=== PATIENT | female | born 1960 | race Caucasian/White ===

== ENCOUNTER 2020-08-07 14:37 | Outpatient (CLI) | payer MEDICARE, SELFPAY ==
[2020-08-07] VITALS (7 sets, daily range): PULSE 78–114; O2SAT 86–94
--- NOTE | 2020-08-07 16:10 | HOMEO2EVAL ---
Home Oxygen Evaluation RC: Home Oxygen (O2) Evaluation Start: 08/07/20 16:04 Freq: ONCE Status: Active Protocol: RPE Activity Type Activity Date Activity User E-Sign Co-Sign Detail Recorded Client Recorded Date Recorded By Document 08/07/20 15:30 DEJA [email or web address] 08/07/20 16:10 DEJA Document 08/07/20 15:33 DEJA [email or web address] 08/07/20 16:10 DEJA Document 08/07/20 15:35 DEJA [email or web address] 08/07/20 16:10 DEJA Document 08/07/20 15:36 DEJA [email or web address] 08/07/20 16:10 DEJA Document 08/07/20 15:38 DEJA [email or web address] 08/07/20 16:10 DEJA Document 08/07/20 15:40 DEJA [email or web address] 08/07/20 16:10 DEJA Document 08/07/20 15:50 DEJA [email or web address] 08/07/20 16:10 DEJA 08/07/20 08/07/20 08/07/20 15:30 15:33 15:35 Home O2 Evaluation Test Phase Resting Resting Resting Oxygen Delivery Room Air Nasal Cannula Nasal Cannula Oxygen Flow Rate (L/min) 1 2 Pulse Oximetry (90-100 %) 87 L 87 L 93 Pulse Rate (60-100 beats/min) 86 Ambulation Distance (feet) Home Oxygen Evaluation Comments Treatment Charges O2 Evaluation 08/07/20 08/07/20 08/07/20 15:36 15:38 15:40 Home O2 Evaluation Test Phase Exercise Exercise Exercise Oxygen Delivery Nasal Cannula Nasal Cannula Nasal Cannula Oxygen Flow Rate (L/min) 2 3 4 Pulse Oximetry (90-100 %) 86 L 87 L 89 L Pulse Rate (60-100 beats/min) 110 H 114 H Ambulation Distance (feet) 600 Home Oxygen Evaluation Comments Treatment Charges 08/07/20 15:50 Home O2 Evaluation Test Phase Resting Oxygen Delivery Nasal Cannula Oxygen Flow Rate (L/min) 2 Pulse Oximetry (90-100 %) 94 Pulse Rate (60-100 beats/min) 78 Ambulation Distance (feet) Home Oxygen Evaluation Comments PT REQUIRES 2L AT REST AND 4L WITH ACTIVITY Treatment Charges
--- NOTE | 2020-08-16 14:55 | WPDPFTINT ---
PFT Interpretation PFT Interpretation: DOS: 08/07/2020 REQUESTING: Gayle Reyna NP REASON FOR TESTING: COPD PULMONARY FUNCTION TESTS Results are reproducible and reliable. Spirometry: FEV1 extremely decreased 43% predicted, 1.06 L. FVC is normal 82% predicted. Decreased FEV1% consistent with airflow obstruction. No change after bronchodilator administration Lung volumes: TLC 124%, mild hyperinflation. increased RV 193% consistent with severe air trapping. Increased airway resistance. Diffusion: DLCO 41% severely reduced. Flow volume loop: Scooping of the expiratory limb IMPRESSION: Extremely severe obstructive ventilatory impairment with mild hyperinflation, severe air trapping, increased airway resistance and severe decrease in diffusion. No change with bronchodilator. This pattern may be consistent with emphysema. Lack of response to bronchodilator should not preclude use if clinically indicated. Narcisa Davidson MD
== END 2020-08-07 14:38 | disposition home or self-care (01) ==
PROVIDERS: PCP Internal Medicine; Visit Provider Nurse Practitioner
DX: J44.9 Chronic obstructive pulmonary disease, unspecified (principal)
CPT/HCPCS: 94060; 94618; 94726; 94729

== ENCOUNTER 2021-01-22 17:57 | Inpatient (IN) | payer MEDICARE, SELFPAY ==
[2021-01-22] VITALS (12 sets, daily range): BP systolic 123–153; BP diastolic 60–92; PULSE 93–107; RESP 15–23; TEMP 36.3–36.6; O2SAT 84–100; BMI 33.7
--- NOTE | 2021-01-22 18:04 | ED.GENADULT ---
HPI - General Adult General Chief complaint: Recheck/Abnormal Lab/Rx <Kia Salazar PA-C - Last Filed: 01/22/21 19:56> Stated complaint: anemic <Kia Salazar PA-C - Last Filed: 01/22/21 19:56> Time Seen by Provider: 01/22/21 18:03 <Kia Salazar PA-C - Last Filed: 01/22/21 19:56> Source: patient and family <Kia Salazar PA-C - Last Filed: 01/22/21 19:56> Mode of arrival: ambulatory <Kia Salazar PA-C - Last Filed: 01/22/21 19:56> Limitations: no limitations <Kia Salazar PA-C - Last Filed: 01/22/21 19:56> History of Present Illness HPI narrative: Is a 60-year-old female who is told to come to emergency room by her renal doctor due to abnormal labs. She has significant anemia. Patient is on 4 L/min nasal cannula at baseline for chronic lung disease, she states that she has been more short of breath in the last week and unable to walk across the room. She was started on Xarelto 45 days ago for A. fib and told to stop that this morning. She has had some darker stools in the past but for the past several days they have been normal in color. <Kia Salazar PA-C - Last Filed: 01/22/21 19:56> Onset (ago): day(s) <Kia Salazar PA-C - Last Filed: 01/22/21 19:56> Severity: moderate <DELMA Reyes Last Filed: 01/22/21 19:56> Associated symptoms: denies other symptoms <Kia Salazar PA-C - Last Filed: 01/22/21 19:56> Treatments prior to arrival: none <DELMA Reyes Last Filed: 01/22/21 19:56> Related Data Allergies/adverse reactions: Allergies Allergy/AdvReac Type Severity Reaction Status Date / Time Penicillins Allergy Rash Verified 01/22/21 18:11 <Kia Salazar PA-C - Last Filed: 01/22/21 19:56> Review of Systems Review of Systems: All systems reviewed & are unremarkable except as noted in HPI and below <Kia Salazar PA-C - Last Filed: 01/22/21 19:56> [facility] Social History Social History: Social History (Updated 01/22/21 @ 19:50 by Kia Salazar PA-C) Smoking status: Former smoker Alcohol intake: never Substance use: never Living arrangements: with family <Kia Salazar PA-C - Last Filed: 01/22/21 19:56> Exam Const: General: no acute distress, alert and ill appearing (pale) chronically <Kia Salazar PA-C - Last Filed: 01/22/21 19:56> HENMT: Head: normal to inspection <Kia Salazar PA-C - Last Filed: 01/22/21 19:56> Eyes: Conjunctivae: conjunctivae normal <Kia Salazar PA-C - Last Filed: 01/22/21 19:56> Pupils: Equal, round and reactive pupils present <Kia Salazar PA-C - Last Filed: 01/22/21 19:56> Resp: Auscultation: clear to auscultation bilaterally <Kia Salazar PA-C - Last Filed: 01/22/21 19:56> Other: dyspnea <Kia Salazar PA-C - Last Filed: 01/22/21 19:56> Cardio: Rate: tachycardic (105) <Kia Salazar PA-C - Last Filed: 01/22/21 19:56> Rhythm: regular rhythm <Kia Salazar PA-C - Last Filed: 01/22/21 19:56> GI: GI Palp: Yes Soft to palpation <Kia Salazar PA-C - Last Filed: 01/22/21 19:56> Rectal Exam: visual inspection normal, normal sphincter tone and heme negative stool <Kia Salazar PA-C - Last Filed: 01/22/21 19:56> Skin: General skin exam: normal color <DELMA Reyes Last Filed: 01/22/21 19:56> Neuro: General: patient oriented x3 <DELMA Reyes Last Filed: 01/22/21 19:56> Extrem: General: normal to inspection <Kia Salazar PA-C - Last Filed: 01/22/21 19:56> Course Course Emergency Course: Spoke with Dr. Tilley, he will see pt in am for evaluation of possible GI bleed. There is no clear explanation for anemia. Pts renal labs are normal. Spoke with Dr. Esqueda will order 2 units of blood and admit to the medical floor. Plan discussed with patient. <DELMA Reyes Last Filed: 01/22/21 19:56> HISTORIOGRAPHER/PA Physician Supervision For this patient en
[2021-01-22 18:33] LABS: Basophils Percent Auto 0.3 % (0.2-1.2); Eosinophils Absolute Auto 0.1 K/mm3 (0-0.3); Eosinophils Percent Auto 1.1 % (0-4.4); Immature Granulocyte Absolute 0.03 K/mm3 (0.00-0.031); Immature Granulocyte Percent A 0.3 % (0-0.5); Lymphocytes Absolute Auto 1.34 K/mm3 (0.9-3.2); Lymphocytes Percent Auto 14.1 % (18.3-44.2); Mean Corpuscular HGB Conc 27.5 g/dl (32-36); Mean Corpuscular Hemoglobin 22.1 pg (26-34); Mean Corpuscular Volume 80.2 fl (80-100); Mean Platelet Volume 10.5 fl (7.4-10.4); Monocytes Absolute Auto 0.6 K/mm3 (0.1-0.6); Monocytes Percent Auto 6.6 % (2.6-8.5); Neutrophils Absolute Auto 7.4 K/mm3 (1.3-6.7); Neutrophils Percent Auto 77.6 % (45.5-73.1); Platelet Count Result 395 k/mm3 (150-375); Red Blood Count 2.58 M/mm3 (4.2-5.4); Red Cell Distribution Width 16.2 % (11.5-14.5); White Blood Count 9.5 K/mm3 (4.5-10.0)
[2021-01-22 18:39] LABS: INR 1.1; Prothrombin Time 15.2 Seconds (11.1-14.7)
[2021-01-22 18:42] LABS: Hematocrit 20.7 % (37.0-47.0); Hemoglobin 5.7 g/dL (12.0-15.0)
[2021-01-22 18:43] LABS: Hypochromasia 3+ (NORMAL); Platelet Estimate Adequate (Adequate)
[2021-01-22 18:44] LABS: Alanine Aminotransferase 9 U/L (4-35); Albumin Level 4.5 g/dL (3.5-5.1); Alkaline Phosphatase 84 U/L (38-126); Anion Gap 7 mmol/L (8-16); Aspartate Amino Transferase 24 U/L (14-36); Bilirubin,Total 0.1 mg/dL (0.2-1.3); Blood Urea Nitrogen 7 mg/dL (7-17); Calcium 9.1 mg/dL (8.4-10.2); Carbon Dioxide 33 mmol/L (22-30); Chloride 97 mmol/L (98-107); Estimated CRCL calculation 76 ml/min; Estimated Glomerular Filt Rate > 60; Glucose 98 mg/dL (65-105); Potassium 4.1 mmol/L (3.4-5.0); Sodium 137 mmol/L (137-145)
--- NOTE | 2021-01-22 18:49 | ECG_ITS ---
Measurements Intervals [place] Rate: 96 P: 76 AK: 171 QRS: 56 QRSD: 74 T: 50 QT: 302 QTc: 382 Interpretive Statements SINUS RHYTHM BASELINE ARTIFACT- I, III, AVL NORMAL ECG Electronically Signed On 01-22-2021 20:12:13 CDT by Vasquez Farley D.O.
--- NOTE | 2021-01-22 20:20 | PM.IMHP ---
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 The patient has been on Xarelto for approximately 1 month now and mentions that over the past week she has had worsening shortness of breath with minimal exertion as well as generalized weakness. She has also experience intermittent chest tightness but denies any overt chest pain. She denies any dizziness, diaphoresis, or passing out. The patient did notice some intermittent black stools a few weeks ago but has not noticed any since then. She denies any bright red rectal bleeding, nausea, vomiting, or him at to me C[facility]. Her last colonoscopy was in 2012 and she tells me she is due for another one. The patient has no previous history of GI bleeding and is not known to have diverticular disease. Tonight in the emergency room the patient was found to have hemoglobin hematocrit of 5.7 and 20.7. ER provider has ordered blood transfusion and has consulted gastroenterology who will evaluate the patient in the morning. The patient denies any other significant symptoms at this time. Review of Systems Review of Systems: All systems reviewed & are unremarkable except as noted in HPI and below PMFSH Past Medical History Medical History (Updated 01/22/21 @ 20:33 by Kale Esqueda MD) A-fib Chronic respiratory failure COPD (chronic obstructive pulmonary disease) Diabetes 1.5, managed as type 2 Hypothyroid Stage 3 chronic kidney disease Surgical History Surgical History (Updated 01/22/21 @ 20:26 by Kale Esqueda MD) History of appendectomy History of section, classical Social History Social History (Updated 01/22/21 @ 19:50 by Kia Salazar PA-C) Smoking status: Former smoker Alcohol intake: never Substance use: never Living arrangements: with family Comments Past family medical history is reviewed and is negative for any inflammatory bowel disease, diverticular disease or other GI related illnesses. Meds Home Medications and Allergies Home Medications Medication Instructions Recorded Confirmed Type albuterol mcg INHALATION 01/22/21 History amitriptyline 01/22/21 History atorvastatin 01/22/21 History bumetanide 01/22/21 History cholecalciferol (vitamin D3) 01/22/21 01/22/21 History digoxin 01/22/21 History diltiazem HCl PO 01/22/21 History fluticasone furoate-vilanterol INHALATION 01/22/21 History [Breo Ellipta] levothyroxine 01/22/21 History magnesium oxide mg 01/22/21 History metformin mg 01/22/21 History oxycodone-acetaminophen 01/22/21 History sertraline mg 01/22/21 History tiotropium bromide [Spiriva INHALATION 01/22/21 History Respimat] tizanidine mg 01/22/21 History Allergies Allergy/AdvReac Type Severity Reaction Status Date / Time Penicillins Allergy Rash Verified 01/22/21 18:11 Vital Signs Vital Signs - 24 hr 01/22/21 18:04 Temperature 36.6 C Pulse Rate 105 H Respiratory Rate 18 Blood Pressure 134/79 Pulse Oximetry 99 Exam Const: General: cooperative, alert, awake and other (Pale appearing) Nutritional Appearance: well nourished Orientation/consciousness: patient oriented x3 HENMT: Head: normal to inspection General nose exam: Normal external nose present Face and sinus: normal facial exam Mouth: Yes Normal oral and palatal mucosa present and Yes oropharynx normal Eyes: Pupils: Equal, round and reactive pupils present EOM: EOMs intact bilaterally Neck: Neck: supple and no JVD Thyroid: thyroid normal Lymphatic: lymphadenopathy not noted Resp: Ef
[2021-01-22] MEDS: SODIUM CHLORIDE 0.9% IV 250 ML 30 ML IV CONT (21:17)
[2021-01-22 21:30] LABS: Reticulocyte Hemoglobin Conten 17.7 pg (28.2-35.7); Reticulocyte Percent 3.96 % (0.7-4.3)
[2021-01-22 21:40] LABS: Bilirubin,Total 0.2 mg/dL (0.2-1.3); Lactate Dehydrogenase 310 U/L (313-618)
[2021-01-22 21:48] LABS: Transferrin 376 mg/dL (206-381)
[2021-01-22 21:59] LABS: Iron 23 ug/dL (37-170)
[2021-01-22 22:13] LABS: Percent Iron Saturation 5 % (20-50)
--- NOTE | 2021-01-22 22:36 | ADMGEN ---
This patient, Lulu Elam, was admitted to Medical Room 245-. Patient/family oriented to hospital policies and general routines including ID bracelet, bed and alarms, visiting hours, pain management, procedures, bathroom and other care routines, personal items, smoking policy, room service/diet, and visiting hours. Information on how to activate the Rapid Response Team has been discussed. Patient/Family are encouraged to report perceived risks to care and to ask questions if they do not understand what they are told or what they should do.
[2021-01-22 22:41] LABS: Ferritin 5.13 ng/mL (11.1-264)
[2021-01-22 23:08] LABS: Glucose Point of Care 185 (65-105)
[2021-01-23] VITALS (20 sets, daily range): BP systolic 131–163; BP diastolic 53–79; PULSE 81–97; RESP 16–20; TEMP 36–36.8; O2SAT 93–100
[2021-01-23] MEDS: ALBUTEROL SULFATE NEB 2.5 MG/0.5 ML INH 5 MG INHALATION ×4 (01:03→21:52)
[2021-01-23 06:34] LABS: Basophils Percent Auto 0.6 % (0.2-1.2); Eosinophils Absolute Auto 0.1 K/mm3 (0-0.3); Eosinophils Percent Auto 1.1 % (0-4.4); Hematocrit 27.1 % (37.0-47.0); Hemoglobin 8.2 g/dL (12.0-15.0); Immature Granulocyte Absolute 0.02 K/mm3 (0.00-0.031); Immature Granulocyte Percent A 0.3 % (0-0.5); Lymphocytes Absolute Auto 1.25 K/mm3 (0.9-3.2); Lymphocytes Percent Auto 17.2 % (18.3-44.2); Mean Corpuscular HGB Conc 30.3 g/dl (32-36); Mean Corpuscular Hemoglobin 24.7 pg (26-34); Mean Corpuscular Volume 81.6 fl (80-100); Mean Platelet Volume 10.1 fl (7.4-10.4); Monocytes Absolute Auto 0.5 K/mm3 (0.1-0.6); Monocytes Percent Auto 7.3 % (2.6-8.5); Neutrophils Absolute Auto 5.3 K/mm3 (1.3-6.7); Neutrophils Percent Auto 73.5 % (45.5-73.1); Platelet Count Result 354 k/mm3 (150-375); Red Blood Count 3.32 M/mm3 (4.2-5.4); Red Cell Distribution Width 15.3 % (11.5-14.5); White Blood Count 7.3 K/mm3 (4.5-10.0)
[2021-01-23 06:43] LABS: Anion Gap 5 mmol/L (8-16); Blood Urea Nitrogen 8 mg/dL (7-17); Calcium 8.9 mg/dL (8.4-10.2); Carbon Dioxide 31 mmol/L (22-30); Chloride 102 mmol/L (98-107); Estimated CRCL calculation 77 ml/min; Estimated Glomerular Filt Rate > 60; Glucose 110 mg/dL (65-105); Potassium 3.9 mmol/L (3.4-5.0); Sodium 138 mmol/L (137-145)
[2021-01-23] MEDS: CHOLECALCIFEROL 1,000 UNITS TABLET 5000 UNITS PO (07:41)
[2021-01-23] MEDS: LEVOTHYROXINE SODIUM 100 MCG TABLET PO (07:41)
[2021-01-23] MEDS: metFORMIN HCL 500 MG TABLET PO ×2 (07:41→16:54)
[2021-01-23 07:59] LABS: Glucose Point of Care 114 (65-105)
[2021-01-23] MEDS: PANTOPRAZOLE SODIUM IV 40 MG VIAL IV PUSH ×2 (10:50→20:31)
--- NOTE | 2021-01-23 12:01 | PM.IMPN ---
Progress Note: A&P Assessment and Plan (1) Symptomatic anemia: Code(s): D64.9 - Anemia, unspecified Status: Acute Assessment and Plan: -Hgb 5.7 on admission and now is 8.2 -status post 2 units of blood 01/22 and 01/23 -she was symptomatic on arrival but that has resolved -suspect due to GI bleed, plan for colonoscopy and EGD in the morning -start Protonix 40 mg b.i.d. -anemia labs favor iron deficiency anemia -will start iron after colonoscopy is completed. She received blood today and yesterday, no need for IV iron today. -pheripheral smear conssistent with iron deficiency. -Pt on Xarelto for stroke prevention for afib (2) Thrombocytosis: Code(s): D47.3 - Essential (hemorrhagic) thrombocythemia Status: Acute Assessment and Plan: Resolved (3) Diabetes 1.5, managed as type 2: Code(s): E13.9 - Other specified diabetes mellitus without complications Status: Chronic Assessment and Plan: Last glucose 114 -Continue metformin and SSI (4) Stage 3 chronic kidney disease: Qualifiers: Chronic kidney disease stage 3 subtype: unspecified whether 3a or 3b Qualified Code(s): N18.30 - Chronic kidney disease, stage 3 unspecified Code(s): N18.30 - Chronic kidney disease, stage 3 unspecified Status: Chronic Assessment and Plan: GFR >60 today -She follows with a kidney specalist (5) Hypothyroid: Qualifiers: Hypothyroidism type: unspecified Qualified Code(s): E03.9 - Hypothyroidism, unspecified Code(s): E03.9 - Hypothyroidism, unspecified Status: Chronic Assessment and Plan: TSH normal. Continue levothyroxine. (6) A-fib: Qualifiers: Atrial fibrillation type: unspecified chronic Qualified Code(s): I48.20 - Chronic atrial fibrillation, unspecified Code(s): I48.91 - Unspecified atrial fibrillation Status: Chronic Assessment and Plan: Currently in sinus rhythm. -We will hold Xarelto secondary to likely GI bleed. (7) COPD (chronic obstructive pulmonary disease): Qualifiers: COPD type: unspecified COPD Qualified Code(s): J44.9 - Chronic obstructive pulmonary disease, unspecified Code(s): J44.9 - Chronic obstructive pulmonary disease, unspecified Status: Chronic Assessment and Plan: Continue bronchodilators and home o2 (8) Chronic respiratory failure: Qualifiers: Respiratory failure complication: unspecified whether with hypoxia or hypercapnia Qualified Code(s): J96.10 - Chronic respiratory failure, unspecified whether with hypoxia or hypercapnia Code(s): J96.10 - Chronic respiratory failure, unspecified whether with hypoxia or hypercapnia Status: Chronic Assessment and Plan: The patient is currently on her home 4 L of oxygen. - Continue oxygen supplementation as needed. Time Spent With Patient Time with patient: 25 - 35 minutes Subjective Date/time seen: 01/23/21 12:01 Interval history: Pt is a 60-year-old female here for anemia. Patient seen today and is feeling much better compared to yesterday. She feels stronger and not as short of breath. She has some chronic shortness of breath but in the last week or so it has been getting a lot worse. Today it is better. She has not had any further dark stools since about a week ago in no abdominal pain, chest pain or dizziness. She had COVID-19 in October. No vaginal bleeding or other blood loss. She is tolerating the clear liquids at this time. She is on xarelto due to afib. Review of Systems Review of Systems: All systems reviewed & are unremarkable except as noted in HPI and below Exam Narrative: Exam Narrative: General: Well developed well nourished patient in NAD HEENT: normocephalic Neck: supple Neuro: Alert and oriented x4 CV:RRR Resp:Decreased breath sounds bilaterally, o2 applied. No conversational dys
[2021-01-23 12:35] LABS: Glucose Point of Care 108 (65-105)
[2021-01-23 13:19] LABS: Hematocrit 30.1 % (37.0-47.0); Hemoglobin 9.2 g/dL (12.0-15.0)
[2021-01-23] MEDS: BISACODYL 5 MG TABLET EC 20 MG PO (16:53)
[2021-01-23] MEDS: polyethylene glycoL 3350 238 GM BOTTLE PO (16:54)
--- NOTE | 2021-01-23 17:05 | WPDGICN ---
Assessment and Plan Assessment and plan (1) Symptomatic anemia: Code(s): D64.9 - Anemia, unspecified Status: Acute Assessment and Plan: got blood transfusion and supportive care we will proceed with egd and colonoscopy tomorrow to assess if gi blood loss in setting of xarelto. (2) Diabetes 1.5, managed as type 2: Code(s): E13.9 - Other specified diabetes mellitus without complications Status: Chronic Assessment and Plan: medical management (3) Stage 3 chronic kidney disease: Qualifiers: Chronic kidney disease stage 3 subtype: unspecified whether 3a or 3b Qualified Code(s): N18.30 - Chronic kidney disease, stage 3 unspecified Code(s): N18.30 - Chronic kidney disease, stage 3 unspecified Status: Chronic Assessment and Plan: at baseline, continue to monitor (4) A-fib: Qualifiers: Atrial fibrillation type: unspecified chronic Qualified Code(s): I48.20 - Chronic atrial fibrillation, unspecified Code(s): I48.91 - Unspecified atrial fibrillation Status: Chronic Assessment and Plan: Currently in sinus rhythm. We will hold Xarelto (5) COPD (chronic obstructive pulmonary disease): Qualifiers: COPD type: unspecified COPD Qualified Code(s): J44.9 - Chronic obstructive pulmonary disease, unspecified Code(s): J44.9 - Chronic obstructive pulmonary disease, unspecified Status: Chronic Assessment and Plan: Continue bronchodilators. (6) Chronic respiratory failure: Qualifiers: Respiratory failure complication: unspecified whether with hypoxia or hypercapnia Qualified Code(s): J96.10 - Chronic respiratory failure, unspecified whether with hypoxia or hypercapnia Code(s): J96.10 - Chronic respiratory failure, unspecified whether with hypoxia or hypercapnia Status: Chronic Assessment and Plan: The patient is currently on her home 4 L of oxygen. Additional Plan The patient will likely need at least 2 nights of inpatient medical therapy for her symptomatic anemia and comorbid conditions listed above. Date of service was January 22, 2021 at approximately 7:45 p.m.. GI Consult Note Consult date/time: 01/23/21 17:05 Reason for consult: symptomatic anemia HPI: Lulu Elam is a 60 year old female with history of diabetes, paroxysmal atrial fibrillation started on Xarelto about 1.5 month ago, also chronic respiratory failure on 4 L of oxygen at home, COPD, CKD stage III admitted after blood work revealed anemia and advised by her functional consultant to come to the hospital. She says that last 2 weeks with fatigue and more shortness of breath than usual with minimal exertion (she has been feeling tired since had COVID late last year). She denies any bright red rectal bleeding, nausea, vomiting. Her last colonoscopy was in 2012, denies previous history of GI bleeding. Labs in ER reviewed, hemoglobin 5.7, received blood transfusion. Denies overt gib, never had EGD and not using nsaid's. Review of Systems Constitutional: Constitutional: Reports fatigue Eyes: Eyes: Reports no additional eye complaints ENT: Reports system reviewed and no additional complaints, except as documented Cardiovascular: Cardiovascular: Denies chest pain Respiratory: Respiratory: Reports dyspnea on exertion Gastrointestinal: Gastrointestinal: Denies hematochezia, Denies nausea and Denies hematemesis Genitourinary: Genitourinary: Denies hematuria Musculoskeletal: Musculoskeletal: Reports no additional musculoskeletal complaints Neurologic: Reports system reviewed and no additional complaints, except as documented Psychiatric: Psychiatric: Reports no additional psychiatric complaints PMFSH Past Medical History Medical History (Updated 01/22/21 @ 20:33 by Kale Esqueda MD) A-fib Chronic respiratory failure COPD (chronic obstructive pulmonary disease) Diabetes 1.5, managed as type 2 Hypothyroid Stage 3 ch
[2021-01-23 17:51] LABS: Glucose Point of Care 144 (65-105)
[2021-01-23 18:09] LABS: IFOB Positive Control Positive; Immunochemical Fecal Occult Bl Negative (N)
[2021-01-23] MEDS: TIZANIDINE HCL 4 MG TABLET PO (20:30)
[2021-01-23] MEDS: SERTRALINE HCL 50 MG TABLET 100 MG PO (20:30)
[2021-01-23] MEDS: oxyCODONE/ACETAMINOPHEN (*CRX) 5-325 MG TABLET 1 TABLET PO (20:30)
[2021-01-23] MEDS: ATORVASTATIN 40 MG TABLET PO (20:30)
[2021-01-23] MEDS: SODIUM CHLORIDE NASAL GEL 14.1 GM 1 APPLIC NASAL (20:31)
[2021-01-23 21:39] LABS: Glucose Point of Care 120 (65-105)
[2021-01-23] MEDS: ONDANSETRON INJ 4 MG/2 ML VIAL IV PUSH (22:38)
[2021-01-24] VITALS (16 sets, daily range): BP systolic 113–147; BP diastolic 54–82; PULSE 79–98; RESP 14–20; TEMP 36–36.6; O2SAT 93–100
[2021-01-24] MEDS: ALBUTEROL SULFATE NEB 2.5 MG/0.5 ML INH 5 MG INHALATION ×2 (02:21→08:03)
[2021-01-24] MEDS: MAGNESIUM CITRATE 300 ML BTL PO (04:14)
[2021-01-24 05:35] LABS: Hematocrit 30.9 % (37.0-47.0); Hemoglobin 9.2 g/dL (12.0-15.0)
[2021-01-24] MEDS: LEVOTHYROXINE SODIUM 100 MCG TABLET PO (05:37)
[2021-01-24 05:47] LABS: Anion Gap 5 mmol/L (8-16); Blood Urea Nitrogen 8 mg/dL (7-17); Calcium 9.2 mg/dL (8.4-10.2); Carbon Dioxide 32 mmol/L (22-30); Chloride 101 mmol/L (98-107); Estimated CRCL calculation 77 ml/min; Estimated Glomerular Filt Rate > 60; Glucose 117 mg/dL (65-105); Potassium 3.8 mmol/L (3.4-5.0); Sodium 138 mmol/L (137-145)
[2021-01-24 08:32] LABS: Glucose Point of Care 114 (65-105)
--- NOTE | 2021-01-24 08:47 | WPDANESEPPF ---
Anes - Initial Pre Proc Eval Procedure: Operation Date: 01/24/21 14:15 Proposed Procedures p Esophagogastroduodenoscopy & Colonoscopy - Sheldon Tilley MD Date/Time: 01/24/21 08:47 Surgeon: Josefa Ibarra PA-C Pre Op Diagnosis: anemia, r/o GI bleed Patient Data Age: 60 Gender: F Height: 1.68 m Weight: 94.9 kg Last Vital Signs Temp 36.0 C L 01/24/21 05:57 Pulse 83 01/24/21 08:09 Resp 16 01/24/21 08:09 BP 140/82 01/24/21 05:57 Pulse Ox 93 01/24/21 08:10 Allergies Allergy/AdvReac Type Severity Reaction Status Date / Time Penicillins Allergy Rash Verified 01/22/21 18:11 Home Medications Medication Instructions Recorded Confirmed Type albuterol 90 mcg INHALATION QID PRN 01/22/21 01/22/21 History amitriptyline 50 mg PO HS 01/22/21 01/22/21 History atorvastatin 40 mg PO HS 01/22/21 01/22/21 History bumetanide 1 mg PO QMWF 01/22/21 01/22/21 History buspirone 5 mg PO TID 01/22/21 01/22/21 History cholecalciferol (vitamin D3) 5,000 unit PO DAILY 01/22/21 01/22/21 History digoxin 125 mcg PO DAILY 01/22/21 01/22/21 History diltiazem HCl 300 mg PO DAILY 01/22/21 01/22/21 History fluticasone furoate-vilanterol See Rx Instructions .ROUTE .COMPLEX 01/22/21 01/22/21 History [Breo Ellipta] levothyroxine 100 mcg PO DAILY 01/22/21 01/22/21 History magnesium oxide 400 mg PO BID 01/22/21 01/22/21 History metformin 500 mg PO BID 01/22/21 01/22/21 History oxycodone-acetaminophen 5 - 325 tablet PO Q8H PRN 01/22/21 01/22/21 History sertraline 100 mg PO HS 01/22/21 01/22/21 History tiotropium bromide [Spiriva 2.5 mcg INHALATION BID 01/22/21 01/22/21 History Respimat] tizanidine 4 mg PO BID PRN 01/22/21 01/22/21 History Laboratory Tests 01/23/21 01/23/21 01/23/21 12:29 12:40 16:59 Hgb 9.2 g/dL L g/dL (12.0-15.0) Hct 30.1 % L % (37.0-47.0) Sodium Potassium Chloride Carbon Dioxide Anion Gap BUN Creatinine Estim Creat Clear Calc Estimated GFR Glucose POC Capillary Glucose 108 mg/dl mg/dl 144 mg/dl H mg/dl (65-105) (65-105) Calcium Stl Occult Blood (IFOB) 01/23/21 01/23/21 01/24/21 17:34 20:37 05:14 Hgb 9.2 g/dL L g/dL (12.0-15.0) Hct 30.9 % L % (37.0-47.0) Sodium Potassium Chloride Carbon Dioxide Anion Gap BUN Creatinine Estim Creat Clear Calc Estimated GFR Glucose POC Capillary Glucose 120 mg/dl H mg/dl (65-105) Calcium Stl Occult Blood (IFOB) Negative (N) 01/24/21 01/24/21 05:14 08:29 Hgb Hct Sodium 138 mmol/L mmol/L (137-145) Potassium 3.8 mmol/L mmol/L (3.4-5.0) Chloride 101 mmol/L mmol/L (98-107) Carbon Dioxide 32 mmol/L H mmol/L (22-30) Anion Gap 5 mmol/L L mmol/L (8-16) BUN 8 mg/dL mg/dL (7-17) Creatinine 0.80 mg/dL mg/dL (0.7-1.0) Estim Creat Clear Calc 77 ml/min ml/min Estimated GFR > 60 (59 - ) Glucose 117 mg/dL H mg/dL (65-105) POC Capillary Glucose 114 mg/dl H mg/dl (65-105) Calcium 9.2 mg/dL mg/dL (8.4-10.2) Stl Occult Blood (IFOB) Patient hx anesthesia problems: none Family hx anesthesia problems: none [facility] Past Medical History Medical History (Updated 01/24/21 @ 08:49 by Chavez Moran MD) A-fib Anxiety Chronic narcotic use Chronic respiratory failure COPD (chronic obstructive pulmonary disease) COPD (chronic obstructive pulmonary disease) Depression Diabetes 1.5, managed as type 2 Hypothyroid Obesity Stage 3 chronic kidney disease Surgical History Surgical History (Updated 01/22/21 @ 20:26 by Kale Esqueda MD) History of appendectomy
[2021-01-24] MEDS: PANTOPRAZOLE SODIUM IV 40 MG VIAL IV PUSH (08:51)
[2021-01-24 11:36] LABS: Glucose Point of Care 110 (65-105)
--- NOTE | 2021-01-24 12:46 | PC.NURSE ---
Report called to [facility].
--- NOTE | 2021-01-24 13:05 | PC.NURSE ---
To GI Lab via stretcher. Voiding without difficulty.
[2021-01-24] MEDS: LACTATED RINGERS 1,000 ML 150 ML IV CONT (13:27)
[2021-01-24 13:30] LABS: Glucose Point of Care 114 (65-105)
[2021-01-24] MEDS: BENZOCAINE (*SP) 60 ML SPRAY CAN (HURRICAINE) 1 SPRAY MUCOUS MEM (14:23)
--- NOTE | 2021-01-24 15:14 | PM.DS ---
DS: Admitting Diagnosis Admitting Diagnosis Admitting Diagnosis: Anemia DS: Discharge Diagnosis Discharge Diagnosis (1) Symptomatic anemia: Code(s): D64.9 - Anemia, unspecified Status: Acute Assessment and Plan: Date of Admission 01/22/21 Date of Discharge/DOS 01/24/21 Ms. Elam is a pleasant 60yo F with diabetes, paroxysmal atrial fibrillation on long-term anticoagulation with Xarelto, hypothyroidism, chronic respiratory failure on 4 L of oxygen at all times at home, COPD, CKD who presented to the ED for evaluation at the recommendation of her jewelry sales representative due to low Hgb on outpatient labs. Patient described over the last 1 week she has developed worsening shortness breath with minimal exertion and generalized weakness. Hgb on arrival was 5.7 and she received 2 units packed RBC 01/22, 01/23. Hgb remains low but stable today at 9.2. She describes to me that she has been establishing care with Dr. De Souza for further evaluation and management of anemia. She denied any noticeable blood in stool. She was evaluated by GI, Dr. Murdock, and underwent EGD and colonoscopy 01/24/21 detailed below. One AVM in the small bowel may partially explain blood loss but it does also appear she may have a component of iron deficiency anemia. Her home Xarelto was held briefly while she was evaluated for any possible GI blood loss. Given her EGD and colonoscopy findings, okay to resume Xarelto today and continue to monitor for any bleeding. Her shortness of breath and weakness may have been related to profound anemia which is now improved. She is started on oral iron supplementation at discharge and encouraged to keep her follow-up appointment with Dr. De Souza. She is hemodynamically stable for discharge on 01/24/2021 with instructions to follow-up with PCP, repeat blood work Friday to monitor Hgb, and keep appointment with Dr. De Souza. Colonoscopy 01/24/21: Three polyps in ascending colon without bleeding were all completely excised; a few diverticula without diverticulitis or bleeding; small internal hemorrhoid in rectum without bleeding. EGD 01/24/21: One single AVM in small bowel was cauterized/ablated (probably can partially explain blood loss). Hiatal hernia in esophagus. Repeat colonoscopy in 5 years because of the polyps removed today. -Hgb 5.7 on admission and now is 9.2 -status post 2 units of blood 01/22 and 01/23 -she was symptomatic on arrival but that has resolved -anemia labs favor iron deficiency anemia. Start oral iron supplementation and follow up with Dr. De Souza. -Pt on Xarelto for stroke prevention for afib - okay to resume (2) Thrombocytosis: Code(s): D47.3 - Essential (hemorrhagic) thrombocythemia Status: Acute Assessment and Plan: Resolved (3) Diabetes 1.5, managed as type 2: Code(s): E13.9 - Other specified diabetes mellitus without complications Status: Chronic Assessment and Plan: Blood sugars appropriate, continue metformin. Follow-up with PCP. (4) Stage 3 chronic kidney disease: Qualifiers: Chronic kidney disease stage 3 subtype: unspecified whether 3a or 3b Qualified Code(s): N18.30 - Chronic kidney disease, stage 3 unspecified Code(s): N18.30 - Chronic kidney disease, stage 3 unspecified Status: Chronic Assessment and Plan: Stable. Follow-up with her established jewelry sales representative CAESAR. (5) Hypothyroid: Qualifiers: Hypothyroidism type: unspecified Qualified Code(s): E03.9 - Hypothyroidism, unspecified Code(s): E03.9 - Hypothyroidism, unspecified Status: Chronic Assessment and Plan: TSH normal. Continue levothyroxine. (6) A
[2021-01-24 15:42] LABS: Glucose Point of Care 95 (65-105)
--- NOTE | 2021-01-24 15:45 | PC.NURSE ---
Returned from GI LAB via stretcher.
[2021-01-24 16:57] LABS: Glucose Point of Care 99 (65-105)
[2021-01-24] MEDS: metFORMIN HCL 500 MG TABLET PO (17:52)
[2021-01-28 22:31] LABS: Haptoglobin 206 mg/dL (43-212)
== END 2021-01-24 18:30 | disposition home or self-care (01) | DRG 812 ==
LOC: ANHED 19:56 → ANH2MED 01-23 07:10
PROVIDERS: Emergency Medicine; Internal Medicine Gastroenterology; Physician Assistant; Admitting Provider Family Medicine; Emergency Provider Emergency Medicine; PCP Internal Medicine; Visit Provider Physician Assistant
PROC: 0DJ08ZZ Inspection of Upper Intestinal Tract, Via Natural or Artificial Opening Endoscopic (ICD-10-PCS; CPT 43235; principal; 2021-01-24 14:15)
DX: D50.9 Iron deficiency anemia, unspecified (principal); J96.10 Chronic respiratory failure, unspecified whether with hypoxia or hypercapnia; K31.819 Angiodysplasia of stomach and duodenum without bleeding; K44.9 Diaphragmatic hernia without obstruction or gangrene; K63.5 Polyp of colon; K57.30 Diverticulosis of large intestine without perforation or abscess without bleeding; K64.8 Other hemorrhoids; I48.0 Paroxysmal atrial fibrillation; D47.3 Essential (hemorrhagic) thrombocythemia; E13.22 Other specified diabetes mellitus with diabetic chronic kidney disease; N18.30 Chronic kidney disease, stage 3 unspecified; J44.9 Chronic obstructive pulmonary disease, unspecified; E03.9 Hypothyroidism, unspecified; Z99.81 Dependence on supplemental oxygen; Z79.01 Long term (current) use of anticoagulants; Z79.84 Long term (current) use of oral hypoglycemic drugs; Z86.16 Personal history of COVID-19
CPT/HCPCS: 36415; 36430; 80048; 80053; 82247; 82248; 82274; 82728; 82948; 83010; 83540; 83550; 83615; 84443; 84466; 85014; 85018; 85025; 85046; 85610; 85730; 86850; 86900; 86901; 86923; 88305; 93005; 94640; 96374; 99285; A9270; C9113; J0131; J2001; J2405; J2704; J7050; J7120; P9016

== ENCOUNTER 2021-02-08 06:02 | Outpatient (CLI) | payer MEDICARE, SELFPAY ==
--- NOTE | 2021-02-08 06:40 | SUR.OPER ---
Patient brought to GI Lab. Instructions for patient undergoing Capsule Endoscopy reviewed with patient. Consent form signed. Sensor array applied to patient's abdomen and connected to recorded. Patient swallowed capsule with 12 ozs of water infused with Simethicone. Patient instructed they may have clear liquids at 0830 this AM and eat or drink at 1030 this AM. Patient instructed to return to GI Lab at 1500 this afternoon for removal of recording device and to call [phone] or to return to the hospital if any nausea and vomiting or abdominal pain is experienced.
--- NOTE | 2021-02-08 15:39 | SUR.OPER ---
Patient returned to the GI Lab at 1500 for recorder box removal. Patient voiced no complaints. States they have understanding of instructions. Patient left ambulatory.
== END 2021-02-08 06:03 | disposition home or self-care (01) ==
LOC: ANHENDO 06:03
PROVIDERS: PCP Internal Medicine; Visit Provider Internal Medicine Gastroenterology
PROC: 0DJ07ZZ Inspection of Upper Intestinal Tract, Via Natural or Artificial Opening (ICD-10-PCS; CPT 91110; principal; 2021-02-08 07:00)
DX: D50.9 Iron deficiency anemia, unspecified (principal)
CPT/HCPCS: 91110

== ENCOUNTER 2023-02-20 11:13 | Inpatient (IN) | payer MEDICARE, SELFPAY ==
[2023-02-20] VITALS (31 sets, daily range): BP systolic 95–143; BP diastolic 55–82; PULSE 76–126; RESP 16–31; TEMP 36.1–36.8; O2SAT 91–98; BMI 25.6
--- NOTE | ~2023-02-20 | XR_ITS ---
EXAMINATION: XR chest 1V portable 02/20/2023 11:34 INDICATION: COPD. Shortness of breath. PROCEDURE: AP portable chest COMPARISON: No prior studies for comparison. FINDINGS: The lungs are clear. The cardiomediastinal silhouette is within normal limits. There are no pleural effusions. There is no pneumothorax suspected. IMPRESSION: 1: NO ACUTE CARDIOPULMONARY DISEASE. Reviewed, dictated and finalized at location L.
--- NOTE | ~2023-02-20 | XR_ITS ---
EXAMINATION: XR chest 1V portable DATE: 02/22/2023 12:47 INDICATION: New cough and increasing shortness of breath TECHNIQUE: frontal view of the chest was obtained. COMPARISON: Chest radiograph dated 02/20/2023 FINDINGS: The lungs remain clear with no focal airspace opacities, pulmonary edema, pleural effusion or pneumot horax. Heart size is normal. Calcified right hilar and mediastinal lymph nodes consistent with old gr anulomatous disease. IMPRESSION: 1. No acute cardiopulmonary disease. Reviewed, dictated and finalized at location A.
--- NOTE | 2023-02-20 11:18 | ECG_ITS ---
Measurements Intervals [place] Rate: 104 P: 83 [place]: 139 QRS: 76 QRSD: 78 T: 69 QT: 324 QTc: 428 Interpretive Statements SINUS TACHYCARDIA WITH OCCASIONAL VENTRICULAR PREMATURE COMPLEXES BASELINE ARTIFACT ABNORMAL ECG COMPARED TO ECG 01/22/2021 18:11:22 HEART RATE HAS INCREASED Electronically Signed On 02-21-2023 16:20:37 CDT by Rogerio Felix M.D.
[2023-02-20 11:28] LABS: Basophils Percent Auto 0.5 % (0.2-1.2); Eosinophils Absolute Auto 0.2 K/mm3 (0-0.3); Eosinophils Percent Auto 1.8 % (0-4.4); Hematocrit 48.3 % (37.0-47.0); Hemoglobin 16.2 g/dL (12.0-15.0); Immature Granulocyte Absolute 0.06 K/mm3 (0.00-0.031); Immature Granulocyte Percent A 0.7 % (0-0.5); Lymphocytes Absolute Auto 1.84 K/mm3 (0.9-3.2); Lymphocytes Percent Auto 22.1 % (18.3-44.2); Mean Corpuscular HGB Conc 33.5 g/dl (32-36); Mean Corpuscular Hemoglobin 30.4 pg (26-34); Mean Corpuscular Volume 90.6 fl (80-100); Mean Platelet Volume 9.3 fl (7.4-10.4); Monocytes Absolute Auto 0.5 K/mm3 (0.1-0.6); Neutrophils Absolute Auto 5.7 K/mm3 (1.3-6.7); Neutrophils Percent Auto 68.9 % (45.5-73.1); Platelet Count Result 313 k/mm3 (150-375); Red Blood Count 5.33 M/mm3 (4.2-5.4); Red Cell Distribution Width 12.2 % (11.5-14.5); White Blood Count 8.3 K/mm3 (4.5-10.0)
[2023-02-20 11:39] LABS: Alanine Aminotransferase 15 U/L (6-35); Albumin Level 4.9 g/dL (3.5-5.1); Alkaline Phosphatase 108 U/L (38-126); Anion Gap 9 mmol/L (8-16); Aspartate Amino Transferase 21 U/L (14-36); Bilirubin,Total 0.6 mg/dL (0.2-1.3); Blood Urea Nitrogen 12 mg/dL (7-17); Calcium 9.6 mg/dL (8.4-10.2); Carbon Dioxide 34 mmol/L (22-30); Chloride 95 mmol/L (98-107); Estimated Glomerular Filt Rate > 60; Glucose 95 mg/dL (65-110); Potassium 3.9 mmol/L (3.4-5.0); Sodium 138 mmol/L (137-145)
--- NOTE | 2023-02-20 12:08 | ED.SOB ---
HPI - SOB/Dyspnea General Chief Complaint: Shortness of Breath/Dyspnea Stated Complaint: sob, cough Time Seen by Provider: 02/20/23 12:05 Source: patient Mode of arrival: ambulatory Limitations: no limitations History of Present Illness HPI Narrative: Patient is a 62-year-old female with a history of COPD and chronic respiratory failure on 3 L oxygen via nasal cannula, atrial fibrillation on chronic anticoagulation, stage III chronic kidney disease, hypertension, hypothyroidism presenting to the emergency department for evaluation of cough and shortness of breath. Patient states that she began to feel unwell last week with cough, congestion, rhinorrhea. Patient denied fever. Patient was seen by cornice maker and prescribed Levaquin as well as course of oral prednisone which she finished in full on Friday. Patient states that she believed that she was feeling better and then awakened this morning with general malaise and generalized weakness as well as persistent cough. Patient denies any significant worsening shortness of breath. She reports continued mild wheezing. She has been using nebulizer therapies at home. Patient denies fever or chills. No nausea or vomiting. She reports mild chest pain with coughing, denies chest pain at rest. Denies frontal pain, lightheadedness, dizziness, jaw or neck pain. Patient denies pleuritic pain. Patient denies leg swelling or calf tenderness. Related Data Home Medications Medication Instructions Recorded Confirmed albuterol 90 mcg/actuation aerosol 90 mcg inhalation QID PRN 01/22/21 01/31/21 inhaler Shortness Of Breath amitriptyline 50 mg tablet 50 mg PO HS 01/22/21 01/31/21 atorvastatin 40 mg tablet 40 mg PO HS 01/22/21 01/31/21 bumetanide 1 mg tablet 1 mg PO QMWF 01/22/21 01/31/21 buspirone 5 mg tablet 5 mg PO TID 01/22/21 01/31/21 cholecalciferol (vitamin D3) 125 5,000 unit PO DAILY 01/22/21 01/31/21 mcg (5,000 unit) capsule digoxin 125 mcg (0.125 mg) tablet 125 mcg PO DAILY 01/22/21 01/31/21 diltiazem HCl 300 mg 300 mg PO DAILY 01/22/21 01/31/21 tablet,extended release 24 hr fluticasone furoate 200 See Rx Instructions .Route .COMPLEX 01/22/21 01/31/21 mcg-vilanterol 25 mcg/dose inhalation powder (Breo Ellipta) levothyroxine 100 mcg tablet 100 mcg PO DAILY 01/22/21 01/31/21 magnesium oxide 400 mg (241.3 mg 400 mg PO BID 01/22/21 01/31/21 magnesium) tablet metformin 500 mg tablet 500 mg PO BID 01/22/21 01/31/21 oxycodone-acetaminophen 5 mg-325 5 - 325 tablet PO Q8H PRN Pain 01/22/21 01/31/21 mg tablet sertraline 100 mg tablet 100 mg PO HS 01/22/21 01/31/21 tiotropium bromide 2.5 2.5 mcg inhalation BID 01/22/21 01/31/21 mcg/actuation mist for inhalation (Spiriva Respimat) tizanidine 4 mg tablet 4 mg PO BID PRN Spasms 01/22/21 01/31/21 Allergies Allergy/AdvReac Type Severity Reaction Status Date / Time Penicillins Allergy Rash Verified 02/20/23 11:28 Review of Systems Review of Systems: CONSTITUTIONAL: Denies fever CARDIOVASCULAR: Denies chest pain RESPIRATORY: Reports cough and shortness of breath GASTROINTESTINAL: Denies abdominal pain SKIN: Denies rash MUSCULOSKELETAL: Denies back pain NEUROLOGIC: Denies headache, reports generalized weakness PMFSH Past Medical History Medical History (Updated 02/20/23 @ 17:06 by Rhonda Pacheco PA-C) Anxiety Chronic anticoagulation Chronic narcotic use Chronic obstructive pulmonary disease Chronic respiratory failure with hypoxia, on home oxygen therapy Depression Hypothyroid Obesity Paroxysmal atrial fibrillation Stage 3 chronic kidney disease Type 2 diabetes mellitus Surgical History Surgical History (Updated 02/20/23 @ 17:06 by Rhonda Pacheco PA-C) History of appendectomy History of cardiac catheterization History of cardiac radiofrequency ablation History of section History of colonoscopy with polypectomy (01/2021) Social History Social History (Updated 02/20/23 @ 17:07 by Kim
[2023-02-20 12:50] LABS: Troponin I < 0.012 ng/mL (0.000-0.034)
[2023-02-20] MEDS: IPRATROPIUM BR 0.02% INH SOLN 0.5 MG/2.5 ML VIAL INHALATION ×2 (12:52→20:52)
[2023-02-20] MEDS: LEVALBUTEROL NEB 1.25 MG/3 ML INHALATION ×2 (12:52→16:33)
[2023-02-20 12:55] LABS: Alveolar/Arterial O2 Gradient 102.8 mmHg; Base Excess ABG 1.9 mEq/l (+/-2.0); Device NASAL CANNULA; Fractional Inspired Oxygen 32 %; HCO3 ABG 27.1 mEq/l (22.0-26.0); Methemoglobin ABG 0.2 %THb (0-1.5); Modified Allen's Test Pass; Oxygen Content ABG 20.1 %vol (16.0-22.0); Oxygen Saturation ABG 94.8 % (95.0-100.0); Oxyhemoglobin 93.2 % THb (90.0-100.0); PCO2 ABG 44.2 mmHg (35.0-45.0); PO2 ABG 73.6 mmHg (80.0-100.0); Reduced Hemoglobin 5.6 %THb (0-5.0); Site Drawn RIGHT RADIAL; Total Hemoglobin 15.3 g/dL (12.0-18.0); pH ABG 7.405 (7.350-7.450)
[2023-02-20] MEDS: SODIUM CHLORIDE 0.9% IV 500 ML 999 ML IV CONT (12:58)
[2023-02-20] MEDS: MAGNESIUM SULF 2 GM/WATER 50ML 2 GM/50 ML BAG IVPB (12:58)
[2023-02-20] MEDS: methylPREDNISolone SOD SUCC 125 MG VIAL IV PUSH (12:58)
[2023-02-20 13:05] LABS: Influenza A QL RT-PCR Negative (Negative); Influenza B QL RT-PCR Negative (Negative); RSV RNA, RT-PCR Negative (Negative); SARS-CoV-2 RNA PCR Negative
[2023-02-20 14:46] LABS: Lactic Acid Reflex 2.2 mmol/L (0.7-2.0)
[2023-02-20 14:55] LABS: Troponin I < 0.012 ng/mL (0.000-0.034)
--- NOTE | 2023-02-20 16:45 | PM.IMHP ---
H&P: HPI History of Present Illness Date/Time: 02/20/23 16:45 Chief Complaint: Shortness of breath. Narrative: This is a very pleasant 62-year-old female with COPD on chronic respiratory failure, paroxysmal atrial fibrillation status post cardiac ablation, diabetes, and hypothyroidism who presented to the emergency department via private vehicle from home with complaints of shortness of breath. Patient provides the following history. She is on 3 L nasal cannula at baseline and is limited in her activities of daily living due to baseline shortness of breath, for instance she does not do much cooking or cleaning at home and it sounds as though she uses the scooter when she goes to the store most of the time. She has been increasingly short of breath over the past 1 week with increasing dyspnea on lesser and lesser exertion, cough productive of white/yellow sputum, sinus drainage, decreased appetite, decreased taste, and low-grade temperature to 100.4? F. She saw her yarn packer in the office last week and was prescribed a course of prednisone and levofloxacin. Initially she felt better with the steroids but her symptoms have once again started to get worse. She has been using her rescue inhalers at home and occasionally her nebulizer with lesser and lesser benefit. She denies headache, sore throat, chest pain, pleuritic pain, nausea, vomiting, and diarrhea. She also denies orthopnea, paroxysmal nocturnal dyspnea, and lower extremity edema. She was afebrile on arrival to the emergency department. Blood pressures have been stable. He has been persistently tachycardic since receiving a nebulizer. Her labs were significant for white blood cell count of 8.3, hemoglobin 16.2, normal electrolytes, lactic acid 2.2, normal troponin. She tested negative for influenza, RSV, and COVID. Chest x-ray showed no acute cardiopulmonary disease. In the ED she was given a DuoNeb, 2 g of magnesium, 125 mg methylprednisolone, and a dose of azithromycin. She is being admitted in this setting for a COPD exacerbation. At the time my evaluation she reports feeling quite a bit better. Review of Systems Review of Systems: Twelve systems were reviewed and are negative except for as per HPI. [facility] Past Medical History Medical History (Updated 02/20/23 @ 22:59 by Rhonda Pacheco PA-C) Anxiety Chronic narcotic use Chronic obstructive pulmonary disease Chronic respiratory failure with hypoxia, on home oxygen therapy Depression Hypothyroid Obesity Paroxysmal atrial fibrillation Stage 3 chronic kidney disease Type 2 diabetes mellitus Surgical History Surgical History (Updated 02/20/23 @ 17:06 by Rhonda Pacheco PA-C) History of appendectomy History of cardiac catheterization History of cardiac radiofrequency ablation History of section History of colonoscopy with polypectomy (01/2021) Family History Family History (Updated 02/20/23 @ 18:01 by Geo Curry RN) Mother Brain tumor Social History Social History (Updated 02/20/23 @ 22:54 by Rhonda Pacheco PA-C) Social History: Surrogate medical decision maker: Eddie Elam, spouse. Code status: Full code. Smoking packs per day: 1.5 Smoking cigarettes per day: 30.0 Years smoked: 30 Smoking pack-years: 45.00 Smoking status: Former smoker Tobacco type: cigarettes Alcohol intake: current Drinks per week: 0 Substance use: current Substance use type: marijuana Lack of Transportation: No Lack of Food: Never True Current Housing: I Have Housing Concerned About Future Housing: No Difficulty Paying Gas/Electric Bills: No Difficulty Paying for Meds: No Currently Unemployed: No Education: Associate Degree Difficulty w/ Childcare or Family Care: No Additional living arrangements comments: Lives with in [place]. 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 Spiritual care concerns: No Meds Home Medications and Allerg
--- NOTE | 2023-02-20 17:29 | PC.NURSE ---
called dietary and ordered dinner tray for pt, requested to send to admit room
[2023-02-20 17:30] LABS: Reflex Lactic Acid Yes or No Add Lactic
--- NOTE | 2023-02-20 17:59 | ADMGEN ---
This patient, Lulu Elam, was admitted to Medical Room 252-01. Patient/family oriented to hospital policies and general routines including ID bracelet, bed and alarms, visiting hours, pain management, procedures, bathroom and other care routines, personal items, smoking policy, room service/diet, and visiting hours. Information on how to activate the Rapid Response Team has been discussed. Patient/Family are encouraged to report perceived risks to care and to ask questions if they do not understand what they are told or what they should do.
[2023-02-20 18:16] LABS: Lactic Acid 4.1 mmol/L (0.7-2.0)
[2023-02-20] MEDS: LEVALBUTEROL NEB 1.25 MG/3 ML 0.63 MG INHALATION (20:52)
[2023-02-21] VITALS (20 sets, daily range): BP systolic 99–134; BP diastolic 48–65; PULSE 72–118; RESP 18–86; TEMP 36–36.8; O2SAT 93–99
[2023-02-21] MEDS: methylPREDNISolone SOD SUCC 40 MG VIAL IV PUSH ×3 (00:32→12:47)
[2023-02-21] MEDS: PANTOPRAZOLE 40 MG TABLET PO ×2 (00:33→21:31)
[2023-02-21] MEDS: TIZANIDINE HCL 4 MG TABLET PO ×2 (00:45→21:32)
[2023-02-21] MEDS: IPRATROPIUM BR 0.02% INH SOLN 0.5 MG/2.5 ML VIAL INHALATION ×4 (03:12→20:28)
[2023-02-21] MEDS: LEVALBUTEROL NEB 1.25 MG/3 ML 0.63 MG INHALATION ×4 (03:12→20:28)
[2023-02-21 05:21] LABS: Hematocrit 39.6 % (37.0-47.0); Hemoglobin 12.9 g/dL (12.0-15.0); Mean Corpuscular HGB Conc 32.6 g/dl (32-36); Mean Corpuscular Hemoglobin 29.1 pg (26-34); Mean Corpuscular Volume 89.2 fl (80-100); Mean Platelet Volume 9.8 fl (7.4-10.4); Platelet Count Result 269 k/mm3 (150-375); Red Blood Count 4.44 M/mm3 (4.2-5.4); Red Cell Distribution Width 11.9 % (11.5-14.5); White Blood Count 8.2 K/mm3 (4.5-10.0)
[2023-02-21 05:25] LABS: Anion Gap 5 mmol/L (8-16); Blood Urea Nitrogen 14 mg/dL (7-17); Calcium 8.7 mg/dL (8.4-10.2); Carbon Dioxide 31 mmol/L (22-30); Chloride 97 mmol/L (98-107); Estimated CRCL calculation 68 ml/min; Estimated Glomerular Filt Rate > 60; Glucose 173 mg/dL (65-110); Magnesium 2.5 mg/dL (1.6-2.3); Sodium 133 mmol/L (137-145)
[2023-02-21] MEDS: LEVOTHYROXINE SODIUM 100 MCG TABLET PO (05:41)
[2023-02-21 06:12] LABS: Thyroid Stimulating Hormone Reflex 0.017 uIU/mL (0.465-4.68)
[2023-02-21 07:10] LABS: Free T4 Free Thyroxine Reflex 1.77 ng/dL (0.78-2.19)
[2023-02-21 07:42] LABS: Glucose Point of Care 137 mg/dl (65-105)
[2023-02-21] MEDS: FLUTICASONE/SALMETEROL 230-21 MCG INHALER 1 PUFF 2 PUFF INHALATION ×2 (07:55→20:28)
--- NOTE | 2023-02-21 08:15 | PM.IMPN ---
Progress Note: A&P Assessment and Plan (1) Acute exacerbation of chronic obstructive airways disease: Code(s): J44.1 - Chronic obstructive pulmonary disease with (acute) exacerbation Status: Acute Assessment and Plan: Chest xray showed no acute cardiopulmonary disease Likely precipitated by a viral URI increasingly productive cough Continue azithromycin Continue scheduled bronchodilators Solu-Medrol changed to PO prednisone sputum culture collected awaiting further resulting (2) Chronic respiratory failure with hypoxia, on home oxygen therapy: Code(s): J96.11 - Chronic respiratory failure with hypoxia; Z99.81 - Dependence on supplemental oxygen Status: Acute Assessment and Plan: Currently at her baseline oxygen requirement. Pulmonary embolism considered but seems less likely. No tachycardia, chest pain, or shortness of breath complaints at rest Trend respiratory status Titrate oxygen to maintain saturations >88-90% (3) Lactic acidosis: Code(s): E87.20 - Acidosis, unspecified Status: Acute Assessment and Plan: Sepsis seems unlikely. Lactic acidosis may be related to hypoxia Blood cultures grew gram positive cocci in clusters in the aerobic bottle most likely related to a contaminate resolved as last lactic 1.0 (4) Type 2 diabetes mellitus: Code(s): E11.9 - Type 2 diabetes mellitus without complications Status: Acute Assessment and Plan: Initiate sliding scale insulin Accu-Cheks AC/HS cancelled as patient does not want them hypoglycemic protocol hemoglobin A1c 5.8 Metformin currently on hold. Stop insulin as well since she does not want this as well (5) Chronic narcotic use: Code(s): F11.90 - Opioid use, unspecified, uncomplicated Status: Acute Assessment and Plan: Continue oxycodone as needed. (6) Hypothyroid: Qualifiers: Hypothyroidism type: unspecified Qualified Code(s): E03.9 - Hypothyroidism, unspecified Code(s): E03.9 - Hypothyroidism, unspecified Status: Chronic Assessment and Plan: Continue levothyroxine TSH 0.017, T4 1.77, T3 0.82 Stable at this time (7) Bacteremia: Code(s): R78.81 - Bacteremia Status: Acute Assessment and Plan: Gram positive cocci in clusters in aerobic bottle Seems to be most like a contaminate Hold off on adding any further antibiotics for now Await identification Treat as indicated Time Spent With Patient Time: 50 minutes Time with patient: Greater than 35 minutes Subjective Date/time seen: 02/21/23814 Interval history: 02/21/23814 Patient stated that she still having a lot of issues with shortness of breath with light activity including walking to the bathroom. She is also still coughing however nothing coming up. She does wear home O2 of 3 L. while talking to her patient was tripoding with Pursed lip breathing. She is also having some fevers sweats or chills. She denies any chest pain, nausea, vomiting, diarrhea constipation. She has also just really tired. She is more concerned that she is having Accu-Cheks and insulin his she does not take any of that at home. Vital signs appear to be stable today. White blood cell count is 8.2 today. Blood cultures did grow gram positive cocci in cluster in the aerobic bottle only. Spoke with LEBRON mitchell about possible bacteremia, however appears to be contaminate. Will wait for full identification before treating at this time, as she does not appear to have a blood infecton. 02/20/23? 16:45 This is a very pleasant 62-year-old female with COPD on chronic respiratory failure, paroxysmal atrial fibrillation status post cardiac ablation, diabetes, and hypothyroidism who presented to the emergency department via private vehicle from home with complaints of shortness o
--- NOTE | 2023-02-21 08:15 | P.PNIM_ITS ---
Progress Note: A&P Assessment and Plan (1) Acute exacerbation of chronic obstructive airways disease: Code(s): J44.1 - Chronic obstructive pulmonary disease with (acute) exacerbation Status: Acute Assessment and Plan: * Chest xray showed no acute cardiopulmonary disease * Likely precipitated by a viral URI * increasingly productive cough * Continue azithromycin * Continue scheduled bronchodilators * Solu-Medrol changed to PO prednisone * sputum culture collected awaiting further resulting (2) Chronic respiratory failure with hypoxia, on home oxygen therapy: Code(s): J96.11 - Chronic respiratory failure with hypoxia; Z99.81 - Dependence on supplemental oxygen Status: Acute Assessment and Plan: * Currently at her baseline oxygen requirement. * Pulmonary embolism considered but seems less likely. * No tachycardia, chest pain, or shortness of breath complaints at rest * Trend respiratory status * Titrate oxygen to maintain saturations >88-90% (3) Lactic acidosis: Code(s): E87.20 - Acidosis, unspecified Status: Acute Assessment and Plan: * Sepsis seems unlikely. * Lactic acidosis may be related to hypoxia * Blood cultures grew gram positive cocci in clusters in the aerobic bottle * most likely related to a contaminate * resolved as last lactic 1.0 (4) Type 2 diabetes mellitus: Code(s): E11.9 - Type 2 diabetes mellitus without complications Status: Acute Assessment and Plan: * Initiate sliding scale insulin * Accu-Cheks AC/HS cancelled as patient does not want them * hypoglycemic protocol * hemoglobin A1c 5.8 * Metformin currently on hold. * Stop insulin as well since she does not want this as well (5) Chronic narcotic use: Code(s): F11.90 - Opioid use, unspecified, uncomplicated Status: Acute Assessment and Plan: * Continue oxycodone as needed. (6) Hypothyroid: Qualifiers: Hypothyroidism type: unspecified Qualified Code(s): E03.9 - Hy pothyroidism, unspecified Code(s): E03.9 - Hypothyroidism, unspecified Status: Chronic Assessment and Plan: * Continue levothyroxine * TSH 0.017, T4 1.77, T3 0.82 * Stable at this time (7) Bacteremia: Code(s): R78.81 - Bacteremia Status: Acute Assessment and Plan: * Gram positive cocci in clusters in aerobic bottle * Seems to be most like a contaminate * Hold off on adding any further antibiotics for now * Await identification * Treat as indicated Time Spent With Patient Time: 50 minutes Time with patient: Greater than 35 minutes Subjective Date/time seen: 02/21/23814 Interval history: 02/21/23814 Patient stated that she still having a lot of issues with shortness of breath with light activity including walking to the bathroom. She is also still coughing however nothing coming up. She does wear home O2 of 3 L. while talking to her patient was tripoding with Pursed lip breathing. She is also having some fevers sweats or chills. She denies any chest pain, nausea, vomiting, diarrhea constipation. She has also just really tired. She is more concerned that she is having Accu-Cheks and insulin his she does not take any of that at home. Vital signs appear to be stable today. White blood cell count is 8.2 today. Blood cultur
[2023-02-21] MEDS: ASPIRIN 81 MG ENTERIC TABLET PO (08:30)
[2023-02-21] MEDS: CHOLECALCIFEROL 1,000 UNITS TABLET 5000 UNITS PO (08:30)
[2023-02-21] MEDS: MAGNESIUM OXIDE 400 MG TABLET PO ×2 (08:30→17:41)
[2023-02-21] MEDS: guaiFENesin 12 HR 600 MG TABCR PO ×2 (08:30→21:31)
[2023-02-21] MEDS: ROFLUMILAST 500 MCG TABLET PO (08:30)
[2023-02-21] MEDS: DOCUSATE SODIUM 100 MG CAPSULE PO ×2 (08:30→17:41)
[2023-02-21] MEDS: busPIRone HCL 5 MG TABLET PO ×2 (08:30→17:41)
[2023-02-21] MEDS: ENOXAPARIN 40 MG/0.4 ML SYRINGE SUB-Q (08:30)
[2023-02-21 10:07] LABS: Total Triiodothyronine (T3) 0.82 NG/ML (0.97-1.69)
[2023-02-21 10:54] LABS: Hemoglobin A1C 5.8 % (<5.7)
--- NOTE | 2023-02-21 10:58 | PC.NURSE ---
On 02/21/23, the student, [Davie Mendoza], provided care and completed [facility] documentation on this patient. I have reviewed the student's documentation and agree with the findings.
[2023-02-21] MEDS: SERTRALINE HCL 50 MG TABLET 100 MG PO (21:31)
[2023-02-21] MEDS: ATORVASTATIN 20 MG TABLET PO (21:31)
[2023-02-21] MEDS: AMITRIPTYLINE HCL 25 MG TABLET 50 MG PO (21:31)
[2023-02-22] VITALS (17 sets, daily range): BP systolic 98–121; BP diastolic 48–59; PULSE 75–124; RESP 18–24; TEMP 36.1–36.3; O2SAT 91–99
[2023-02-22] MEDS: IPRATROPIUM BR 0.02% INH SOLN 0.5 MG/2.5 ML VIAL INHALATION ×4 (02:16→20:20)
[2023-02-22] MEDS: LEVALBUTEROL NEB 1.25 MG/3 ML 0.63 MG INHALATION ×4 (02:16→20:20)
[2023-02-22] MEDS: LEVOTHYROXINE SODIUM 100 MCG TABLET PO (05:33)
[2023-02-22 07:00] LABS: Basophils Percent Auto 0.2 % (0.2-1.2); Eosinophils Percent Auto 0.2 % (0-4.4); Immature Granulocyte Absolute 0.11 K/mm3 (0.00-0.031); Immature Granulocyte Percent A 0.9 % (0-0.5); Lymphocytes Percent Auto 13.4 % (18.3-44.2); Mean Corpuscular HGB Conc 33.3 g/dl (32-36); Mean Corpuscular Volume 90.1 fl (80-100); Mean Platelet Volume 9.3 fl (7.4-10.4); Monocytes Absolute Auto 0.7 K/mm3 (0.1-0.6); Monocytes Percent Auto 5.4 % (2.6-8.5); Neutrophils Absolute Auto 10.2 K/mm3 (1.3-6.7); Neutrophils Percent Auto 79.9 % (45.5-73.1); Platelet Count Result 266 k/mm3 (150-375); Red Blood Count 4.66 M/mm3 (4.2-5.4); Red Cell Distribution Width 12.3 % (11.5-14.5); White Blood Count 12.7 K/mm3 (4.5-10.0)
[2023-02-22 07:29] LABS: Alanine Aminotransferase 13 U/L (6-35); Albumin Level 4.4 g/dL (3.5-5.1); Alkaline Phosphatase 74 U/L (38-126); Anion Gap 3 mmol/L (8-16); Aspartate Amino Transferase 21 U/L (14-36); Bilirubin,Total 0.5 mg/dL (0.2-1.3); Blood Urea Nitrogen 15 mg/dL (7-17); Calcium 9.1 mg/dL (8.4-10.2); Carbon Dioxide 37 mmol/L (22-30); Chloride 95 mmol/L (98-107); Estimated CRCL calculation 60 ml/min; Estimated Glomerular Filt Rate > 60; Glucose 104 mg/dL (65-110); Magnesium 2.2 mg/dL (1.6-2.3); Potassium 3.6 mmol/L (3.4-5.0); Sodium 135 mmol/L (137-145)
[2023-02-22] MEDS: FLUTICASONE/SALMETEROL 230-21 MCG INHALER 1 PUFF 2 PUFF INHALATION ×2 (08:29→20:20)
[2023-02-22] MEDS: predniSONE 20 MG TABLET 40 MG PO (08:59)
[2023-02-22] MEDS: CHOLECALCIFEROL 1,000 UNITS TABLET 5000 UNITS PO (08:59)
[2023-02-22] MEDS: busPIRone HCL 5 MG TABLET PO ×2 (08:59→16:19)
[2023-02-22] MEDS: MAGNESIUM OXIDE 400 MG TABLET PO ×2 (08:59→16:19)
[2023-02-22] MEDS: guaiFENesin 12 HR 600 MG TABCR PO ×2 (08:59→20:25)
[2023-02-22] MEDS: DOCUSATE SODIUM 100 MG CAPSULE PO (08:59)
[2023-02-22] MEDS: ASPIRIN 81 MG ENTERIC TABLET PO (08:59)
[2023-02-22] MEDS: ROFLUMILAST 500 MCG TABLET PO (09:00)
[2023-02-22] MEDS: ENOXAPARIN 40 MG/0.4 ML SYRINGE SUB-Q (09:00)
--- NOTE | 2023-02-22 11:08 | P.PNIM_ITS ---
Progress Note: A&P Assessment and Plan (1) Acute exacerbation of chronic obstructive airways disease: Code(s): J44.1 - Chronic obstructive pulmonary disease with (acute) exacerbation Status: Acute Assessment and Plan: * Chest xray showed no acute cardiopulmonary disease * repeat chest xray no acute cardiopulmonary disease * Likely precipitated by a viral URI * increasingly productive cough * Continue azithromycin, add ceftriaxone * Continue scheduled bronchodilators * Solu-Medrol changed to PO prednisone * sputum culture found gram positive cocci (2) Chronic respiratory failure with hypoxia, on home oxygen therapy: Code(s): J96.11 - Chronic respiratory failure with hypoxia; Z99.81 - Dependence on supplemental oxygen Status: Acute Assessment and Plan: * Currently at her baseline oxygen requirement. * Pulmonary embolism considered but seems less likely. * No tachycardia, chest pain, or shortness of breath complaints at rest * Trend respiratory status * Titrate oxygen to maintain saturations >88-90% (3) Lactic acidosis: Code(s): E87.20 - Acidosis, unspecified Status: Acute Assessment and Plan: * Sepsis seems unlikely. * Lactic acidosis may be related to hypoxia * Blood cultures grew gram positive cocci in clusters in the aerobic bottle, which appears to be a contaminate * most likely related to a contaminate * resolved as last lactic 1.0 (4) Type 2 diabetes mellitus: Code(s): E11.9 - Type 2 diabetes mellitus without complications Status: Acute Assessment and Plan: * Initiate sliding scale insulin * Accu-Cheks AC/HS cancelled as patient does not want them * hypoglycemic protocol * hemoglobin A1c 5.8 * Metformin currently on hold. * Stop insulin as well since she does not want this as well (5) Chronic narcotic use: Code(s): F11.90 - Opioid use, unspecified, uncomplicated Status: Acute Assessment and Plan: * Continue oxycodone as needed. (6) Hypothyroid: Qualifiers: Hypothyroidism type: unspecified Qualified Code(s): E03.9 - Hypothyroidism, unspecified Code(s): E03.9 - Hypothyroidism, unspecified Status: Chronic Assessment and Plan: * Continue levothyroxine * TSH 0.017, T4 1.77, T3 0.82 * Stable at this time (7) Bacteremia: Code(s): R78.81 - Bacteremia Status: Acute Assessment and Plan: * Gram positive cocci in clusters in aerobic bottle * Contaminate indicated as it grew staph hominis * Hold off on adding any further antibiotics for now * Await identification * Treat as indicated Time Spent With Patient Time: 48 minutes Time with patient: Greater than 35 minutes Subjective Date/time seen: 02/22/23 11:00 Interval history: 02/22/23 1100 Patient is not feeling any better today. Patient stated that she feels like she is going backwards. Her cough is worse and she is coughing up more sputum that she stated is thick and yellow. She also stated that she is still very short of breath and it seems that she is more short of breath today than she was yesterday as she is not able to complete sentences today she is still purse lipped breathing and tripoding. Will add ceftriaxone and get a chest x-ray to look for possibl
--- NOTE | 2023-02-22 11:08 | PM.IMPN ---
Progress Note: A&P Assessment and Plan (1) Acute exacerbation of chronic obstructive airways disease: Code(s): J44.1 - Chronic obstructive pulmonary disease with (acute) exacerbation Status: Acute Assessment and Plan: Chest xray showed no acute cardiopulmonary disease repeat chest xray no acute cardiopulmonary disease Likely precipitated by a viral URI increasingly productive cough Continue azithromycin, add ceftriaxone Continue scheduled bronchodilators Solu-Medrol changed to PO prednisone sputum culture found gram positive cocci (2) Chronic respiratory failure with hypoxia, on home oxygen therapy: Code(s): J96.11 - Chronic respiratory failure with hypoxia; Z99.81 - Dependence on supplemental oxygen Status: Acute Assessment and Plan: Currently at her baseline oxygen requirement. Pulmonary embolism considered but seems less likely. No tachycardia, chest pain, or shortness of breath complaints at rest Trend respiratory status Titrate oxygen to maintain saturations >88-90% (3) Lactic acidosis: Code(s): E87.20 - Acidosis, unspecified Status: Acute Assessment and Plan: Sepsis seems unlikely. Lactic acidosis may be related to hypoxia Blood cultures grew gram positive cocci in clusters in the aerobic bottle, which appears to be a contaminate most likely related to a contaminate resolved as last lactic 1.0 (4) Type 2 diabetes mellitus: Code(s): E11.9 - Type 2 diabetes mellitus without complications Status: Acute Assessment and Plan: Initiate sliding scale insulin Accu-Cheks AC/HS cancelled as patient does not want them hypoglycemic protocol hemoglobin A1c 5.8 Metformin currently on hold. Stop insulin as well since she does not want this as well (5) Chronic narcotic use: Code(s): F11.90 - Opioid use, unspecified, uncomplicated Status: Acute Assessment and Plan: Continue oxycodone as needed. (6) Hypothyroid: Qualifiers: Hypothyroidism type: unspecified Qualified Code(s): E03.9 - Hypothyroidism, unspecified Code(s): E03.9 - Hypothyroidism, unspecified Status: Chronic Assessment and Plan: Continue levothyroxine TSH 0.017, T4 1.77, T3 0.82 Stable at this time (7) Bacteremia: Code(s): R78.81 - Bacteremia Status: Acute Assessment and Plan: Gram positive cocci in clusters in aerobic bottle Contaminate indicated as it grew staph hominis Hold off on adding any further antibiotics for now Await identification Treat as indicated Time Spent With Patient Time: 48 minutes Time with patient: Greater than 35 minutes Subjective Date/time seen: 02/22/23 11:00 Interval history: 02/22/23 1100 Patient is not feeling any better today. Patient stated that she feels like she is going backwards. Her cough is worse and she is coughing up more sputum that she stated is thick and yellow. She also stated that she is still very short of breath and it seems that she is more short of breath today than she was yesterday as she is not able to complete sentences today she is still purse lipped breathing and tripoding. Will add ceftriaxone and get a chest x-ray to look for possible pneumonia. She denies any nausea, vomiting, diarrhea constipation. She does have a little bit of shortness of breath which is more than normal. She also stated that she is getting a little discouraged as she is used to getting better faster. IS and pep therapy have also been ordered. 02/21/23 0815 Patient stated that she still having a lot of issues with shortness of breath with light activity including walking to the bathroom. She is also still coughing however nothing coming up. She does wear home O2 of 3 L. while talking to her patient was tripoding with Pursed lip breathing
[2023-02-22] MEDS: BENZONATATE 100 MG CAPSULE 200 MG PO ×2 (11:52→16:19)
[2023-02-22] MEDS: UMECLIDINIUM BROMIDE 62.5 MCG ELLIPTA 1 PUFF INHALATION (13:49)
[2023-02-22] MEDS: guaiFENesin/DEXTROMETHORPHAN 10 ML UDC PO (19:34)
[2023-02-22] MEDS: SERTRALINE HCL 50 MG TABLET 100 MG PO (20:25)
[2023-02-22] MEDS: PANTOPRAZOLE 40 MG TABLET PO (20:25)
[2023-02-22] MEDS: ATORVASTATIN 20 MG TABLET PO (20:26)
[2023-02-22] MEDS: TIZANIDINE HCL 4 MG TABLET PO (20:26)
[2023-02-22] MEDS: AMITRIPTYLINE HCL 25 MG TABLET 50 MG PO (20:26)
[2023-02-23] VITALS (9 sets, daily range): BP systolic 98; BP diastolic 54; PULSE 73–114; RESP 19–20; TEMP 36.1; O2SAT 94–97
[2023-02-23] MEDS: LEVALBUTEROL NEB 1.25 MG/3 ML 0.63 MG INHALATION ×3 (02:30→13:20)
[2023-02-23] MEDS: IPRATROPIUM BR 0.02% INH SOLN 0.5 MG/2.5 ML VIAL INHALATION ×3 (02:31→13:21)
[2023-02-23] MEDS: LEVOTHYROXINE SODIUM 100 MCG TABLET PO (05:49)
[2023-02-23 06:20] LABS: Basophils Percent Auto 0.1 % (0.2-1.2); Eosinophils Percent Auto 0.2 % (0-4.4); Hemoglobin 13.1 g/dL (12.0-15.0); Immature Granulocyte Absolute 0.07 K/mm3 (0.00-0.031); Immature Granulocyte Percent A 0.6 % (0-0.5); Lymphocytes Absolute Auto 1.66 K/mm3 (0.9-3.2); Lymphocytes Percent Auto 15.4 % (18.3-44.2); Mean Corpuscular HGB Conc 32.8 g/dl (32-36); Mean Corpuscular Hemoglobin 29.3 pg (26-34); Mean Corpuscular Volume 89.5 fl (80-100); Mean Platelet Volume 9.1 fl (7.4-10.4); Monocytes Absolute Auto 0.7 K/mm3 (0.1-0.6); Monocytes Percent Auto 6.1 % (2.6-8.5); Neutrophils Absolute Auto 8.4 K/mm3 (1.3-6.7); Neutrophils Percent Auto 77.6 % (45.5-73.1); Platelet Count Result 238 k/mm3 (150-375); Red Blood Count 4.47 M/mm3 (4.2-5.4); Red Cell Distribution Width 12.4 % (11.5-14.5); White Blood Count 10.8 K/mm3 (4.5-10.0)
[2023-02-23 06:35] LABS: Alanine Aminotransferase 12 U/L (6-35); Albumin Level 3.9 g/dL (3.5-5.1); Alkaline Phosphatase 73 U/L (38-126); Anion Gap 2 mmol/L (8-16); Aspartate Amino Transferase 22 U/L (14-36); Bilirubin,Total 0.4 mg/dL (0.2-1.3); Blood Urea Nitrogen 13 mg/dL (7-17); Calcium 8.6 mg/dL (8.4-10.2); Carbon Dioxide 35 mmol/L (22-30); Chloride 98 mmol/L (98-107); Estimated CRCL calculation 68 ml/min; Estimated Glomerular Filt Rate > 60; Glucose 98 mg/dL (65-110); Magnesium 2.3 mg/dL (1.6-2.3); Potassium 3.5 mmol/L (3.4-5.0); Sodium 135 mmol/L (137-145)
[2023-02-23] MEDS: FLUTICASONE/SALMETEROL 230-21 MCG INHALER 1 PUFF 2 PUFF INHALATION (08:40)
[2023-02-23] MEDS: UMECLIDINIUM BROMIDE 62.5 MCG ELLIPTA 1 PUFF INHALATION (08:48)
--- NOTE | 2023-02-23 09:19 | P.DS_ITS ---
DS: Admitting Diagnosis Discharge Date 02/23/23 0845 Admitting Diagnosis COPD exacerbation, Pneumonia DS: Discharge Diagnosis Discharge Diagnosis (1) Acute exacerbation of chronic obstructive airways disease: Code(s): J44.1 - Chronic obstructive pulmonary disease with (acute) exacerbation Status: Acute Assessment and Plan: * Chest xray showed no acute cardiopulmonary disease * repeat chest xray no acute cardiopulmonary disease * Likely precipitated by a viral URI * increasingly productive cough * Continue azithromycin, add ceftriaxone * Continue scheduled bronchodilators * Solu-Medrol changed to PO prednisone * sputum culture grew Staph aureus and mold (2) Chronic respiratory failure with hypoxia, on home oxygen therapy: Code(s): J96.11 - Chronic respiratory failure with hypoxia; Z99.81 - Dependence on supplemental oxygen Status: Acute Assessment and Plan: * Currently at her baseline oxygen requirement. * Pulmonary embolism considered but seems less likely. * No tachycardia, chest pain, or shortness of breath complaints at rest * Trend respiratory status * Titrate oxygen to maintain saturations >88-90% (3) Lactic acidosis: Code(s): E87.20 - Acidosis, unspecified Status: Acute Assessment and Plan: * Sepsis seems unlikely. * Lactic acidosis may be related to hypoxia * Blood cultures grew gram positive cocci in clusters in the aerobic bottle, which appears to be a contaminate * most likely related to a contaminate * resolved as last lactic 1.0 (4) Type 2 diabetes mellitus: Code(s): E11.9 - Type 2 diabetes mellitus without complications Status: Acute Assessment and Plan: * Initiate sliding scale insulin * Accu-Cheks AC/HS cancelled as patient does not want them * hypoglycemic protocol * hemoglobin A1c 5.8 * Metformin currently on hold. * Stop insulin as well since she does not want this as well (5) Chronic narcotic use: Code(s): F11.90 - Opioid use, unspecified, uncomplicated Status: Acute Assessment and Plan: * Continue oxycodone as needed. (6) Hypothyroid: Qualifiers: Hypothyroidism type: unspecified Qualified Code(s): E03.9 - Hypothyroidism, unspecified Code(s): E03.9 - Hypothyroidism, unspecified Status: Chronic Assessment and Plan: * Continue levothyroxine * TSH 0.017, T4 1.77, T3 0.82 * Stable at this time (7) Bacteremia: Code(s): R78.81 - Bacteremia Status: Acute Assessment and Plan: * Gram positive cocci in clusters in aerobic bottle * Contaminate indicated as it grew staph hominis * Hold off on adding any further antibiotics for now * Await identification * Treat as indicated DS: Summary Hospital Course Hospital Course: Patient is a 62-year-old female with a past medical history of COPD, chronic respiratory failure, proximal AFib, diabetes, hypothyroidism who presented the ED with complaints of shortness of breath. Patient had recently being treated with Levaquin and steroids however has not had any relief and shortness of breath has continued to worsen. Patient has noted to have increased sputum that is thick and yellow in nature, increased shortness of breath, increased wheezes. Patient initially was started o
--- NOTE | 2023-02-23 09:19 | PM.DS ---
DS: Admitting Diagnosis Discharge Date 02/23/23 0845 Admitting Diagnosis COPD exacerbation, Pneumonia DS: Discharge Diagnosis Discharge Diagnosis (1) Acute exacerbation of chronic obstructive airways disease: Code(s): J44.1 - Chronic obstructive pulmonary disease with (acute) exacerbation Status: Acute Assessment and Plan: Chest xray showed no acute cardiopulmonary disease repeat chest xray no acute cardiopulmonary disease Likely precipitated by a viral URI increasingly productive cough Continue azithromycin, add ceftriaxone Continue scheduled bronchodilators Solu-Medrol changed to PO prednisone sputum culture grew Staph aureus and mold (2) Chronic respiratory failure with hypoxia, on home oxygen therapy: Code(s): J96.11 - Chronic respiratory failure with hypoxia; Z99.81 - Dependence on supplemental oxygen Status: Acute Assessment and Plan: Currently at her baseline oxygen requirement. Pulmonary embolism considered but seems less likely. No tachycardia, chest pain, or shortness of breath complaints at rest Trend respiratory status Titrate oxygen to maintain saturations >88-90% (3) Lactic acidosis: Code(s): E87.20 - Acidosis, unspecified Status: Acute Assessment and Plan: Sepsis seems unlikely. Lactic acidosis may be related to hypoxia Blood cultures grew gram positive cocci in clusters in the aerobic bottle, which appears to be a contaminate most likely related to a contaminate resolved as last lactic 1.0 (4) Type 2 diabetes mellitus: Code(s): E11.9 - Type 2 diabetes mellitus without complications Status: Acute Assessment and Plan: Initiate sliding scale insulin Accu-Cheks AC/HS cancelled as patient does not want them hypoglycemic protocol hemoglobin A1c 5.8 Metformin currently on hold. Stop insulin as well since she does not want this as well (5) Chronic narcotic use: Code(s): F11.90 - Opioid use, unspecified, uncomplicated Status: Acute Assessment and Plan: Continue oxycodone as needed. (6) Hypothyroid: Qualifiers: Hypothyroidism type: unspecified Qualified Code(s): E03.9 - Hypothyroidism, unspecified Code(s): E03.9 - Hypothyroidism, unspecified Status: Chronic Assessment and Plan: Continue levothyroxine TSH 0.017, T4 1.77, T3 0.82 Stable at this time (7) Bacteremia: Code(s): R78.81 - Bacteremia Status: Acute Assessment and Plan: Gram positive cocci in clusters in aerobic bottle Contaminate indicated as it grew staph hominis Hold off on adding any further antibiotics for now Await identification Treat as indicated DS: Summary Hospital Course Hospital Course: Patient is a 62-year-old female with a past medical history of COPD, chronic respiratory failure, proximal AFib, diabetes, hypothyroidism who presented the ED with complaints of shortness of breath. Patient had recently being treated with Levaquin and steroids however has not had any relief and shortness of breath has continued to worsen. Patient has noted to have increased sputum that is thick and yellow in nature, increased shortness of breath, increased wheezes. Patient initially was started on neb treatments and Solu-Medrol. Azithromycin was started however patient was not getting any better. A repeat chest x-ray was performed and did not show any acute cardiopulmonary abnormalities however ceftriaxone was added for further coverage. Solu-Medrol was changed to p.o. prednisone. Sputum culture did grow Gram-positive cocci which did come back as Staph aureus, along with mold. Since the addition of ceftriaxone the patient has felt a lot better. WBCs have been better and more stable. Patient is on her home setting of O2. Wheezes are better as well. Patient has been rece
[2023-02-23] MEDS: predniSONE 20 MG TABLET 40 MG PO (09:26)
[2023-02-23] MEDS: busPIRone HCL 5 MG TABLET PO (09:27)
[2023-02-23] MEDS: ASPIRIN 81 MG ENTERIC TABLET PO (09:27)
[2023-02-23] MEDS: ROFLUMILAST 500 MCG TABLET PO (09:27)
[2023-02-23] MEDS: CHOLECALCIFEROL 1,000 UNITS TABLET 5000 UNITS PO (09:27)
[2023-02-23] MEDS: BENZONATATE 100 MG CAPSULE 200 MG PO (09:27)
[2023-02-23] MEDS: MAGNESIUM OXIDE 400 MG TABLET PO (09:27)
[2023-02-23] MEDS: guaiFENesin 12 HR 600 MG TABCR PO (09:27)
--- NOTE | 2023-02-23 09:39 | P.PNIM_ITS ---
Progress Note: A&P Assessment and Plan (1) Acute exacerbation of chronic obstructive airways disease: Code(s): J44.1 - Chronic obstructive pulmonary disease with (acute) exacerbation Status: Acute Assessment and Plan: * Chest xray showed no acute cardiopulmonary disease * repeat chest xray no acute cardiopulmonary disease * Likely precipitated by a viral URI * increasingly productive cough * Continue azithromycin and ceftriaxone * Continue scheduled bronchodilators * Solu-Medrol changed to PO prednisone * sputum culture grew Staph aureus and mold (2) Chronic respiratory failure with hypoxia, on home oxygen therapy: Code(s): J96.11 - Chronic respiratory failure with hypoxia; Z99.81 - Dependence on supplemental oxygen Status: Acute Assessment and Plan: * Currently at her baseline oxygen requirement. * Pulmonary embolism considered but seems less likely. * No tachycardia, chest pain, or shortness of breath complaints at rest * Trend respiratory status * Titrate oxygen to maintain saturations >88-90% (3) Lactic acidosis: Code(s): E87.20 - Acidosis, unspecified Status: Acute Assessment and Plan: * Sepsis seems unlikely. * Lactic acidosis may be related to hypoxia * Blood cultures grew gram positive cocci in clusters in the aerobic bottle, which appears to be a contaminate * most likely related to a contaminate * resolved as last lactic 1.0 (4) Type 2 diabetes mellitus: Code(s): E11.9 - Type 2 diabetes mellitus without complications Status: Acute Assessment and Plan: * Current glucose 98 * Initiate sliding scale insulin * Accu-Cheks AC/HS cancelled as patient does not want them * hypoglycemic protocol * hemoglobin A1c 5.8 * Metformin currently on hold. * Stop insulin as well since she does not want this as well (5) Chronic narcotic use: Code(s): F11.90 - Opioid use, unspecified, uncomplicated Status: Acute Assessment and Plan: * Continue oxycodone as needed. (6) Hypothyroid: Qualifiers: Hypothyroidism type: unspecified Qualified Code(s): E03.9 - Hypothyroidism, unspecified Code(s): E03.9 - Hypothyroidism, unspecified Status: Chronic Assessment and Plan: * Continue levothyroxine * TSH 0.017, T4 1.77, T3 0.82 * Stable at this time (7) Bacteremia: Code(s): R78.81 - Bacteremia Status: Acute Assessment and Plan: * Gram positive cocci in clusters in aerobic bottle * Contaminate indicated as it grew staph hominis * Hold off on adding any further antibiotics for now * Await identification * Treat as indicated * Resolved Time Spent With Patient Time: [address] Hendrix about case and reviewed current findings Time with patient: Greater than 35 minutes Subjective Date/time seen: 02/23/23844 Interval history: 02/23/23844 Patient is feeling a whole lot better today. Patient stated that she is still short of breath however it is better than it has been over last few days. She also stated that her cough is better. She has a little bit of chest pain however does seem to be related to the cough as well. She denies any
--- NOTE | 2023-02-23 09:39 | PM.IMPN ---
Progress Note: A&P Assessment and Plan (1) Acute exacerbation of chronic obstructive airways disease: Code(s): J44.1 - Chronic obstructive pulmonary disease with (acute) exacerbation Status: Acute Assessment and Plan: Chest xray showed no acute cardiopulmonary disease repeat chest xray no acute cardiopulmonary disease Likely precipitated by a viral URI increasingly productive cough Continue azithromycin and ceftriaxone Continue scheduled bronchodilators Solu-Medrol changed to PO prednisone sputum culture grew Staph aureus and mold (2) Chronic respiratory failure with hypoxia, on home oxygen therapy: Code(s): J96.11 - Chronic respiratory failure with hypoxia; Z99.81 - Dependence on supplemental oxygen Status: Acute Assessment and Plan: Currently at her baseline oxygen requirement. Pulmonary embolism considered but seems less likely. No tachycardia, chest pain, or shortness of breath complaints at rest Trend respiratory status Titrate oxygen to maintain saturations >88-90% (3) Lactic acidosis: Code(s): E87.20 - Acidosis, unspecified Status: Acute Assessment and Plan: Sepsis seems unlikely. Lactic acidosis may be related to hypoxia Blood cultures grew gram positive cocci in clusters in the aerobic bottle, which appears to be a contaminate most likely related to a contaminate resolved as last lactic 1.0 (4) Type 2 diabetes mellitus: Code(s): E11.9 - Type 2 diabetes mellitus without complications Status: Acute Assessment and Plan: Current glucose 98 Initiate sliding scale insulin Accu-Cheks AC/HS cancelled as patient does not want them hypoglycemic protocol hemoglobin A1c 5.8 Metformin currently on hold. Stop insulin as well since she does not want this as well (5) Chronic narcotic use: Code(s): F11.90 - Opioid use, unspecified, uncomplicated Status: Acute Assessment and Plan: Continue oxycodone as needed. (6) Hypothyroid: Qualifiers: Hypothyroidism type: unspecified Qualified Code(s): E03.9 - Hypothyroidism, unspecified Code(s): E03.9 - Hypothyroidism, unspecified Status: Chronic Assessment and Plan: Continue levothyroxine TSH 0.017, T4 1.77, T3 0.82 Stable at this time (7) Bacteremia: Code(s): R78.81 - Bacteremia Status: Acute Assessment and Plan: Gram positive cocci in clusters in aerobic bottle Contaminate indicated as it grew staph hominis Hold off on adding any further antibiotics for now Await identification Treat as indicated Resolved Time Spent With Patient Time: [address] Hendrix about case and reviewed current findings Time with patient: Greater than 35 minutes Subjective Date/time seen: 02/23/23 0845 Interval history: 02/23/23 0845 Patient is feeling a whole lot better today. Patient stated that she is still short of breath however it is better than it has been over last few days. She also stated that her cough is better. She has a little bit of chest pain however does seem to be related to the cough as well. She denies any current chest pain, nausea, vomiting, diarrhea or constipation. She did state that she feels a whole lot better than she did. She is wanting to go home however culture from the sputum grew Staph aureus and mold. Awaiting ID pharmacist for further instructions at this time. 02/22/23 1100 Patient is not feeling any better today. Patient stated that she feels like she is going backwards. Her cough is worse and she is coughing up more sputum that she stated is thick and yellow. She also stated that she is still very short of breath and it seems that she is more short of breath today than she was yesterday as she is not able to complete sentences t
--- NOTE | 2023-02-23 11:02 | PC.NURSE ---
Removed IV due to redness/hardness/pain. Pt requesting no new IV be placed. Patient originally thought to be discharged today; Pablo Mcpherson aware and will find out if patient is still in need of IV antibiotics. Pt currently without IV access
== END 2023-02-23 13:30 | disposition home or self-care (01) | DRG 191 ==
LOC: ANHED 16:57 → ANH2MED 17:24
PROVIDERS: Emergency Medicine; Physician Assistant; Admitting Provider Family Medicine; Emergency Provider Emergency Medicine; PCP Internal Medicine; Referring Provider Nurse Practitioner; Visit Provider Nurse Practitioner
DX: J44.1 Chronic obstructive pulmonary disease with (acute) exacerbation (principal); E87.20 Acidosis, unspecified; J96.11 Chronic respiratory failure with hypoxia; R78.81 Bacteremia; F11.90 Opioid use, unspecified, uncomplicated; E03.9 Hypothyroidism, unspecified; N18.30 Chronic kidney disease, stage 3 unspecified; I48.0 Paroxysmal atrial fibrillation; E11.22 Type 2 diabetes mellitus with diabetic chronic kidney disease; Z99.81 Dependence on supplemental oxygen; Z20.822 Contact with and (suspected) exposure to COVID-19; Z88.0 Allergy status to penicillin
CPT/HCPCS: 36415; 36600; 71045; 80048; 80053; 82375; 82805; 82948; 83036; 83050; 83605; 83735; 84145; 84439; 84443; 84480; 84484; 85025; 85027; 87040; 87070; 87081; 87106; 87147; 87181; 87186; 87205; 87637; 93005; 94640; 94667; 96365; 96366; 96367; 96375; 96376; 99285; A9270; G0378; J0456; J0696; J1650; J2920; J2930; J3475; J7040; J7512

== ENCOUNTER 2023-05-22 11:29 | Outpatient (CLI) | payer MEDICARE, SELFPAY ==
[2023-05-22 11:43] LABS: Basophils Absolute Auto 0.1 K/mm3 (0.0-0.1); Basophils Percent Auto 0.7 % (0.2-1.2); Eosinophils Absolute Auto 0.4 K/mm3 (0-0.3); Hematocrit 45.6 % (37.0-47.0); Hemoglobin 15.2 g/dL (12.0-15.0); Immature Granulocyte Absolute 0.02 K/mm3 (0.00-0.031); Immature Granulocyte Percent A 0.3 % (0-0.5); Lymphocytes Absolute Auto 1.81 K/mm3 (0.9-3.2); Lymphocytes Percent Auto 26.4 % (18.3-44.2); Mean Corpuscular HGB Conc 33.3 g/dl (32-36); Mean Corpuscular Hemoglobin 30.1 pg (26-34); Mean Corpuscular Volume 90.3 fl (80-100); Mean Platelet Volume 10.1 fl (7.4-10.4); Monocytes Absolute Auto 0.4 K/mm3 (0.1-0.6); Neutrophils Absolute Auto 4.2 K/mm3 (1.3-6.7); Neutrophils Percent Auto 60.6 % (45.5-73.1); Platelet Count Result 276 k/mm3 (150-375); Red Blood Count 5.05 M/mm3 (4.2-5.4); Red Cell Distribution Width 12.1 % (11.5-14.5); White Blood Count 6.9 K/mm3 (4.5-10.0)
[2023-05-22 12:43] LABS: Iron 82 ug/dL (37-170)
[2023-05-22 12:45] LABS: Anion Gap 4 mmol/L (8-16); Blood Urea Nitrogen 9 mg/dL (7-17); Carbon Dioxide 36 mmol/L (22-30); Chloride 98 mmol/L (98-107); Estimated Glomerular Filt Rate > 60; Glucose 92 mg/dL (65-110); Potassium 4.1 mmol/L (3.4-5.0); Sodium 138 mmol/L (137-145)
[2023-05-22 13:00] LABS: Percent Iron Saturation 23 % (20-50)
== END 2023-05-22 11:30 | disposition home or self-care (01) ==
LOC: ANHLAB 11:31
PROVIDERS: PCP Internal Medicine; Visit Provider Internal Medicine Hematology & Oncology
DX: D50.0 Iron deficiency anemia secondary to blood loss (chronic) (principal)
CPT/HCPCS: 36415; 80048; 82728; 83540; 83550; 85025

== ENCOUNTER 2023-11-05 16:02 | Emergency (ER) | payer MEDICARE, SELFPAY ==
--- NOTE | ~2023-11-05 | XR_ITS ---
EXAMINATION: XR chest 1V portable Exam Date/Time: 11/05/2023 16:45 SURGICAL ONCOLOGIST HISTORY: dyspnea Comparison: 02/22/2023. RESULT: Lines, tubes, and devices: None. Lungs and pleura: Granulomatous calcifications, otherwise clear. Cardiomediastinal silhouette: Stable. Other: No acute osseous or upper abdominal finding. IMPRESSION: No acute cardiopulmonary process. Reviewed, dictated and finalized at location K. ICAL ONCOLOGIST
[2023-11-05 16:08] VITALS: PULSE 127; RESP 30; TEMP 36.8; O2SAT 96
--- NOTE | 2023-11-05 16:11 | ECG_ITS ---
Measurements Intervals [place] Rate: 123 P: 81 MO: 153 QRS: 80 QRSD: 77 T: 60 QT: 287 QTc: 411 Interpretive Statements SINUS TACHYCARDIA ABNORMAL RHYTHM ECG COMPARED TO ECG 02/20/2023 11:22:02 NO SIGNIFICANT CHANGES Electronically Signed On 11-05-2023 21:10:56 [employer]GER [employer] by Sebastien Shanks M.D.
[2023-11-05 16:16] VITALS: BP 122/81; PULSE 126; RESP 23; O2SAT 94; O2SAT 96
[2023-11-05 16:31] LABS: Basophils Percent Auto 0.6 % (0.2-1.2); Eosinophils Percent Auto 0.6 % (0-4.4); Hematocrit 43.8 % (37.0-47.0); Hemoglobin 14.3 g/dL (12.0-15.0); Immature Granulocyte Absolute 0.01 K/mm3 (0.00-0.031); Immature Granulocyte Percent A 0.2 % (0-0.5); Lymphocytes Absolute Auto 0.58 K/mm3 (0.9-3.2); Lymphocytes Percent Auto 10.8 % (18.3-44.2); Mean Corpuscular HGB Conc 32.6 g/dl (32-36); Mean Corpuscular Hemoglobin 29.4 pg (26-34); Mean Corpuscular Volume 90.1 fl (80-100); Mean Platelet Volume 10.2 fl (7.4-10.4); Monocytes Absolute Auto 0.5 K/mm3 (0.1-0.6); Monocytes Percent Auto 9.9 % (2.6-8.5); Neutrophils Absolute Auto 4.2 K/mm3 (1.3-6.7); Neutrophils Percent Auto 77.9 % (45.5-73.1); Platelet Count Result 209 k/mm3 (150-375); Red Blood Count 4.86 M/mm3 (4.2-5.4); Red Cell Distribution Width 12.1 % (11.5-14.5); White Blood Count 5.4 K/mm3 (4.5-10.0)
--- NOTE | 2023-11-05 16:33 | ED.SOB ---
HPI - SOB/Dyspnea General Chief Complaint: Shortness of Breath/Dyspnea Stated Complaint: sob Time Seen by Provider: 11/05/23 16:16 Source: patient Mode of arrival: ambulatory Limitations: no limitations History of Present Illness HPI Narrative: This is a 63 year old female that presents to the ER for shortness of breath and cough. Ongoing over the last 3 days. Reports history of COPD. She is chronically on 3L NC. Reports she was started on Levofloxacin yesterday by her PCP. Denies fever or lower extremity edema. Related Data Home Medications Medication Instructions Recorded Confirmed amitriptyline 50 mg tablet 50 mg PO HS 01/22/21 02/20/23 atorvastatin 40 mg tablet 20 mg PO HS 01/22/21 02/20/23 buspirone 5 mg tablet 5 mg PO BID 01/22/21 02/20/23 cholecalciferol (vitamin D3) 125 5,000 unit PO DAILY 01/22/21 02/20/23 mcg (5,000 unit) capsule diltiazem HCl 300 mg 300 mg PO QHS 01/22/21 02/20/23 tablet,extended release 24 hr fluticasone furoate 200 See Rx Instructions .Route .COMPLEX 01/22/21 02/20/23 mcg-vilanterol 25 mcg/dose inhalation powder (Breo Ellipta) levothyroxine 100 mcg tablet 100 mcg PO DAILY 01/22/21 02/20/23 magnesium oxide 400 mg (241.3 mg 400 mg PO BID 01/22/21 02/20/23 magnesium) tablet metformin 500 mg tablet 500 mg PO BID 01/22/21 02/20/23 oxycodone-acetaminophen 5 mg-325 5 - 325 tablet PO Q8H PRN Pain 01/22/21 02/20/23 mg tablet sertraline 100 mg tablet 100 mg PO HS 01/22/21 02/20/23 tiotropium bromide 2.5 2.5 mcg inhalation BID 01/22/21 02/20/23 mcg/actuation mist for inhalation (Spiriva Respimat) tizanidine 4 mg tablet 4 mg PO BID PRN Spasms 01/22/21 02/20/23 aspirin 81 mg tablet 81 mg PO DAILY 02/20/23 02/20/23 docusate sodium 100 mg capsule 100 mg PO BID 02/20/23 02/20/23 (Colace) omeprazole 10 mg capsule,delayed 15 mg PO QHS 02/20/23 02/20/23 release roflumilast 500 mcg tablet 500 mcg PO DAILY 02/20/23 02/20/23 Allergies Allergy/AdvReac Type Severity Reaction Status Date / Time Penicillins Allergy Rash Verified 02/20/23 11:28 Review of Systems Review of Systems: CONSTITUTIONAL: Denies fever ENT: Reports congestion CARDIOVASCULAR: Denies chest pain, or edema. RESPIRATORY: Reports cough and dyspnea. GASTROINTESTINAL: Reports nausea and vomiting. Denies abdominal pain GENITOURINARY: Denies dysuria All systems reviewed & are unremarkable except as noted in HPI and below PMFSH Past Medical History Medical History (Updated 11/05/23 @ 18:07 by Gayle Yusuf PA-C) Anxiety Chronic narcotic use Chronic obstructive pulmonary disease Chronic respiratory failure with hypoxia, on home oxygen therapy Depression Hypothyroid Obesity Paroxysmal atrial fibrillation Stage 3 chronic kidney disease Type 2 diabetes mellitus Surgical History Surgical History (Updated 02/20/23 @ 17:06 by Rhonda Pacheco PA-C) History of appendectomy History of cardiac catheterization History of cardiac radiofrequency ablation History of section History of colonoscopy with polypectomy (01/2021) Family History Family History (Updated 02/20/23 @ 18:01 by Geo Curry RN) Mother Brain tumor Social History Social History (Updated 02/20/23 @ 22:54 by Rhonda Pacheco PA-C) Social History: Surrogate medical decision maker: Eddie Elam, spouse. Code status: Full code. Smoking packs per day: 1.5 Smoking cigarettes per day: 30.0 Years smoked: 30 Smoking pack-years: 45.00 Smoking status: Former smoker Tobacco type: cigarettes Alcohol intake: current Drinks per week: 0 Substance use: current Substance use type: marijuana Lack of Transportation: No Lack of Food: Never True Current Housing: I Have Housing Concerned About Future Housing: No Difficulty Paying Gas/Electric Bills: No Difficulty Paying for Meds: No Currently Unemployed: No Education: Associate Degree Difficulty w/ Childcare or Family Care: No Additional dany
[2023-11-05 16:41] LABS: Alanine Aminotransferase 13 U/L (6-35); Albumin Level 4.7 g/dL (3.5-5.1); Alkaline Phosphatase 119 U/L (38-126); Anion Gap 11 mmol/L (8-16); Aspartate Amino Transferase 22 U/L (14-36); Bilirubin,Total 0.6 mg/dL (0.2-1.3); Blood Urea Nitrogen 7 mg/dL (7-17); Calcium 9.7 mg/dL (8.4-10.2); Carbon Dioxide 26 mmol/L (22-30); Chloride 98 mmol/L (98-107); Estimated CRCL calculation 59 ml/min; Estimated Glomerular Filt Rate > 60; Glucose 126 mg/dL (65-110); Potassium 4.2 mmol/L (3.4-5.0); Sodium 135 mmol/L (137-145)
[2023-11-05 16:46] VITALS: BP 134/94; PULSE 124; RESP 20; TEMP 36.5; O2SAT 92
[2023-11-05 17:01] VITALS: BP 132/80; PULSE 112; RESP 20; O2SAT 94
[2023-11-05] MEDS: methylPREDNISolone SOD SUCC 125 MG VIAL IV PUSH (17:04)
[2023-11-05] MEDS: IPRATROPIUM BR 0.02% INH SOLN 0.5 MG/2.5 ML VIAL INHALATION (17:04)
[2023-11-05] MEDS: LEVALBUTEROL NEB 1.25 MG/3 ML INHALATION (17:04)
[2023-11-05 17:07] LABS: Influenza A QL RT-PCR Negative (Negative); Influenza B QL RT-PCR Negative (Negative); RSV RNA, RT-PCR Negative (Negative); SARS-CoV-2 RNA PCR Negative (Negative)
[2023-11-05 17:13] LABS: Alveolar/Arterial O2 Gradient 111.7 mmHg; Base Excess ABG 3.8 mEq/l (+/-2.0); Carboxyhemoglobin 0.5 % THb (0-2.0); Device NASAL CANNULA; Fractional Inspired Oxygen 32 %; HCO3 ABG 27.4 mEq/l (22.0-26.0); Methemoglobin ABG 0.3 %THb (0-1.5); Modified Allen's Test Pass; Oxygen Content ABG 18.9 %vol (16.0-22.0); Oxygen Saturation ABG 95.4 % (95.0-100.0); Oxyhemoglobin 93.9 % THb (90.0-100.0); PCO2 ABG 38.1 mmHg (35.0-45.0); PO2 ABG 71.9 mmHg (80.0-100.0); PO2 FiO2 Ratio Arterial Blood 2.25 %; Reduced Hemoglobin 5.3 %THb (0-5.0); Site Drawn RIGHT RADIAL; Total Hemoglobin 14.3 g/dL (12.0-18.0); pH ABG 7.475 (7.350-7.450)
[2023-11-05 17:47] VITALS: BP 126/88; PULSE 122; RESP 20; TEMP 36.4; O2SAT 94
[2023-11-05 18:16] VITALS: BP 118/82; PULSE 125; RESP 20; O2SAT 95
== END 2023-11-05 18:23 | disposition home or self-care (01) ==
PROVIDERS: Emergency Medicine; Emergency Provider Physician Assistant; PCP Internal Medicine
DX: J44.1 Chronic obstructive pulmonary disease with (acute) exacerbation (principal); J96.11 Chronic respiratory failure with hypoxia; Z99.81 Dependence on supplemental oxygen; E03.9 Hypothyroidism, unspecified; I48.0 Paroxysmal atrial fibrillation; E11.22 Type 2 diabetes mellitus with diabetic chronic kidney disease; N18.30 Chronic kidney disease, stage 3 unspecified; F41.9 Anxiety disorder, unspecified; F32.A Depression, unspecified; Z87.891 Personal history of nicotine dependence; F12.90 Cannabis use, unspecified, uncomplicated; Z20.822 Contact with and (suspected) exposure to COVID-19; Z79.51 Long term (current) use of inhaled steroids; Z79.84 Long term (current) use of oral hypoglycemic drugs; Z79.891 Long term (current) use of opiate analgesic; Z79.82 Long term (current) use of aspirin
CPT/HCPCS: 36415; 36600; 71045; 80053; 82375; 82805; 83050; 85025; 87637; 93005; 94640; 96374; 99284; J2930

== ENCOUNTER 2025-01-25 15:55 | Outpatient (CLI) | payer MEDICARE, SELFPAY ==
--- NOTE | ~2025-01-25 | MM_ITS ---
EXAMINATION: MM screening jyoti BI w cindy HISTORY: Screening TECHNIQUE: Craniocaudal and mediolateral oblique 3-D tomosynthesis images were obtained and synthetic 2-D images were generated. CAD analysis was submitted and interpreted. COMPARISON: No prior mammogram is available for comparison at this institution. BREAST PARENCHYMAL COMPOSITION: Dense: The breasts are heterogeneously dense, which may obscure small masses FINDINGS: There is no evidence of suspicious mass, calcification, or architectural distortion to sugg est malignancy in either breast. There has been no suspicious interval change. IMPRESSION: 1. No mammographic evidence of malignancy. 2. Recommend routine screening mammography in one year. BI-RADS Category 1: Negative Reviewed, dictated and finalized at location B.
--- OUTSIDE RECORDS SUMMARY | 2025-01-25 17:47 | XMS_ITS | Clinical Summary ---
Author Organization [facility] Address [address] [place] [address] Care Team Providers Care Manufacturing Planner Name Role Phone Apollo Zurita MD Primary Care Provide r Allergies Active Allergy Reactions Criticality Noted Date Comments Penicillins Rash Medium 03/28/2017 Medications digoxin (LANOXIN) 125 mcg (0.125 mg) tablet Take 125 mcg by mouth daily Active levothyroxine (SYNTHROID) 100 mcg tablet Take 1 tablet (100 mcg total) by mouth mathematics education professor before breakfast Active losartan (COZAAR) 100 mg tablet Take 1 tablet (100 mg total) by mouth daily Active metFORMIN (GLUCOPHAGE) 500 mg tablet Take 1 tablet (500 mg total) by mouth 2 (two) times a day with meals Active busPIRone (BUSPAR) 5 mg tablet Take 1 tablet (5 mg total) by mouth 3 (three) times a day Active magnesium oxide (MAG-OX) 400 mg (241.3 mg elemental magnesium) tablet Take 1 tablet (400 mg total) by mouth daily Active cholecalcifero l (VITAMIN D-3) 5,000 unit capsule Take 5,000 Units by mouth daily Active ferrous sulfate ER 324 mg (65 mg iron) EC tablet Take 65 mg by mouth Active multivit with calcium,iron,m in (MULTIPLE VITAMIN, WOMENS ORAL) Take 1 tablet by mouth daily Active aspirin 81 mg enteric coated tablet Take 1 tablet (81 mg total) by mouth daily Active diltiazem (TIAZAC) 300 mg 24 hr capsule Take 1 capsule (300 mg total) by mouth daily Active sertraline (ZOLOFT) 100 mg tablet Take 1 tablet (100 mg total) by mouth daily Active omeprazole (PriLOSEC) 20 mg capsule Take 1 capsule (20 mg total) by mouth daily Active amitriptyline (ELAVIL) 50 mg tablet Take 1 tablet (50 mg total) by mouth nightly Active TiZANidine (ZANAFLEX) 4 mg capsule Take 2 capsules (8 mg total) by mouth nightly Active atorvastatin (LIPITOR) 40 mg tablet Take 1 tablet (40 mg total) by mouth daily Active oxyCODONE-acet aminophen (PERCOCET) 5-325 mg per tablet Take 1 tablet by mouth every 12 (twelve) hours as needed Active roflumilast (DALIRESP) 500 mcg tablet Take 1 tablet (500 mcg total) by mouth daily 90 tablet 3 01/29/20 24 Active fluticasone furoate-vilant Sudhir (Breo Ellipta) 200-25 mcg/dose diskus inhaler Inhale 1 puff daily 60 each 04/12/20 24 Active albuterol 2.5 mg /3 mL (0.083 %) nebulizer solution Take 3 mL (2.5 mg total) by nebulization every 4 (four) hours as needed for wheezing or shortness of breath Active arformoteroL (Brovana) 15 mcg/2 mL nebulizer solution Take 15 mL (112.5 mcg total) by nebulization 2 (two) times a day 05/25/20 21 Active budesonide-gly copyr-formoter ol (Breztri Aerosphere) 160-9-4.8 mcg/actuation inhaler Inhale 2 puffs 2 (two) times a day Rinse and spit after use - use with aerochamber 1 each 12/29/19 25 025 Active predniSONE (DELTASONE) 10 mg tablet Take 4 tablets (40 mg) by mouth daily for 3 days, THEN 3 tablets (30 mg) daily for 3 days, THEN 2 tablets (20 mg) daily for 3 days, THEN 1 tablet (10 mg) daily for 3 days. 30 tablet 01/20/20 25 025 Active tiotropium bromide (SPIRIVA RESPIMAT) 2.5 mcg/actuation inhaler Inhale 2 puffs daily 4 g 01/29/20 24 025 Discontinu ed(Other) levoFLOXacin (LEVAQUIN) 750 mg tablet Take 1 tablet (750 mg total) by mouth daily for 10 days 10 tablet 12/16/19 25 025 predniSONE (DELTASONE) 10 mg tablet Take 4 tablets (40 mg) by mouth daily for 3 days, THEN 3 tablets (30 mg) daily for 3 days, THEN 2 tablets (20 mg) daily for 3 days, THEN 1 tablet (10 mg) daily for 3 days. 30 tablet 12/16/19 25 025 Additional Information Patient not taking.Reported on 12/29/2024 benzonatate (TESSALON) 200 mg capsule Take 1 capsule (200 mg total) by mouth 3 (three) times a day as needed for cough for up to 10 days 30 capsule 12/16/19 025 doxycycline (VIBRAMYCIN) 100 mg capsule Take 1 tablet/capsule (100 mg total) by mouth 2 (two) times a day for 7 days 14 tablet/capsu le 12/22/19 025 Active Problems Problem Noted Date Diagnosed Date COPD exacerbation 12/29/2024 Assessment & Plan (12/29/2024 2:54 PM ROCK DUSTER): She has improved with doxycycline and prednisone. Likely due to viral exposure. Running out of her ICS/LABA for the last 5 days is certainly contributing to her persistent symptoms. I have given her a Breztri sample. Start NAC Rest, hydration, PRN albuterol We have discussed signs and symptoms that would require emergent evaluation She will call Friday if she has not improved Chronic respiratory failure with hypoxia, on home O2 therapy 05/18/2024 Assessment & Plan (12/29/2024 2:51 PM ROCK DUSTER): Continue supplemental oxygen for saturations greater than 90% She is aware of the risks of hypoxia Assessment & Plan (09/21/2024 1:55 PM ROCK DUSTER): Continue supplemental oxygen for saturations greater than 90% She is aware of the risks of hypoxia Assessment & Plan (05/18/2024 7:04 PM CDT): Continue supplemental oxygen for saturations greater than 90% She is aware of the risks of hypoxia Cigarette nicotine dependence in remission 05/18 Assessment & Plan (12/29/2024 2:52 PM ROCK DUSTER): She was due for annual LDCT screening in October 2024, I do not have these results She is unsure if she had this completed We will check records at [facility] Assessment & Plan (09/21/2024 1:55 PM ROCK DUSTER): She is due for annual LDCT screening in October 2024, I have placed the order today Assessment & Plan (05/18/2024 7:04 PM CDT): She is due for annual LDCT screening in October 2024 Chronic obstructive pulmonary disease 08/08/2021 Overview (08/08/2021): Added automatically from request for surgery [id number] Assessment & Plan (12/29/2024 2:51 PM ROCK DUSTER): I will switch her maintenance therapy to Breztri 2 puffs twice daily I have given her a 1 week sample and instructed her on use and technique. I have instructed her to obtain an AeroChamber to use with this and she is aware to rinse and spit after use. I have given her a free 30 day trial sample card She will continue albuterol as needed only She was intolerant to Trelegy Ellipta 200 once daily with nausea and dizziness. Continue roflumilast 500 mcg daily Last LFT WNL. She will have recent lab work from [facility] faxed to our office. Pulmonary rehab was previously unaffordable. We have discussed signs and symptoms that would require earlier evaluation or change to her plan of care Start NAC to assist with mucus clearance We have discussed the addition of biologics due to her frequent steroid requirements. She will bring her recent blood work to her next appointment. I have given her literature to review on Dupixent injections We have discussed signs and symptoms that would require earlier evaluation or change to her plan of care Assessment & Plan (09/21/2024 1:56 PM ROCK DUSTER): She will continue Breo Ellipta 200 one puff daily Continue Spiriva daily Unfortunately she is in the donut hole and her medications have become more expensive. She was intolerant to Trelegy Ellipta 200 once daily with nausea and dizziness. One week sample of Breztri was given to her today, I have instructed her on use and technique. Continue roflumilast 500 mcg daily Last LFT WNL. She will have recent lab work from [facility] faxed to our office. Pulmonary rehab was previously unaffordable. We have discussed signs and symptoms that would require earlier evaluation or change to her plan of care I have sent for steroids and antibiotics for her increased symptoms of cough, sputum production, dyspnea today Assessment & Plan (05/18/2024 6:52 PM CDT): She will continue Breo Ellipta 200 one puff daily Continue Spiriva daily Unfortunately she is in the donut hole and her medications have become more expensive. Will trial Trelegy Ellipta 200 once daily, 4 weeks of samples given today and instructed on use. If this provides similar clinical benefit I will attempt to switch her to this permanently. We have also discussed de-escalating to low dose inhaled steroid, however at this time she has only had one exacerbation in the last year in October 2023. Continue roflumilast 500 mcg daily Last LFT WNL. Pulmonary rehab was previously unaffordable. Pre-transplant evaluation for lung transplant Overview (08/08/2021): Added automatically from request for surgery [id number] Emphysema of lung 08/08/2021 Overview (08/08/2021): Added automatically from request for surgery [id number] Encounters Date Type Department Care Team Description 01/19/2025 Orders Only [facility] Pulmonary at [address] [place] [address] Gayle Reyna NP 01/17/2025 Telephone [facility] Pulmonary at [address] [place] [phone] Verónica Omalley LPN Shortness of Breath 12/31/2024 Telephone [facility] Pul[facility] at [address] [place] [phone] Josefina Flores MA 12/29/2024 1:30 PM ROCK DUSTER Office Visit [facility] Pulmonary at [address] [place] [phone] Gayle Reyna, SHANNAN COPD exacerbation (HCC) (Primary Dx); Chronic respiratory failure with hypoxia, on home O2 therapy (HCC); Centrilobular emphysema (HCC); Cigarette nicotine dependence in remission 12/22/2024 Orders Only [facility] Pulmonary at [address] [phone] Gayle Reyna NP 12/16/2024 Telephone [facility] Pulmonary at [address] [phone] Estephanie Soliman LPN Sick call 11/12/2024 Telephone [facility] Pulmonary at [address] [place] [phone] Verónica Omalley LPN from Last 3 Months Surgical History Surgery Date Site/Laterality Comments TONSILECTOMY, ADENOIDECTOMY, BILATERAL MYRINGOTOMY AND TUBES SECTION APPENDECTOMY TOTAL HIP ARTHROPLASTY Left ANKLE SURGERY Right ELBOW SURGERY Left Medical History Medical History Date Comments COPD (chronic obstructive pulmonary disease) (HC C) Diabetes mellitus (HCC) Thyroid disease A-fib (HCC) Depression Anxiety Cigarette nicotine dependence in remission 05/18 COPD exacerbation (HCC) 12/29/2024 Family History Medical History Relation Name Comments Diabetes Father Hypertension Mother Relation Name Status Comments Father Mother Social History Tobacco Use Types Packs/Day Years Used Date Smoking Tobacco: Former Cigarettes 1.5 36.2 1 976 - 01/18/2012 Passive Smoke Exposure: Past Smokeless Tobacco: Never Tobacco Cessation:Counseling Given: Not Answered AUDIT-C Answer Date Recorded Q1: How often do you have a drink containing alc ohol? Patient declined 12/29/2024 Average Number of Drinks Not on file 025 Frequency of Binge Drinking Not on file 12/11 Overall Financial Resource Strain (CARDIA) Answe r Date Recorded How hard is it for you to pa y for the very basics like food, housing, medical care, and heating? Somewhat hard 10/01/2021 PHQ-2 Answer Date Recorded PHQ-2 Total Score (If total score is 3 or more points, staff should administer the PHQ-9) 0 10/01/2021 Hunger Vital Sign Answer Date Recorded Within the past 12 months, y ou worried that your food would run out before you got the money to buy more. Never true 10/01/20 21 Within the past 12 months, t he food you bought just didn't last and you didn't have money to get more. Never true 10/01/2021 PRAPARE - Transportation Answer Date Re corded In the past 12 months, has l ack of transportation kept you from medical appointments or from getting medications? No 09/11 In the past 12 months, has l ack of transportation kept you from meetings, work, or from getting things needed for daily living? No 10/01/2021 Housing Stability Vital Sign Answer Jimmy e Recorded In the last 12 months, was t here a time when you were not able to pay the mortgage or rent on time? No 10/01/2021 In the last 12 months, how many places have you lived? 1 10/01/2021 In the last 12 months, was t here a time when you did not have a steady place to sleep or slept in a penitentiary (including now)? No 10/01/2021 Comments Unknown Sex and Gender Information Value Date Recorded Sex Assigned at Not on file Legal Sex Female 9:17 PM ROCK DUSTER Gender Identity Not on file Sexual Orientation Not on file Obstetrics History Last Filed Vital Signs Vital Sign Reading Time Taken Comments Blood Pressure 110/60 12/29/2024 1:35 PM ROCK DUSTER Pulse 107 12/29/2024 1:35 PM ROCK DUSTER Temperature 36.2 C (97.2 F) 12/29/2024 1:35 PM ROCK DUSTER Respiratory Rate 20 12/29/2024 1:35 PM ROCK DUSTER Oxygen Saturation 95% 12/29/2024 1:35 PM ROCK DUSTER on 3L of o2 Inhaled Oxygen Concentration - - Weight 67.4 kg (148 lb 8 oz) 12/29/2024 1:35 PM ROCK DUSTER Height 167.6 cm (5' 6 ) 12/29/2024 1:35 PM ROCK DUSTER Body Mass Index 23.97 12/29/2024 1:35 PM ROCK DUSTER Plan of Treatment Health Maintenance Due Date Last Done Comments Breast Cancer Screening-Mammogram 1961 Cervical Cancer Screening 1961 Colon Cancer Screening-Colonoscopy 1961 Hepatitis B Screening 1979 Regular Well Visit/Exam 18-64 1979 Lung Cancer Screening 2011 Zoster Vaccine (1 of 2) 2011 Pneumococcal vaccine <65 (3 of 3 - PCV20 or PCV21) 10/08/2021 10/08/2016, 09/10/2016, 01/08/2013 Depression Screening 10/01/2022 10/01/2021, 10/01/20 21 Covid-19 Vaccine (4 - 2023-2 5 season) 2024 08/22/2021, 02/13/2021, 01/22/2021 DTaP/Tdap/Td Vaccine (2 - Td or Tdap) 08/04/2034 08/04/2024 Hepatitis C Screening Completed 10/01/2021 Influenza Vaccine Completed 08/17/2024, , 08/09/2022, Additional history exists Procedures Procedure Name Priority Date/Time Associated Diagnosis Comments HEPATITIS PANEL, ACUTE Routine 10/01/2021 8:03 AM ROCK DUSTER Chronic obstructive pulmonary disease, unspecified COPD type (HCC) Pre-transplant evaluation for lung transplant Pulmonary emphysema, unspecified emphysema type (HCC) from Last 3 Months or Most Recently Relevant to Health Maintenance Results * Hepatitis panel, acute (10/01/2021 8:03 AM ROCK DUSTER) Hep A IgM Nonreactive Nonreactive [facility] Comment: Interpretive Data: If Hep A IgM Ab is reported as Equivocal, a new sample should be drawn in two weeks for testing. Current interpretive data was last revised on 20. Hep B core IgM Nonreactive Nonreactive [facility] Comment: Interpretive Data If HepB Core IgM Ab is reported as Equivocal, a new sample should be drawn in two weeks for testing. Current interpretive data was last revised on 20. Hep C Ab Nonreactive Nonreactive [facility] Comment:Antibodies to HCV no t detected. Does NOT exclude the possibility of recent exposure to HCV. HepBsAg Nonreactive Nonreactive [facility] Blood 10/01/2021 8:03 AM ROCK DUSTER 10/01/2021 8:53 AM ROCK DUSTER us Colton Brian MD LAB MICROBIOLOGY - GENE RAL ORDERABLES Edited Result - Final [facility] [place] [address] from Last 3 Months or Most Recently Relevant to Health Maintenance Insurance HMO REF Member Subscriber Plan / Payer (Ef fective 2021-Present) Name:Lulu Elam Relation to Subscriber:Self Name:Lulu Elam Payer ID:[id number] (NAIC) Type:[facility] MEDICARE Address: [place] [id number] HMO REF MEDICARE SOLUTIONS TRANSPLANT [employer] Care Teams Manufacturing Planner Relationship Specialty Start Date End Date Apollo Zurita, MD [address] [place] [address] PCP - General 09/28/21
--- OUTSIDE RECORDS SUMMARY | 2025-01-25 17:47 | XMS_ITS | Referral Summary ---
Author Organization [facility] Address [address] [place] [address] Care Team Providers Care Ingredient Handler Name Role Phone Apollo Zurita MD Primary Care Provide r Encounters Date Type Department Care Team Description 01/19/[address] [facility] Pulmonary at [address] [place] [phone] Gayle Reyna NP 01/17/[address] [facility] Pulmonary at [address] [phone] Verónica Omalley LPN Shortness of Breath 12/31/[address] [facility] Pulmonary at [address] [phone] Josefina Flores MA 12/29/2024 1:30 PM REHABILITATION SERVICES DIRECTOR Office Visit [facility] Pulmonary at [address] [phone] Gayle Reyna NP COPD exacerbation (HCC) (Primary Dx); Chronic respiratory failure with hypoxia, on home O2 therapy (HCC); Centrilobular emphysema (HCC); Cigarette nicotine dependence in remission 12/22/[address] [facility] Pulmonary at [address] [phone] Gayle Reyna NP 12/16/[address] [facility] Pulmonary at [address] [place] [phone] Estephanie Soliman LPN Sick call 11/12/[address] 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 Active losartan (COZAAR) 100 mg [...] mcg total) by mouth daily 90 tablet 01/29/20 24 Active fluticasone furoate-vilant Sudhir (Breo [...] Inhale 2 puffs daily 4 g 01/29/20 025 Discontinu ed(Other) levoFLOXacin (LEVAQUIN) 750 mg [...] up to 10 days 30 capsule 12/16/19 25 025 doxycycline (VIBRAMYCIN) 100 mg capsule Take 1 tablet/capsule (100 mg total) by mouth 2 (two) times a day for 7 days 14 tablet/capsu le 12/22/19 025 Active Problems Problem Noted Date Diagnosed Date COPD exacerbation 12/29/2024 Assessment & Plan (12/29/2024 2:54 PM REHABILITATION SERVICES DIRECTOR): She has improved with doxycycline and prednisone. [...] 05/18/2024 Assessment & Plan (12/29/2024 2:51 PM REHABILITATION SERVICES DIRECTOR): Continue supplemental oxygen for saturations greater than 90% She is aware of the risks of hypoxia Assessment & Plan (09/21/2024 1:55 PM REHABILITATION SERVICES DIRECTOR): Continue supplemental oxygen for saturations greater than 90% She is aware of the risks of hypoxia Assessment & Plan (05/18/2024 7:04 PM CDT): Continue supplemental oxygen for saturations greater than 90% She is aware of the risks of hypoxia Cigarette nicotine dependence in remission 05/18 Assessment & Plan (12/29/2024 2:52 PM REHABILITATION SERVICES DIRECTOR): She was due for annual LDCT screening in October 2024, I do not have these results She is unsure if she had this completed We will check records at [facility] Assessment & Plan (09/21/2024 1:55 PM REHABILITATION SERVICES DIRECTOR): She is due for annual LDCT screening in October 2024, I have placed the order today Assessment & Plan (05/18/2024 7:04 PM CDT): She is due for annual LDCT screening in October 2024 Chronic obstructive pulmonary disease 08/08/2021 Overview (08/08/2021): Added automatically from request for surgery [id number] Assessment & Plan (12/29/2024 2:51 PM REHABILITATION SERVICES DIRECTOR): I will switch her maintenance therapy to [...] She will have recent lab work from [facility] faxed to our office. Pulmonary rehab was [...] care Assessment & Plan (09/21/2024 1:56 PM REHABILITATION SERVICES DIRECTOR): She will continue Breo Ellipta 200 one [...] She will have recent lab work from [facility] faxed to our office. Pulmonary rehab was [...] (08/08/2021): Added automatically from request for surgery [id number] Emphysema of lung 08/08/2021 Overview (08/08/2021): Added automatically from request for surgery [id number] Social History Tobacco Use Types Packs/Day Years [...] place to sleep or slept in a skilled nursing (including now)? No 10/01/2021 Comments Unknown Sex and Gender Information Value Date Recorded Sex Assigned at Not on file Legal Sex Female 9:17 PM REHABILITATION SERVICES DIRECTOR Gender Identity Not on file Sexual Orientation Not on file Last Filed Vital Signs Vital Sign Reading Time Taken Comments Blood Pressure 110/60 12/29/2024 1:35 PM REHABILITATION SERVICES DIRECTOR Pulse 107 12/29/2024 1:35 PM REHABILITATION SERVICES DIRECTOR Temperature 36.2 C (97.2 F) 12/29/2024 1:35 PM REHABILITATION SERVICES DIRECTOR Respiratory Rate 20 12/29/2024 1:35 PM REHABILITATION SERVICES DIRECTOR Oxygen Saturation 95% 12/29/2024 1:35 PM REHABILITATION SERVICES DIRECTOR on 3L of o2 Inhaled Oxygen Concentration - - Weight 67.4 kg (148 lb 8 oz) 12/29/2024 1:35 PM REHABILITATION SERVICES DIRECTOR Height 167.6 cm (5' 6 ) 12/29/2024 1:35 PM REHABILITATION SERVICES DIRECTOR Body Mass Index 23.97 12/29/2024 1:35 PM REHABILITATION SERVICES DIRECTOR Plan of Treatment Not on file Procedures Procedure Name Priority Date/Time Associated Diagnosis Comments HEPATITIS PANEL, ACUTE Routine 10/01/2021 8:03 AM REHABILITATION SERVICES DIRECTOR Chronic obstructive pulmonary disease, unspecified COPD type (HCC) Pre-transplant evaluation for lung transplant Pulmonary emphysema, unspecified emphysema type (HCC) from Last 3 Months or Most Recently Relevant to Health Maintenance Results * Hepatitis panel, acute (10/01/2021 8:03 AM REHABILITATION SERVICES DIRECTOR) Hep A IgM Nonreactive Nonreactive [facility] Comment: Interpretive Data: If Hep A IgM Ab is reported as Equivocal, a new sample should be drawn in two weeks for testing. Current interpretive data was last revised on 20. Hep B core IgM Nonreactive Nonreactive [facility] Comment: Interpretive Data If HepB Core IgM Ab is reported as Equivocal, a new sample should be drawn in two weeks for testing. Current interpretive data was last revised on 20. Hep C Ab Nonreactive Nonreactive [facility] Comment:Antibodies to HCV no t detected. Does NOT exclude the possibility of recent exposure to HCV. HepBsAg Nonreactive Nonreactive [facility] Blood 10/01/2021 8:03 AM REHABILITATION SERVICES DIRECTOR 10/01/2021 8:53 AM REHABILITATION SERVICES DIRECTOR Colton Brian MD LAB MICROBIOLOGY - [facility] ORDERABLES Edited Result - Final [facility] Department [place] [address] from Last 3 Months or Most Recently Relevant to Health Maintenance Insurance [employer] HMO REF [facility] MEDIC[facility] Address: [facility] [address] [place] [address] [facility] Address: [address] [address] [place] [address] MEDICARE SOLUTIONS [facility] MEDICARE Address: [address] [address] [place] [address] [employer] Care Teams Ingredient Handler Relationship Specialty Start Date End Date Apollo Zurita MD [address] [facility] [address] [place] [address] PCP - General 09/28/21
--- OUTSIDE RECORDS SUMMARY | 2025-01-25 17:47 | XMS_ITS | Clinical Summary ---
Author Organization [facility] Facility Address [address] [place] [id number] Care Team Providers Care Teleradiologist Name Role Phone Azar Zurita MD Primary Care Provider [phone] Medications Empagliflozin 10 MG tablet Take 10 mg by mouth every morning 90 tablet 1 01/15/2022 Active Tiadylt ER 300 MG 24 hr capsule TAKE 1 CAPSULE(300 MG) BY MOUTH DAILY 90 capsule 1 05/20/2022 Active Cholecalciferol (Vitamin D3) 125 MCG (5000 UT) capsule Take 1 tablet by mouth 1 (one) time each day 90 capsule 1 05/24/2022 Active Social History Tobacco Use Types Packs/Day Years Used Date Smoking Tobacco: Former Alcohol Use Standard Drinks/Week Comments No 0 (1 standard drink = 0.6 oz pur e alcohol) Comments Unknown Sex and Gender Information Value Date Recorded Sex Assigned at Not on file Legal Sex Female 2:49 PM EDT Gender Identity Not on file Sexual Orientation Not on file Last Filed Vital Signs Vital Sign Reading Time Taken Comments Blood Pressure 118/70 07/23/2022 12:53 PM CDT Pulse 68 07/23/2022 12:53 PM CDT Temperature 36.3 C (97.4 F) 07/23/2022 12:53 PM CDT Respiratory Rate 18 07/23/2022 12:53 PM CDT Oxygen Saturation 99% 07/23/2022 12:53 PM CDT Inhaled Oxygen Concentration - - Weight 78.5 kg (173 lb) 07/23/2022 12:53 PM CDT Height 167.6 cm (5' 6 ) 07/23/2022 12:53 PM CDT Body Mass Index 27.92 07/23/2022 12:53 PM CDT Plan of Treatment Health Maintenance Due Date Last Done Comments Breast Cancer Screening 1961 Colorectal Cancer Screening: Annual FOBT 2010 Colorectal Cancer Screening: Colonoscopy 2010 Colorectal Cancer Screening: Sigmoidoscopy 2010 Pneumococcal Vaccine: Pediat rics (0 to 5 Years) and At-Risk Patients (6 to 64 Years) (3 of 3 - PCV) 10/08/2017 10/08/2016, 09/10/2016, 09/10/2016 Diabetes: Hemoglobin A1C 04/05/2021 Diabetes: Ophthalmology Exam 04/05/2021 Diabetes: Pedal Pulse Checked 04/05/2021 Diabetes: Sensory Foot Exam 04/05/2021 Diabetes: Visual Foot Exam 04/05/2021 Hepatitis B Vaccine (1 of 3 - Risk 3-dose series) 2021 Influenza Vaccine (#1) 2024 , 07/31/2020, 08/10/2019, Additional history exists Insurance [facility] MEDICARE Care Teams Teleradiologist Relationship Specialty Start Date End Date Azar Zurita MD [address] [facility], [address] [place] [address] PCP - General Internal Medicine 07/17/21
--- OUTSIDE RECORDS SUMMARY | 2025-01-25 17:48 | XMS_ITS | CONTINUITY OF CARE DOCUMENT ---
Author Name kia adam Address Unknown Organization [facility] Address [address] [place] [address] Phone [phone] Care Team Providers Care Student Admissions Clerk Name Role Phone Tj Kemp MD Unavailable BETTINA MENDEZ MD Unavailable BETTINA MENDEZ MD Unavailable [phone] PROBLEMS Condition Status Date Provider Notes HISTORY OF TOBACCO ABUSE active Tj willis MD ATRIAL FIB active ? Tj Kepm MD COPD active ? Tj Kemp MD ATRIAL FLUTTER PAROXYSMAL- EP STUDY active ? Tj Kemp MD LEG PAIN-03/21 DOP LOW EXT HE MATOMA ON RIGHT active ? Tj Kemp MD Family History of Hypertension: active ? Chad Kemp MD HTN Systolic active Tj Kemp MD PVD active Tj Kemp MD Chest pain, intermittent active Tj willis MD Carotid artery disease active Tj swan MD Prediabetes A1c 6.0 active Maurisio Wu 09/08 Anemia, iron deficiency active Holli mckeon [employer] ENCOUNTERS Date Type Provider Location Encounter Diag nosis - In-person encounter Office Visit Tj Kemp [facility] - [facility]-person encounter Office Visit Tj Kemp MD [facility] - In-person encounter Office Visit Tj Kemp MD [facility] Anemia, iron deficiency - In-person encounter Office Visit Tj Kemp MD [facility] Prediabetes A1c 6.0 - In-person encounter Office Visit Tj Kemp MD [facility] - In-person encounter Office Visit Tj Kemp MD [facility] - In-person encounter Office Visit Tj Kemp MD [facility] - In-person encounter Office Visit Tj Kemp MD [facility] - In-person encounter Office Visit Tj Kemp MD [facility] Carotid artery disease - In-person encounter Office Visit Tj Kemp MD [facility] Chest pain, intermittent - In-person encounter Office Visit Tj Kemp MD [facility] - In-person encounter Office Visit Tj Kemp MD [facility] Family History of Hypertension:HTN SystolicPVD - In-person encounter Office Visit Tj Kemp MD [facility] ATRIAL FLUTTER PAROXYSMAL-03/21 EP STUDYLEG PAIN-03/21 DOP LOW EXT HEMATOMA ON RIGHT - In-person encounter Office Visit Tj Kemp MD [facility] - In-person encounter Office Visit Tj Kemp MD [facility] HISTORY OF TOBACCO ABUSEATRIAL FIBCOPDATRIAL FLUTTER PAROXYSMAL-03/21 EP STUDY VITAL SIGNS Date Observation Value Provider Body Mass Index (Ratio) 24.12 kg/m2 Maikol as Vivek blood pressure, cuff size regular Ke rri Gruenenfelder blood pressure, diastolic 80 mm[Hg] Ke rri Gruenenfelder blood pressure, systolic 144 mm[Hg] Ker ri Gruenenfelder Inhaled O2 3 L/min Agatha Gruenenfe lder oxygen saturation, oximetry 93 % Agatha Gruenenfelder pulse rate 101 /min Agatha Gruenenfe lder weight E&M 154 [lb_av] Agatha Gruenenfe lder height E&M 67 [in_i] Agatha Gruenenfe lder Body Mass Index (Ratio) 24.90 kg/m2 Juice Edwin blood pressure, cuff size regular Ke rri Gruenenfelder blood pressure, diastolic 70 mm[Hg] Ke rri Gruenenfelder blood pressure, systolic 140 mm[Hg] Haresh ri Gruenenfelder Inhaled O2 3 L/min Agatha Gruenenfe lder oxygen saturation, oximetry 96 % Agatha Morenanenfelder respiratory rate E&M 12 /min Agatha G apoorvaenenfelder pulse rate 117 /min Agatha Grbalanenfe lder weight E&M 159 [lb_av] Agatha Gruenenfe lder height E&M 67 [in_i] Agatha Gruenenfe lder Body Mass Index (Ratio) 26.94 kg/m2 Chad Kemp MD blood pressure, diastolic 64 mm[Hg] Sonia Flores blood pressure, systolic 110 mm[Hg] Gurpreet rachelle Flores oxygen saturation, oximetry 93 % Slime Flores Inhaled O2 3 L/min Slime young pulse rate 86 /min Slime young weight E&M 172 [lb_av] Slime Jessica young respiratory rate E&M 16 /min Gavi sotomayor Mark blood pressure, cuff size large Sonia simons Mark height E&M 67 [in_i] Slime Jessica oyung Body Mass Index (Ratio) 30.85 kg/m2 Liliana Orosco blood pressure, cuff size large Ke rri Gruenenfeldhussain blood pressure, diastolic 80 mm[Hg] Ke rri Gruenenfelder blood pressure, systolic 150 mm[Hg] Haresh ri Morenanenfelder Inhaled O2 4 L/min Agatha Johnsonbalaannnfe lder oxygen saturation, oximetry 95 % Agatha Mamier respiratory rate E&M 18 /min Agatha marquez pulse rate 85 /min Agatha Morenaannnfe lder weight E&M 197 [lb_av] Agatha Gruenenfe lder height E&M 67 [in_i] Agatha Johnsonbalanenfe er Body Mass Index (Ratio) 34.45 kg/m2 Genaro Rivero blood pressure, diastolic 79 mm[Hg] Rayshawn Bowman blood pressure, systolic 167 mm[Hg] Brenda kylah Bowman pulse rate 127 /min Charisse Randallbel l oxygen saturation, oximetry 92 % Charisse Bowman respiratory rate E&M 16 /min Charisse Bowman weight E&M 220 [lb_av] Charisse Randallbel l blood pressure, cuff size regular Cy mahesh Bowman height E&M 67 [in_i] Charisse Campbel l temperature site temporal Marianela Tank sley temperature E&M 97.1 [degF] Marianela Tanks alexandra Body Mass Index (Ratio) 34.77 kg/m2 Chad Kemp MD blood pressure, diastolic 80 mm[Hg] [facility], systolic 122 mm[Hg] Jyoti kate Lovell Inhaled O2 3 L/min [facility] oxygen saturation, oximetry 96 % [facility] respiratory rate E&M 16 /min Rafael Lovell pulse rate 103 /min [facility] [lb_av] [facility] height E&M 67 [in_i] [facility] Body Mass Index (Ratio) 32.42 kg/m2 Avtar Waters blood pressure, diastolic 80 mm[Hg] Da jadon Shanice blood pressure, systolic 128 mm[Hg] Dac ia Shanice oxygen saturation, oximetry 91 % Terrie Shnaice respiratory rate E&M 20 /min Terrie V oss pulse rate 77 /min Terrie Shanice weight E&M 207 [lb_av] Terrie Shanice height E&M 67 [in_i] Terrie Shanice Body Mass Index (Ratio) 32.26 kg/m2 Chad Kemp MD blood pressure, cuff size regular Jayshree Camargo blood pressure, diastolic 70 mm[Hg] Jayshree Camargo blood pressure, systolic 110 mm[Hg] Nena Camargo blood pressure, resting No Modesta Camargo respiratory rate E&M 16 /min Annie Camargo oxygen saturation, oximetry 96 % Annie Camargo pulse rate 98 /min Annie Camargo weight E&M 206 [lb_av] Annie Camargo height E&M 67 [in_i] Annie Camargo Body Mass Index (Ratio) 32.42 kg/m2 Chad Kemp MD blood pressure, cuff size regular Ke rri Eversatishandreas blood pressure, diastolic 75 mm[Hg] Ke rri Rick blood pressure, systolic 136 mm[Hg] Haresh pete Eversatishandreas oxygen saturation, oximetry 95 % Agatha Eversatishandreas respiratory rate E&M 18 /min Agatha Estrella marquez pulse rate 90 /min Agatha Mitchell er weight E&M 207 [lb_av] Agatha Mitchell lder height E&M 67 [in_i] Agatha Mitchell er Body Mass Index (Ratio) 31.57 kg/m2 Trino sha Minor NP blood pressure, diastolic 78 mm[Hg] Tyrell Oden blood pressure, systolic 124 mm[Hg] Karen Oden oxygen saturation, oximetry 96 % Fatou Oden respiratory rate E&M 16 /min SinaiHelena Chenson pulse rate 87 /min Fatou De La Cruz briandesi weight E&M 201.6 [lb_av] Fatou mustafadesi height E&M 67 [in_i] Fatou De La Cruz briandesi Body Mass Index (Ratio) 29.60 kg/m2 Sheila ssa Torres blood pressure, diastolic 79 mm[Hg] Pa radha Torres blood pressure, systolic 140 mm[Hg] Sunitha marina Torres pulse rate 100 /min Nettie Torres oxygen saturation, oximetry 94 % Nettie Torres respiratory rate E&M 16 /min Nettie Torres weight E&M 189 [lb_av] Nettie Torres Body Mass Index (Ratio) 30.22 kg/m2 Anea robe Brown blood pressure, diastolic 76 mm[Hg] An eatris Anirudh blood pressure, systolic 131 mm[Hg] Bren Oleary pulse rate 104 /min Cait Oleary oxygen saturation, oximetry 94 % Cait Oleary respiratory rate E&M 20 /min Shawn Oleary weight E&M 193 [lb_av] Cait Oleary height E&M 67 [in_i] Cait Oleary blood pressure, diastolic, left arm 57 mm [Hg] Ganesh Carver RN blood pressure, systolic, left arm 103 mm [Hg] Ganesh Carver RN blood pressure, diastolic, right arm 72 m m[Hg] Ganesh Carver RN blood pressure, systolic, right arm 114 m m[Hg] Ganesh Carver RN blood pressure, diastolic 57 mm[Hg] Redd Carver RN blood pressure, systolic 103 mm[Hg] Ganesh Carver RN pulse rate 81 /min Ganesh Carver RN oxygen saturation, oximetry 94 % Ganesh Carver RN respiratory rate E&M 16 /min Ganesh reeves RN weight E&M 169.9 [lb_av] Ganesh Carver RN blood pressure, diastolic, left arm 70 mm [Hg] Brianne Adams blood pressure, systolic, left arm 128 mm [Hg] Brianne Adams blood pressure, diastolic, right arm 70 m m[Hg] Brianne Adams blood pressure, systolic, right arm 132 m m[Hg] Brianne Adams blood pressure, diastolic 70 mm[Hg] Trinh blood pressure, systolic 128 mm[Hg] Slim Adams pulse rate 90 /min Brianne Adams oxygen saturation, oximetry 97 % Brianne Adams respiratory rate E&M 16 /min Brianne Adams weight E&M 166 [lb_av] Denyean Adams ALLERGIES Allergy Name Onset Date Reaction Criticality Status PENICILLIN Low Criticality active RESULTS Date Observation Value Provider Reference Range Interpretation Location international normalized ratio (INR) 1.6 Kaykay Del Rosario platelet count 260 10*3/mm3 [facility] Miguel Ángel hematocrit, blood 36.9 % [facility] creatinine, serum 0.82 mg/dL [facility] Miguel Ángel potassium, serum 4.2 mmol/L [facility] Miguel Ángel sodium, serum 140 mmol/L [facility] Miguel Ángel coagulation managed by Ganesh Carver RN international normalized ratio (INR) 17.9 Jeana Chávez prothrombin time (patient) 1.8 s Jeana Chávez coagulation managed by Ganesh Carver RN international normalized ratio (INR) 1.8 Ganesh Carver RN prothrombin time (patient) 18.1 s Ganesh Carver RN coagulation managed by Ganesh Carver RN international normalized ratio (INR) 1.9 Brianne Adams prothrombin time (patient) 19.4 s Brianne Adams international normalized ratio (INR) 2.3 Jeana Cáhvez prothrombin time (patient) 22.6 s Jeana Chávez coagulation managed by Ganesh Carver RN international normalized ratio (INR) 1.9 Jeana Chávez prothrombin time (patient) 18.5 s Jeana Chávez platelet count 357 10*3/mm3 [facility] hematocrit, blood 38.6 % [facility] alanine aminotransferase (SGPT), serum 21 1/L [facility] Miguel [facility]ngel aspartate aminotransferase (SGOT), serum 13 1/L [facility] creatinine, serum 1.00 mg/dL [facility] Miguel [facility]ngel potassium, serum 4.3 mmol/L et[facility]onica Del Rosario sodium, serum 130 mmol/L [facility] platelet count 357 10*3/mm3 [facility] hematocrit, blood 38.6 % [facility] alanine aminotransferase (SGPT), serum 21 1/L [facility] Miguel Ángel aspartate aminotransferase (SGOT), serum 13 1/L [facility] creatinine, serum 1.00 mg/dL [facility] potassium, serum 4.3 mmol/L [facility] Miguel Ángel sodium, serum 130 mmol/L [facility] coagulation managed by Ganesh Carver RN international normalized ratio (INR) 1.5 Brianne Adams prothrombin time (patient) 15.2 s Brianne Adasm coagulation managed by Sinai Sofia RN international normalized ratio (INR) 1.9 Beau Manaida prothrombin time (patient) 18.5 s Beau Sampson coagulation managed by Ganesh Carver RN international normalized ratio (INR) 2.1 Ganesh Carver RN prothrombin time (patient) 20.5 s Ganesh Carver RN coagulation managed by Ganesh Carver RN international normalized ratio (INR) 1.5 Beau Manacohattie prothrombin time (patient) 14.6 s Beau Manacop coagulation managed by Ganesh Carver RN international normalized ratio (INR) 1.4 Beau Manacop prothrombin time (patient) 14.4 s Beau Manacop HISTORY OF MEDICATION USE Medication Status Instructions Dates Provider Indications Com ments losartan 100 mg tablet active Take 1 tablet by mouth once a day Agatha Cabrera magnesium oxide 400 mg (241.3 mg magnesium) tablet active TAKE 1 TABLET BY MOUTH TWICE DAILY Ricci ferrous sulfate 325 mg (65 mg iron) tablet completed 1 tab every other day - Willow Lawler NP Daliresp 500 mcg tablet active 1 tab daily Holli Schultz NP losartan 100 mg tablet completed TAKE 1 TABLET BY MOUTH EVERY DAY - Agatha Cabrera Cozaar 100 mg tablet completed Take 1 tablet by mouth once a day - Branden Woodson magnesium oxide 400 mg (241.3 mg magnesium) tablet completed Take 1 tablet by mouth twice a day - Laurasimin Mitchelllin Cozaar 100 mg tablet completed 1 tablet once a day - Agatha Cabrera DILTIAZEM HCL ER COATED BEADS 180 MG [id number] completed TAKE 1 CAPSULE BY MOUTH DAILY - Agatha Cabrera metformin 500 mg tablet active Take 1 tablet twice a day Charisse Bowman Colace 100 mg capsule completed Take 1 capsule once a day - Holli Schultz NP Breo Ellipta 200-25 mcg/dose blister with device active Inhale 1 puff by mouth once a day Agatha Cabrera #60, 30 days supply, Prescribed by HARVEY RICHARDSON, Filled 03/24/2019 tizanidine 4 mg tablet active Take 1 tablet by mouth every night Holli Schultz NP #60, 30 days supply, Prescribed by NICOLE GOMES, Filled 03/31/2019 VITAMIN D3 21887 UNIT ORAL CAPSULE completed take one weekly - Charisse Bowman Lipitor 40 mg tablet active 1 tablet once a day Agatha Cabrera buspirone 5 mg tablet active Take 1 tablet twice a day Holli Schultz NP Zoloft 100 mg tablet active Take 1 tablet once a day Terrie Shanice REQUIP TABLET completed take one pill at bedtime - Terrie Shanice CYCLOBENZAPRINE HCL 7.5 MG ORAL TABLET completed as needed - Charisse Bowman oxycodone 5 mg capsule active once a day nightly Holli Schultz NP ADVAIR DISKUS 100-50 MCG/DOSE INHALATION AEROSOL POWDER BREATH ACTIVATED completed 1 puff twice daily - Rafael Rivera with HandiHaler 18 mcg capsule, w/inhalation device active once a day Fatou Oden Ventolin HFA 90 mcg/actuation HFA aerosol inhaler active four times a day Fatou Oedn magnesium oxide 400 mg (241.3 mg magnesium) tablet completed 1 tablet twice a day - Holli Schultz NP ATRIAL FLUTTER PAROXYSMAL- EP STUDY DIAZEPAM 5 MG ORAL TABLET completed 1/2 pill twice every other day ending in 3 days - Charisse Bowman amitriptyline 50 mg tablet active 1 tablet once a day Fatou Oden TUDORZA PRESSAIR 400 MCG/ACT INHALATION AEROSOL POWDER BREATH ACTIVATED completed take as directed - Agatha Cabrera TRAMADOL HCL 50 MG ORAL TABLET completed 1 tab twice daily - Fatou Oden CARISOPRODOL 350 MG ORAL TABLET completed 1 tab 3x daily - Fatou Oden ALPRAZOLAM 0.25 MG ORAL TABLET completed 1 tab twice daily - Fatou Oden lansoprazole 30 mg capsule,delayed release(DR/EC) active once a day Fatou Oden MELATONIN 10 MG ORAL CAPSULE completed 1 tab at bedtime - Terrie Prasad Cardizem CD 180 mg capsule,extended release 24hr active 1 once a day Tj Kemp MD stopped diltiazem 30 mg Po tid ASPIRIN 81 MG ORAL TABLET active 1 tablet once a day Tj Kemp MD PRILOSEC 20 MG ORAL CAPSULE DELAYED RELEASE completed ONE TAB. DAILY - Cait Oleary COUMADIN 5 MG ORAL TABLET completed 2 tabs daily - Ganesh Carver RN COUMADIN 1 MG ORAL TABLET completed take 3 tabs every other day with 5mg = 8mg - Ganesh Carver RN ADVAIR DISKUS 250-50 MCG/DOSE INHALATION AEROSOL POWDER BREATH ACTIVATED completed 1 puff twice daily - Fatou Oden CELEXA 40 MG ORAL TABLET completed once daily - Terrie Shanice levothyroxine 100 mcg tablet active Take 1 tablet once a day Agatha Cabrera SPIRIVA HANDIHALER 18 MCG INHALATION CAPSULE completed 1 puff once a day - Cait Oleary ADVAIR HFA AEROSOL completed 2 puff twice daily - Doug Garcia COMBIVENT AEROSOL completed 2 puffs four times daily - Fatou Oden DILTIAZEM HCL 30 MG ORAL TABLET completed 1 tab four times daily - Tj Kemp MD digoxin 125 mcg (0.125 mg) tablet completed Take 1 tablet by mouth once a day - Willow Lawler NP COZAAR 50 MG ORAL TABLET completed one talbe daily - Ganesh Carver RN VITAMIN D (ERGOCALCIFEROL) 14202 UNIT ORAL CAPSULE completed 1 tab weekly - Cait Oleary FOLIC ACID 1 MG ORAL TABLET completed 1 tab daily - Fatou Oden COUMADIN 5 MG ORAL TABLET completed one tab on Fri and Sat - Ganesh Carver RN COUMADIN 5 MG ORAL TABLET completed one tab daily with 3mg = 8mg to alternate with 2 tabs = 10mg - Ganesh Carver RN SOCIAL HISTORY Date Observation Value Provider drug use none Holli pemberton NP passive cigarette sm arline exposure no Holli Schultz NP smoking, year quit 2011 Holli Schultz NP number of years as a smoker 35-40 Holli Schultz NP smoking history, tot al pack/day 1-2ppd Holli Schultz NP cigarette use yes Holli nixon NP smoking status Former smoker Holli mckeon NP Exercise counseling Yes Holli Schultz NP social history reviewed E&M revi ewed - no changes required Willow Santosyanci [employer] social history E&M Marital Statu s: L perla with family/friends Smoking History: Hattie sierra is a former smoker. Willow Santosyanci [employer] smoking status Former smoker Willow Santos yanci [employer] smoking, year quit 2011 Holli Muhammadmike [employer] number of years as a smoker 35-40 Holli Muhammadmike [employer] smoking history, tot al pack/day 1-2ppd Holli Muhammadmike [employer] cigarette use yes Holli Muhammadjonelle nixon [employer] caffeine use, averag e drinks per day yes Slime Flores passive cigarette sm arline exposure no Slime Flores smoking status Former smoker Slime Brooks waqas smoking status Former smoker Maurisio Wu caffeine use, averag e drinks per day yes Agatha Cabrera passive cigarette sm arline exposure no Agatha Cabrera social history reviewed E&M revi ewed - no changes required Chris Rivero caffeine use, averag e drinks per day yes Charisse Bowman passive cigarette sm arline exposure no Charisse Bowman smoking status Former smoker Charisse medellin social history reviewed E&M revi ewed - no changes required Chris Mat alcohol use, average drinks per day social Rafael Lovell caffeine use, averag e drinks per day yes Hull Lovell drug use none Hull Lovell passive cigarette sm arline exposure no Rafael Lovell smoking status Former smoker [facility] number of grandchildren Tj Waters social history E&M Marital Statu s: L perla with family/friends Smoking History: Hattie sierra is a former smoker. Torres Waters social history reviewed E&M revi ewed - no changes required Torres Waters alcohol use, average drinks per day social Terrie Prasad caffeine use, averag e drinks per day yes Terrie Shanice drug use none Terrie Shanice passive cigarette sm arline exposure no Terrie Shanice smoking status Former smoker Terrie Prasad social history E&M Marital Statu s: L perla with family/friends Smoking History: Hattie sierra is a former smoker. Tj Kemp MD social history reviewed E&M revi ewed - no changes required Tj Kemp MD alcohol use, average drinks per day social Annie Camargo caffeine use, averag e drinks per day yes Annie Camargo drug use none Annie Camargo passive cigarette sm arline exposure no Annie Camargo smoking status Former smoker Annie Camargo smoking status Former smoker Maricel Triplett social history E&M Marital Statu s: L perla with family/friends Smoking History: Hattie sierra is a former smoker. Maricel Triplett social history reviewed E&M revi ewed - no changes required Tj Kemp MD alcohol use, average drinks per day social Agatha Cabrera caffeine use, averag e drinks per day yes Agatha Cabrera drug use none Agatha nazario passive cigarette sm arline exposure no Agatha Cabrera social history E&M Marital Statu s: L perla with family/friends Smoking History: Hattie sierra is a former smoker. Tj Kemp MD social history reviewed E&M revi ewed - no changes required Tj Kemp MD alcohol use, average drinks per day social Fatou Oden caffeine use, averag e drinks per day yes Fatou Oden drug use none Fatou torreson passive cigarette sm arline exposure no Fatou Oden smoking status Former smoker Fatou Suárez social history reviewed E&M revi ewed - no changes required Tj Kemp MD alcohol use, average drinks per day social Nettie Brian caffeine use, averag e drinks per day yes Nettie Torres drug use none Nettie Youngann passive cigarette sm arline exposure no Nettie Youngann smoking/tobacco cess ation, patient education and counseling yes Nettie Torres smoking status Former smoker Nettie Schwartz nathalia smoking status Former smoker Brenying Liang wal[place] social history reviewed E&M reviewed Ganesh Carver RN social history reviewed E&M reviewed Ganesh Carver RN drug use none Tj bird MD passive cigarette sm arline exposure no Tj Kemp MD smoking/tobacco cess ation, patient education and counseling yes Tj Kemp MD social history E&M Marital Statu s: Dagoberto duncan with family/friends Tj Kemp MD caffeine use, averag e drinks per day yes Ganesh Carver RN alcohol use, average drinks per day social Ganesh Carver RN smoking status Quit Ganesh Carver RN social history reviewed E&M reviewed Ganesh Carver RN MENTAL STATUS Date Observation Value Provider assessment of judgme nt and insight E&M Alert and oriented to time, place and person. Mood and affect are normal. Ganesh Carver RN assessment of judgme nt and insight E&M Alert and oriented to time, place and person. Mood and affect are normal. Ganesh Carver RN assessment of judgme nt and insight E&M Alert and oriented to time, place and person. Mood and affect are normal. Ganesh Carver RN FAMILY HISTORY Family Member Condition Mother Family History of Hy pertension: INSURANCE PROVIDERS Payer name Policy type / Coverage type Deepthi red republican ID A[employer] MEDICARE ADVANTAGE HMO-POS HMO [id number] ADVANCE DIRECTIVES Name Date DISCUSSED - NO DECISION MADE TREATMENT PLAN Date Name Performer [id number],C, S T on EKG today rate 104 Willow Lawler NP [id number],C, O n O2 3L/NC. Follows with Pulmonology H er updated medication list for this problem includes: Daliresp 500 Mcg Tablet (Roflumilast) ..... 1 tab daily Spiriva With Handihaler 18 Mcg Capsule, W/inhalation Device (Tiotropium bromide) ..... Once a day Breo Ellipta 200-25 Mcg/dose Blister With Device (Fluticasone furoate-vilanterol) ..... Inhale 1 puff by mouth once a day Ventolin Hfa 90 Mcg/actuation Hfa Aerosol Inhaler (Albuterol sulfate) ..... Four times a day Willow Lawler SHANNAN [id number],C, C arotid duplex 07/2022 CONCLUSIONS: 1 . Mild plaque with less than 50% stenosis of the internal carotid arteries bilaterally. 2 . Vertebral flow is antegrade bilaterally. Will repeat in 1 year Willow Lawler SHANNAN [id number],C, B P today: 140/70 P rior BP: 110/64 (07/26/2022) Her updated medication list for this problem includes: Losartan 100 Mg Tablet (Losartan) ..... Take 1 tablet by mouth every day Cardizem Cd 180 Mg Capsule,extended Release 24hr (Diltiazem hcl) ..... 1 once a day Willow Santosyanci CAMPBELL [id number],CTj MD [id number],STj MD [id number],S,c hronic COPD, baseline SOB/[place]. on continuous o2 3L P FTs 07/2021. 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 Take 1 tablet by mouth every day Digoxin 125 Mcg (0.125 Mg) Tablet (Digoxin) ..... Take 1 tablet by mouth once a day Cardizem Cd 180 Mg Capsule,extended Release 24hr (Diltiazem hcl) ..... 1 once a day Tj Kemp MD [id number],C, TIBC 353, % sat 19, UIBC 286, iron 67, h&h 15/46, ferr 23. follows hematology on iron supplements QOD Tj Kemp MD [id number],S,c devorahtids 2019: . Mild plaque with less than 50% stenosis of the internal carotid arteries bilaterally. Vertebral flow is antegrade bilaterally. will check carotids Tj Kemp MD [id number],C,n o recurrence ECHO 07/2021 EF 55%, mild lVH, trace MR, trace TR will recheck echo next appointement in 1 yr Holli Schultz NP [id number],C,c devorahtidanurag 2019: . Mild plaque with less than 50% stenosis of the internal carotid arteries bilaterally. Vertebral flow is antegrade bilaterally. will check carotids Holli Schultz NP [id number],C,w ill check 1 week telesentry s/p EP study and ablation 2011 telesenty monitor: 05/2020: SR with rare SVT. average 83, max 109, min 68. SVT ectopics in form of isolated beats E KG today SR. H er updated medication list for this problem includes: Digoxin 125 Mcg Oral Tablet (Digoxin) ..... 1 tab daily Aspirin 81 Mg Oral Tablet (Aspirin) ..... One tab. daily Holli Schultz NP [id number],C,c hronic COPD, baseline SOB/[place]. on continuous o2 3L P FTs 07/2021. 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 Take 1 tablet by mouth every day Cardizem Cd 180 Mg Capsule,extended Release 24hr (Diltiazem hcl) ..... 1 once a day Holli Fenmike CAMPBELL [id number],C, TIBC 353, % sat 19, UIBC 286, iron 67, h&h 15/46, ferr 23. follows hematology on iron supplements QOD Hollitigist Schultz NP Electrophysiology: n o recent palpitaitons 15 day telesentry 11/2024 Holli Fenmike CAMPBELL Electrophysiology: S R on EKG today rate 90 Holli Schultz NP Electrophysiology: c hronic COPD, baseline SOB/[place]. on continuous o2 3L P FTs 07/2021. 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 ECHO: 07/2023 EF 55%, impaired LV relaxation, trace MR, trace TR will recheck ECHO in 1 year Holli Muhammadmike CAMPBELL Electrophysiology: B P today: 144/80 P rior BP: 140/70 (08/08/2023) Labs Reviewed: Laisha reat: 0.82 (04/03/2012) Her updated medication list for this problem includes: Losartan 100 Mg Tablet (Losartan) ..... Take 1 tablet by mouth once a day Cardizem Cd 180 Mg Capsule,extended Release 24hr (Diltiazem hcl) ..... 1 once a day Holli Antoine CAMPBELL Electrophysiology:ca rotids: 07/2022 mild plaque, <50% Holli Antoine CAMPBELL Electrophysiology: S T on EKG today rate 104 Willow Lawler NP Electrophysiology: O n O2 3L/NC. Follows with Pulmonology H er updated medication list for this problem includes: Daliresp 500 Mcg Tablet (Roflumilast) ..... 1 tab daily Spiriva With Handihaler 18 Mcg Capsule, W/inhalation Device (Tiotropium bromide) ..... Once a day Breo Ellipta 200-25 Mcg/dose Blister With Device (Fluticasone furoate-vilanterol) ..... Inhale 1 puff by mouth once a day Ventolin Hfa 90 Mcg/actuation Hfa Aerosol Inhaler (Albuterol sulfate) ..... Four times a day Willow Lawler NP Electrophysiology: C arotid duplex 07/2022 CONCLUSIONS: 1 . Mild plaque with less than 50% stenosis of the internal carotid arteries bilaterally. 2 . Vertebral flow is antegrade bilaterally. Will repeat in 1 year Willow Lawler NP Electrophysiology: B P today: 140/70 P rior BP: 110/64 (07/26/2022) Her updated medication list for this problem includes: Losartan 100 Mg Tablet (Losartan) ..... Take 1 tablet by mouth every day Cardizem Cd 180 Mg Capsule,extended Release 24hr (Diltiazem hcl) ..... 1 once a day Willow Lawler NP Electrophysiology Tj jackson MD Electrophysiology Tj jackson MD Electrophysiology:marcus el COPD, baseline SOB/[place]. on continuous o2 3L P FTs 07/2021. 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 Take 1 tablet by mouth every day Digoxin 125 Mcg (0.125 Mg) Tablet (Digoxin) ..... Take 1 tablet by mouth once a day Cardizem Cd 180 Mg Capsule,extended Release 24hr (Diltiazem hcl) ..... 1 once a day Tj Kemp MD Electrophysiology:2021 TIBC 353, % sat 19, UIBC 286, iron 67, h&h 15/46, ferr 23. follows hematology on iron supplements QOD Tj Kemp MD Electrophysiology:ca rotids 2020: . Mild plaque with less than 50% stenosis of the internal carotid arteries bilaterally. Vertebral flow is antegrade bilaterally. will check carotids Tj Kmep MD Electrophysiology:no recurrence ECHO 07/2021 EF 55%, mild lVH, trace MR, trace TR will recheck echo next appointement in 1 yr Holli Schultz NP Electrophysiology:ca rotids 2019: . Mild plaque with less than 50% stenosis of the internal carotid arteries bilaterally. Vertebral flow is antegrade bilaterally. will check carotids Holli Schultz NP Electrophysiology:wi ll check 1 week telesentry s/p EP study and ablation 2011 telesenty monitor: 05/2020: SR with rare SVT. average 83, max 109, min 68. SVT ectopics in form of isolated beats E KG today SR. H er updated medication list for this problem includes: Digoxin 125 Mcg Oral Tablet (Digoxin) ..... 1 tab daily Aspirin 81 Mg Oral Tablet (Aspirin) ..... One tab. daily Holli Schultz NP Electrophysiology:marcus el COPD, baseline SOB/[place]. on continuous o2 3L P FTs 07/2021. 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 Take 1 tablet by mouth every day Cardizem Cd 180 Mg Capsule,extended Release 24hr (Diltiazem hcl) ..... 1 once a day Holli Schultz NP Electrophysiology:2021 TIBC 353, % sat 19, UIBC 286, iron 67, h&h 15/46, ferr 23. follows hematology on iron supplements QOD Holli Schultz NP Electrophysiology Fo llow up 14: S TART Cozaar 100 Mg Oral Tablet (Losartan potassium) ..... One tab. daily F adele with Dr. Parminder Wu Electrophysiology Fo llow up 14:extensive discussion was done to not restart smoking Orders: John coppola cessation counseling, 3-10minutes (26155) Porshadesi Bryce Electrophysiology Fo llow up 14:.On continuous oxygen 3L all the time The following medications were removed from the medication list: Diltiazem Hcl Er Coated Beads 180 Mg [id number] (Diltiazem hcl coated beads) ..... Take 1 capsule by mouth daily Her updated medication list for this problem includes: Cozaar 100 Mg Oral Tablet (Losartan potassium) ..... One tab. daily Digoxin 0.125mg Tablets (yellow) (Digoxin) ..... Take 1 tablet by mouth daily Aspirin 81 Mg Oral Tablet (Aspirin) ..... One tab. daily Cardizem Cd 180 Mg Oral Capsule Extended Release 24 Hour (Diltiazem hcl coated beads) ..... One daily Orders: L IPID PANEL (7600) P ROBNP, N TERMINAL (42991) C OMPREHENSIVE METABOLIC PANEL, W/EGFR (38416) Maurisio Wu Electrophysiology Fo llow up 14: S TART Cozaar 100 Mg Oral Tablet (Losartan potassium) ..... One tab. daily BP today: 150/80 P rior BP: 167/79 (04/14/2020) Labs Reviewed: C reat: 0.82 (04/03/2012) The following medications were removed from the medication list: Diltiazem Hcl Er Coated Beads 180 Mg [id number] (Diltiazem hcl coated beads) ..... Take 1 capsule by mouth daily Her updated medication list for this problem includes: Cozaar 100 Mg Oral Tablet (Losartan potassium) ..... One tab. daily Aspirin 81 Mg Oral Tablet (Aspirin) ..... One tab. daily Cardizem Cd 180 Mg Oral Capsule Extended Release 24 Hour (Diltiazem hcl coated beads) ..... One daily Orders: L IPID PANEL (7600) P ROBNP, N TERMINAL (35868) C OMPREHENSIVE METABOLIC PANEL, W/EGFR (23798) Porshadesi Bryce Electrophysiology Fo llow up 14: n o recent chest pain R egadenoson Summary 1 . Regadenoson infusion per protocol 2 . No undue symptoms or arrhythmias [address] segment depression 4 . Stable hemodynamics 5 . Radiopharmaceutical injected at maximal coronary vasodilation . ..................................................... .............Isak Arellano MD October 01, 2016 10:35 AM Maurisio Wu Electrophysiology Fo llow up 14:CONCLUSIONS: 1 . Mild plaque with less than 50% stenosis of the internal carotid arteries bilaterally. 2 . Vertebral flow is antegrade bilaterally. Maurisio Wu Electrophysiology Fo llow up 14: n o recent palpitaitons H er updated medication list for this problem includes: Digoxin 0.125mg Tablets (yellow) (Digoxin) ..... Take 1 tablet by mouth daily Aspirin 81 Mg Oral Tablet (Aspirin) ..... One tab. daily Orders: M onitor - Telemetry (Mobile Cardiac) (CPT-75684) Maurisio Wu Cardiology: H er updated medication list for this problem includes: Digoxin 125 Mcg Oral Tablet (Digoxin) ..... 1 tab daily Aspirin 81 Mg Oral Tablet (Aspirin) ..... One tab. daily Cardizem Cd 180 Mg Oral Capsule Extended Release 24 Hour (Diltiazem hcl coated beads) ..... One daily Chris Rivero Cardiology: B P today: 167/79 P rior BP: 122/80 (04/16/2019) Labs Reviewed: C reat: 0.82 (04/03/2012) Her updated medication list for this problem includes: Aspirin 81 Mg Oral Tablet (Aspirin) ..... One tab. daily Cardizem Cd 180 Mg Oral Capsule Extended Release 24 Hour (Diltiazem hcl coated beads) ..... One daily Chris Rivero Cardiology:will shara duel [facility]aitons H er updated medication list for this problem includes: Digoxin 125 Mcg Oral Tablet (Digoxin) ..... 1 tab daily Aspirin 81 Mg Oral Tablet (Aspirin) ..... One tab. daily Chris Rivero EP annual f/u: B P today: 122/80 P rior BP: 128/80 (05/01/2018) Labs Reviewed: C reat: 0.82 (04/03/2012) Her updated medication list for this problem includes: Aspirin 81 Mg Oral Tablet (Aspirin) ..... One tab. daily Cardizem Cd 180 Mg Oral Capsule Extended Release 24 Hour (Diltiazem hcl coated beads) ..... One daily Tj Kemp MD EP annual f/u: O rders: 9 9214 MOD Complex (CPT-57449) Tj Kemp MD EP annual f/u: H er updated medication list for this problem includes: Digoxin 125 Mcg Oral Tablet (Digoxin) ..... 1 tab daily Aspirin 81 Mg Oral Tablet (Aspirin) ..... One tab. daily Chris Rivero EP annual f/u: H er updated medication list for this problem includes: Digoxin 125 Mcg Oral Tablet (Digoxin) ..... 1 tab daily Aspirin 81 Mg Oral Tablet (Aspirin) ..... One tab. daily Cardizem Cd 180 Mg Oral Capsule Extended Release 24 Hour (Diltiazem hcl coated beads) ..... One daily Chris Rivero EP annual f/u: B P today: 122/80 P rior BP: 128/80 (05/01/2018) Labs Reviewed: C reat: 0.82 (04/03/2012) Chris Rivero EP annual f/u Chris Rivero Cardiology follow up :Recent PFTa are relatively unchanged from previous, per patient. H er updated medication list for this problem includes: Advair Diskus 100-50 Mcg/dose Inhalation Aerosol Powder Breath Activated (Fluticasone-salmeterol) ..... 1 puff twice daily Spiriva Handihaler 18 Mcg Inhalation Capsule (Tiotropium bromide monohydrate) ..... Once daily Ventolin Hfa 108 (90 Base) Mcg/act Inhalation Aerosol Solution (Albuterol sulfate) ..... 4 times daily [facility] Cardiology follow up : H er updated medication list for this problem includes: Aspirin 81 Mg Oral Tablet (Aspirin) ..... One tab. daily Cardizem Cd 180 Mg Oral Capsule Extended Release 24 Hour (Diltiazem hcl coated beads) ..... One daily Orders: 9213 MOD Complex (CPT-24886) C omplete Echo (CPT-04334) C arotid Duplex Bilateral (CPT-19168) [facility] Cardiology follow up : H er updated medication list for this problem includes: Digoxin 125 Mcg Oral Tablet (Digoxin) ..... 1 tab daily Aspirin 81 Mg Oral Tablet (Aspirin) ..... One tab. daily Orders: 9213 MOD Complex (CPT-35279) C omplete Echo (CPT-37170) C arotid Duplex Bilateral (CPT-89185) [facility] Cardiology follow up : H er updated medication list for this problem includes: Digoxin 125 Mcg Oral Tablet (Digoxin) ..... 1 tab daily Aspirin 81 Mg Oral Tablet (Aspirin) ..... One tab. daily [facility] Cardiology: B P today: 110/70 P rior BP: 136/75 (03/28/2017) Labs Reviewed: C reat: 0.82 (04/03/2012) Tj Kemp MD Cardiology:Will have PFTs done. Her updated medication list for this problem includes: Advair Diskus 100-50 Mcg/dose Misc (Fluticasone-salmeterol) ..... 1 puff twice daily Spiriva Handihaler 18 Mcg Caps (Tiotropium bromide monohydrate) ..... Once daily Ventolin Hfa 108 (90 Base) Mcg/act Inh Aers (Albuterol sulfate) ..... 4 times daily Orders: 9213 MOD Complex (CPT-97034) F VC - 55046 (75178) F RC - 62381 (67756) D LCO - 64760 (34694) Tj Kemp MD Cardiology:EKG today shows sinus rhythm. H er updated medication list for this problem includes: Digoxin 0.125 Mg Tabs (Digoxin) ..... 1 tab daily Aspirin 81 Mg Tabs (Aspirin) ..... One tab. daily Tj Kemp MD Cardiology Follow up : O rders: S NOMED-CT: [id number] Current Medications Documented ([facility]-[id number]) E KG (CPT-13560) 9 9214 MOD Complex (CPT-86882) M obile Cardiac Tele (CPT-12006) Tj Kemp MD Cardiology Follow up : H er updated medication list for this problem includes: Digoxin 0.125 Mg Tabs (Digoxin) ..... 1 tab daily Aspirin 81 Mg Tabs (Aspirin) ..... One tab. daily Tj Kemp MD Cardiology Follow up Tj willis MD Cardiology Follow up : H er updated medication list for this problem includes: Digoxin 0.125 Mg Tabs (Digoxin) ..... 1 tab daily Aspirin 81 Mg Tabs (Aspirin) ..... One tab. daily Cardizem Cd 180 Mg Cp24 (Diltiazem hcl coated beads) ..... One daily Tj Kemp [facility] problem includes: Digoxin 0.125 Mg Tabs (Digoxin) ..... 1 tab daily Aspirin 81 Mg Tabs (Aspirin) ..... One tab. daily Cardizem Cd 180 Mg Cp24 (Diltiazem hcl coated beads) ..... One daily Orders: S TR - Adenosine (CPT-35071) Tj Kemp MD Cardiology:Orders: S TR - Adenosine (CPT-57279) Radiates to arm and right side of jaw. Tj Kemp MD Cardiology:No aflutt er on event monitor 2 years ago. on digoxin, cardizem, magoxide. remains off anticoagulation. Tj Kemp MD follow up:only mild pulmonary HTN was described. continue current treatment for now - no need for RHC at present. Tj Kemp MD follow up:in sinus r hythm now. H er updated medication list for this problem includes: Diazepam 5 Mg Tabs (Diazepam) ..... 1 tab twice daily Alprazolam 0.25 Mg Tabs (Alprazolam) ..... 1 tab twice daily Digoxin 0.125 Mg Tabs (Digoxin) ..... 1 tab daily Aspirin 81 Mg Tabs (Aspirin) ..... One tab. daily Cardizem Cd 180 Mg Cp24 (Diltiazem hcl coated beads) ..... One daily Tj Kemp MD follow up Tj osborn MD follow up: H er updated medication list for this problem includes: Aspirin 81 Mg Tabs (Aspirin) ..... One tab. daily Cardizem Cd 180 Mg Cp24 (Diltiazem hcl coated beads) ..... One daily B P today: 140/79 P rior BP: 131/76 (09/30/2014) Labs Reviewed: C reat: 0.82 (04/03/2012) Tj Kemp MD yearly follow up: O rders: C arotid Duplex Bilateral (CPT-71010) A ortic Abdominal Ultrasound (CPT-93038) A rterial Duplex Upper Extremity Bilateral (CPT-37512) Tj Kemp MD yearly follow up: H er updated medication list for this problem includes: Diazepam 5 Mg Tabs (Diazepam) ..... 1 tab twice daily Alprazolam 0.25 Mg Tabs (Alprazolam) ..... 1 tab twice daily Digoxin 0.125 Mg Tabs (Digoxin) ..... 1 tab daily Aspirin 81 Mg Tabs (Aspirin) ..... One tab. daily Cardizem Cd 180 Mg Cp24 (Diltiazem hcl coated beads) ..... One daily Orders: [place] Cardiac Tele (CPT-68967) C arotid Duplex Bilateral (CPT-76724) Tj Kemp MD yearly follow up: O rders: E KG (CPT-52190) [place] Cardiac Tele (CPT-17379) Her updated medication list for this problem includes: Digoxin 0.125 Mg Tabs (Digoxin) ..... 1 tab daily Aspirin 81 Mg Tabs (Aspirin) ..... One tab. daily Tj Kemp MD yearly follow up Tj bird MD yearly follow up: H er updated medication list for this problem includes: Aspirin 81 Mg Tabs (Aspirin) ..... One tab. daily Cardizem Cd 180 Mg Cp24 (Diltiazem hcl coated beads) ..... One daily BP today: 131/76 P rior BP: 103/57 (04/17/2012) Labs Reviewed: C reat: 0.82 (04/03/2012) Tj Kemp MD Date Name Carotid Duplex Bilat eral Complete Echo Monitor - Telemetry (Mobile Cardiac) Carotid Duplex Bilat eral Aorta Duplex Ultraso und Complete Echo Carotid Duplex Bilat eral Monitor - Telemetry (Mobile Cardiac) Complete Echo COMPREHENSIVE METABO LIC PANEL, W/EGFR PROBNP, N TERMINAL LIPID PANEL Monitor - Telemetry (Mobile Cardiac) Carotid Duplex Bilat eral Complete Echo THYROID PANEL COMPREHENSIVE METABO LIC PANEL, W/EGFR LIPID PANEL CBC (INCLUDES DIFF/P LT) Carotid Duplex Bilat eral Complete Echo Mobile Cardiac Tele Carotid Duplex Bilat eral Complete Echo DLCO - 20904 FRC - 88830 FVC - 39456 Mobile Cardiac Tele Carotid Duplex Bilat eral Complete Echo STR - Adenosine Arterial Duplex Uppe r Extremity Bilateral Aortic Abdominal Ult rasound Carotid Duplex Bilat eral Mobile Cardiac Tele Holter Monitor 24 Hr Mobile Cardiac Tele Spirometry Holter Monitor 24 Hr Prothrombin Time HISTORY OF PROCEDURES Procedure Date Procedure Name Provider Procedure Notes S isaius Schedule Followup Tj jackson MD [address] KEMP completed EKG Tj osborn MD completed Schedule Followup Tj jackson MD completed EKG Tj osborn MD completed Schedule Followup Tj jackson MD 1 year completed EKG Tj osborn MD completed EKG Tj osborn MD completed Mobile Cardiac Telem etry - Tech Branden Santa completed Mobile Cardiac Telem etry - Prof Branden Santa completed EKG Tj osborn MD completed Schedule Followup Tj jackson MD Please schedule a follow-up appointment with me in 1 year. completed EKG Tj osborn MD completed EKG Tj osborn MD completed EKG Tj osborn MD completed SNOMED-CT: [id number] Current Medications Documented ulius Justo RAZA completed Event Monitor Tj osborn MD completed EKG Tj osborn MD completed SNOMED-CT: [id number] Current Medications Documented ulius Justo RAZA completed Stress EKG Isak Arellano MD complete d Regadenoson, 4 units ulius Daniel willis MD completed Cardiolite, 2 units Saulius Danielv yonas RAZA completed SPECT Images Park Love MD complet ed EKG Tj osborn MD completed SNOMED-CT: [id number] Current Medications Documented Saulius Kalvaitis MD completed Schedule Followup Tj jackson MD was scheduled for fu 3 months from now - post shelia cuellar schedule a follow-up appointment with me in 6 months. completed EKG Tj osborn MD completed EKG Tj osborn MD completed ePrescribe - Check t his box if eRx is used Tj Kemp MD completed EKG Ganesh Carver RN completed Schedule Followup Tj jackson MD EP study with ablation of atrial arrhythmia/flutter at [place] completed EKG Tj osborn MD completed Schedule Followup Tj jackson MD in 2 months completed
--- OUTSIDE RECORDS SUMMARY | 2025-01-25 17:48 | XMS_ITS | Clinical Summary ---
Author Organization [facility] Tarah Santacruz Address [address] [place] [address] Care Team Providers Care Long Chain Quiller Tender Name Role Phone Azar Zurita MD Primary Care Provider Allergies Active Allergy Reactions Criticality Noted Date Comments Penicillins Rash Medium 09/23/2019 Medications bumetanide (BUMEX) 1 mg tablet Take 1 mg by mouth daily. Active metFORMIN (GLUCOPHAGE) 500 mg tablet Take 500 mg by mouth 2 times daily with meals. Active magnesium oxide (MAG-OX) 400 mg (241.3 mg magnesium) tablet Take 400 mg by mouth 2 times daily. Active levothyroxine 100 mcg tablet Take 100 mcg by mouth daily in the morning. Active digoxin (LANOXIN) 125 mcg (0.125 mg) tablet Take 125 mcg by mouth daily. Active diltiaZEM (CARDIZEM CD) 300 mg Controlled Delivery 24 hour capsule Take 300 mg by mouth daily. Active tiZANidine (ZANAFLEX) 4 mg Capsule Take 4 mg by mouth. Active atorvastatin (LIPITOR) 40 mg tablet Take 40 mg by mouth daily. Active sertraline (ZOLOFT) 100 mg tablet Take 100 mg by mouth daily. Active amitriptyline (ELAVIL) 50 mg tablet Take 50 mg by mouth daily at bedtime. Active omeprazole (PriLOSEC) 20 mg Capsule, Delayed Release(E.C.) Take 20 mg by mouth daily. Active rivaroxaban (Xarelto) 15 mg Tablet Take 15 mg by mouth. Active oxyCODONE-acetam inophen (PERCOCET) 5-325 mg tablet Take 1 Tablet by mouth every 4 hours as needed for Pain, Moderate. Active tiotropium (SPIRIVA) 18 mcg capsule Take 18 mcg by inhalation daily. Active mometasone (ASMANEX TWISTHALER) 220 mcg/ actuation (14) Aerosol Powdr Breath Activated Take 1 Puff by inhalation 2 times daily. Active albuterol sulfate 90 mcg/actuation metered powder inhaler Take by inhalation. Active busPIRone (BUSPAR) 15 mg Tablet buspirone 15 mg tablet TK 1/2 T PO BID FOR 1 WEEK THEN 1 T PO BID. Active cholecalciferol, Vitamin D3, 125 mcg (5,000 unit) Capsule cholecalciferol (vitamin D3) 125 mcg (5,000 unit) capsule TAKE 1 CAPSULE BY MOUTH EVERY DAY Active ergocalciferol (VITAMIN D2) 50,000 unit capsule ergocalciferol (vitamin D2) 1,250 mcg (50,000 unit) capsule TK 1 C PO Q WK Active ferrous sulfate 325 mg (65 mg iron) tablet FeroSul 325 mg (65 mg iron) tablet TAKE 1 TABLET BY MOUTH EVERY DAY Active fluticasone furoate-vilanter oL (BREO ELLIPTA) 200-25 mcg/dose Disk with Device Breo Ellipta 200 mcg-25 mcg/dose powder for inhalation INHALE 1 PUFF BY MOUTH EVERY DAY 11/13/19 19 Active ipratropium-albu teroL (DUONEB) 0.5 mg-3 mg(2.5 mg base)/3 mL Solution for Nebulization ipratropium 0.5 mg-albuterol 3 mg (2.5 mg base)/3 mL nebulization soln USE 1 VIAL PER NEBULIZER Q 6 H PRF SOB Active oxyCODONE (OxyCONTIN) 10 mg Controlled Release 12 hour crush resistant tablet OxyContin 10 mg tablet,crush resistant,extended release TK ONE T PO Q 12 H Active triamcinolone acetonide (KENALOG) 0.1 % Cream triamcinolone acetonide 0.1 % topical cream APPLY A THIN LAYER TO THE AFFECTED AREA(S) BY TOPICAL ROUTE 2 TIMES PER DAY Active losartan (COZAAR) 100 mg tablet Take 100 mg by mouth daily. Active Active Problems Problem Noted Date Diagnosed Date Iron deficiency anemia 01/25/2021 Chronic anemia 01/11/2021 Family History Relation Name Status Comments Father Alive Mother Alive Sister 1 Alive Sister 2 Alive Son 1 Alive Son 2 Social History Tobacco Use Types Packs/Day Years Used Date Smoking Tobacco: Former Comments:quit in 2012 Alcohol Use Standard Drinks/Week Comments Yes 0 (1 standard drink = 0.6 oz pur e alcohol) occasional Feeling Safe Answer Date Recorded Within the last year, have y ou been afraid of your partner or ex-partner? No 01/11/2021 Within the last year, have y ou been humiliated or emotionally abused in other ways by your partner or ex-partner? No Within the last year, have y ou been kicked, hit, slapped, or otherwise physically hurt by your partner or ex-partner? No 01/11/2021 Within the last year, have y ou been raped or forced to have any kind of sexual activity by your partner or ex-partner? No 01/11/2021 Social Connections Answer Date Recorded In a typical week, how many times do you talk on the phone with family, friends, or neighbors? More than three times a week 01/11/2021 How often do you get togethe r with friends or relatives? Three times a week 01/11/2021 How often do you attend chur or religion services? More than 4 times per year 01/11/2021 Do you belong to any clubs o r organizations such as jew groups, unions, fraternal or athletic groups, or school groups? Yes 01/11/2021 How often do you attend meet ings of the clubs or organizations you belong to? More than 4 times per year 01/11/2021 Are you , , di vorced, , never , or living with a partner? 01/11/2021 Food Insecurity Answer Date Recorded Within the past 12 months, y ou worried that your food would run out before you got the money to buy more. Never true 01/12/20 21 Within the past 12 months, t he food you bought just didn't last and you didn't have money to get more. Never true 01/11/2021 Transportation Needs Answer Date Record ed In the past 12 months, has l ack of transportation kept you from medical appointments or from getting medications? No 02/2021 In the past 12 months, has l ack of transportation kept you from meetings, work, or from getting things needed for daily living? No 01/11/2021 Comments No Sex and Gender Information Value Date Recorded Sex Assigned at Not on file Legal Sex Female 11:44 PM CDT Gender Identity Not on file Sexual Orientation Not on file Last Filed Vital Signs Vital Sign Reading Time Taken Comments Blood Pressure 125/76 05/22/2022 2:10 PM CDT Pulse 110 05/22/2022 2:10 PM CDT Temperature 36.4 C (97.6 F) 05/22/2022 2:10 PM CDT Respiratory Rate - - Oxygen Saturation 91% 05/22/2022 2:10 PM CDT Inhaled Oxygen Concentration - - Weight 80.8 kg (178 lb 1.6 oz) 05/22/2022 2:10 P M CDT Height 167.6 cm (5' 6 ) 05/22/2022 2:10 PM CDT Body Mass Index 28.75 05/22/2022 2:10 PM CDT Plan of Treatment Health Maintenance Due Date Last Done Comments DIABETES ANNUAL FOOT EXAM 1979 DIABETES ANNUAL RETINAL EXAM 1979 DIABETES MICROALBUMIN ANNUAL SCREEN 1979 DTAP/TDAP/TD VACCINES (1 - Tdap) 1980 CERVICAL CANCER SCREENING 1991 BREAST CANCER SCREENING 2001 FIT-DNA Q 3 years 2006 FIT/FOBT Q 1 year 2006 Flex Sig/CT Colonography Q 5 years 2006 ZOSTER VACCINE (1 of 2) 2011 RSV VACCINE (60+ or ) (1 - Risk 60-74 years 1-dose series) 2021 LDL CHOLESTEROL ANNUAL 05/22/2022 05/22/2021, 2020 DIABETES HBA1C Q 6 MONTHS 11/14/20222021, 12/10/2021, 05/22/2021, Additional history exists INFLUENZA VACCINE (#1) 2024 0, 07/16/2018, 09/26/2017, Additional history exists COLORECTAL SCREENING 01/24/2031 01/24/2021 Colorectal Cancer Screening 01/24/2031 Procedures Procedure Name Priority Date/Time Associated Diagnosis Comments HEMOGLOBIN A1C Routine 05/14/2022 LIPID PANEL Routine 05/22/2021 from Last 3 Months or Most Recently Relevant to Health Maintenance Results * HEMOGLOBIN A1C (05/14/2022) Blood us Abstract Provider CHEMISTRY ORDERABLES Final Res ult * LIPID PANEL (05/22/2021) Blood us Abstract Provider CHEMISTRY ORDERABLES Final Res ult from Last 3 Months or Most Recently Relevant to Health Maintenance Insurance Care Teams Long Chain Quiller Tender Relationship Specialty Start Date End Date Azar Zurita MD PCP - General Internal Medicine 01/11/21
--- OUTSIDE RECORDS SUMMARY | 2025-01-25 17:48 | XMS_ITS | Encounter Summary ---
Author Organization [facility] , [facility] Address [address] [place] [phone] Phone Care Team Providers Care Cash Controller Name Role Phone Azar Zurita MD Primary Care Provider [phone] Reason for Visit * Reason Comments Med Refill Encounter Details Date Type Department Care Team (Late st Contact Info) Description 07/03/2021 Refill [facility], [facility] [address] [place] [phone] [place] [address] [place] [phone] Social History Tobacco Use Types Packs/Day Years Used Date Smoking Tobacco: Former Alcohol Use Standard Drinks/Week Comments No 0 (1 standard drink = 0.6 oz pur e alcohol) Comments Unknown Sex and Gender Information Value Date Recorded Sex Assigned at Not on file Legal Sex Female 2:49 PM EDT Gender Identity Not on file Sexual Orientation Not on file documented as of this encounter Plan of Treatment Not on file documented as of this encounter Visit Diagnoses Not on filedocumented in this encounter Care Teams Cash Controller Relationship Specialty Start Date End Date Azar Zurita MD [address], [address] [place] [address] PCP - General Internal Medicine 07/17/21 documented as of this encounter
--- OUTSIDE RECORDS SUMMARY | 2025-01-25 17:48 | XMS_ITS ---
Author Organization [facility] Address [address] [facility] [address] [place] [address] Care Team Providers Care Collection Specialist Name Role Phone Parminder RAZA, Azar Primary Care Provider Un available Shea Sanchez Unavailable [phone] REASON FOR VISIT Pt called but did not leave a Voicemail for today Social History Sex Assigned At : Social History Observation Description Sex Assigned At Female Encounters Encounter Location Date Provider Diagnosis [facility] [employer] [place] [id number] [facility] [address] [place] [address] 12/24/2024 Shea Sanchez Plan Of Treatment Next Appt Details Provider Name:Shea betancourt, 05/27/2025 11:45:00 AM, [address], [facility] [address], [place], [address], Progress Notes * RAY CALDWELL ADOB: [birth year] (64 yo F)Acc No.[id number]:12/24/2024 Patient: RAY NIELSEN Fran Provider: Lori Sanchez :1960 A ge:64 Y S ex:Female Date:12/24/2024 Address:[address] [place] [address] [id number] Pcp:Azar Zurita MD Subjective: * Chief Complaints: * P t called but did not leave a Voicemail for today * Medical History: * Surgical History: * Hospitalization/Major Diagno stic Procedure: * Medications: Objective: * Vitals: Assessment: Plan: * Treatment: * Procedure Codes: * Billing Information: * Visit Code: * Procedure Codes: * MEDIC SUPERVISOR Sign off status: Completed true * Provider: Lori Sanchez Date: 0 12/24/2024 Generated for Jasmyn Fernandez/Tesfaye on: 0 01/25/2025 05:47 PM CDT
--- OUTSIDE RECORDS SUMMARY | 2025-01-25 17:48 | XMS_ITS ---
Author Organization [facility] Address [id number] [place] [address] [address] [place] [address] Care Team Providers Care Fashion Merchandiser Name Role Phone Mukesh RAZA, Kale Unavailable Unavailable Jesse NGUYỄN, Padmini Unavailable [phone] Allergies Allergen (clinical drug ingredient) Drug/Non Drug Allergy documented on EMR Reaction Allergy Type Onset Date Status Penicillin hives Drug Allergy Active Results Component Value Reference Range Notes HitchedPic Profil e Reviewed date:12/12/2024 12:39:17 PM Interpretation: Performing Lab:[facility] (CLIA#: [id number]), [address] [place] [address], Director - Whitney Manrique Notes/Report: Certifying Hyperbaric Welder Diver: Neil Wang (Remote [id number]) These tests were developed and their performance characteristics determined by [facility]. They have not been cleared or approved by the US Food and Drug Administration. Analyzed at [facility] (CLIA#: [id number]) - [address] [place] [address] - Patroller: Whitney Casas Buspirone Ur CMP 78 >=25 ng/mL COMPLIANT: Test result is consistent and expected with prescribed drug. Tizanidine Ur CMP <5 >=5 ng/mL NON-COMPLI ANT: Test result indicates patient may not be taking drug prescribed. Amitrip Ur CMP >1082 >=10 ng/mL COMPLIANT: Te st result is consistent and expected with prescribed drug. Oxycodone Ur CMP 552 >=100 ng/mL COMPLIANT: Test result is consistent and expected with prescribed drug. Delta-9 Carboxy-THC CMP 177 >=15 ng/mL PRES ENT: Test result may be due to ingestion or use of a product containing delta-9 THC, a psychoactive cannabinoid. Evaluate for medical use of dronabinol, an approved prescription medication. Additionally, delta-9 THC may be present in other cannabis-derived products or prescription medications (e.g., Epidiolex). BioDetect EXPECTED Test result is consistent with routinely analyzed human urine. 6MAM Ur Ql Cfm <10 >=10 ng/mL NONE DETECTED Amphetamines Ur Ql Cfm <100 >=100 ng/mL NONE DETECTED Benzodiaz Ur Ql Cfm <50 >=50 ng/mL NONE DET ECTED Buprenorphine Ur Ql Cfm <1 >=1 ng/mL NONE DETECTED BZE Ur Ql Cfm <50 >=50 ng/mL NONE DETECTED Fentanyl+Norfentanyl Ur Ql Cfm <5 >=5 ng/mL NONE DETECTED Gabapentin Ur Ql <5 >=5 mcg/mL NONE DETECT ED Carisoprodol+Meprob Ur Ql Scn <200 >=200 ng/mL NONE DETECTED Methadone Ur Ql Cfm <200 >=200 ng/mL NONE DET ECTED Meperidine Ur Ql Cfm <100 >=100 ng/mL NONE DE TECTED Opiates Ur Ql Cfm >=100 >=100 ng/mL POSITIVE Noroxycodone Ur Cfm-mCnc 552 >=100 ng/mL POS ITIVE Pregabalin(Lyrica) Ur Ql Cfm <5 >=5 mcg/mL NONE DETECTED Tramadol Ur Ql Cfm <100 >=100 ng/mL NONE DETE CTED Creat Ur-mCnc 62.1 20 - 370 mg/dL NORMAL Creatinine and pH are performed for specimen validity and not diagnostic purposes. pH Ur 7.55 4.5 - 9.0 NORMAL Creatinine and pH are performed for specimen validity and not diagnostic purposes. Alcohol Metabolites Ur Ql Cfm <200 >=200 ng/mL NONE DETECTED Ethyl sulfate Ur Cfm-mCnc <200 >=200 ng/mL NO NE DETECTED Busprione Ur Ql Cfm >=25 >=25 ng/mL POSITIVE 6-Hydroxybuspirone Ur Cfm-mCnc 78 >=25 ng/mL POSITIVE Tizanidine Ur Ql Cfm <25 >=25 ng/mL NONE DE TECTED Tricyclics Ur Ql Cfm >=10 >=10 ng/mL POSITIV E Nortrip Ur Cfm-mCnc 82 >=10 ng/mL POSITIVE Amitrip Ur Cfm-mCnc >1000 >=10 ng/mL POSITIVE Synthetic Stimulants Ur Ql Cfm <1 >=1 ng/mL NONE DETECTED GREY TENDER Not Otherwise Specified Ur Ql Cfm <1 >=1 ng/mL NONE DETECTED Synthetic Cannabinoids Ur Ql Cfm <1 >=1 ng/m L NONE DETECTED Hallucinogens/Dissociatives Ur Ql Cfm <1 >=1 ng/mL NONE DETECTED Search Specialist Benzodiazepines Ur Ql Cfm <1 >=1 ng/mL NONE DETECTED Search Specialist Opioids Ur Ql Cfm <1 >=1 ng/mL N ONE DETECTED THC Ur Ql Scn >=20 >=20 ng/mL POSITIVE CarboxyTHC Ur Cfm-mCnc 177 >=15 ng/mL POSIT WAYNE REASON FOR VISIT c/o low back and right knee pain. Medications Medication SIG (Take, Route, Frequency, Duration) Notes Start Date End Date Status Tiadylt ER 300 MG TAKE 1 CAPSULE BY [place] [facility] EVERY DAY Oral for 90 Days Active Roflumilast 500 MCG Oral for 90 Days Active Albuterol Sulfate HFA 108 (90 Base) MCG/ACT INHALE 2 PUFFS BY MOUTH EVERY 4 TO 6 HOURS NEEDED FOR SHORTNESS OF BREATH OR COUGH Inhalation for 16 Days Active Naloxone HCl 4 MG/0.1ML as directed Nasally once for 30 days 1 spray in nostril for opioid emergency. call 911. may repeat in other nostril if needed after 2-3 minutes 12/07/2024 Active metFORMIN HCl 500 MG TAKE 1 TABLET BY [facility] TWICE DAILY Oral for 90 Days Active Sertraline HCl 100 MG Oral for 90 Days Active Amitriptyline HCl 50 MG TAKE 1 TABLET BY MOUTH EVERY DAY Oral for 90 Days Active Ondansetron 4 MG Oral for 15 Days Active Losartan Potassium 100 MG Oral for 90 Days Active Omeprazole 20 MG TAKE 1 CAPSULE BY [place] [facility] EVERY DAY NEEDED Oral for 90 Days Active Spiriva Respimat 2.5 MCG/ACT Inhalation for 30 Days Active Breo Ellipta 200-25 MCG/ACT INHALE 1 PUF F BY MOUTH DAILY Inhalation for 30 Days Active busPIRone HCl 5 MG TAKE 1 TABLET BY JORDANA TWICE DAILY Oral for 90 Days Active Levothyroxine Sodium 100 MCG Oral for 100 Days Active Magnesium Oxide -Mg Supplement 400 (240 Mg) MG TAKE 1 TABLET BY MOUTH TWICE DAILY Oral for 90 Days Active oxyCODONE-Acetaminophen 5-325 MG 1 tablet as needed Oral twice per day for 30 days 10/06/2024 Active tiZANidine HCl 4 MG 1 tab twice a day fo r 30 days Active Roflumilast 500 MCG Oral for 5 Days Active Vital Signs Blood pressure systolic 100 mm Hg 12/07/19 25 Blood pressure diastolic 67 mm Hg 025 Heart Rate 91 /min 12/07/2024 Height 5ft 6in in 12/07/2024 Weight 154 lbs 12/07/2024 BMI 24.85 kg/m2 12/07/2024 Height-cm 167.64 cm 12/07/2024 Weight-kg 69.85 kg 12/07/2024 Encounters Encounter Location Date Provider Diagnosis [facility] [id number] [place] [address] [address] [place] [address] 12/07/2024 Padmini Molina Spondylosis of lumbar region without myelopathy or radiculopathy M47.816 ; Chronic obstructive pulmonary disease, unspecified J44.9 and Other 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 12/07/2024 Chronic obstructive pulmonary disease, unspecified (ICD-10 - J44.9) 12/07/2024 Other senior living (current) drug therapy (ICD-10 - Z79.899) 12/07/2024 Other Learning About How to Have a Healthy Back material was published Plan Of Treatment Medication Medication Name Sig Start Date Stop Date Notes Naloxone HCl 4 MG/0.1ML as directed Nasa lly once for 30 days 12/07/2024 Treatment Notes Assessment Notes Other Learning About How t o Have a Healthy Back material was published Pending Test Test Name Order Date EtS (Alcohol Metabolite) - Urine 025 QMP Plus D/L - Urine 12/07/2024 Synthetic Stimulants 12/07/2024 Search Specialist Benzodiazepines 12/07/2024 Synthetic Cannabinoids 12/07/2024 Search Specialist Opioids 12/07/2024 Hallucinogens/Dissociatives 12/07/2024 GREY TENDER Other 12/07/2024 Marijuana - Urine 12/07/2024 [facility]Comp Medication Compliance - Urine 0 12/07/2024 [facility] Required Information 12/07/2024 Next Appt Details Follow Up: 4 Weeks, Reason: Provider Name:Conchita Boonejos torres, 01/27/2025 10:30:00 AM, [id number] [place] [address], [address], [place], [address], Progress Notes * Lulu ELAM ADOB: (64 yo F)Acc No.[id number]:12/07/2024 Progress Notes Patient: Lulu NIELSEN Appointment Provider: REJI Chapin :1960 A ge:64 Y S ex:Female Supervising Provider:Tim Sterling MD Date:12/07/2024 Address:[address] [place], [place] [id number] Subjective: * Chief Complaints: * C /o low back and right knee pain. * HPI: * Established Patient: Established Patient Questionnaire: 1 . Are you currently taking a Blood Thinner Medication? N o 2 . Do you have an allergy to I.V. Contrast or Shellfish? Y es 3 . List any changes to medical history. (eg; Falls, Test, Scans, Blood Work, and Hospitalizations) N one 4 . Have you been exposed to anyone with COVID in the last 2 weeks? N o 5 . Have you been exposed to anyone with the FLU in the last 72 hours? N o 6 . What is your Pain Level today? (1-10, Scroll and select one) 4 7 . Where is your pain located? R ight Knee,Low Back 8 . After your last visit, what Percentage of improvement did you experience? 0 9 . Are you doing Physical Therapy, Chiropractic, or Massage Therapy? N o 1 0. Are you doing an at home Exercise Program? N o 1 2. What activities or positions decrease your Pain? (Scroll to select one or multiple) W alking,Standing 1 3. How would you describe your Pain? (Scroll to select one or multiple) S tabbing 1 4. Are you having difficulty sleeping? N o 1 5. When was the last time you had your blood drawn? (Please enter your best estimate) 11/2023 1 6. When was your last Mammogram? (Please put N/A if you are male, for Females please put the best Estimate or Never. ) 11/2023 1 7. When was your last Colonoscopy? (Please put the best Estimate or Never. ) 2 020 1 8. Do you need any refills on your medications today? Y es 2 0. Are you Diabetic? Y es W hich Type of Diabetes do you have? T ype 2 W hat was your last A1C? (Please enter the number WITHOUT the decimal point) 5 .9 2 1. Do you suffer from Constipation? N o * Pain Management:: Lulu Luevano has appointment today for medication renewal. She hasa history of chronic low back pain secondary to lumbar spondylosis, stenosis and facet arthropathy. She has history of left THR and right leg length discrepancy 15 mm short that is lifted to 8 mm in the right shoe. She has COPD and is on portable O2. She rates VAS 4/10. She states her pain is low back and right knee. She is trying to undergo right total knee replacement but will need cardiopulmonary clearance first. She has no falls or hospitalizations. She will schedule spine x-rays next visit. She will bring in blood work and bone density results. She will also schedule for her yearly MD visit. Naloxone prescription is sent today. UDS is due today. She was renewed on oxycodone 5/325 mg 1 tablet as needed twice a day and is on tizanidine 4 mg as needed. UDS and PDMP are monitored regularly. URINE DRUG SCREENING MEDICAL NECESSITY: The [place] Federation of State Medical Boards, APS, AAPM, and ASIPP all recommend routine UDTs for patients on chronic opioids. Chronic pain patients not receiving controlled substances can also benefit from random UDT since there are higher rates of drug misuse, abuse, and addiction in this population. Caring for and treating patients on controlled substances poses unique challenges for both physicians and their staff. These challenges are serious and include: patients providing false and misleading medical histories, not maintaining compliance with therapeutic drug regimens and using illicit drugs. Patients non-compliant behavior with prescribed medications, such as combining medications or using illicit drugs with legally prescribed ones, can result in harm to themselves and others. So the urine Drug screening can help improve patient safety as it relates to accurately establishing medication use, identifying dangerous drug to drug cross-reactions and avoiding false patient dismissals based on inconsistent immunoassay tests. -To monitor patient's compliance -To monitor patient's safety -To monitor patient's pain control -To monitor any side effects, cross-reactions Urine Drug Screen completed today for suspicion of illicit drug use and compliance monitoring measures. Discussed side effects of opioid and medication therapies. Discussed potential for addiction/tolerance/abuse/diversion. Discussed Opioid Agreement in detail and answered all questions. Discussed side effects of NSAIDs and other pain medication and muscle relaxants in detail. Discussed possibility of GI bleed, Gastric irritation or esophagitis from pain medications including NSAIDs. Also discussed possibility of cardiac side effects of NSAIDS as well. Patient verbalized understanding. The risks of narcotic therapy including potential addiction/abuse, sedation, risk for falls, and constipation were discussed. The theory behind hyperalgesia with chronic use was also discussed. Pt is advised that while on these medications he/she is not to drive, operate heavy machinery, climb ladders or heights, and they are to use them sparingly for relief of severe pain. The patient understands that if they misuse or do not follow our current plan of care, they may be terminated from my care and will be asked to find another physician. The patient expresses understanding of these issues and questions were answered. Greater than 50% of time spent with the patient today was significant for counseling and coordination of care required for this visit. * ROS: G eneral/Constitutional: Denies Change in appetite, Chills, Fatigue, Fever or Lightheadedness. ENT: Denies Tinnitus or Dysphagia. Ophthalmologic: Denies Blurred vision or change in vision. Neurological: denies gait abnormality, balance difficulty, dizziness, or loss of strength Psychological: denies depressed mood or change in mood Skin: denies skin rash . * Medical History: * Surgical History: R cataract surgery R ankle fracture repair appendectomy tonsillectomy Left arm fracture repair Cardioversion for AFib * Hospitalization/Major Diagno stic Procedure: n o hospitalizations since prior visit * Family History: F ather: alive 83 yrs, diagnosed with Type 2 diabetes mellitus without complication, unspecified whether senior living insulin use. M other: 81 yrs. * Social History: * Established Patient: Milan keller Ivan o you smoke? N ot Anymore W maris did you quit? 0 01/18/2012 * Medications: T akingoxyCODONE-Acetaminophen 5-325 MG Tablet 1 tablet as needed Oral twice per day tiZANidine HCl 4 MG Tablet 1 tab twice a day Roflumilast 500 MCG Tablet Oral Spiriva Respimat 2.5 MCG/ACT Aerosol Solution Inhalation Breo Ellipta 200-25 MCG/ACT Aerosol Powder Breath Activated INHALE 1 PUFF BY MOUTH DAILY Inhalation busPIRone HCl 5 MG Tablet TAKE 1 TABLET BY MOUTH TWICE DAILY Oral Levothyroxine Sodium 100 MCG Tablet Oral Magnesium Oxide -Mg Supplement 400 (240 Mg) MG Tablet TAKE 1 TABLET BY MOUTH TWICE DAILY Oral Omeprazole 20 MG Capsule Delayed Release TAKE 1 CAPSULE BY MOUTH EVERY DAY NEEDED Oral Losartan Potassium 100 MG Tablet Oral Sertraline HCl 100 MG Tablet Oral Amitriptyline HCl 50 MG Tablet TAKE 1 TABLET BY MOUTH EVERY DAY Oral Ondansetron 4 MG Tablet Disintegrating Oral metFORMIN HCl 500 MG Tablet TAKE 1 TABLET BY MOUTH TWICE DAILY Oral Tiadylt ER 300 MG Capsule Extended Release 24 Hour TAKE 1 CAPSULE BY MOUTH EVERY DAY Oral Roflumilast 500 MCG Tablet Oral Albuterol Sulfate HFA 108 (90 Base) MCG/ACT Aerosol Solution INHALE 2 PUFFS BY MOUTH EVERY 4 TO 6 HOURS NEEDED FOR SHORTNESS OF BREATH OR COUGH Inhalation Taking oxyCODONE- Acetaminophen 5-325 MG Tablet 1 tablet as needed Oral twice per day Taking tiZANidine HCl 4 MG Tablet 1 tab twice a day Taking Roflumilast 500 MCG Tablet Oral Taking Spiriva Respimat 2.5 MCG/ACT Aerosol Solution Inhalation Taking Breo Ellipta 200-25 MCG/ACT Aerosol Powder Breath Activated INHALE 1 PUFF BY MOUTH DAILY Inhalation Taking busPIRone HCl 5 MG Tablet TAKE 1 TABLET BY MOUTH TWICE DAILY Oral Taking Levothyroxine Sodium 100 MCG Tablet Oral Taking Magnesium Oxide -Mg Supplement 400 (240 Mg) MG Tablet TAKE 1 TABLET BY MOUTH TWICE DAILY Oral Taking Omeprazole 20 MG Capsule Delayed Release TAKE 1 CAPSULE BY MOUTH EVERY DAY NEEDED Oral Taking Losartan Potassium 100 MG Tablet Oral Taking Sertraline HCl 100 MG Tablet Oral Taking Amitriptyline HCl 50 MG Tablet TAKE 1 TABLET BY MOUTH EVERY DAY Oral Taking Ondansetron 4 MG Tablet Disintegrating Oral Taking metFORMIN HCl 500 MG Tablet TAKE 1 TABLET BY MOUTH TWICE DAILY Oral Taking Tiadylt ER 300 MG Capsule Extended Release 24 Hour TAKE 1 CAPSULE BY MOUTH EVERY DAY Oral Taking Roflumilast 500 MCG Tablet Oral Taking Albuterol Sulfate HFA 108 (90 Base) MCG/ACT Aerosol Solution INHALE 2 PUFFS BY MOUTH EVERY 4 TO 6 HOURS NEEDED FOR SHORTNESS OF BREATH OR COUGH Inhalation * Allergies: P enicillin: hivesno[Allergies Verified] Objective: * Vitals: H t: 5ft 6in, Wt:154lbs, BP:100/67mm Hg, Pain scale:41-10, HR:91/min, BMI:24.85Index, Ht-cm: 167.64 cm, Wt-k.85 kg, Body Surface Area: 1.8. * Physical Examination: P atient is A&OX3 in NAD, speech is appropriate. Gait is non-antalgic and unassisted. portable O2 per NC Lungs: respirations are non-labored. Musculoskeletal: . Patient transfers without difficulty. Assessment: * Assessment: 1. 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 2 . C hronic obstructive pulmonary disease, unspecified - J44.9 3 .?Other senior living (current) drug therapy - Z79.899 Plan: * Treatment: 2. O thers Notes: Learning About How to Have a Healthy Back material was published * Labs: * L ab: [facility] Healthcare Profile (Collection Date & Time - 12/07/2024 01:52 PM) Value Reference Range O xycodone Ur CMP 552 >=100 - ng/mL * B ioDetect EXPECTED - * 6 DEJA Ur Ql Cfm <10 >=10 - ng/mL * A lcohol Metabolites Ur Ql Cfm <200 >=200 - ng/ mL * E thyl sulfate Ur Cfm-mCnc <200 >=200 - ng/mL * A mphetamines Ur Ql Cfm <100 >=100 - ng/mL * B enzodiaz Ur Ql Cfm <50 >=50 - ng/mL * B uprenorphine Ur Ql Cfm <1 >=1 - ng/mL * B ZE Ur Ql Cfm <50 >=50 - ng/mL * F entanyl+Norfentanyl Ur Ql Cfm <5 >=5 - ng/m L * G abapentin Ur Ql <5 >=5 - mcg/mL * C arisoprodol+Meprob Ur Ql Scn <200 >=200 - ng/ mL * M ethadone Ur Ql Cfm <200 >=200 - ng/mL * M eperidine Ur Ql Cfm <100 >=100 - ng/mL * O piates Ur Ql Cfm >=100 >=100 - ng/mL * T ramadol Ur Ql Cfm <100 >=100 - ng/mL * C reat Ur-mCnc 62.1 20 - 370 - mg/dL * p H Ur 7.55 4.5 - 9.0 - * N PS Not Otherwise Specified <1 >=1 - ng/mL * P regabalin(Lyrica) Ur Ql Cfm <5 >=5 - mcg/mL * H allucinogens/Dissociatives Ur Ql Cfm <1 >=1 - ng/mL * D esigner Benzodiazepines Ur Ql Cfm <1 >=1 - ng/mL * D esigner Opioids Ur Ql Cfm <1 >=1 - ng/mL * T HC Ur Ql Scn >=20 >=20 - ng/mL * S ynthetic Stimulants Ur Ql Cfm <1 >=1 - ng/m L * S ynthetic Cannabinoids Ur Ql Cfm <1 >=1 - ng /mL * T izanidine Ur CMP <5 A >=5 - ng/mL * N oroxycodone Ur Cfm-mCnc 552 >=100 - ng/mL * T izanidine Ur Ql Cfm <25 >=25 - ng/mL * D elta-9 Carboxy-THC CMP 177 A >=15 - ng/mL * C arboxyTHC Ur Cfm-mCnc 177 >=15 - ng/mL * T ricyclics Ur Ql Cfm >=10 >=10 - ng/mL * N ortrip Ur Cfm-mCnc 82 >=10 - ng/mL * A mitrip Ur CMP >1082 >=10 - ng/mL * A mitrip Ur Cfm-mCnc >1000 >=10 - ng/mL * B uspirone Ur CMP 78 >=25 - ng/mL * B usprione Ur Ql Cfm >=25 >=25 - ng/mL * 6 -Hydroxybuspirone Ur Cfm-mCnc 78 >=25 - ng/ mL * [employer], support 11/12 01:50:09 : This order was created by the Interface. * Procedure Codes: * Follow Up: 4 Weeks * Billing Information: * Visit Code: 71760 Office Visit, Est Pt., Level 3. * Procedure Codes: Review Notes: Tim Sterling I 2024-12-14 12:52:10* CTOR HRIS Electronically co-signed by Tim Sterling MD on 12/14/2024 at 12:52 PM DIRECTOR HRIS Sign off status: Completed true * Appointment Provider: REJI Chapin Date: 0 12/07/2024 Generated for Printing/Faxing/eTransmitting on: 0 01/25/2025 05:48 PM CDT History and Physical Notes * HPI (History of Present Illness) Category Sub-Category Detail Notes Category Not es *Pain Management: Lulu Luevano has appointment today for medication renewal. She hasa history of chronic low back pain secondary to lumbar spondylosis, stenosis and facet arthropathy. She has history of left THR and right leg length discrepancy 15 mm short that is lifted to 8 mm in the right shoe. She has COPD and is on portable O2. She rates VAS 4/10. She states her pain is low back and right knee. She is trying to undergo right total knee replacement but will need cardiopulmonary clearance first. She has no falls or hospitalizations. She will schedule spine x-rays next visit. She will bring in blood work and bone density results. She will also schedule for her yearly MD visit. Naloxone prescription is sent today. UDS is due today. She was renewed on oxycodone 5/325 mg 1 tablet as needed twice a day and is on tizanidine 4 mg as needed. UDS and PDMP are monitored regularly. URINE DRUG SCREENING MEDICAL NECESSITY: The [place] Federation of State Medical Boards, APS, AAPM, and ASIPP all recommend routine UDTs for patients on chronic opioids. Chronic pain patients not receiving controlled substances can also benefit from random UDT since there are higher rates of drug misuse, abuse, and addiction in this population. Caring for and treating patients on controlled substances poses unique challenges for both physicians and their staff. These challenges are serious and include: patients providing false and misleading medical histories, not maintaining compliance with therapeutic drug regimens and using illicit drugs. Patients non-compliant behavior with prescribed medications, such as combining medications or using illicit drugs with legally prescribed ones, can result in harm to themselves and others. So the urine Drug screening can help improve patient safety as it relates to accurately establishing medication use, identifying dangerous drug to drug cross-reactions and avoiding false patient dismissals based on inconsistent immunoassay tests. -To monitor patient's compliance -To monitor patient's safety -To monitor patient's pain control -To monitor any side effects, cross-reactions Urine Drug Screen completed today for suspicion of illicit drug use and compliance monitoring measures. Discussed side effects of opioid and medication therapies. Discussed potential for addiction/tolerance/a buse/diversion. Discussed Opioid Agreement in detail and answered all questions. Discussed side effects of NSAIDs and other pain medication and muscle relaxants in detail. Discussed possibility of GI bleed, Gastric irritation or esophagitis from pain medications including NSAIDs. Also discussed possibility of cardiac side effects of NSAIDS as well. Patient verbalized understanding. The risks of narcotic therapy including potential addiction/abuse, sedation, risk for falls, and constipation were discussed. The theory behind hyperalgesia with chronic use was also discussed. Pt is advised that while on these medications he/she is not to drive, operate heavy machinery, climb ladders or heights, and they are to use them sparingly for relief of severe pain. The patient understands that if they misuse or do not follow our current plan of care, they may be terminated from my care and will be asked to find another physician. The patient expresses understanding of these issues and questions were answered. Greater than 50% of time spent with the patient today was significant for counseling and coordination of care required for this visit. *Established Patient Established Patient Questionnaire: 1. Are you currently taking a Blood Thinner Medication?: No 2. Do you have an allergy to I.V. Contra st or Shellfish?: Yes 3. List any changes to medic al history. (eg; Falls, Test, Scans, Blood Work, and Hospitalizations): None 4. Have you been exposed to anyone with COVID in the last 2 weeks?: No 5. Have you been exposed to anyone with the FLU in the last 72 hours?: No 6. What is your Pain Level today? (1-10, Scroll and select one): 4 7. Where is your pain located?: Right Kn ee,Low Back 8. After your last visit, wh at Percentage of improvement did you experience?: 0 9. Are you doing Physical Therapy, Chiro practic, or Massage Therapy?: No 10. Are you doing an at home Exercise Pr ogram?: No 12. What activities or posit ions decrease your Pain? (Scroll to select one or multiple): Walking,Standing 13. How would you describe y our Pain? (Scroll to select one or multiple): Stabbing 14. Are you having difficulty sleeping?: No 15. When was the last time y ou had your blood drawn? (Please enter your best estimate): 09/2024 16. When was your last Mammo gram? (Please put N/A if you are male, for Females please put the best Estimate or Never. ): 09/2024 17. When was your last Colon oscopy? (Please put the best Estimate or Never. ): 2019 18. Do you need any refills on your medi cations today?: Yes 20. Are you Diabetic?: Yes Which Type of Diabetes do you have?: Type 2 What was your last A1C? (Please enter the number WITHOUT the decimal point): 5.9 21. Do you suffer from Constipation?: No Physical Examination Category Sub-Category Detail Notes Section Note s Patient is A&OX3 in NAD, speech is appropriate. Gait is non-antalgic and unassisted. portable O2 per NC Lungs: respirations are non-labored. Musculoskeletal: . Patient transfers without difficulty.
--- OUTSIDE RECORDS SUMMARY | 2025-01-25 17:48 | XMS_ITS ---
Author Organization [facility] [employer] [facility] Address [address] [place] [address] Care Team Providers Care Loan Processor Name Role Phone Parminder RAZA, Azar Primary Care Provider Un available SergoShea babcock Unavailable [phone] ValeMarcy estrella Unavailable [phone] Allergies Allergen (clinical drug ingredient) Drug/Non Drug Allergy documented on EMR Reaction Allergy Type Onset Date Status Penicillin G Benzathine Unknown Drug Allergy 09/01/2023 Active REASON FOR VISIT follow up medication management, phq less than 5 Medications Medication SIG (Take, Route, Frequency, Duration) Notes Start Date End Date Status Roflumilast 500 MCG Oral for 90 Days Active tiZANidine HCl 4 MG TAKE 1 TABLET BY JORDANA TH TWICE DAILY NEEDED Oral for 30 Days Active Atorvastatin Calcium 40 MG TAKE 1 TABLET BY MOUTH EVERY DAY Oral for 90 Days Active Breo Ellipta 200-25 MCG/ACT Inhalation for 30 Days Active Omeprazole 20 MG Oral for 90 Days Active metFORMIN HCl 500 MG Oral for 90 Days Active Tiadylt ER 300 MG TAKE 1 CAPSULE BY MO [facility] EVERY DAY Oral for 90 Days Active Sertraline HCl 100 MG 1 tablet Oral Once a day for 90 days Active busPIRone HCl 5 MG 1 tablet Oral Twice a day for 90 days Active Albuterol Sulfate HFA 108 (90 Base) MCG/ACT INHALE 2 PUFFS BY MOUTH EVERY 4 TO 6 HOURS NEEDED FOR SHORTNESS OF BREATH OR COUGH Inhalation for 16 Days Active Losartan Potassium 100 MG TAKE 1 TABLET BY MOUTH EVERY DAY Oral for 90 Days Active oxyCODONE-Acetaminophen 5-325 MG Oral for 30 Days Active Amitriptyline HCl 50 MG TAKE 1 TABLET BY MOUTH EVERY DAY Oral for 90 Days Active Magnesium Oxide -Mg Supplement 400 (240 Mg) MG TAKE 1 TABLET BY MOUTH TWICE DAILY Oral for 90 Days Active Levothyroxine Sodium 100 MCG TAKE 1 TABL ET BY MOUTH EVERY MORNING ON AN EMPTY STOMACH Oral for 100 Days Active Spiriva Respimat 2.5 MCG/ACT INHALE 2 PU FFS BY MOUTH DAILY Inhalation for 30 Days Active Social History Tobacco Use: Social History Observation Description Date Details (start date - stop date) Former Smoker NA - NA Sex Assigned At : Social History Observation Description Sex Assigned At Female Tobacco Control (Standard) Question Answer Notes Tobacco use: Former smoker How long has it been since you last smoked? Grea ter than 10 years AUDIT-C (Standard) Question Answer Notes Did you have a drink contain ing alcohol in the past year? Yes Points 1 How often did you have six o r more drinks on one occasion in the past year? Never (0 point) How many drinks did you have on a typical day when you were drinking in the past year? 1 or 2 drinks (0 point) How often did you have a dri nk containing alcohol in the past year? Monthly or less (1 point) Section Notes: Social History Substance Use Do you or have you ever smoked tobacco?: Former smoker (Notes: quit in 2011) How many years have you smoked tobacco?: 30 How much tobacco do you smoke?: None When did you quit smoking?: 6-10 years since last cigarette Do you or have you ever used e-cigarettes or vape?: Never used electronic cigarettes Do you or have you ever used smokeless tobacco?: Never used smokeless tobacco What was the date of your most recent tobacco screening?: 09/02/24 Has tobacco cessation counseling been provided?: No What is your level of alcohol consumption?: Occasional Do you use any illicit or recreational drugs?: Yes Which illicit or recreational drugs have you used?: Marijuana Have you used IV drugs?: No What is your level of caffeine consumption?: Occasional Education and Occupation What is the highest grade or level of school you have completed or the highest degree you have received?: Some college, no degree Are you currently employed?: No Who is your employer?: disability Marriage and Sexuality What is your relationship status?: Are you sexually active?: No Do you use protection during sex?: No How many children do you have?: 2 (Notes: 1 living 1 ) Advance Directive Do you have an advance directive?: No Do you have a medical power of senior trial attorney?: No Gender Identity and LGBTQ Identity Sexual orientation: Straight or heterosexual Vital Signs Height 66.00 in 09/02/2024 Height-cm 167.64 cm 09/02/2024 Encounters Encounter Location Date Provider Diagnosis [facility] [address] [address] 09/02/2024 Marcy Finney Major depressive disorder, recurrent, mild F33.0 ; Obsessive-compulsive disorder, unspecified F42.9 ; Generalized anxiety disorder F41.1 ; Insomnia due to medical condition G47.01 and Chronic obstructive pulmonary disease, unspecified J44.9 Assessments Encounter Date Diagnosis (ICD Code) Assessment Notes Treatment Notes Treatment Clinical Notes Section Notes 09/02/2024 Major depressive disorder, recurrent, mild (ICD-10 - F33.0) cont sertraline 100mg daily sent two 90 day last visit of each stable, satisfied with current meds education on medication and treatment course f/u in 4 months, earlier if concerns -discussed transition to new provider as I am leaving the practice after this month notes: *cannabis *also on amitriptyline, long-term for headaches 09/02/2024 Obsessive-compul sive disorder, unspecified (ICD-10 - F42.9) SSRI, cont buspar 5mg BID 09/02/2024 Generalized anxiety disorder (ICD-10 - F41.1) meds as above 09/02/2024 Insomnia due to medical condition (ICD-10 - G47.01) practice good sleep hygiene 09/02/2024 Chronic obstructive pulmonary disease, unspecified (ICD-10 - J44.9) on oxygen via NC/portable device reports no change in status- not severe enough for transplant Plan Of Treatment Medication Medication Name Sig Start Date Stop Date Notes Sertraline HCl 100 MG 1 tablet Oral Once a day for 90 days busPIRone HCl 5 MG 1 tablet Oral Twice a day for 90 days Treatment Notes Assessment Notes Major depressive disorder, recurrent, mi ld cont sertraline 100mg daily sent two 90 day last visit of each Obsessive-compulsive disorder, unspecifi ed SSRI, cont buspar 5mg BID Generalized anxiety disorder meds as abo ve Insomnia due to medical condition practi ce good sleep hygiene Chronic obstructive pulmonar y disease, unspecified on oxygen via NC/portable device reports no change in status- not severe enough for transplant Next Appt Details Follow Up: 4 Months, Reason: Provider Name:Shea betancourt, 05/27/2025 11:45:00 AM, [address], [facility] [address], [place], [address], Progress Notes * RAY CALDWELL ADOB: (64 yo F)Acc No.[id number]:09/02/2024 Patient: RAY NIELSEN Provider: WILLIAM IRAHETA :1960 A ge:64 Y S ex:Female Date:09/02/2024 Address:[address] [place] [address] Pcp:Azar Zurita MD Subjective: * Chief Complaints: * 1 . Follow up medication management. 2. Phq less than 5. * HPI: D epression Screening: HARSH-7 (2018 Edition) F eeling nervous, anxious, or on edge?Not at all, N ot being able to stop or control worrying N ot at all, W orrying too much about different things N ot at all, T rouble relaxing N ot at all, B eing so restless that it is hard to sit still N ot at all, B ecoming easily annoyed or irritable N ot at all, F eeling afraid as if something awful might happen N ot at all, T otal HARSH-7 Score 0 , I nterpretation of Total ( 0 to 4) No Anxiety. [place]-Suicide Severity Rating Scale: Suicide Risk (CSRS-screener) i n the past one month Have you wished you were or wished you could go to sleep and not wake up? N o, i n the past one month Have you actually had any thoughts of killing yourself? N o. D epression screening: PHQ-9 L ittle interest or pleasure in doing things N ot at all, F eeling down, depressed, or hopeless N ot at all, T rouble falling or staying asleep, or sleeping too much N ot at all, F eeling tired or having little energy N ot at all, P oor appetite or overeating N ot at all, F eeling bad about yourself or that you are a failure, or have let yourself or your family down N ot at all, T rouble concentrating on things, such as reading the newspaper or watching television N ot at all, M oving or speaking so slowly that other people could have noticed; or the opposite, being so fidgety or restless that you have been moving around a lot more than usual N ot at all, T houghts that you would be better off or of hurting yourself in some way N ot at all, T otal Score 0 , I nterpretation M inimal Depression. I ntervention D epression Screening Findings N egative, F ollow-Up for Depression M enttn health care management, S uicide Risk Assessment Performed 1 , A dditional Evaluation for Depression P sychiatric interview and evaluation, N dell of the standardized tool used for adult depression screening:?Patient Health Questionnaire (PHQ-9). H istory of Presenting Problem: 64 y/o female, , here for follow up related to long-term depression, anxiety, OCD, and insomnia. no med change last visit, d enies side effects things have been good. Denies depression, SI. Anxiety has been ok. no panic attacks. denies OCD concerns. Sleep pretty good, last few days harder d/t back pain. Denies memory concerns. Denies falls. substance update: caffeine: couple cups coffee am, 1 soda tobacco: former, quit 2011 ETOH: once or twice a year cannabis: daily for pain other: denies medical: denies changes. COPD, has portable O2. * ROS: P sychiatric: Comments S ee HPI for details. * Medical History: P roblems: Chronic obstructive lung disease, Gastroesophageal reflux disease, Generalized anxiety disorder, Hypothyroidism, Insomnia disorder related to known organic factor, Obesity, Obsessive-compulsive disorder, Recurrent major depression in remission, Recurrent major depressive episodes, mild, ,. * Surgical History: A ppendectomy (57287) , Cardiac ablation using fluoroscopy guidance ([id number]) 01/18/2012. * Family History: F ather: Diabetes mellitus . U nspecified Relation: Hypothyroidism , Family history of sudden cardiac . M other: Atrial fibrillation . * Social History: T obacco Use: T obacco Control (Standard) T obacco use: F ormer smoker, H ow long has it been since you last smoked? G reater than 10 years. D rug/Alcohol: A VENKATA-C (Standard) D id you have a drink containing alcohol in the past year? Y es,?How often did you have six or more drinks on one occasion in the past year? N ever (0 point), H ow many drinks did you have on a typical day when you were drinking in the past year? 1 or 2 drinks (0 point), H ow often did you have a drink containing alcohol in the past year??Monthly or less (1 point), P oints 1 . M iscellaneous: A dvance Care Planning A re you your own decision-maker Y es, D o you have Power of [employer] for Health or Medical? N o. S ocial History Substance Use Do you or have you ever smoked tobacco?: Former smoker (Notes: quit in 2011) How many years have you smoked tobacco?: 30 How much tobacco do you smoke?: None When did you quit smoking?: 6-10 years since last cigarette Do you or have you ever used e-cigarettes or vape?: Never used electronic cigarettes Do you or have you ever used smokeless tobacco?: Never used smokeless tobacco What was the date of your most recent tobacco screening?: 09/02/24 Has tobacco cessation counseling been provided?: No What is your level of alcohol consumption?: Occasional Do you use any illicit or recreational drugs?: Yes Which illicit or recreational drugs have you used?: Marijuana Have you used IV drugs?: No What is your level of caffeine consumption?: Occasional Education and Occupation What is the highest grade or level of school you have completed or the highest degree you have received?: Some college, no degree Are you currently employed?: No Who is your employer?: disability Marriage and Sexuality What is your relationship status?: Are you sexually active?: No Do you use protection during sex?: No How many children do you have?: 2 (Notes: 1 living 1 ) Advance Directive Do you have an advance directive?: No Do you have a medical power of senior trial attorney?: No Gender Identity and LGBTQ Identity Sexual orientation: Straight or heterosexual. * Medications: T aking Roflumilast 500 MCG Tablet Oral , Taking Atorvastatin Calcium 40 MG Tablet TAKE 1 TABLET BY MOUTH EVERY DAY Oral , Taking tiZANidine HCl 4 MG Tablet TAKE 1 TABLET BY MOUTH TWICE DAILY NEEDED Oral , Taking Breo Ellipta 200-25 MCG/ACT Aerosol Powder Breath Activated Inhalation , Taking Omeprazole 20 MG Capsule Delayed Release Oral , Taking Spiriva Respimat 2.5 MCG/ACT Aerosol Solution INHALE 2 PUFFS BY MOUTH DAILY Inhalation , Taking oxyCODONE-Acetaminophen 5-325 MG Tablet Oral , Taking Losartan Potassium 100 MG Tablet TAKE 1 TABLET BY MOUTH EVERY DAY Oral , Taking Magnesium Oxide -Mg Supplement 400 (240 Mg) MG Tablet TAKE 1 TABLET BY MOUTH TWICE DAILY Oral , Taking Amitriptyline HCl 50 MG Tablet TAKE 1 TABLET BY MOUTH EVERY DAY Oral , Taking Levothyroxine Sodium 100 MCG Tablet TAKE 1 TABLET BY MOUTH EVERY MORNING ON AN EMPTY STOMACH Oral , Taking metFORMIN HCl 500 MG Tablet Oral , Taking Tiadylt ER 300 MG Capsule Extended Release 24 Hour TAKE 1 CAPSULE BY MOUTH EVERY DAY Oral , Taking Albuterol Sulfate HFA 108 (90 Base) MCG/ACT Aerosol Solution INHALE 2 PUFFS BY MOUTH EVERY 4 TO 6 HOURS NEEDED FOR SHORTNESS OF BREATH OR COUGH Inhalation , Taking Sertraline HCl 100 MG Tablet 1 tablet Oral Once a day , Taking busPIRone HCl 5 MG Tablet 1 tablet Oral Twice a day , Medication List reviewed and reconciled with the patient * Allergies: P enicillin G Benzathine: Allergy - Onset Date 09/01/2023. Objective: * Vitals: H t: 66.00 in, Ht-cm: 167.64 cm. * Examination: P sychiatry: Appearance: o n oxygen via NC/portable device. A ppearance: alert,well-groomed, clean, appears well rested. No acute physical distress. B ehavior: eye contact good,cooperative, pleasant. Affect / mood: a ppropriate, full range. Attention: n ormal in conversation. Attitude: c ooperative. Suicidal ideation: n one. Memory status: n o impairment noted. Degree of awareness of surroundings: w ithin normal limits.? Delusions: n o. Hallucinations: n o. Insight: g ood. Intellectual functioning: n o impairment noted. Judgement: g ood. Orientation: a wake, alert and oriented x 3. Perceptual disorders: n o perceptual disorder noted. Psychomotor activity: w ithin normal range. Speech / language: a ppropriate pitch/modulation, clear and coherent, normal rate, volume, and articulation (RVR), proper grammar used. Thought content: a ppropriate. Thought process: i ntact. Assessment: * Assessment: 1. M ajor depressive disorder, recurrent, mild - F33.0 (Primary) 2 . O bsessive-compulsive disorder, unspecified - F42.9 3 . G eneralized anxiety disorder - F41.1 4 . I nsomnia due to medical condition - G47.01 5 . C hronic obstructive pulmonary disease, unspecified - J44.9 Plan: * Treatment: 2. O bsessive-compulsive disorder, unspecified Refill busPIRone HCl Tablet, 5 MG, 1 tablet, Oral, Twice a day, 90 days, 180 Tablet, Refills 0.? Notes: SSRI, cont buspar 5mg BID 3. G eneralized anxiety disorder Notes: meds as above 4. I nsomnia due to medical condition Notes: practice good sleep hygiene 5. C hronic obstructive pulmonary disease, unspecified Notes: on oxygen via NC/portable device reports no change in status- not severe enough for transplant * Procedure Codes: 9 6127 BEHAV ASSMT W/SCORE & DOCD/STAND INSTRUMENT, G8510 NEG SCR D PT NOT ELIG F/U/PLN DOC, G9903 Pt scrn tbco id as non user * Follow Up: 4 Months * Billing Information: * Visit Code: 93283 OFFICE OUTPATIENT VISIT 25 MINUTES DETAILED HISTORY AND EXAM/MODERATE MEDICAL DECISION MAKING. * Procedure Codes: 71256 BEHAV ASSMT W/SCORE & DOCD/STAND INSTRUMENT. G8510 NEG SCR D PT NOT ELIG F/U/PLN DOC. G9903 Pt scrn tbco id as non user. * Sign off status: Completed true * Provider: WILLIAM IRAHETA Date: Generated for Jasmyn khan/Faxing/eTransmitting on: 0 01/25/2025 05:48 PM CDT History and Physical Notes * HPI (History of Present Illness) Category Sub-Category Detail Notes Category Not es Depression screening PHQ-9 Little inte rest or pleasure in doing things: Not at all Feeling down, depressed, or hopeless: No t at all Trouble falling or staying asleep, or sl eeping too much: Not at all Feeling tired or having little energy: N ot at all Poor appetite or overeating: Not at all Feeling bad about yourself o r that you are a failure, or have let yourself or your family down: Not at all Trouble concentrating on thi ngs, such as reading the newspaper or watching television: Not at all Moving or speaking so slowly that other people could have noticed; or the opposite, being so fidgety or restless that you have been moving around a lot more than usual: Not at all Thoughts that you would be b cristóbal off or of hurting yourself in some way: Not at all Total Score: 0 Interpretation: Minimal Depression Intervention Depression Screening Findings: N egative Follow-Up for Depression: Mental health care management Suicide Risk Assessment Performed: 09/02 Additional Evaluation for Depression: Ps ychiatric interview and evaluation Name of the standardized too l used for adult depression screening:: Patient Health Questionnaire (PHQ-9) Depression Screening HARSH-7 (2018 Edition) Feelin g nervous, anxious, or on edge: Not at all Not being able to stop or control worryi ng: Not at all Worrying too much about different things : Not at all Trouble relaxing: Not at all Being so restless that it is hard to sit still: Not at all Becoming easily annoyed or irritable: No t at all Feeling afraid as if something awful stephanie ht happen: Not at all Total HARSH-7 Score: 0 Interpretation of Total: (0 to 4) No Anx iety [place]-Suicide Severity Rating Scale Suicide Risk (CSRS-screener) in the past one month Have you wished you were or wished you could go to sleep and not wake up?: No in the past one month Have y ou actually had any thoughts of killing yourself?: No Examination Category Sub-Category Detail Notes Category Not es Psychiatry Appearance: on oxygen via NC/portable device. Appearance: alert, well-groomed, clean, appears well rested. No acute physical distress. Behavior: eye contact good, cooperative, pleasant Attitude: cooperative Psychomotor activity: within normal rang e Attention: normal in conversati on Degree of awareness of surroundings: wit hin normal limits Orientation: awake, alert and ankur ented x 3 Affect / mood: appropriate, full ra nge Speech / language: appropriate pitch/mo dulation, clear and coherent, normal rate, volume, and articulation (RVR), proper grammar used Insight: good Judgement: good Thought process: intact Thought content: appropriate Perceptual disorders: no perceptual diso rder noted Suicidal ideation: none Intellectual functioning: no impairment noted Memory status: no impairment noted Delusions: no Hallucinations: no
--- OUTSIDE RECORDS SUMMARY | 2025-01-25 17:48 | XMS_ITS | Encounter Summary ---
Author Organization [facility] , [facility] Address [address] [place] [address] Phone Care Team Providers Care Ore Trimmer Name Role Phone Azar Zurita MD Primary Care Provider [phone] Reason for Visit * Reason Comments Med Refill Encounter Details Date Type Department Care Team (Late st Contact Info) Description 12/28/2022 Refill [employer] [facility], [facility] [address] [place] [phone] [place] [address] [place] [phone] Social History Tobacco Use Types Packs/Day [...] on filedocumented in this encounter Care Teams Ore Trimmer Relationship Specialty Start Date End Date Azar Zurita MD [address], [address] [place] [address] PCP - General Internal Medicine 07/17/21 documented as of this encounter
--- OUTSIDE RECORDS SUMMARY | 2025-01-25 17:48 | XMS_ITS ---
Author Organization [facility] Address [address] [place] [address] [address] [place] [address] Care Team Providers Care Corporate Planner Name Role Phone Mukesh RAZA, Tim Thomas Unavailable [phone] Medications Medication SIG (Take, Route, Frequency, Duration) Notes Start Date End Date Status oxyCODONE-Acetaminophen 5-325 MG 1 tablet as needed Oral twice per day for 30 days 12/07/2024 Active Encounters Encounter Location Date Provider Diagnosis [facility] [address] [place] [address] [address] [place] [address] 12/07/2024 Tim Sterling Plan Of Treatment Medication Medication Name Sig Start Date Stop Date Notes oxyCODONE-Acetaminophen 5-32 5 MG 1 tablet as needed Oral twice per day for 30 days 12/07/2024 Next Appt Details Provider Name:Conchita torres, 01/27/2025 10:30:00 AM, [address] [place] [address], [address], [place], [address], Progress Notes * Lulu ELAM ADOB: (64 yo F)Acc No.[id number]:12/07/2024 Patient: Lulu NIELSEN :1960 A ge:64 Y S ex:Female Address:[address] [place] [address], [phone] * Refills Refill oxyCODONE-Acetaminophen Tablet, 5-325 MG, Oral, 60, 1 tablet as needed, twice per day, 30 days, Refills=0 * true * Date: Generated for Jasmyn khan/Michael/Tesfaye on: 0 01/25/2025 05:48 PM CDT
--- OUTSIDE RECORDS SUMMARY | 2025-01-25 17:48 | XMS_ITS | Encounter Summary ---
Author Organization [facility] , [facility] Address [address] [place] [phone] Phone Care Team Providers Care Second Operator Name Role Phone Azar Zurita MD Primary Care Provider [phone] Reason for Visit * Reason Comments Med Refill Encounter Details Date Type Department Care Team (Late st Contact Info) Description 04/26/2023 Refill [place] [facility], [facility] [address] [place] [phone] [place] [address] [place] [phone] Social History Tobacco Use Types Packs/Day [...] on filedocumented in this encounter Care Teams Second Operator Relationship Specialty Start Date End Date Azar Zurita MD [address], [address] [place] [address] PCP - General Internal Medicine 07/17/21 documented as of this encounter
--- OUTSIDE RECORDS SUMMARY | 2025-01-25 17:49 | XMS_ITS | Clinical Summary ---
Author Organization [facility] Address [address] [place] [address] Care Team Providers Care Reaming Machine Operator Name Role Phone Azar Zurita MD Primary Care Provider Tj Kemp MD Unavailable Gayle Reyna APRN-VERTICAL PUNCH OPERATOR Unavailable U Ever Morgan DO Unavailable [phone] Blas Mabry MD Unavailable [phone] Gopal Gentile DO Unavailable [phone] Josefa Sterling MD Unavailable [phone] Source Comments [facility],non-owned Affiliates and Associated Physician Practices is amultiple site organization consisting of ambulatory clinics and hospital sitesin [place], [place], [place] and [place]. This disclosure is being madepursuant to the Care Everywhere program and may not contain all information available regarding this patient. Last updated 18.[facility] Allergies Active Allergy Reactions Criticality Noted Date Comments Penicillins Rash Medium 09/23/2019 Medications * Be aware that medications may not be up to date on this document. Alwaysverify current medications with the patient. Medication Sig Dispensed Refills Start Date End Date Status aspirin (ASPIRIN) 81 MG tablet aspirin 81 mg daily Active albuterol HFA (PROVENTIL; VENTOLIN; PROAIR) 108 (90 Base) MCG/ACT inhaler Ventolin HFA 90 mcg/actuation aerosol inhaler INL 2 PUFFS PO Q 4 H PRF 30 DAYS Active amitriptyline (ELAVIL) 50 MG tablet amitriptyline 50 mg tablet TK 1 T PO QD 08/30/2019 Active busPIRone (BUSPAR) 5 MG tablet Take 5 mg by mouth 3 times daily 1 10/06/2019 Active digoxin (LANOXIN) 0.125 MG tablet 0.125 mg once daily Active dilTIAZem coated beads 24hr (CARDIZEM CD) 180 MG capsule TK 1 C PO D 11 09/17/2019 Active DOK 100 MG capsule TK ONE C PO BID PRF CONSTIPATION 0 09/15/2019 Active BREO ELLIPTA 200-25 MCG/INH inhaler INL 1 PUFF PO QD 6 08/23/[address]ne fluticasone propionate (FLONASE) 50 MCG/ACT nasal spray every 24 hours 01/07/2014 A ctive albuterol-ipratropi um (DUO-NEB) 0.5-2.5 (3) MG/3ML nebulizer solution ipratropium-albuterol 0.5 mg-3 mg(2.5 mg base)/3 mL nebulization soln USE 1 VIAL PER NEBULIZER Q 6 H PRF SOB Active levothyroxine (SYNTHROID) 100 MCG tablet levothyroxine 100 mcg tablet TAKE 1 TABLET BY MOUTH EVERY DAY Active MAGNESIUM-OXIDE 400 (241.3 Mg) MG tablet Take 400 mg by mouth 2 times daily 11 09/17/2019 Active metFORMIN (GLUCOPHAGE) 500 MG tablet 500 mg 2 times daily with morning and evening meal Active oxyCODONE-acetamino phen (PERCOCET) 5-325 MG tablet 1 tablet at bedtime 0 09/08/2019 Active sertraline (ZOLOFT) 100 MG tablet TK 1 T PO QD IN THE MORNING 1 09/02/2019 Active SPIRIVA RESPIMAT 2.5 MCG/ACT inhaler INHALE 2 PUFFS PO ONCE DAILY 6 09/29/2019 Active tiZANidine (ZANAFLEX) 4 MG tablet tizanidine 4 mg tablet TK 1 T PO BID Active triamcinolone acetonide (KENALOG) 0.1 % cream as needed Active atorvastatin (LIPITOR) 40 MG tablet Take 40 mg by mouth once daily 12/27/2020 Active pantoprazole EC (PROTONIX) 20 MG tablet Take 20 mg by mouth once daily Active roflumilast (DALIRESP) 500 MCG tablet once daily Active losartan (COZAAR) 100 MG tablet losartan 100 mg tablet 03/23/2021 Active Active Problems Problem Noted Date Diagnosed Date Iron deficiency anemia 01/25/2021 Nonalcoholic fatty liver disease 01/04/2020 Overview (03/15/2021): 03/13/21 Fibroscan CAP 289, LSM 6.2 kPa Subdural hematoma 12/02/2019 Depressive disorder 10/21/2019 Dyspnea 10/21/2019 Uterine prolapse 10/21/2019 Gastroesophageal reflux disease 10/21/2019 Headache 10/21/2019 Hyperglycemia 10/21/2019 Hypothyroidism 10/21/2019 Knee pain 10/21/2019 Low back pain 10/21/2019 Menopause present 10/21/2019 Mixed stress and urge urinary incontinence 10/21 Osteoarthritis of knee 10/21/2019 Pulmonary hypertension 10/21/2019 Closed displaced fracture of head of radius with routine healing 10/14/2019 Closed fracture of left olecranon process 2018 Chronic sinusitis 10/04/2019 Acute exacerbation of chronic obstructive airway s disease 07/16/2017 Severe chronic obstructive pulmonary disease 04/2017 Stenosis of carotid artery 03/28/2017 Migraine 03/13/2017 Restless legs 03/13/2017 Atrial fibrillation 12/09/2016 Hypoxia 12/09/2016 Essential (primary) hypertension 09/30/2014 Peripheral vascular disease 09/30/2014 History of tobacco abuse 02/07/2012 Resolved Problems Problem Noted Date Diagnosed Date Resolved Date Upper respiratory infection 04/25/2017 11/04/2019 Immunizations Name Administration Dates Next Due [employer] primary monoval ent 12+ yr 0.3mL Purple cap 02/13/2021,01/22/2021 INFLUENZA VACCINE 08/10/2019 Social History Tobacco Use Types Packs/Day Years Used Date Smoking Tobacco: Former Smokeless Tobacco: Former Tobacco Cessation:Counseling Given: No Alcohol Use Standard Drinks/Week Comments Not Currently 0 (1 standard drink = 0.6 oz pur e alcohol) Sex and Gender Information Value Date Recorded Sex Assigned at Not on file Gender Identity Not on file Sexual Orientation Not on file Last Filed Vital Signs Vital Sign Reading Time Taken Comments Blood Pressure 135/66 05/14/2022 1:03 PM CDT Pulse 80 05/14/2022 1:03 PM CDT Temperature 36.9 C (98.4 F) 05/14/2022 1:03 PM CDT Respiratory Rate 18 05/14/2022 1:03 PM CDT Oxygen Saturation 94% 05/14/2022 1:03 PM CDT Inhaled Oxygen Concentration - - Weight 82.6 kg (182 lb) 05/14/2022 1:03 PM CDT Height 167.6 cm (5' 6 ) 03/13/2021 2:51 PM CDT Body Mass Index 29.38 03/13/2021 2:51 PM CDT Plan of Treatment Health Maintenance Due Date Last Done Comments COLOGUARD (AGES 45-75) - COLON CA SCREENING 1961 COLON MONITORING 1961 COLONOSCOPY - COLON CA SCREENING 1961 CT COLONOGRAPHY - COLON CA SCREENING 1960 Colorectal Cancer Screening 1961 FIT - COLON CA SCREENING 1961 FLEX SIG - COLON CA SCREENING 1961 MAMMOGRAM 1961 PAP SMEAR 1961 HIV SCREENING 1976 DTAP/TDAP/TD VACCINES (1 - Tdap) 1980 PNEUMOCOCCAL VACCINE 50+ (1 of 2 - PCV) 1980 PNEUMOCOCCAL VACCINE (1 of 2 - PCV) 1980 ZOSTER VACCINE (1 of 2) 2011 Respiratory Syncytial Virus (RSV) Vaccine Pt: or over 60 yrs (1 - Risk 60-74 years 1-dose series) 2021 COVID-19 VACCINE ( - 2023- season) 2024 08/22/2021, 02/13/2021, 01/22/2021 INFLUENZA VACCINE (#1) 2024 , 07/31/2020, 08/10/2019, Additional history exists DEPRESSION SCREENING 11/10/2024 MEDICARE AWV CALENDAR YEAR 2024 HEPATITIS C SCREENING Completed 06/03/2020 HEPATITIS B VACCINE Aged Out No longe r eligible based on patient's age to complete this topic HIB VACCINE Aged Out No longer eligi ble based on patient's age to complete this topic HPV VACCINE Aged Out No longer eligi ble based on patient's age to complete this topic MENINGOCOCCAL (Group B) VACCINE SHARED DECISION-MAKING Aged Out No longer eligible based on patient's age to complete this topic MENINGOCOCCAL GROUPS A/C/Y/W VACCINE Aged Out No longer eligible based on patient's age to complete this topic Goals Goal Patient Goal Type Associated Problems Recent Progress Patient-Stated? Author Medication Management General On track( 1:13 PM CDT) Inez Tony, RN Note: Expected end date: ongoing Interventions: Take all medications as prescribed Let your doctor know right away about any changes in your medications Make sure to request a refill of your medication at least one week prior to your last dose Safety General On track( 1:13 PM CDT) Inez Tony, FACUNDO Note: Expected end date: ongoing Interventions: Your nurse will assess your risk for falls/injury each visit Use appropriate and safe transfer methods Make sure appropriate safety devices are available and within reach Be aware of medications that could predispose you to falling Wear non-skid/rubber sole footwear Wear glasses/hearing aid Keep personal items within easy reach Use some light at night in your room Keep walking paths clutter free and clear Procedures Procedure Name Priority Date/Time Associated Diagnosis Comments HEPATITIS C AB W/RFLX TO HCV RNA QN PCR 06/03/2020 10:45 AM CDT from Last 3 Months or Most Recently Relevant to Health Maintenance Results * HEPATITIS C AB W/RFLX TO HCV RNA QN PCR (06/03/2020 10:45 AM CDT) Hepatitis C Antibody NON-REACTI VE NON-REACT [facility] Signal to Cut-Off 0.03 <1.00 [facility] Comment: HCV antibody was non-reactive. There is no laboratory evidence of HCV infection. In most cases, no further action is required. However, if recent HCV exposure is suspected, a test for HCV RNA (test code 42909) is suggested. For additional information please refer to http://education.WearYouWant/faq/MVM08c3 (This link is being provided for informational/ educational purposes only.) Test Performed at: [facility] [address] [place] [address] SONY UGALDE DO,MPH 06/03/2020 10:4 5 AM CDT 06/03/2020 10:50 AM CDT Mat Suero MD LAB - CHEMISTRY TOMI YEPE[facility] Organization Address City/State/ZIP Co de Phone Number [employer] [address] [place] [address] from Last 3 Months or Most Recently Relevant to Health Maintenance Care Teams Reaming Machine Operator Relationship Specialty Start Date End Date Azar Zurita MD [address] [facility] [address] [place] [address] PCP - General 09/15/19 Tj Kemp MD [facility] [address] [address] Cardiovascular Disease 01/04/20 Gayle Reyna APRN-VERTICAL PUNCH OPERATOR Update Information Pulmonary Disease 01/04/20 Ever Hayward DO [address] [facility] [address] [place] [address] Nephrology 01/04/20 Blas Mabry MD [address] [place] [address] Psychiatry 01/04/20 Gopal Gentile DO [address] [place] [address] Orthopedic Surgery 01/04/20 [place] [address] [place] [address] Anesthesiology 01/04/20
--- OUTSIDE RECORDS SUMMARY | 2025-01-25 17:49 | XMS_ITS ---
Author Organization [facility] Address [address] [place] [address] [address] [place] [address] Care Team Providers Care Child Support Case Officer Name Role Phone Mukesh RAZA, Kale Unavailable Tim Lopez Unavailable [phone] Medications Medication SIG (Take, Route, Frequency, Duration) Notes Start Date End Date Status oxyCODONE-Acetaminophen 5-325 MG 1 tablet as needed Oral twice per day for 30 days 10/06/2024 Active tiZANidine HCl 4 MG 1 tab twice a day fo r 30 days Active Encounters Encounter Location Date Provider Diagnosis [facility] [address] [place] [address] [address] [place] [address] 10/06/2024 Tim Sterling Plan Of Treatment Medication Medication Name Sig Start Date Stop Date Notes oxyCODONE-Acetaminophen 5-32 5 MG 1 tablet as needed Oral twice per day for 30 days 10/06/2024 tiZANidine HCl 4 MG 1 tab twice a day fo r 30 days Next Appt Details Provider Name:Conchita torres, 01/27/2025 10:30:00 AM, [address] [place] [address], [address], [place], [address], Progress Notes * Lulu ELAM ADOB: (64 yo F)Acc No.[id number]:10/06/2024 Patient: John SOLER Lulu Fran :1960 A ge:64 Y S ex:Female Address:[address], [place], [address] * Refills Refill oxyCODONE-Acetaminophen Tablet, 5-325 MG, Oral, 60, 1 tablet as needed, twice per day, 30 days, Refills=0 Refill tiZANidine HCl Tablet, 4 MG, 60 Tablet, 1 tab, twice a day, 30 days, Refills=0 * true * Date: Generated for Jasmyn khan/Mihcael/Joeitting on: 0 01/25/2025 05:48 PM CDT
--- OUTSIDE RECORDS SUMMARY | 2025-01-25 17:49 | XMS_ITS ---
Author Organization [facility] [facility] Address [address] [place] [address] Care Team Providers Care It Associate Name Role Phone Parminder RAZA, Azar Primary Care Provider Un available Shea Sanchez Unavailable [phone] Allergies Allergen (clinical drug ingredient) Drug/Non Drug Allergy documented on EMR Reaction Allergy Type Onset Date Status Penicillin G Benzathine Unknown Drug Allergy 09/01/2023 Active REASON FOR VISIT follow-up Medications Medication SIG (Take, Route, Frequency, Duration) Notes Start Date End Date Status Omeprazole 20 MG Oral for 90 Days Active Losartan Potassium 100 MG TAKE 1 TABLET BY MOUTH EVERY DAY Oral for 90 Days Active oxyCODONE-Acetaminophen 5-325 MG Oral for 30 Days Active busPIRone HCl 5 MG 1 tablet Oral Twice a day for 90 days Active tiZANidine HCl 4 MG TAKE 1 TABLET BY JORDANA TH TWICE DAILY NEEDED Oral for 30 Days Active Breztri Aerosphere 160-9-4.8 MCG/ACT 2 puffs Inhalation Twice a day Active Atorvastatin Calcium 40 MG TAKE 1 TABLET BY MOUTH EVERY DAY Oral for 90 Days Active Roflumilast 500 MCG Oral for 90 Days Active Sertraline HCl 100 MG 1 tablet Oral Once a day for 90 days Active Albuterol Sulfate HFA 108 (90 Base) MCG/ACT INHALE 2 PUFFS BY MOUTH EVERY 4 TO 6 HOURS NEEDED FOR SHORTNESS OF BREATH OR COUGH Inhalation for 16 Days Active Tiadylt ER 300 MG TAKE 1 CAPSULE BY MO UTH EVERY DAY Oral for 90 Days Active metFORMIN HCl 500 MG Oral for 90 Days Active Levothyroxine Sodium 100 MCG TAKE 1 TABL ET BY MOUTH EVERY MORNING ON AN EMPTY STOMACH Oral for 100 Days Active Magnesium Oxide -Mg Supplement 400 (240 Mg) MG TAKE 1 TABLET BY MOUTH TWICE DAILY Oral for 90 Days Active Amitriptyline HCl 50 MG TAKE 1 TABLET BY MOUTH EVERY DAY Oral for 90 Days Active Social History Tobacco Use: Social History Observation Description Date Details (start date - stop date) Former Smoker NA - NA Sex Assigned At : Social History Observation Description Sex Assigned At Female Household Question Answer Notes Marital status: Tobacco Control (Standard) Question Answer Notes Tobacco [...] past year? Monthly or less (1 point) Vital Signs Blood pressure systolic 129 mm Hg 01/26/20 25 Blood pressure diastolic 66 mm Hg 025 Heart Rate 108 /min 01/25/2025 Height 66.00 in 01/25/2025 Weight 147 lbs 01/25/2025 BMI 23.72 kg/m2 01/25/2025 Height-cm 167.64 cm 01/25/2025 Weight-kg 66.68 kg 01/25/2025 Encounters Encounter Location Date Provider Diagnosis [facility] [address] [address] 01/25/2025 Shea Sanchez Generalized anxiety disorder F41.1 ; Obsessive-compulsive disorder, unspecified F42.9 ; Major depressive disorder, recurrent, mild F33.0 ; Insomnia due to medical condition G47.01 ; Chronic obstructive pulmonary disease, unspecified J44.9 ; Encounter for screening for cardiovascular disorders Z13.6 and Encounter for screening for depression Z13.31 Assessments Encounter Date Diagnosis (ICD Code) Assessment Notes Treatment Notes Treatment Clinical Notes Section Notes 01/25/2025 Generalized anxiety disorder (ICD-10 - F41.1) Cont buspirone 5 mg twice a day COPD exacerbations since October, requiring multiple courses of antibiotics and steroids. Exacerbations have impacted mobility and mood. Experiences irritability towards end of steroid courses. Anxiety generally manageable but recent episodes of perceived tachycardia. More difficult in past week, likely due to frustration with recent illness. Mood pretty good despite recent COPD exacerbations. Uses cannabis daily for pain management. Oxycodone prescribed but rarely taken. Long-term use of amitriptyline for migraine prevention with good effect. Satisfied with current medication regimen, Plan: - Continue sertraline 100 mg daily - Continue buspirone 5 mg twice daily Follow up in 4 months, sooner if concerns arise 01/25/2025 Obsessive-compulsi ve disorder, unspecified (ICD-10 - F42.9) Cont medication regimen as discussed COPD exacerbations since October, requiring multiple courses of antibiotics and steroids. Exacerbations have impacted mobility and mood. Experiences irritability towards end of steroid courses. Anxiety generally manageable but recent episodes of perceived tachycardia. More difficult in past week, likely due to frustration with recent illness. Mood pretty good despite recent COPD exacerbations. Uses cannabis daily for pain management. Oxycodone prescribed but rarely taken. Long-term use of amitriptyline for migraine prevention with good effect. Satisfied with current medication regimen, Plan: - Continue sertraline 100 mg daily - Continue buspirone 5 mg twice daily Follow up in 4 months, sooner if concerns arise 01/25/2025 Major depressive disorder, recurrent, mild (ICD-10 - F33.0) cont sertraline 100mg daily COPD exacerbations since October, requiring multiple courses of antibiotics and steroids. Exacerbations have impacted mobility and mood. Experiences irritability towards end of steroid courses. Anxiety generally manageable but recent episodes of perceived tachycardia. More difficult in past week, likely due to frustration with recent illness. Mood pretty good despite recent COPD exacerbations. Uses cannabis daily for pain management. Oxycodone prescribed but rarely taken. Long-term use of amitriptyline for migraine prevention with good effect. Satisfied with current medication regimen, Plan: - Continue sertraline 100 mg daily - Continue buspirone 5 mg twice daily Follow up in 4 months, sooner if concerns arise 01/25/2025 Insomnia due to medical condition (ICD-10 - G47.01) practice good sleep hygiene COPD exacerbations since October, requiring multiple courses of antibiotics and steroids. Exacerbations have impacted mobility and mood. Experiences irritability towards end of steroid courses. Anxiety generally manageable but recent episodes of perceived tachycardia. More difficult in past week, likely due to frustration with recent illness. Mood pretty good despite recent COPD exacerbations. Uses cannabis daily for pain management. Oxycodone prescribed but rarely taken. Long-term use of amitriptyline for migraine prevention with good effect. Satisfied with current medication regimen, Plan: - Continue sertraline 100 mg daily - Continue buspirone 5 mg twice daily Follow up in 4 months, sooner if concerns arise 01/25/2025 Chronic obstructive pulmonary disease, unspecified (ICD-10 - J44.9) on oxygen via NC/portable device; 3 L reports no change in status- not severe enough for transplant COPD exacerbations since October, requiring multiple courses of antibiotics and steroids. Exacerbations have impacted mobility and mood. Experiences irritability towards end of steroid courses. Anxiety generally manageable but recent episodes of perceived tachycardia. More difficult in past week, likely due to frustration with recent illness. Mood pretty good despite recent COPD exacerbations. Uses cannabis daily for pain management. Oxycodone prescribed but rarely taken. Long-term use of amitriptyline for migraine prevention with good effect. Satisfied with current medication regimen, Plan: - Continue sertraline 100 mg daily - Continue buspirone 5 mg twice daily Follow up in 4 months, sooner if concerns arise 01/25/2025 Encounter for screening for cardiovascular disorders (ICD-10 - Z13.6) COPD exacerbations since October, requiring multiple courses of antibiotics and steroids. Exacerbations have impacted mobility and mood. Experiences irritability towards end of steroid courses. Anxiety generally manageable but recent episodes of perceived tachycardia. More difficult in past week, likely due to frustration with recent illness. Mood pretty good despite recent COPD exacerbations. Uses cannabis daily for pain management. Oxycodone prescribed but rarely taken. Long-term use of amitriptyline for migraine prevention with good effect. Satisfied with current medication regimen, Plan: - Continue sertraline 100 mg daily - Continue buspirone 5 mg twice daily Follow up in 4 months, sooner if concerns arise 01/25/2025 Encounter for screening for depression (ICD-10 - Z13.31) COPD exacerbations since October, requiring multiple courses of antibiotics and steroids. Exacerbations have impacted mobility and mood. Experiences irritability towards end of steroid courses. Anxiety generally manageable but recent episodes of perceived tachycardia. More difficult in past week, likely due to frustration with recent illness. Mood pretty good despite recent COPD exacerbations. Uses cannabis daily for pain management. Oxycodone prescribed but rarely taken. Long-term use of amitriptyline for migraine prevention with good effect. Satisfied with current medication regimen, Plan: - Continue sertraline 100 mg daily - Continue buspirone 5 mg twice daily Follow up in 4 months, sooner if concerns arise Plan Of Treatment Medication Medication Name Sig Start Date Stop Date Notes busPIRone HCl 5 MG 1 tablet Oral Twice a day for 90 days Sertraline HCl 100 MG 1 tablet Oral Once a day for 90 days Treatment Notes Assessment Notes Generalized anxiety disorder Cont buspir one 5 mg twice a day Obsessive-compulsive disorder, unspecifi ed Cont medication regimen as discussed Major depressive disorder, recurrent, mi ld cont sertraline 100mg daily Insomnia due to medical condition practi ce good sleep hygiene Chronic obstructive pulmonar y disease, unspecified on oxygen via NC/portable device; 3 L reports no change in status- not severe enough for transplant Next Appt Details Follow Up: 4 Months, Reason: Provider Name:Shea betancourt, 05/27/2025 11:45:00 AM, [address] [facility] [address], [address], Progress Notes * CALDWELLELIDA CHAPAA ADOB: 1 (64 yo F)Acc No.[id number]:01/25/2025 Patient: RAY NIELSEN Provider: Lori Sanchez :1960 A ge:64 Y S ex:Female Date:01/25/2025 Address:[address] [place] [address] Pcp:Azar Zurita MD Subjective: * Chief Complaints: * F ollow-up * HPI: D epression screening: PHQ-9 L ittle interest or pleasure in doing things?Not at all F eeling down, depressed, or hopeless N ot at all T rouble falling or staying asleep, or sleeping too much S everal days F eeling tired or having little energy S everal days P oor appetite or overeating N ot at all F eeling bad about yourself or that you are a failure, or have let yourself or your family down N ot at all T rouble concentrating on things, such as reading the newspaper or watching television N ot at all M oving or speaking so slowly that other people could have noticed; or the opposite, being so fidgety or restless that you have been moving around a lot more than usual N ot at all T houghts that you would be better off or of hurting yourself in some way N ot at all T otal Score 2 I nterpretation M inimal Depression Intervention D epression Screening Findings N egative S uicide Risk Assessment Performed _ H istory of Presenting Problem: 64 y/o female, , here for follow up related to long-term depression, anxiety, OCD, and insomnia. New to me, last visit in August with another provider in August. Currently on sertraline 100 mg daily, buspirone 5 twice a day. Also o n amitriptyline long-term for headaches. Reports struggling since October with COPD exacerbations, significantly impacting mood and mobility. 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 Feeling down due to reduced ability to get around. Had a couple of anxiety episodes in past few weeks, checking heart rate with stethoscope due to perceived racing heartbeat, but found it normal. Describes anxiety as manageable overall, has learned to let go of many previous worries. Reports high doses of steroids for COPD exacerbations, which has atteributed to her anxiety levels and also led to experiencing irritabilty, increased appetite, and sleep disturbance. Reports experiencing these sympotms everytime she has to take steroids. Denies any concerns with memory, denies recent falls. Feels overall her current medication regimen is effective and she managed her depression, OCD, and anxiety well. substance update: 1-2 cups coffee in AM, former smoker (quit 2011), ETOH rarely, cannabis daily for pain, o ther drug use: denies ongoing notes: COPD, has portable O2 3 L This note is transcribed using speech recognition software. It is a reflection of a visit with the patient. It might have some inaccuracy, including medication names and transcribing errors, though efforts have been made to correct them. D epression Screening: HARSH-7 (2018 Edition) F eeling nervous, anxious, or on edge M ore than half the days N ot being able to stop or control worrying?Not at all W orrying too much about different things N ot at all T rouble relaxing S everal B eing so restless that it is hard to sit still S ever B ecoming easily annoyed or irritable M ore than half the days F eeling afraid as if something awful might happen N ot at all T otal HARSH-7 Score 6 I f you checked any problems, how difficult have they made it for you to do your work, take care of things at home, or get along with other people? S omewhat difficult I nterpretation of Total ( 5 to 9) Mild [place]-Suicide Severity Rating Scale: Suicide Risk (CSRS-screener) i n the past one month Have you wished you were or wished you could go to sleep and not wake up? N o i n the past one month Have you actually had any thoughts of killing yourself? N o H ave you ever done anything, started to do anything, or prepared to do anything to end your life? N o * ROS: G eneral / Constitutional: Patient denies f atigue, sleep disturbance, change in appetite. C ardiovascular: Patient denies p alpitations. G astrointestinal: Patient denies n ausea, vomiting, change in bowel habits.? N eurologic: Patient denies c onfusion, tic, tremor. P sychiatric: Patient denies a uditory / visual hallucinations, delusions, suicidal thoughts, cesilia, psychosis. C michaelments S ee HPI for details. P erformance Met: N ormal blood pressure reading documented, follow-up not required ( G8783). * Medical History: * Surgical History: A ppendectomy (36486) Cardiac ablation using fluoroscopy guidance ([id number]) 01/18/2012 * Hospitalization/Major Diagno stic Procedure: * Family History: F ather: Diabetes mellitus . U nspecified Relation: Hypothyroidism , Family history of sudden cardiac . M other: Atrial fibrillation . * Social History: T obacco Use: T obacco Control (Standard) T obacco use: F ormer smoker H ow long has it been since you last smoked??Greater than 10 years D rug/Alcohol: D o you smoke marijuana?: Yes, Daily, medically. Do you drink alcohol?: Rarely, 1-2 x a year. AUDIT-C (Standard) D id you have a drink containing alcohol in the past year? Y es H ow often did you have six or more drinks on one occasion in the past year? N ever (0 point) H ow many drinks did you have on a typical day when you were drinking in the past year? 1 or 2 drinks (0 point) H ow often did you have a drink containing alcohol in the past year? M onthly or less (1 point) P oints 1 H ousehold: H ousehold M arital status: m arried M iscellaneous: O ccupation: on disability. Advance Care Planning A re you your own decision-maker Y es D o you have Power of Hot Kettle Tender for Health or Medical? N o * Medications: T akingBreztri Aerosphere 160-9-4.8 MCG/ACT Aerosol 2 puffs Inhalation Twice a day Sertraline HCl 100 MG Tablet 1 tablet Oral Once a day busPIRone HCl 5 MG Tablet 1 tablet Oral Twice a day Roflumilast 500 MCG Tablet Oral Atorvastatin Calcium 40 MG Tablet TAKE 1 TABLET BY MOUTH EVERY DAY Oral tiZANidine HCl 4 MG Tablet TAKE 1 TABLET BY MOUTH TWICE DAILY NEEDED Oral Omeprazole 20 MG Capsule Delayed Release Oral oxyCODONE-Acetaminophen 5-325 MG Tablet Oral Losartan Potassium 100 MG Tablet TAKE 1 TABLET BY MOUTH EVERY DAY Oral Magnesium Oxide -Mg Supplement 400 (240 Mg) MG Tablet TAKE 1 TABLET BY MOUTH TWICE DAILY Oral Amitriptyline HCl 50 MG Tablet TAKE 1 TABLET BY MOUTH EVERY DAY Oral Levothyroxine Sodium 100 MCG Tablet TAKE 1 TABLET BY MOUTH EVERY MORNING ON AN EMPTY STOMACH Oral metFORMIN HCl 500 MG Tablet Oral Tiadylt ER 300 MG Capsule Extended Release 24 Hour TAKE 1 CAPSULE BY MOUTH EVERY DAY Oral Albuterol Sulfate HFA 108 (90 Base) MCG/ACT Aerosol Solution INHALE 2 PUFFS BY MOUTH EVERY 4 TO 6 HOURS NEEDED FOR SHORTNESS OF BREATH OR COUGH Inhalation Taking Breztri Aerosphere 160-9-4.8 MCG/ACT Aerosol 2 puffs Inhalation Twice a day Taking Sertraline HCl 100 MG Tablet 1 tablet Oral Once a day Taking busPIRone HCl 5 MG Tablet 1 tablet Oral Twice a day Taking Roflumilast 500 MCG Tablet Oral Taking Atorvastatin Calcium 40 MG Tablet TAKE 1 TABLET BY MOUTH EVERY DAY Oral Taking tiZANidine HCl 4 MG Tablet TAKE 1 TABLET BY MOUTH TWICE DAILY NEEDED Oral Taking Omeprazole 20 MG Capsule Delayed Release Oral Taking oxyCODONE-Acetaminophen 5- 325 MG Tablet Oral Taking Losartan Potassium 100 MG Tablet TAKE 1 TABLET BY MOUTH EVERY DAY Oral Taking Magnesium Oxide -Mg Supplement 400 (240 Mg) MG Tablet TAKE 1 TABLET BY MOUTH TWICE DAILY Oral Taking Amitriptyline HCl 50 MG Tablet TAKE 1 TABLET BY MOUTH EVERY DAY Oral Taking Levothyroxine Sodium 100 MCG Tablet TAKE 1 TABLET BY MOUTH EVERY MORNING ON AN EMPTY STOMACH Oral Taking metFORMIN HCl 500 MG Tablet Oral Taking Tiadylt ER 300 MG Capsule Extended Release 24 Hour TAKE 1 CAPSULE BY MOUTH EVERY DAY Oral Taking Albuterol Sulfate HFA 108 (90 Base) MCG/ACT Aerosol Solution INHALE 2 PUFFS BY MOUTH EVERY 4 TO 6 HOURS NEEDED FOR SHORTNESS OF BREATH OR COUGH Inhalation DiscontinuedBreo Ellipta 200-25 MCG/ACT Aerosol Powder Breath Activated Inhalation Spiriva Respimat 2.5 MCG/ACT Aerosol Solution INHALE 2 PUFFS BY MOUTH DAILY Inhalation Medication List reviewed and reconciled with the patientDiscontinued Breo Ellipta 200-25 MCG/ACT Aerosol Powder Breath Activated Inhalation Discontinued Spiriva Respimat 2.5 MCG/ACT Aerosol Solution INHALE 2 PUFFS BY MOUTH DAILY Inhalation Medication List reviewed and reconciled with the patient * Allergies: P enicillin G Benzathine: Allergy - Onset Date 09/01/2023no[Allergies Verified] Objective: * Vitals: B P:129/66mm Hg, HR:108/min, Wt:147lbs, Wt-k.68 kg, Ht: 66.00 in, Ht-cm: 167.64 cm, BMI:23.72Index, Body Surface Area: 1.76. * Examination: P sychiatry: Appearance: w ell-groomed, portable oxygen. Abnormal body movements: n one. Affect / mood: a ppropriate. Attention: g ood. Attitude: c ooperative. Homicidal ideation: n one. Suicidal ideation: n one. Degree of awareness of surroundings: w ithin normal limits.? Delusions: n o. Hallucinations: n o. Insight: g ood. Judgement: g ood. Orientation: a wake, alert and oriented x 3. Perceptual disorders: n o perceptual disorder noted. Psychomotor activity: w ithin normal range. Speech / language: n ormal rate, volume, and articulation (RVR), clear and coherent, appropriate pitch/modulation. Thought content: a ppropriate. Thought process: i ntact. Assessment: * Assessment: 1. M raf depressive disorder, recurrent, mild - F33.0 (Primary) 2 . G eneralized anxiety disorder - F41.1 3 . O bsessive-compulsive disorder, unspecified - F42.9 4 . I nsomnia due to medical condition - G47.01 5 . C hronic obstructive pulmonary disease, unspecified - J44.9 6 . E ncounter for screening for cardiovascular disorders - Z13.6 7 . E ncounter for screening for depression - Z13.31 COPD exacerbations since Oct, requiring multiple courses of antibiotics and steroids. Exacerbations have impacted mobility and mood. Experiences irritability towards end of steroid courses. Anxiety generally manageable but recent episodes of perceived tachycardia. More difficult in past week, likely due to frustration with recent illness. Mood pretty good despite recent COPD exacerbations. Uses cannabis daily for pain management. Oxycodone prescribed but rarely taken. Long-term use of amitriptyline for migraine prevention with good effect. Satisfied with current medication regimen, Plan: - Continue sertraline 100 mg daily - Continue buspirone 5 mg twice daily F ollow up in 4 months, sooner if concerns arise Plan: * Treatment: 2. G eneralized anxiety disorder Notes: Cont buspirone 5 mg twice a day 3. O bsessive-compulsive disorder, unspecified Refill busPIRone HCl Tablet, 5 MG, 1 tablet, Oral, Twice a day, 90 days, 180 Tablet, Refills 1.? Notes: Cont medication regimen as discussed 4. I nsomnia due to medical condition Notes: practice good sleep hygiene 5. C hronic obstructive pulmonary disease, unspecified Notes: on oxygen via NC/portable device; 3 L reports no change in status- not severe enough for transplant * Procedure Codes: G 8783 NORMAL BP READING DOC F/U NOT [id number] BEHAV ASSMT W/SCORE & DOCD/STAND [id number] VISIT COMPLEXITY INHERENT TO ONGOING CARE RELATED TO A PATIENT'S SINGLE, SERIOUS CONDITION OR A COMPLEX [id number] MOST RECENT SYSTOLIC BP < 140MM [id number] MOST RECENT DIASTOLIC BP < 90MM HG * Preventive Medicine: Counseling: P atient Education: General Education A ssessment and plan reviewed with patient.Educated on diagnoses and recommended treatment options.Educated on risks/benefits of medications, including reason for medications and potential side effects.Alternatives and expected course without treatment reviewed.Education given regarding compliance with medication and expectations regarding adherence to or inconsistent usage of medication.Educated that it can take weeks to see full therapeutic benefits of psychotropic medications and encouraged to trust the process.Educated on good sleep hygiene and importance of adequate sleep on both mental and overall health and well-being.Patient asked appropriate questions, verbalized understanding, and agreed to the recommended treatment and to continue to be followed.Encouraged to reach out if problems, questions, or concerns arise.Educated on suicide hotlines, resources, and safety should suicidal thoughts occur. * Follow Up: 4 Months * Billing Information: * Visit Code: 61267 OFFICE OUTPATIENT VISIT 25 MINUTES DETAILED HISTORY AND EXAM/MODERATE MEDICAL DECISION MAKING. * Procedure Codes: G8783 NORMAL BP READING DOC F/U NOT RQR. 32218 BEHAV ASSMT W/SCORE & DOCD/STAND INSTRUMENT. G2211 VISIT COMPLEXITY INHERENT TO ONGOING CARE RELATED TO A PATIENT'S SINGLE, SERIOUS CONDITION OR A COMPLEX CONDITION. G8752 MOST RECENT SYSTOLIC BP < 140MM HG. G8754 MOST RECENT DIASTOLIC BP < 90MM HG. * Sign off status: Completed true * Provider: Lori Sanchez Date: 01/25/2025 Generated for Jasmyn khan/Michael/Tesfaye on: 01/25/2025 05:48 PM CDT History and Physical Notes * HPI (History of Present Illness) Category Sub-Category Detail Notes Category Not es Depression screening PHQ-9 Little inte rest or pleasure in doing things: Not at all Feeling down, depressed, or hopeless: No t at all Trouble falling or staying asleep, or sl eeping too much: Several days Feeling tired or having little energy: S everal days Poor appetite or overeating: Not at all [...] some way: Not at all Total Score: 2 Interpretation: Minimal Depression Intervention Depression Screening Findings: N egative Suicide Risk Assessment Performed: ____ Depression Screening HARSH-7 (2018 Edition) Feelin g nervous, anxious, or on edge: More than half the days Not being able to stop or control worryi ng: Not at all Worrying too much about different things : Not at all Trouble relaxing: Several days Being so restless that it is hard to sit still: Several days Becoming easily annoyed or irritable: Mo re than half the days Feeling afraid as if something awful stephanie ht happen: Not at all Total HARSH-7 Score: 6 If you checked any problems, how difficult have they made it for you to do your work, take care of things at home, or get along with other people?: Somewhat difficult Interpretation of Total: (5 to 9) Mild [place]-Suicide Severity Rating Scale Suicide Risk (CSRS-screener) in the past one month Have you wished you were or wished you could go to sleep and not wake up?: No in the past one month Have y ou actually had any thoughts of killing yourself?: No Have you ever done anything, started to do anything, or prepared to do anything to end your life?: No Examination Category Sub-Category Detail Notes Category Not es Psychiatry Appearance: well-groomed, portable oxyge n Attitude: cooperative Psychomotor activity: within normal rang e Abnormal body movements: none Attention: good Degree of awareness of surroundings: wit hin normal limits Orientation: awake, alert and ankur ented x 3 Affect / mood: appropriate Speech / language: normal rate, volume, and articulation (RVR), clear and coherent, appropriate pitch/modulation Insight: good Judgement: good Thought process: intact Thought content: appropriate Perceptual disorders: no perceptual diso rder noted Suicidal ideation: none Homicidal ideation: none Delusions: no Hallucinations: no
--- OUTSIDE RECORDS SUMMARY | 2025-01-25 17:49 | XMS_ITS | Patient Health Record ---
Author Organization [facility] Address [address] [place] [address] Care Team Providers Care Wet Room Supervisor Name Role Phone Kale Mayorga MD Unavailable Unavailable Chidi Lobo Unavailable [phone] Padmini Molina PA-C Unavailable [phone] Conchita Fry Unavailable [phone] Tim Sterling Unavailable [phone] Allergies Allergen (clinical drug ingredient) Drug/Non Drug Allergy documented on EMR Reaction Allergy Type Onset Date Status Penicillin hives Drug Allergy Active Results Component Value Reference Range Notes [employer] [facility] Profil e Reviewed date:12/12/2024 12:39:17 PM Interpretation: Performing Lab:[facility] (CLIA#: [id number]), [address] [place] [address], Director - Whitney Manrique Notes/Report: Analyzed at [facility] (CLIA#: [id number]) - [address] [place] [address] - Credentialing Manager: Whitney Casas These tests were developed and their performance characteristics determined by [facility]. They have not been cleared or approved by the [place] Food and Drug Administration. Certifying Lumber Straightened: Neil Wang (Remote [id number]) Buspirone Ur CMP 78 >=25 ng/mL COMPLIANT: [...] Ql Cfm <1 >=1 ng/mL NONE DETECTED CASTING TESTER Not Otherwise Specified Ur Ql Cfm <1 >=1 ng/mL NONE DETECTED Synthetic Cannabinoids Ur Ql Cfm <1 >=1 ng/m L NONE DETECTED Hallucinogens/Dissociatives Ur Ql Cfm <1 >=1 ng/mL NONE DETECTED [employer] Benzodiazepines Ur Ql Cfm <1 >=1 ng/mL NONE DETECTED [employer] Opioids Ur Ql Cfm <1 >=1 ng/mL N ONE DETECTED THC Ur Ql Scn >=20 >=20 ng/mL POSITIVE CarboxyTHC Ur Cfm-mCnc 177 >=15 ng/mL POSIT WAYNE Reason For Referral No Information Medications Medication SIG (Take, Route, Frequency, Duration) Notes Start Date End Date Status Spiriva Respimat 2.5 MCG/ACT Inhalation for 30 Days Active Tiadylt ER 300 MG TAKE 1 CAPSULE BY [place] [facility] EVERY DAY Oral for 90 Days Active Breo Ellipta 200-25 MCG/ACT INHALE 1 PUF F BY MOUTH DAILY Inhalation for 30 Days Active Roflumilast 500 MCG Oral for 90 Days Active oxyCODONE-Acetaminophen 5-325 MG 1 tablet as needed Oral twice per day for 30 days 12/07/2024 Active busPIRone HCl 5 MG TAKE 1 TABLET BY JORDANA TWICE DAILY Oral for 90 Days Active Albuterol Sulfate [...] if needed after 2-3 minutes 12/07/2024 Active Levothyroxine Sodium 100 MCG Oral for 100 Days Active Sertraline HCl 100 MG Oral for 90 Days Active Amitriptyline HCl 50 MG TAKE 1 TABLET BY MOUTH EVERY DAY Oral for 90 Days Active Ondansetron 4 MG Oral for 15 Days Active Roflumilast 500 MCG Oral for 5 Days Active metFORMIN HCl 500 MG TAKE 1 TABLET BY [place] [facility] TWICE DAILY Oral for 90 Days Active tiZANidine HCl 4 MG TAKE 1 TABLET BY JORDANA TWICE DAILY for 30 Active Magnesium Oxide -Mg Supplement 400 (240 Mg) MG TAKE 1 TABLET BY MOUTH TWICE DAILY Oral for 90 Days Active Omeprazole 20 MG TAKE 1 CAPSULE BY [place] [facility] EVERY DAY NEEDED Oral for 90 Days Active Losartan Potassium 100 MG Oral for 90 Days Active Problems Problem Type SNOMED Code ICD Code Onset Dates Problem Status W/U Status Risk Notes Problem Chronic obstructive pulmonary disease (64264040) Chronic obstructive pulmonary disease, unspecified (J44.9) Active confirmed Problem Lumbosacral spondylosis without myelopathy (62818957) Spondylosis of lumbar region without myelopathy or radiculopathy (M47.816) Active confirmed Vital Signs Heart Rate 91 /min 12/07/2024 Height-cm 167.64 cm 12/07/2024 Blood pressure diastolic 67 mm Hg 12/07/2024 Weight-kg 69.85 kg 12/07/2024 Height 5ft 6in in 12/07/2024 Blood pressure systolic 100 mm Hg 12/07/2024 Weight 154 lbs 12/07/2024 BMI 24.85 kg/m2 12/07/2024 Encounters Encounter Location Date Provider Diagnosis [facility] [address] [place] [address] 02/04/2024 Chidi Lobo [facility] [address] [place] [address] [address] [place] [address] 03/31/2024 Conchita Fry [facility] [address] [place] [address] [address] [place] [address] 06/02/2024 Conchita Fry [facility] [address] [place] [address] [address] [place] [address] 08/04/2024 Conchita Fry Low back pain M54.50 ; Right knee pain M25.561 ; Spondylosis of lumbar region without myelopathy or radiculopathy M47.816 ; Chronic obstructive pulmonary disease, unspecified J44.9 and terminal manager use of drug Z79.899 Telehealth [facility] [address] [place] [address] [address] [place] [address] 10/04/2024 Conchita Fry Low back pain M54.50 ; Right knee pain M25.561 ; Chronic obstructive pulmonary disease, unspecified J44.9 and retirement use of drug Z79.899 [facility] [address] [place] [address] [address] [place] [address] 12/07/2024 Padmini Molina Spondylosis of lumbar region without myelopathy or radiculopathy M47.816 ; Chronic obstructive pulmonary disease, unspecified J44.9 and Other longwall foreman (current) drug therapy Z79.899 [facility] [address] [place] [address] [address] [place] [address] 08/04/2024 Chidi Lobo [facility] [address] [place] [address] [address] [place] [address] 10/06/2024 Tim Sterling [facility] [address] [place] [address] [address] [place] [address] 12/07/2024 Tim Sterling Assessments Encounter Date Diagnosis (ICD Code) Assessment Notes Treatment Notes Treatment Clinical Notes Section Notes 08/04/2024 Right knee pain (ICD-10 - M25.561) 08/04/2024 Low back pain (ICD-10 - M54.50) Refill for controlled substance sent to supervising physician to be filled Continue home stretching and at home exercise program as tolerated Follow-up in one month for med check, sooner if needed 10/04/2024 Right knee pain (ICD-10 - M25.561) 10/04/2024 Low back pain (ICD-10 - M54.50) Refill for controlled substance sent to supervising physician to be filled Continue home stretching and at home exercise program as tolerated Follow-up in one month for med check, sooner if needed 12/07/2024 Spondylosis of lumbar region without myelopathy or radiculopathy (ICD-10 - M47.816) Prescription for controlled substance sent to supervising physician for renewal schedule spine xrays next visit needs yearly MD visit. 12/07/2024 Chronic obstructive pulmonary disease, unspecified (ICD-10 - J44.9) 08/04/2024 Spondylosis of lumbar region without myelopathy or radiculopathy (ICD-10 - M47.816) 10/04/2024 Chronic obstructive pulmonary disease, unspecified (ICD-10 - J44.9) 10/04/2024 retirement use of drug (ICD-10 - Z79.899) 12/07/2024 Other group home (current) drug therapy (ICD-10 - Z79.899) 08/04/2024 Chronic obstructive pulmonary disease, unspecified (ICD-10 - J44.9) 08/04/2024 retirement use of drug (ICD-10 - Z79.899) 08/04/2024 Other Learning About How to Have a Healthy Back material was published 12/07/2024 Other Learning About How to Have a Healthy Back material was published Plan Of Treatment Pending Test Test Name Order Date EtS (Alcohol Metabolite) - Urine 025 QMP Plus D/L - Urine 12/07/2024 Synthetic Stimulants 12/07/2024 [employer] Gunfire [employer]ter Benzodiazepines 12/07/2024 Synthetic Cannabinoids 12/07/2024 [employer] Gunfire [employer] Opioids 12/07/2024 Hallucinogens/Dissociatives 12/07/2024 CASTING TESTER Other 12/07/2024 Marijuana - Urine 12/07/2024 PainComp Medication Compliance - Urine 0 12/07/2024 [employer] Required Information 12/07/2024 Next Appt Details Provider Name:Conchita Boonejos torres, 01/27/2025 10:30:00 AM, [address] [place] [address], [address], [address], Insurance Providers Payer Name Payer Address Payer Phone Subscriber Number Group Number Insured Name Patient Relationship to Insured Coverage Start Date Coverage End Date [facility] [address] [address] [place] [address] [id number] Lulu Elam Self - patient is the insured 9 Medical (General) History Medical History History ICD Code COPD type 2 diabetes hyperlipidemia Hypothyroidism A fib Surgical History Surgery Date(Month/Year) R cataract surgery R ankle fracture repair appendectomy tonsillectomy Left arm fracture repair Cardioversion for AFib Hospitalization History Reason Date(Month/Year) no hospitalizations since prior visit
== END 2025-01-25 15:56 | disposition home or self-care (01) ==
LOC: ANHIMG 15:56
PROVIDERS: PCP Internal Medicine; Visit Provider Internal Medicine
DX: Z12.31 Encounter for screening mammogram for malignant neoplasm of breast (principal)
CPT/HCPCS: 77063; 77067

== ENCOUNTER 2025-02-28 15:08 | Outpatient (CLI) | payer MEDICARE, SELFPAY ==
--- NOTE | ~2025-02-28 | CT_ITS ---
CT Scan of the Chest without Contrast: Clinical Indication: Lung cancer screening, nicotine dependence Technique: Contiguous sections were acquired throughout the chest without intravenous contrast. Dose reduction technique was used on this scan by utilizing automated exposure control and iterative recon struction technique. The dose-length product (DLP) was 95.01 mGy-cm. Findings: There is no evidence of any significant mediastinal, hilar or axillary lymphadenopathy. The mediastin al soft tissues appear normal. There is no evidence of pleural or pericardial effusion. There is evidence of emphysema with biapical scarring. Calcified right upper lobe granuloma noted. 7 mm groundglass nodule present in the right middle lobe (axial image 59). There is an additional 5 mm right middle lobe nodule (axial image 80). Images through the upper abdomen reveal no abnormalities. Impression: Lung RADS 2: Benign appearance. 12 month follow-up screening CT advised. Reviewed, dictated and finalized at [facility]. Impression: Lung RADS 2: Benign appearance. 12 month follow-up screening CT advised.
--- OUTSIDE RECORDS SUMMARY | 2025-02-28 17:08 | XMS_ITS | Patient Health Record ---
Author Organization [facility] [employer] Address [address] [place] [address] Care Team Providers Care Api Architect Name Role Phone Letty Posada PhD Primary Care Provider Unavail able Shea Sanchez Unavailable [phone] Marcy Finney Unavailable [phone] Migration, Provider Unavailable Unavailable Allergies Allergen (clinical drug ingredient) Drug/Non Drug Allergy documented on EMR Reaction Allergy Type Onset Date Status Penicillin G Benzathine Unknown Drug Allergy 09/01/2023 Active Reason For Referral No Information Medications Medication SIG (Take, Route, Frequency, Duration) Notes Start Date End Date Status Atorvastatin Calcium 40 MG TAKE 1 TABLET BY MOUTH EVERY DAY Oral for 90 Days Active Roflumilast 500 MCG Oral for 90 Days Active metFORMIN HCl 500 MG Oral for 90 Days Active Levothyroxine Sodium 100 MCG TAKE 1 TABL ET BY MOUTH EVERY MORNING ON AN EMPTY STOMACH Oral for 100 Days Active Amitriptyline HCl 50 MG TAKE 1 TABLET BY MOUTH EVERY DAY Oral for 90 Days Active busPIRone HCl 5 MG 1 tablet Oral Twice a day for 90 days Active Omeprazole 20 MG Oral for 90 Days Active Sertraline HCl 100 MG 1 tablet Oral Once a day for 90 days Active tiZANidine HCl 4 MG TAKE 1 TABLET BY TWICE DAILY NEEDED Oral for 30 Days Active Albuterol Sulfate HFA 108 (90 Base) MCG/ACT INHALE 2 PUFFS BY MOUTH EVERY 4 TO 6 HOURS NEEDED FOR SHORTNESS OF BREATH OR COUGH Inhalation for 16 Days Active Tiadylt ER 300 MG TAKE 1 CAPSULE BY MO [place] EVERY DAY Oral for 90 Days Active Breztri Aerosphere 160-9-4.8 MCG/ACT 2 puffs Inhalation Twice a day Active Magnesium Oxide -Mg Supplement 400 (240 Mg) MG TAKE 1 TABLET BY MOUTH TWICE DAILY Oral for 90 Days Active Losartan Potassium 100 MG TAKE 1 TABLET BY MOUTH EVERY DAY Oral for 90 Days Active oxyCODONE-Acetaminophen 5-325 MG Oral for 30 Days Active Immunizations Vaccine Route Administration Date Status Comme nts Influenza virus vaccine, quadrivalent (IIV4), split virus, 0.25 mL dosage Unknown 09/10/2016 Administered Influenza virus vaccine, quadrivalent (IIV4), split virus, 0.25 mL dosage Unknown 08/06/2019 Administered Influenza virus vaccine, quadrivalent (IIV4), split virus, 0.25 mL dosage Unknown 08/10/2019 Administered Influenza, high dose seasonal Unknown 09/22/2013 Admini stered Influenza, injectable, MDCK, preservative free Unknown 01/08/2013 Administered Influenza, seasonal, injecta ble, preservative free, 3 yrs and above Unknown 09/20/2013 Administered Influenza, seasonal, injecta ble, preservative free, 3 yrs and above Unknown 10/25/2014 Administered Influenza, unspecified formulation Unknown 09/24/2017 A dministered Novel [id number], preservative free Unknown 08/24/2015 Administered Novel [id number], preservative free Unknown 07/15/2018 Administered Pfizer Biontech Covid-19 Vac cine 2nd dose Unknown 01/22/2021 Administered Pfizer Biontech Covid-19 Vac cine 2nd dose Unknown 02/13/2021 Administered Pfizer Biontech Covid-19 Vac cine 2nd dose Unknown 08/22/2021 Administered Pfizer Biontech Covid-19 Vac cine 2nd dose Unknown 08/12/2022 Administered Pneumococcal conjugate PCV 13 Unknown 01/08/2013 Admini stered Pneumococcal conjugate PCV 13 Unknown 09/10/2016 Admini stered Social History Tobacco Use: Social History Observation [...] date of your most recent tobacco screening?: 12/26/2022 Has tobacco cessation counseling been provided?: No [...] have?: 2 (Notes: 1 living 1 ) Home and Environment Do you have any siblings?: 0 Are there any guns present in your home?: Yes Diet and Exercise What type of diet are you following?: Regular Lifestyle Do you feel stressed (tense, restless, nervous, or anxious, or unable to sleep at night)?: To some extent Advance Directive Do you have an advance directive?: No Do you have a medical power of postal worker?: No Other Education: 12 (Notes: 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[employer]) Gender Identity and LGBTQ Identity Sexual orientation: Straight or heterosexual Social History Substance Use Do you or [...] Do you have a medical power of postal worker?: No Gender Identity and LGBTQ Identity Sexual orientation: Straight or heterosexual Problems Problem Type SNOMED Code ICD Code Onset Dates Problem Status W/U Status Risk Notes Problem Mild recurrent major depression (33732746) Major depressive disorder, recurrent, mild (F33.0) 4 Active confirmed Problem Generalized anxiety disorder (91271236) Generalized anxiety disorder (F41.1) 4 Active confirmed Problem Insomnia (119993366) Insomnia due to medical condition (G47.01) 9 Active confirmed Problem Chronic obstructive pulmonary disease (83717742) Chronic obstructive pulmonary disease, unspecified (J44.9) 4 Active confirmed Problem Obsessive-compul sive disorder (259267995) Obsessive-compu lsive disorder, unspecified (F42.9) 4 Active confirmed Vital Signs Heart Rate 108 /min 01/25/2025 Height-cm 167.64 cm 01/25/2025 Blood pressure diastolic 66 mm Hg 01/25/2025 Weight-kg 66.68 kg 01/25/2025 Height 66.00 in 01/25/2025 Blood pressure systolic 129 mm Hg 01/25/2025 Weight 147 lbs 01/25/2025 BMI 23.72 kg/m2 01/25/2025 Encounters Encounter Location Date Provider Diagnosis [address] [address] 05/03/2024 Marcysmiley Finney Major depressive disorder, recurrent, mild F33.0 ; Obsessive-compulsive disorder, unspecified F42.9 ; Generalized anxiety disorder F41.1 ; Insomnia due to medical condition G47.01 and Chronic obstructive pulmonary disease, unspecified J44.[address] [address] 09/02/2024 Marcy Reg Major depressive disorder, recurrent, mild F33.0 ; Obsessive-compulsive disorder, unspecified F42.9 ; Generalized anxiety disorder F41.1 ; Insomnia due to medical condition G47.01 and Chronic obstructive pulmonary disease, unspecified J44.[address] [address] 12/24/2024 Shea Sanchez [address] [address] 01/25/2025 Shea Sanchez Generalized anxiety disorder F41.1 ; Obsessive-compulsive disorder, unspecified F42.9 ; Major depressive disorder, recurrent, mild F33.0 ; Insomnia due to medical condition G47.01 ; Chronic obstructive pulmonary disease, unspecified J44.9 ; Encounter for screening for cardiovascular disorders Z13.6 and Encounter for screening for depression Z13.[address] [address] 03/27/2024 Provider Migration [address] [address] 03/28/2024 Provider Migration Assessments Encounter Date Diagnosis (ICD Code) Assessment Notes Treatment Notes Treatment Clinical Notes Section Notes 05/03/2024 Major depressive disorder, recurrent, mild (ICD-10 - F33.0) cont sertraline 100mg daily stable, satisfied with current meds education on medication and treatment course f/u in 4 months, earlier if concerns notes: *cannabis *also on amitriptyline , long-term for headaches 05/03/2024 Obsessive-compuls aman disorder, unspecified (ICD-10 - F42.9) SSRI, cont buspar 5mg BID 09/02/2024 Major depressive disorder, recurrent, mild (ICD-10 - F33.0) cont sertraline 100mg daily sent two 90 day last visit of each stable, satisfied with current meds education on medication and treatment course f/u in 4 months, earlier if concerns -discussed transition to new provider as I am leaving the practice after this month notes: *cannabis *also on amitriptyline , long-term for headaches 01/25/2025 Generalized anxiety disorder (ICD-10 - F41.1) [...] in 4 months, sooner if concerns arise 09/02/2024 Obsessive-compuls aman disorder, unspecified (ICD-10 - F42.9) SSRI, cont buspar 5mg BID 01/25/2025 Obsessive-compuls aman disorder, unspecified (ICD-10 - F42.9) Cont medication [...] in 4 months, sooner if concerns arise 05/03/2024 Generalized anxiety disorder (ICD-10 - F41.1) meds as above 05/03/2024 Insomnia due to medical condition (ICD-10 - G47.01) practice good sleep hygiene 09/02/2024 Generalized anxiety disorder (ICD-10 - F41.1) meds as above 01/25/2025 Major depressive disorder, recurrent, mild (ICD-10 [...] in 4 months, sooner if concerns arise 09/02/2024 Insomnia due to medical condition (ICD-10 - G47.01) practice good sleep hygiene 05/03/2024 Chronic obstructive pulmonary disease, unspecified (ICD-10 - J44.9) on oxygen via NC/portable device reports no change in status- not severe enough for transplant 09/02/2024 Chronic obstructive pulmonary disease, unspecified (ICD-10 - J44.9) on oxygen via NC/portable device reports no change in status- not severe enough for transplant 01/25/2025 Encounter for screening for cardiovascular disorders [...] in 4 months, sooner if concerns arise 05/03/2024 Other Plan Of Treatment Next Appt Details Provider Name:Shea jimenez, 05/27/2025 11:45:00 AM, [address], [facility] [address], [place], [address], Insurance Providers Payer Name Payer Address Payer Phone Subscriber Number Group Number Insured Name Patient Relationship to Insured Coverage Start Date Coverage End Date [employer] Medicare Replacement/ Advantage - Hmo [address] [address] [place] [address] [id number] RAY CALDWELL Self - patient is the insured Medical (General) History Medical History History ICD Code Problems: Chronic obstructive lung disea se Gastroesophageal reflux disease Hypothyroidism Insomnia disorder related to known organ ic factor Obesity Obsessive-compulsive disorder Major Depressive Disorder Surgical History Surgery Date(Month/Year) Appendectomy (34996) Cardiac ablation using fluoroscopy jigna nair ([id number]) 01/18/2012
--- OUTSIDE RECORDS SUMMARY | 2025-02-28 17:08 | XMS_ITS | Clinical Summary ---
Author Organization [facility] Address [address] [place] [address] Care Team Providers Care Jewel Cupping Machine Operator Name Role Phone Azar Zurita MD Primary Care Provider [phone] Medications Empagliflozin 10 MG tablet Take 10 [...] Colorectal Cancer Screening: Sigmoidoscopy 2010 Pneumococcal Vaccine: 50+ Ye ars (3 of 3 - PCV) 10/08/2017 10/08/2016, 09/10/2016, 09/10/2016 Diabetes: Hemoglobin A1C 04/05/2021 Diabetes: Ophthalmology Exam 04/05/2021 Diabetes: Pedal Pulse Checked 04/05/2021 Diabetes: Sensory Foot Exam 04/05/2021 Diabetes: Visual Foot Exam 04/05/2021 Hepatitis B Vaccine (1 of 3 - Risk 3-dose series) 2021 Influenza Vaccine (Season Ended) 2025 08/13/2021, 07/31/2020, 08/10/2019, Additional history exists Pneumococcal Vaccine: Peds ( 0 to 5 Years) and At-Risk Patients (6 to 49 Years) Discontinued 10/08/2016, 09/10/2016, 09/10/2016 Insurance [facility] Medicare Care Teams Jewel Cupping Machine Operator Relationship Specialty Start Date End Date Azar Zurita MD [address] [facility], [address] [place] [address] PCP - General Internal Medicine 07/17/21
--- OUTSIDE RECORDS SUMMARY | 2025-02-28 17:08 | XMS_ITS | Referral Summary ---
Author Organization [facility] Address [address] [place] [address] Care Team Providers Care Legal Secretary Receptionist Name Role Phone Apollo Zurita MD Primary Care Provide r Encounters Date Type Department Care Team Description 02/22/2025 1:30 PM CDT Office Visit [facility] Pulmonary at [address] [place] [phone] Gayle Reyna NP Centrilobular emphysema (HCC) (Primary Dx); Chronic respiratory failure with hypoxia, on home O2 therapy (HCC); Dyspnea on minimal exertion; Cigarette nicotine dependence in remission 02/04/2025 Telephone [facility] Pulmonary at [address] [place] [phone] Estephanie Soliman LPN Update on Condition 01/19/2025 Orders Only [facility] Pulmonary at [address] [place] [phone] Gayle Reyna NP 01/17/2025 Telephone [facility] Pulmonary at [address] [place] [phone] Verónica Omalley LPN Shortness of Breath 12/31/2024 Telephone [facility] Pulmonary at [address] [place] [phone] Josefina Flores MA 12/29/2024 1:30 PM LIQUID FLOOR AND WALL APPLIER Office Visit [facility] Pulmonary at [address] [place] [phone] Gayle Reyna NP COPD exacerbation (HCC) (Primary Dx); Chronic respiratory failure with hypoxia, on home O2 therapy (HCC); Centrilobular emphysema (HCC); Cigarette nicotine dependence in remission 12/22/2024 Orders Only [facility] Pulmonary at [address] [place] [phone] Gayle Reyna NP 12/16/2024 Telephone [facility] Pulmonary at [address] [place] [phone] Estephanie Soliman LPN Sick call from Last 3 Months Allergies Active Allergy Reactions Criticality Noted Date Comments Penicillins Rash Medium 03/28/2017 Medications levothyroxine (SYNTHROID) 100 mcg tablet Take 1 tablet (100 mcg total) by mouth assembly adjuster before breakfast Active losartan (COZAAR) 100 mg [...] (400 mg total) by mouth daily Active cholecalcifer ol (VITAMIN D-3) 5,000 unit capsule Take 5,000 Units by mouth daily Active aspirin 81 mg [...] (40 mg total) by mouth daily Active oxyCODONE-david taminophen (PERCOCET) 5-325 mg per tablet Take 1 tablet by mouth every 12 (twelve) hours as needed Active albuterol 2.5 mg /3 mL (0.083 %) nebulizer solution Take 3 mL (2.5 mg total) by nebulization every 4 (four) hours as needed for wheezing or shortness of breath Active arformoteroL (Brovana) 15 mcg/2 mL nebulizer solution Take 15 mL (112.5 mcg total) by nebulization 2 (two) times a day 05/25/20 21 Active budesonide-gl ycopyr-formot reymundo (Breztri Aerosphere) 160-9-4.8 mcg/actuation inhaler Inhale 2 puffs 2 (two) times a day Rinse and spit after use - use with aerochamber 1 each 12/29/19 25 Active roflumilast (DALIRESP) 500 mcg tablet TAKE 1 TABLET(500 MCG) BY MOUTH DAILY 90 tablet 3 02/03/20 25 Active digoxin (LANOXIN) 125 mcg (0.125 mg) tablet Take 125 mcg by mouth daily 025 Discontinued(T herapy completed) ferrous sulfate ER 324 mg (65 mg iron) EC tablet Take 65 mg by mouth 025 Discontinued(T herapy completed) multivit with calcium,iron, min (MULTIPLE VITAMIN, WOMENS ORAL) Take 1 tablet by mouth daily 025 Discontinued(T herapy completed) roflumilast (DALIRESP) 500 mcg tablet Take 1 tablet (500 mcg total) by mouth daily 90 tablet 3 01/29/20 24 025 Discontinued fluticasone furoate-vilan teroL (Breo Ellipta) 200-25 mcg/dose diskus inhaler Inhale 1 puff daily 60 each 04/12/20 24 025 Discontinued(T herapy completed) predniSONE (DELTASONE) 10 mg tablet Take 4 tablets (40 mg) by mouth daily for 3 days, THEN 3 tablets (30 mg) daily for 3 days, THEN 2 tablets (20 mg) daily for 3 days, THEN 1 tablet (10 mg) daily for 3 days. 30 tablet 01/20/20 25 025 Active Problems Problem Noted Date Diagnosed Date Dyspnea on minimal exertion 02/22/2025 Assessment & Plan (02/22/2025 3:31 PM CDT): This is a significant change in the last 4 months This is likely due to recurrent exacerbation however I will check a BNP today COPD exacerbation 12/29/2024 Assessment & Plan (12/29/2024 2:54 PM LIQUID FLOOR AND WALL APPLIER): She has improved with doxycycline and prednisone. [...] home O2 therapy 05/18/2024 Assessment & Plan (02/22/2025 3:29 PM CDT): Continue supplemental oxygen for saturations greater than 90% She is aware of the risks of hypoxia We have discussed the impact of hypoxia on healing I would consider repeating a 6 minute walk test in the future to determine her appropriate flow rates and avoid hypercapnia Assessment & Plan (12/29/2024 2:51 PM LIQUID FLOOR AND WALL APPLIER): Continue supplemental oxygen for saturations greater than 90% She is aware of the risks of hypoxia Assessment & Plan (09/21/2024 1:55 PM LIQUID FLOOR AND WALL APPLIER): Continue supplemental oxygen for saturations greater than 90% She is aware of the risks of hypoxia Assessment & Plan (05/18/2024 7:04 PM CDT): Continue supplemental oxygen for saturations greater than 90% She is aware of the risks of hypoxia Cigarette nicotine dependence in remission 05/18 Assessment & Plan (02/22/2025 3:30 PM CDT): She is scheduled for a CT of her chest on Friday at [facility] She qualifies for annual lung cancer screening as well. If this is unremarkable we will resume a yearly screening Assessment & Plan (12/29/2024 2:52 PM LIQUID FLOOR AND WALL APPLIER): She was due for annual LDCT screening in October 2024, I do not have these results She is unsure if she had this completed We will check records at [facility] Assessment & Plan (09/21/2024 1:55 PM LIQUID FLOOR AND WALL APPLIER): She is due for annual LDCT screening in October 2024, I have placed the order today Assessment & Plan (05/18/2024 7:04 PM CDT): She is due for annual LDCT screening in October 2024 Pre-transplant evaluation for lung transplant Overview (08/08/2021): Added automatically from request for surgery [id number] Centrilobular emphysema 08/08/2021 Overview (08/08/2021): Added automatically from request for surgery [id number] Assessment & Plan (02/22/2025 3:28 PM CDT): Continue Breztri twice daily with AeroChamber Albuterol nebulizer or MDI every 4 hours as needed only, she is aware of indications for use Continue Daliresp 500 mcg daily I do not have a recent eosinophil count but she has been almost steroid dependent for the previous 3 months, I would have a low threshold to initiate Dupixent if her eosinophil count were to come back elevated , her count was 310 in February of 2024 I am certain she had an alpha-1 at her last office however I do not see those results, consider a buccal swab at her next office visit. She is aware of signs and symptoms that would require earlier evaluation or change to her plan of care Resolved Problems Problem Noted Date Diagnosed Date Resolved Date Chronic obstructive pulmonary disease 08/08/2021 02/22/2025 Overview (08/08/2021): Added automatically from request for surgery [id number] Assessment & Plan (12/29/2024 2:51 PM LIQUID FLOOR AND WALL APPLIER): I will switch her maintenance therapy to [...] She will have recent lab work from [facility] faxed to our office. Pulmonary rehab was [...] care Assessment & Plan (09/21/2024 1:56 PM LIQUID FLOOR AND WALL APPLIER): She will continue Breo Ellipta 200 one [...] She will have recent lab work from [facility] faxed to our office. Pulmonary rehab was [...] LFT WNL. Pulmonary rehab was previously unaffordable. Social History Tobacco Use Types Packs/Day Years [...] place to sleep or slept in a mcc (including now)? No 10/01/2021 Comments Unknown Sex and Gender Information Value Date Recorded Sex Assigned at Not on file Legal Sex Female 9:17 PM LIQUID FLOOR AND WALL APPLIER Gender Identity Not on file Sexual Orientation Not on file Last Filed Vital Signs Vital Sign Reading Time Taken Comments Blood Pressure 110/54 02/22/2025 1:32 PM CDT Pulse 113 02/22/2025 1:32 PM CDT Temperature 36.8 C (98.2 F) 02/22/2025 1:32 PM CDT Respiratory Rate 20 12/29/2024 1:35 PM LIQUID FLOOR AND WALL APPLIER Oxygen Saturation 93% 02/22/2025 1:3 2 PM CDT 3 liters of oxygen Inhaled Oxygen Concentration - - Weight 64.8 kg (142 lb 12.8 oz) 02/22/2025 1:32 PM CDT Height 167.6 cm (5' 6 ) 02/22/2025 1:32 PM CDT Body Mass Index 23.05 02/22/2025 1:32 PM CDT Plan of Treatment Not on file Procedures Procedure Name Priority Date/Time Associated Diagnosis Comments HEPATITIS PANEL, ACUTE Routine 10/01/2021 8:03 AM LIQUID FLOOR AND WALL APPLIER Chronic obstructive pulmonary disease, unspecified COPD type (HCC) Pre-transplant evaluation for lung transplant Pulmonary emphysema, unspecified emphysema type (HCC) from Last 3 Months or Most Recently Relevant to Health Maintenance Results * Hepatitis panel, acute (10/01/2021 8:03 AM LIQUID FLOOR AND WALL APPLIER) Hep A IgM Nonreactive Nonreactive [facility] Comment: Interpretive Data: If Hep A IgM Ab is reported as Equivocal, a new sample should be drawn in two weeks for testing. Current interpretive data was last revised on 20. Hep B core IgM Nonreactive Nonreactive [facility] Comment: Interpretive Data If HepB Core IgM Ab is reported as Equivocal, a new sample should be drawn in two weeks for testing. Current interpretive data was last revised on 20. Hep C Ab Nonreactive Nonreactive [facility] Comment:Antibodies to HCV no t detected. Does NOT exclude the possibility of recent exposure to HCV. HepBsAg Nonreactive Nonreactive [facility] Blood 10/01/2021 8:03 AM LIQUID FLOOR AND WALL APPLIER 10/01/2021 8:53 AM LIQUID FLOOR AND WALL APPLIER us Colton Brian MD LAB MICROBIOLOGY - GENE RAL ORDERABLES Edited Result - Final [facility] Department [place] [address] from Last 3 Months or Most Recently Relevant to Health Maintenance Insurance HMO REF HMO REF [place] [id number] UHC MEDICARE ADVANTAGE TRANSPLANT [employer] Care Teams Legal Secretary Receptionist Relationship Specialty Start Date End Date Apollo Zurita MD [address] [place] [address] PCP - General 09/28/21
--- OUTSIDE RECORDS SUMMARY | 2025-02-28 17:08 | XMS_ITS | Clinical Summary ---
Author Organization [facility] Address [address] [place] [address] Care Team Providers Care Activities Leader Name Role Phone Apollo Zurita MD Primary Care Provide r Allergies Active Allergy Reactions Criticality Noted Date Comments Penicillins Rash Medium 03/28/2017 Medications levothyroxine (SYNTHROID) 100 mcg tablet Take 1 tablet (100 mcg total) by mouth pan operator before breakfast Active losartan (COZAAR) 100 mg [...] 12/29/2024 Assessment & Plan (12/29/2024 2:54 PM SOAP INSPECTOR): She has improved with doxycycline and prednisone. [...] hypercapnia Assessment & Plan (12/29/2024 2:51 PM SOAP INSPECTOR): Continue supplemental oxygen for saturations greater than 90% She is aware of the risks of hypoxia Assessment & Plan (09/21/2024 1:55 PM SOAP INSPECTOR): Continue supplemental oxygen for saturations greater than [...] CT of her chest on Friday at [facility] She qualifies for annual lung cancer screening as well. If this is unremarkable we will resume a yearly screening Assessment & Plan (12/29/2024 2:52 PM SOAP INSPECTOR): She was due for annual LDCT screening in October 2024, I do not have these results She is unsure if she had this completed We will check records at [facility] Assessment & Plan (09/21/2024 1:55 PM SOAP INSPECTOR): She is due for annual LDCT screening in October 2024, I have placed the order today Assessment & Plan (05/18/2024 7:04 PM CDT): She is due for annual LDCT screening in October 2024 Pre-transplant evaluation for lung transplant Overview (08/08/2021): Added automatically from request for surgery [id number] Centrilobular emphysema 08/08/2021 Overview (08/08/2021): Added automatically from request for surgery [id number] Assessment & Plan (02/22/2025 3:28 PM CDT): [...] (08/08/2021): Added automatically from request for surgery [id number] Assessment & Plan (12/29/2024 2:51 PM SOAP INSPECTOR): I will switch her maintenance therapy to [...] She will have recent lab work from [facility] faxed to our office. Pulmonary rehab [...] care Assessment & Plan (09/21/2024 1:56 PM SOAP INSPECTOR): She will continue Breo Ellipta 200 one [...] She will have recent lab work from [facility] faxed to our office. Pulmonary rehab [...] LFT WNL. Pulmonary rehab was previously unaffordable. Encounters Date Type Department Care Team Description 02/22/2025 1:30 PM CDT Office Visit [facility] Pulmonary at [address] [phone] Gayle Reyna NP Centrilobular emphysema (HCC) (Primary Dx); Chronic respiratory failure with hypoxia, on home O2 therapy (HCC); Dyspnea on minimal exertion; Cigarette nicotine dependence in remission 02/04/2025 Telephone [facility] Pulmonary at [address] [phone] Estephanie Soliman LPN Update on Condition 01/19/2025 Orders Only [facility] Pulmonary at [address] [phone] Gayle Reyna NP 01/17/2025 Telephone [facility] Pulmonary at [address] [phone] Verónica Omalley LPN Shortness of Breath 12/31/2024 Telephone [facility] Pulmonary at [address] [phone] Josefina Flores MA 12/29/2024 1:30 PM SOAP INSPECTOR Office Visit [facility] Pulmonary at [address] [phone] Gayle Reyna NP COPD exacerbation (HCC) (Primary Dx); Chronic respiratory failure with hypoxia, on home O2 therapy (HCC); Centrilobular emphysema (HCC); Cigarette nicotine dependence in remission 12/22/2024 Orders Only [facility] Pulmonary at [address] [phone] Gayle Reyna NP 12/16/2024 Telephone [facility] Pulmonary at [address] [place] [phone] Estephanie Soliman LPN Sick call from Last 3 Months Surgical History Surgery [...] place to sleep or slept in a assisted (including now)? No 10/01/2021 Comments Unknown Sex and Gender Information Value Date Recorded Sex Assigned at Not on file Legal Sex Female 9:17 PM SOAP INSPECTOR Gender Identity Not on file Sexual Orientation Not on file Obstetrics History Last Filed Vital Signs Vital Sign Reading Time Taken Comments Blood Pressure 110/54 02/22/2025 1:32 PM CDT Pulse 113 02/22/2025 1:32 PM CDT Temperature 36.8 C (98.2 F) 02/22/2025 1:32 PM CDT Respiratory Rate 20 12/29/2024 1:35 PM SOAP INSPECTOR Oxygen Saturation 93% 02/22/2025 1:3 2 PM CDT 3 liters of oxygen Inhaled Oxygen Concentration - - Weight 64.8 kg (142 lb 12.8 oz) 02/22/2025 1:32 PM CDT Height 167.6 cm (5' 6 ) 02/22/2025 1:32 PM CDT Body Mass Index 23.05 02/22/2025 1:32 PM CDT Plan of Treatment Health Maintenance [...] HEPATITIS PANEL, ACUTE Routine 10/01/2021 8:03 AM SOAP INSPECTOR Chronic obstructive pulmonary disease, unspecified COPD type (HCC) Pre-transplant evaluation for lung transplant Pulmonary emphysema, unspecified emphysema type (HCC) from Last 3 Months or Most Recently Relevant to Health Maintenance Results * Hepatitis panel, acute (10/01/2021 8:03 AM SOAP INSPECTOR) Hep A IgM Nonreactive Nonreactive [facility] Comment: Interpretive Data: If Hep A IgM Ab is reported as Equivocal, a new sample should be drawn in two weeks for testing. Current interpretive data was last revised on 20. Hep B core IgM Nonreactive Nonreactive [facility] Comment: Interpretive Data If HepB Core IgM Ab is reported as Equivocal, a new sample should be drawn in two weeks for testing. Current interpretive data was last revised on 20. Hep C Ab Nonreactive Nonreactive [facility] Comment:Antibodies to HCV no t detected. Does NOT exclude the possibility of recent exposure to HCV. HepBsAg Nonreactive Nonreactive [facility] Blood 10/01/2021 8:03 AM SOAP INSPECTOR 10/01/2021 8:53 AM SOAP INSPECTOR us Colton Brian MD LAB MICROBIOLOGY - GENE RAL ORDERABLES Edited Result - Final [facility] Department [place] [address] from Last 3 Months or Most Recently Relevant to Health Maintenance Insurance R HMO REF [facility] MEDICARE Address: [place] [address] HMO REF [facility] MEDICARE Address: [place] [address] MEDICARE ADVANTAGE [facility] MEDICARE Address: [place] [id number] TRANSPLANT [employer] Care Teams Activities Leader Relationship Specialty Start Date End Date Apollo Zurita MD [address] [place] [address] PCP - General 09/28/21
--- OUTSIDE RECORDS SUMMARY | 2025-02-28 17:09 | XMS_ITS | Clinical Summary ---
Author Organization [facility] Address [address] [place] [address] Care Team Providers Care Facility Engineer Name Role Phone Azar Zurita MD Primary [...] How often do you attend chur or pentecostal services? More than 4 times per year 01/11/2021 Do you belong to any clubs o r organizations such as hoahaoism groups, unions, fraternal or athletic groups, or [...] 1979 DTAP/TDAP/TD VACCINES (1 - Tdap) 1980 HPV/Cotest (21-29) 1982 CERVICAL CANCER SCREENING 1991 HPV/Cotest (30-65) 1991 PAP SMEAR 1991 BREAST CANCER SCREENING 2001 FIT-DNA Q 3 years 2006 FIT/FOBT Q 1 year 2006 Flex Sig/CT Colonography Q 5 years 2006 ZOSTER VACCINE (1 of 2) 2011 RSV VACCINE (60+ or ) (1 - Risk 60-74 years 1-dose series) 2021 LDL CHOLESTEROL ANNUAL 05/22/2022 05/22/2021, 2020 DIABETES HBA1C Q 6 MONTHS 11/14/20222021, 12/10/2021, 05/22/2021, Additional history exists INFLUENZA VACCINE (#1) 2024 , 07/16/2018, 09/26/2017, Additional history exists COLORECTAL SCREENING [...] Relevant to Health Maintenance Insurance Care Teams Facility Engineer Relationship Specialty Start Date End Date Azar Zurita MD PCP - General Internal Medicine 01/11/21
--- OUTSIDE RECORDS SUMMARY | 2025-02-28 17:09 | XMS_ITS | Patient Health Record ---
Author Organization [facility] Address [address] [place] [address] Care Team Providers Care Business Systems Advisor Name Role Phone Kale Mayorga MD Unavailable Unavailable Josefa Sterling Unavailable [phone] Chidi Lobo Unavailable [phone] Padmini Molina PA-C Unavailable [phone] Conchita Fry Unavailable [phone] Tim Sterling Unavailable [phone] Allergies Allergen (clinical drug ingredient) Drug/Non Drug Allergy documented on EMR Reaction Allergy Type Onset Date Status Penicillin hives Drug Allergy Active Results Component Value Reference Range Notes pinion-pins Profil e Reviewed date:12/12/2024 12:39:17 PM Interpretation: Performing Lab:[facility] (CLIA#: [id number]), [address] [place] [address], Director - Whitney Manrique Notes/Report: Analyzed at [facility] (CLIA#: [id number]) - [address] [place] [address] - Component Design Engineer: Wihtney Casas These tests were developed and their performance characteristics determined by [facility]. They have not been cleared or approved by the US Food and Drug Administration. Certifying Ict Development Manager: Neil Wang (Remote [id number]) Buspirone Ur CMP 78 >=25 ng/mL COMPLIANT: [...] Ql Cfm <1 >=1 ng/mL NONE DETECTED DOCTOR OF CHIROPRACTIC Not Otherwise Specified Ur Ql Cfm <1 >=1 ng/mL NONE DETECTED Synthetic Cannabinoids Ur Ql Cfm <1 >=1 ng/m L NONE DETECTED Hallucinogens/Dissociatives Ur Ql Cfm <1 >=1 ng/mL NONE DETECTED Hand Model Benzodiazepines Ur Ql Cfm <1 >=1 ng/mL NONE DETECTED Hand Model Opioids Ur Ql Cfm <1 >=1 ng/mL N ONE DETECTED THC Ur Ql Scn >=20 >=20 ng/mL POSITIVE CarboxyTHC Ur Cfm-mCnc 177 >=15 ng/mL POSIT WAYNE Reason For Referral No Information Medications Medication SIG (Take, Route, Frequency, Duration) Notes Start Date End Date Status Roflumilast 500 MCG Oral for 90 Days Active tiZANidine HCl 4 MG TAKE 1 TABLET BY MOUTH TWICE DAILY for 30 Active Levothyroxine Sodium 100 MCG Oral for 100 Days Active busPIRone HCl 5 MG TAKE 1 TABLET BY MOUTH TWICE DAILY Oral for 90 Days Active Albuterol Sulfate HFA 108 (90 Base) MCG/ACT INHALE 2 PUFFS BY MOUTH EVERY 4 TO 6 HOURS NEEDED FOR SHORTNESS OF BREATH OR COUGH Inhalation for 16 Days Active Breo Ellipta 200-25 MCG/ACT INHALE 1 PUFF BY MOUTH DAILY Inhalation for 30 Days Active oxyCODONE-Acetaminophen 5-325 MG 1 tablet as needed Oral twice per day for 30 days Please fill today 01/27/25 01/27/2025 Active Ondansetron 4 MG Oral for 15 Days Active Amitriptyline HCl 50 MG TAKE 1 TABLET BY MOUTH EVERY DAY Oral for 90 Days Active Spiriva Respimat 2.5 MCG/ACT Inhalation for 30 Days Active Tiadylt ER 300 MG TAKE 1 CAPSULE BY MOUTH EVERY DAY Oral for 90 Days Active Roflumilast 500 MCG Oral for 5 Days Active metFORMIN HCl 500 MG TAKE 1 TABLET BY MOUTH TWICE DAILY Oral for 90 Days Active Omeprazole 20 MG TAKE 1 CAPSULE BY MOUTH EVERY DAY NEEDED Oral for 90 Days Active Magnesium Oxide -Mg Supplement 400 (240 Mg) MG TAKE 1 TABLET BY MOUTH TWICE DAILY Oral for 90 Days Active Naloxone HCl 4 MG/0.1ML as directed Nasally once for 30 days 1 spray in nostril for opioid emergency. call 911. may repeat in other nostril if needed after 2-3 minutes 12/07/2024 Active Sertraline HCl 100 MG Oral for 90 Days Active Losartan Potassium 100 MG Oral for 90 Days Active Problems Problem Type SNOMED Code ICD Code Onset Dates Problem Status W/U Status Risk Notes Problem Chronic obstructive pulmonary disease (56961180) Chronic obstructive pulmonary disease, unspecified (J44.9) Active confirmed Problem Lumbosacral spondylosis without myelopathy (56324732) Spondylosis of lumbar region without myelopathy or radiculopathy (M47.816) Active confirmed Vital Signs Heart Rate 88 /min 01/27/2025 Height-cm 167.64 cm 01/27/2025 Blood pressure diastolic 69 mm Hg 01/27/2025 Weight-kg 69.85 kg 01/27/2025 Height 5ft 6in in 01/27/2025 Blood pressure systolic 111 mm Hg 01/27/2025 Weight 154 lbs 01/27/2025 BMI 24.85 kg/m2 01/27/2025 Encounters Encounter Location Date Provider Diagnosis [facility] [address] [place] [address] [address] [place] [address] 03/31/2024 Conchita Fry [facility] [address] [place] [address] [address] [place] [address] 06/02/2024 Conchita Fry [facility] [address] [place] [address] [address] [place] [address] 01/27/2025 Conchita Fry 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 M47.816 and Chronic obstructive pulmonary disease, unspecified J44.9 [facility] [address] [place] [address] [address] [place] [address] 08/04/2024 Conchita Fry Low back pain M54.50 ; Right knee pain M25.561 ; Spondylosis of lumbar region without myelopathy or radiculopathy M47.816 ; Chronic obstructive pulmonary disease, unspecified J44.9 and rodent exterminator use of drug Z79.899 Telehealth [facility] [address] [place] [address] [address] [place] [address] 10/04/2024 Conchita Fry Low back pain M54.50 ; Right knee pain M25.561 ; Chronic obstructive pulmonary disease, unspecified J44.9 and prison use of drug Z79.899 [facility] [address] [place] [address] [address] [place] [address] 12/07/2024 Padmini Molina Spondylosis of lumbar region without myelopathy or radiculopathy M47.816 ; Chronic obstructive pulmonary disease, unspecified J44.9 and Other [facility] (current) drug therapy Z79.899 [facility] [address] [place] [address] [address] [place] [address] 08/04/2024 Chidi Lobo [facility] [address] [place] [address] [address] [place] [address] 10/06/2024 Tim Sterling [facility] [address] [place] [address] [address] [place] [address] 12/07/2024 Tim Sterling [facility] [address] [place] [address] [address] [place] [address] 01/27/2025 Josefa Sterling Assessments Encounter Date Diagnosis (ICD Code) [...] xrays next visit needs yearly MD visit. 01/27/2025 Spondylosis of lumbar region without myelopathy or radiculopathy (ICD-10 - M47.816) 01/27/2025 Chronic obstructive pulmonary disease, unspecified (ICD-10 - J44.9) 12/07/2024 Chronic obstructive pulmonary disease, unspecified (ICD-10 - J44.9) 08/04/2024 Spondylosis of lumbar region without myelopathy or radiculopathy (ICD-10 - M47.816) 10/04/2024 Chronic obstructive pulmonary disease, unspecified (ICD-10 - J44.9) 10/04/2024 rodent exterminator use of drug (ICD-10 - Z79.899) 12/07/2024 Other long term care social worker (current) drug therapy (ICD-10 - Z79.899) 08/04/2024 Chronic obstructive pulmonary disease, unspecified (ICD-10 - J44.9) 08/04/2024 rodent exterminator use of drug (ICD-10 - Z79.899) 01/27/2025 Other Learning About How to Have a Healthy Back material was published 08/04/2024 Other Learning About How to Have a Healthy Back material was published 12/07/2024 Other Learning About How to Have a Healthy Back material was published Plan Of Treatment Pending Test Test Name Order Date EtS (Alcohol Metabolite) - Urine 025 QMP Plus D/L - Urine 12/07/2024 Synthetic Stimulants 12/07/2024 Hand Model Benzodiazepines 12/07/2024 Synthetic Cannabinoids 12/07/2024 Hand Model Opioids 12/07/2024 Hallucinogens/Dissociatives 12/07/2024 DOCTOR OF CHIROPRACTIC Other 12/07/2024 Marijuana - Urine 12/07/2024 PainComp Medication Compliance - Urine 0 12/07/2024 [facility] Required Information 12/07/2024 Insurance Providers Payer Name Payer Address Payer Phone Subscriber Number Group Number Insured Name Patient Relationship to Insured Coverage Start Date Coverage End Date [facility] [address] [address] [place], [place] [id number] [phone] [id number] Lulu Elam Self - patient is the insured 9 Medical (General) History Medical History History ICD Code COPD type 2 diabetes hyperlipidemia Hypothyroidism A fib Surgical History Surgery Date(Month/Year) R cataract surgery R ankle fracture repair appendectomy tonsillectomy Left arm fracture repair Cardioversion for AFib Hospitalization History Reason Date(Month/Year) no hospitalizations since prior visit
--- OUTSIDE RECORDS SUMMARY | 2025-02-28 17:09 | XMS_ITS | Encounter Summary ---
Author Organization [facility] , [facility] Address [address] [place] [phone] Phone Care Team Providers Care C 13 Catapult Operator Name Role Phone Azar Zurita MD Primary Care Provider [phone] Reason for Visit * Reason Comments Med Refill Encounter Details Date Type Department Care Team (Late st Contact Info) Description 12/28/2022 Refill [facility], [facility] [address] [place] [phone] [place] [address] [place] [phone] Social History Tobacco Use Types Packs/Day [...] on filedocumented in this encounter Care Teams C 13 Catapult Operator Relationship Specialty Start Date End Date Azar Zurita MD [address], [address] [place] [address] PCP - General Internal Medicine 07/17/21 documented as of this encounter
--- OUTSIDE RECORDS SUMMARY | 2025-02-28 17:09 | XMS_ITS ---
Author Organization [facility] Address [address] [place] [address] [address] [place] [address] Care Team Providers Care Starting Gate Driver Name Role Phone Mukesh RAZA, Kale Unavailable Unavailable Conchita Fry Unavailable [phone] Allergies Allergen (clinical drug ingredient) Drug/Non Drug Allergy documented on EMR Reaction Allergy Type Onset Date Status Penicillin hives Drug Allergy Active REASON FOR VISIT 424 meds Medications Medication SIG (Take, Route, Frequency, Duration) Notes Start Date End Date Status Ondansetron 4 MG Oral for 15 Days Active Amitriptyline HCl 50 MG TAKE 1 TABLET BY MOUTH EVERY DAY Oral for 90 Days Active metFORMIN HCl 500 MG TAKE 1 TABLET BY [place] [facility] TWICE DAILY Oral for 90 Days Active Sertraline HCl 100 MG Oral for 90 Days Active Losartan Potassium 100 MG Oral for 90 Days Active Levothyroxine Sodium 100 MCG Oral for 100 Days Active busPIRone HCl 5 MG TAKE 1 TABLET BY JORDANA TWICE DAILY Oral for 90 Days Active Breo Ellipta 200-25 MCG/ACT INHALE 1 PUF F BY MOUTH DAILY Inhalation for 30 Days Active Omeprazole 20 MG TAKE 1 CAPSULE BY [place] [facility] EVERY DAY NEEDED Oral for 90 Days Active Magnesium Oxide -Mg Supplement 400 (240 Mg) MG TAKE 1 TABLET BY MOUTH TWICE DAILY Oral for 90 Days Active oxyCODONE-Acetaminophen 5-325 MG 1 tablet as needed Oral twice per day for 30 days 12/07/2024 Active Spiriva Respimat 2.5 MCG/ACT Inhalation for 30 Days Active Roflumilast 500 MCG Oral for 5 Days Active tiZANidine HCl 4 MG TAKE 1 TABLET BY JORDANA TWICE DAILY for 30 Active Naloxone HCl 4 MG/0.1ML as directed Nasally once for 30 days 1 spray in nostril for opioid emergency. call 911. may repeat in other nostril if needed after 2-3 minutes 12/07/2024 Active Roflumilast 500 MCG Oral for 90 Days Active Albuterol Sulfate HFA 108 (90 Base) MCG/ACT INHALE 2 PUFFS BY MOUTH EVERY 4 TO 6 HOURS NEEDED FOR SHORTNESS OF BREATH OR COUGH Inhalation for 16 Days Active Tiadylt ER 300 MG TAKE 1 CAPSULE BY [facility] EVERY DAY Oral for 90 Days Active Vital Signs Blood pressure systolic 111 mm Hg 01/28/20 25 Blood pressure diastolic 69 mm Hg 025 Heart Rate 88 /min 01/27/2025 Height 5ft 6in in 01/27/2025 Weight 154 lbs 01/27/2025 BMI 24.85 kg/m2 01/27/2025 Height-cm 167.64 cm 01/27/2025 Weight-kg 69.85 kg 01/27/2025 Encounters Encounter Location Date Provider Diagnosis [facility] [address] [place] [address] [address] [place] [address] 01/27/2025 Conchita Fry 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 M47.816 and Chronic obstructive pulmonary disease, unspecified J44.9 Assessments Encounter Date Diagnosis (ICD Code) Assessment Notes Treatment Notes Treatment Clinical Notes Section Notes 01/27/2025 Spondylosis of lumbar region without myelopathy or radiculopathy (ICD-10 - M47.816) 01/27/2025 Chronic obstructive pulmonary disease, unspecified (ICD-10 - J44.9) 01/27/2025 Other Learning About How to Have a Healthy Back material was published Plan Of Treatment Treatment Notes Assessment Notes Other Learning About How t o Have a Healthy Back material was published Progress Notes * Lulu ELAM ADOB: (64 yo F)Acc No.[id number]:01/27/2025 Progress Notes Patient: Lulu NIELSEN Appointment Provider: Milan Fry NP :1960 A ge:64 Y S ex:Female Supervising Provider:Josefa Sterling MD Date:01/27/2025 [facility] Subjective: * Chief Complaints: * 1 . 424 meds. * HPI: * Established Patient: Established Patient Questionnaire: 1 . Are you currently taking a Blood Thinner Medication? N o 2 . Do you have an allergy to I.V. Contrast or Shellfish? Y es 3 . List any changes to medical history. (eg; Falls, Test, Scans, Blood Work, and Hospitalizations) B lood Work 4 . Have you been exposed to anyone with COVID in the last 2 weeks? N o 5 . Have you been exposed to anyone with the FLU in the last 72 hours? N o 6 . What is your Pain Level today? (1-10, Scroll and select one) 4 7 . Where is your pain located? L ow Back,Right Knee 8 . After your last visit, what Percentage of improvement did you experience? 0 9 . Are you doing Physical Therapy, Chiropractic, or Massage Therapy? N o 1 0. Are you doing an at home Exercise Program? N o 1 1. What activities or positions increase your Pain? (Scroll to select one or multiple) S tanding,Walking,Chores 1 2. What activities or positions decrease your Pain? (Scroll to select one or multiple) S itting 1 3. How would you describe your Pain? (Scroll to select one or multiple) A jaspal,Throbbing 1 4. Are you having difficulty sleeping? N o 1 5. When was the last time you had your blood drawn? (Please enter your best estimate) T artie 1 6. When was your last Mammogram? (Please put N/A if you are male, for Females please put the best Estimate or Never. ) M arch 2024 1 7. When was your last Colonoscopy? (Please put the best Estimate or Never. ) 2 019 1 8. Do you need any refills on your medications today? Y es 1 9. Please list ALL changes to Medications or Allergies? N one 2 0. Are you Diabetic? Y es W hich Type of Diabetes do you have? T ype 2 W hat was your last A1C? (Please enter the number WITHOUT the decimal point) 5 7 2 1. Do you suffer from Constipation? N o * ROS: G eneral/Constitutional: Denies Change in appetite, Chills, Fatigue, Fever or Lightheadedness. ENT: Denies Tinnitus or Dysphagia. Ophthalmologic: Denies Blurred vision or change in vision. Neurological: denies gait abnormality, balance difficulty, dizziness, or loss of strength Psychological: denies depressed mood or change in mood Skin: denies skin rash . * Medical History: C OPD, Type 2 diabetes, Hyperlipidemia, Hypothyroidism, A fib. * Surgical History: R cataract surgery , R ankle fracture repair , appendectomy , tonsillectomy , Left arm fracture repair , Cardioversion for AFib . * Hospitalization/Major Diagno stic Procedure: n o hospitalizations since prior visit . * Family History: F ather: alive 83 yrs, diagnosed with Type 2 diabetes mellitus without complication, unspecified whether nursing home insulin use. M other: 81 yrs. * Social History: * Established Patient: S moking D o you smoke? N ot Anymore W hen did you quit? 0 01/18/2012 Form Scores C ESD-R PMQ-R GPCOG Date 0 01/27/2025 C ESD-R Score 2 C ESD-R Risk L ow Risk (0 - 16) P MQ-R Score 1 1 P MQ-R Risk L ow Risk (0 - 34) G PCOG Score 9 G PCOG Risk N o Risk (9) C ESD-R PMQ-R GPCOG Testing Interval L ow Risk (every 6 months) C ESD-R PMQ-R GPCOG Next Test Due 0 07/30/2025 S OAPP Date 0 01/27/2025 S OAPP-R Score 1 S OAPP-R Risk L ow Risk (0 -9) S OAPP-R Testing Interval L ow Risk (every 6 months) C OMM Date 0 01/27/2025 C OMM Score 0 C OMM Risk N egative (< 9) * Medications: T aking Roflumilast 500 MCG Tablet Oral , Taking Spiriva Respimat 2.5 MCG/ACT Aerosol Solution Inhalation , Taking Breo Ellipta 200-25 MCG/ACT Aerosol Powder Breath Activated INHALE 1 PUFF BY MOUTH DAILY Inhalation , Taking busPIRone HCl 5 MG Tablet TAKE 1 TABLET BY MOUTH TWICE DAILY Oral , Taking Levothyroxine Sodium 100 MCG Tablet Oral , Taking Magnesium Oxide -Mg Supplement 400 (240 Mg) MG Tablet TAKE 1 TABLET BY MOUTH TWICE DAILY Oral , Taking Omeprazole 20 MG Capsule Delayed Release TAKE 1 CAPSULE BY MOUTH EVERY DAY NEEDED Oral , Taking Losartan Potassium 100 MG Tablet Oral , Taking Sertraline HCl 100 MG Tablet Oral , Taking Amitriptyline HCl 50 MG Tablet TAKE 1 TABLET BY MOUTH EVERY DAY Oral , Taking Ondansetron 4 MG Tablet Disintegrating Oral , Taking metFORMIN HCl 500 MG Tablet TAKE 1 TABLET BY MOUTH TWICE DAILY Oral , Taking Tiadylt ER 300 MG Capsule Extended Release 24 Hour TAKE 1 CAPSULE BY MOUTH EVERY DAY Oral , Taking Roflumilast 500 MCG Tablet Oral , Taking Albuterol Sulfate HFA 108 (90 Base) MCG/ACT Aerosol Solution INHALE 2 PUFFS BY MOUTH EVERY 4 TO 6 HOURS NEEDED FOR SHORTNESS OF BREATH OR COUGH Inhalation , Taking oxyCODONE-Acetaminophen 5-325 MG Tablet 1 tablet as needed Oral twice per day , Taking Naloxone HCl 4 MG/0.1ML Liquid as directed Nasally once 1 spray in nostril for opioid emergency. call 911. may repeat in other nostril if needed after 2-3 minutes, Taking tiZANidine HCl 4 MG Tablet TAKE 1 TABLET BY MOUTH TWICE DAILY , Medication List reviewed and reconciled with the patient * Allergies: P enicillin: hives. Objective: * Vitals: H t: 5ft 6in, Wt:154lbs, BP:111/69mm Hg, Pain scale:41-10, HR:88/min, BMI:24.85Index, Ht-cm: 167.64 cm, Wt-k.85 kg, Body Surface Area: 1.8. Assessment: * Assessment: 1. 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 2 . C hronic obstructive pulmonary disease, unspecified - J44.9 Plan: * Treatment: * Billing Information: * Visit Code: * Procedure Codes: * Electronic signature of Jennifer Sterling MD on 02/28/2025 at 05:08 PM CDT Sign off status: Pending * Appointment Provider: Milan Fry NP Date: 0 01/27/2025 Generated for Printing/Faxing/eTransmitting on: 0 02/28/2025 05:08 PM CDT History and Physical Notes * HPI (History of Present Illness) Category Sub-Category Detail Notes Category Not es *Established Patient Established Patient Questionnaire: 1. Are you currently taking a Blood Thinner Medication?: No 2. Do you have an allergy to I.V. Contra st or Shellfish?: Yes 3. List any changes to medic al history. (eg; Falls, Test, Scans, Blood Work, and Hospitalizations): Blood Work 4. Have you been exposed to anyone with COVID in the last 2 weeks?: No 5. Have you been exposed to anyone with the FLU in the last 72 hours?: No 6. What is your Pain Level today? (1-10, Scroll and select one): 4 7. Where is your pain located?: Low Back ,Right Knee 8. After your last visit, wh at Percentage of improvement did you experience?: 0 9. Are you doing Physical Therapy, Chiro practic, or Massage Therapy?: No 10. Are you doing an at home Exercise Pr ogram?: No 11. What activities or posit ions increase your Pain? (Scroll to select one or multiple): Standing,Walking,Chores 12. What activities or posit ions decrease your Pain? (Scroll to select one or multiple): Sitting 13. How would you describe y our Pain? (Scroll to select one or multiple): Aching,Throbbing 14. Are you having difficulty sleeping?: No 15. When was the last time y ou had your blood drawn? (Please enter your best estimate): Today 16. When was your last Mammo gram? (Please put N/A if you are male, for Females please put the best Estimate or Never. ): January 2025 17. When was your last Colon oscopy? (Please put the best Estimate or Never. ): 2018 18. Do you need any refills on your medi cations today?: Yes 19. Please list ALL changes to Medicatio ns or Allergies?: None 20. Are you Diabetic?: Yes Which Type of Diabetes do you have?: Type 2 What was your last A1C? (Please enter the number WITHOUT the decimal point): 57 21. Do you suffer from Constipation?: No
--- OUTSIDE RECORDS SUMMARY | 2025-02-28 17:09 | XMS_ITS ---
Author Organization [facility] Address [address] [place] [phone] Care Team Providers Care Public Relations Intern Name Role Phone Mukesh RAZA, Kale Unavailable Josefa Lopez Unavailable [phone] Medications Medication SIG (Take, Route, Frequency, Duration) Notes Start Date End Date Status oxyCODONE-Acetaminoph en 5-325 MG 1 tablet as needed Oral twice per day for 30 days Please fill today 01/27/25 01/27/2025 Active Encounters Encounter Location Date Provider Diagnosis [facility] [address] [place] [phone] 01/27/2025 Josefa Sterling Plan Of Treatment Medication Medication Name Sig Start Date Stop Date Notes oxyCODONE-Acetaminophen 5-325 MG 1 tablet as needed Oral twice per day for 30 days 01/27/2025 Please fill today 01/27/25 Progress Notes * Lulu ELAM ADOB: (64 yo F)Acc No.[id number]:01/27/2025 Patient: Cinda NIELSENnazario Peters :1960 A ge:64 Y S ex:Female Address:[address] [place] [address], [address] * Refills Refill oxyCODONE-Acetaminophen Tablet, 5-325 MG, Oral, 60, 1 tablet as needed, twice per day, 30 days, Refills=0 * true * Date: Generated for Jasmyn khan/Michael/Tesfaye on: 0 02/28/2025 05:09 PM CDT
--- OUTSIDE RECORDS SUMMARY | 2025-02-28 17:09 | XMS_ITS | Encounter Summary ---
Author Organization [facility] , [facility] Address [address] [place] [phone] Phone Care Team Providers Care Gas Booster Engineer Name Role Phone Azar Zurita MD Primary Care Provider [phone] Reason for Visit * Reason Comments Med Refill Encounter Details Date Type Department Care Team (Late st Contact Info) Description 07/03/2021 Refill [facility], [facility] [address] [place] [phone] [place] [address] [place] [phone] Social History Tobacco Use Types Packs/Day [...] on filedocumented in this encounter Care Teams Gas Booster Engineer Relationship Specialty Start Date End Date Azar Zurita MD [address] [place] [address] PCP - General Internal Medicine 07/17/21 documented as of this encounter
--- OUTSIDE RECORDS SUMMARY | 2025-02-28 17:09 | XMS_ITS | Clinical Summary ---
Author Organization [facility] Address [address] [place] [address] Care Team Providers Care Engineering Psychologist Name Role Phone Azar Zurita MD Primary Care Provider Tj Kemp MD Unavailable Gayle Reyna APRN-ASSISTANT TENNIS PROFESSIONAL Unavailable U Ever Morgan DO Unavailable [phone] Blas Mabry MD Unavailable [phone] Gopal Gentile DO Unavailable [phone] Josefa Sterling MD Unavailable [phone] Source Comments [facility],non-owned Affiliates and Associated Physician Practices is amultiple site organization consisting of ambulatory clinics and hospital sitesin [place], [place], [place] and [place]. This disclosure is being madepursuant to the Care Everywhere program and may not contain all information available regarding this patient. Last updated 18.[facility] Allergies Active Allergy Reactions Criticality Noted Date Comments Penicillins Rash Medium 09/23/2019 Medications * Be aware that medications may not be up to date on this document. Alwaysverify current medications with the patient. aspirin (ASPIRIN) 81 MG tablet aspirin 81 mg daily Active albuterol HFA (PROVENTIL; VENTOLIN; PROAIR) 108 (90 Base) MCG/ACT inhaler Ventolin HFA 90 mcg/actuation aerosol inhaler INL 2 PUFFS PO Q 4 H PRF 30 DAYS Active amitriptyline (ELAVIL) 50 MG tablet amitriptyline 50 mg tablet TK 1 T PO QD 9 Active busPIRone (BUSPAR) 5 MG tablet Take 5 mg by mouth 3 times daily 1 9 Active digoxin (LANOXIN) 0.125 MG tablet 0.125 mg once daily Active dilTIAZem coated beads 24hr (CARDIZEM CD) 180 MG capsule TK 1 C PO D 11 9 Active DOK 100 MG capsule TK ONE C PO BID PRF CONSTIPATION 0 9 Active BREO ELLIPTA 200-25 MCG/INH inhaler INL 1 PUFF PO QD 6 9 Active fluticasone propionate (FLONASE) 50 MCG/ACT nasal spray every 24 hours 4 Active albuterol-ipra tropium (DUO-NEB) 0.5-2.5 (3) MG/3ML nebulizer solution ipratropium-albut reymundo 0.5 mg-3 mg(2.5 mg base)/3 mL nebulization soln USE 1 VIAL PER NEBULIZER Q 6 H PRF SOB Active levothyroxine (SYNTHROID) 100 MCG tablet levothyroxine 100 mcg tablet TAKE 1 TABLET BY MOUTH EVERY DAY Active MAGNESIUM-OXID E 400 (241.3 Mg) MG tablet Take 400 mg by mouth 2 times daily 11 9 Active metFORMIN (GLUCOPHAGE) 500 MG tablet 500 mg 2 times daily with morning and evening meal Active oxyCODONE-acet aminophen (PERCOCET) 5-325 MG tablet 1 tablet at bedtime 0 9 Active sertraline (ZOLOFT) 100 MG tablet TK 1 T PO QD IN THE MORNING 1 9 Active SPIRIVA RESPIMAT 2.5 MCG/ACT inhaler INHALE 2 PUFFS PO ONCE DAILY 6 9 Active tiZANidine (ZANAFLEX) 4 MG tablet tizanidine 4 mg tablet TK 1 T PO BID Active triamcinolone acetonide (KENALOG) 0.1 % cream as needed Active atorvastatin (LIPITOR) 40 MG tablet Take 40 mg by mouth once daily 1 Active pantoprazole EC (PROTONIX) 20 MG tablet Take 20 mg by mouth once daily Active roflumilast (DALIRESP) 500 MCG tablet once daily Active losartan (COZAAR) 100 MG tablet losartan 100 mg tablet 1 Active Active Problems Problem Noted Date Diagnosed [...] Date Upper respiratory infection 04/25/2017 11/04/2019 Immunizations Immunization Administration Dates Next Due Covid [employer] primary monoval ent 12+ yr 0.3mL Purple cap 02/13/2021,01/22/2021 INFLUENZA VACCINE 08/10/2019 Social History Tobacco Use Types Packs/Day Years Used Date Smoking Tobacco: Former Smokeless Tobacco: Former Tobacco Cessation:Counseling Given: No Alcohol Use Standard Drinks/Week Comments Not Currently 0 (1 standard drink = 0.6 oz pur e alcohol) Comments No Sex and Gender Information Value Date Recorded Sex Assigned at Not on file Legal Sex Female 11:29 AM CDT Gender Identity Not on file Sexual [...] 50+ (1 of 2 - PCV) 1980 ZOSTER VACCINE (1 of 2) 2011 Respiratory Syncytial Virus (RSV) Vaccine Pt: or over 60 yrs (1 - Risk 60-74 years 1-dose series) 2021 COVID-19 VACCINE ( season) 2024 08/22/2021, 02/13/2021, 01/22/2021 DEPRESSION SCREENING 11/10/2024 MEDICARE AWV CALENDAR YEAR 2024 INFLUENZA VACCINE (Season Ended) 2025 08/13/2021, 07/31/2020, 08/10/2019, Additional history exists HEPATITIS C SCREENING Completed 06/03/2020 HEPATITIS B [...] Management General On track( 1:13 PM CDT) No Inez Madden, RN Note: Expected end date: ongoing Interventions: [...] a test for HCV RNA (test code 89606) is suggested. For additional information please refer to http://education.Edictive/faq/BIP00e2 (This link is being provided for informational/ educational purposes only.) Test Performed at: [facility] [address] [address] SONY UGALDE DO,MPH 06/03/2020 10:4 5 AM CDT 06/03/2020 10:50 AM CDT Mat Suero MD LAB - CHEMISTRY ORDERABLES Fin al Result [facility] [address] [place] [address] from Last 3 Months or Most Recently Relevant to Health Maintenance Insurance [facility] MANAGED MEDICARE ADV Care Teams Engineering Psychologist Relationship Specialty Start Date End Date Azar Zurita MD [address] [facility] [address] [place] [address] PCP - General 09/15/19 Tj Kemp MD [address] [facility] [address] [place] [address] Cardiovascular Disease 01/04/20 Gayle Reyna, JOSE D-ASSISTANT TENNIS PROFESSIONAL Update Information Pulmonary Disease 01/04/20 Ever Hayward DO [address] [facility] [address] [place] [address] Nephrology 01/04/20 Blas Mabry MD [address] Cindy Lara [address] [place] [phone] Psychiatry 01/04/20 Gopal Gentile DO [address] Cindy Lara [address] [place] [phone] Orthopedic Surgery 01/04/20 [place] [address] [place] [address] Anesthesiology 01/04/20
--- OUTSIDE RECORDS SUMMARY | 2025-02-28 17:09 | XMS_ITS | Encounter Summary ---
Author Organization [facility] [employer] [facility] Address [address] [place] [phone] Phone Care Team Providers Care Entry Level Manager Name Role Phone Azar Zurita MD Primary Care Provider [phone] Reason for Visit * Reason Comments Med Refill Encounter Details Date Type Department Care Team (Late st Contact Info) Description 04/26/2023 Refill [facility] [place], [facility] [address] [place] [phone] [place] [address] [place] [phone] Social History Tobacco Use Types Packs/Day [...] on filedocumented in this encounter Care Teams Entry Level Manager Relationship Specialty Start Date End Date Azar Zurita MD [address] [place] [address] PCP - General Internal Medicine 07/17/21 documented as of this encounter
--- OUTSIDE RECORDS SUMMARY | 2025-02-28 17:09 | XMS_ITS ---
Author Organization [facility] Address [address] [place] [phone] Care Team Providers Care Jet Piercer Operator Name Role Phone Mukesh RAZA, Kale Unavailable Tim Lopez Unavailable [phone] Medications Medication SIG (Take, Route, Frequency, Duration) Notes Start Date End Date Status oxyCODONE-Acetaminophen 5-325 MG 1 tablet as needed Oral twice per day for 30 days 12/07/2024 Active Encounters Encounter Location Date Provider Diagnosis [facility] [address] [place] [phone] 12/07/2024 Tim Sterling Plan Of Treatment Medication Medication Name Sig Start Date Stop Date Notes oxyCODONE-Acetaminophen 5-32 5 MG 1 tablet as needed Oral twice per day for 30 days 12/07/2024 Progress Notes * Lulu ELAM ADOB: (64 yo F)Acc No.[id number]:12/07/2024 Patient: Lulu NIELSEN :1960 A ge:64 Y S ex:Female Address:[address] [place] [address], [phone] * Refills Refill oxyCODONE-Acetaminophen Tablet, 5-325 MG, Oral, 60, 1 tablet as needed, twice per day, 30 days, Refills=0 * true * Date: Generated for Printi ng/Faxing/eTransmitting on: 0 02/28/2025 05:08 PM CDT
--- OUTSIDE RECORDS SUMMARY | 2025-02-28 17:09 | XMS_ITS | CONTINUITY OF CARE DOCUMENT ---
Author Name kia adam Address Unknown Organization [facility] Address [address] [facility] [address] [place] [address] Phone [phone] Care Team Providers Care Iron Launder Operator Name Role Phone Tj Kemp MD Unavailable BETTINA MENDEZ MD Unavailable BETTINA MENDEZ MD Unavailable [phone] PROBLEMS Condition Status Date Provider Notes HISTORY OF TOBACCO ABUSE active Tj willis MD ATRIAL FIB active ? Tj Kemp MD COPD active ? Tj Kemp MD [...] 09/08 Anemia, iron deficiency active Holli mckeon NETWORK ADMIN ENCOUNTERS Date Type Provider Location Encounter Diag nosis - In-person encounter Office Visit Tj Kemp MD [facility] - In-person encounter Office Visit Tj Kemp MD [facility] - In-person encounter Office Visit Tj Kemp MD [facility] Anemia, iron deficiency - In-person encounter Office Visit Tj Kemp MD [facility] Prediabetes A1c 6.0 - In-person encounter Office Visit Tj Kemp MD [facility] - In-person encounter Office Visit Tj Kemp MD [facility] - In-person encounter Office Visit Tj Kemp MD [facility] - In-person encounter Office Visit Tj Kemp MD [facility] - In-person encounter Office Visit Tj Kemp MD [facility] Carotid artery disease - In-person encounter Office Visit Tj Kemp MD [facility] Chest pain, intermittent - In-person encounter Office Visit Tj Kemp MD [facility] - In-person encounter Office Visit Tj Kemp MD [facility] Family History of Hypertension:HTN SystolicPVD - In-person encounter Office Visit Tj Kemp MD [facility] ATRIAL FLUTTER PAROXYSMAL-03/21 EP STUDYLEG PAIN-03/21 DOP LOW EXT HEMATOMA ON RIGHT - In-person encounter Office Visit Tj Kemp MD [facility] - In-person encounter Office Visit Tj Kemp MD [facility] HISTORY OF TOBACCO ABUSEATRIAL FIBCOPDATRIAL FLUTTER [...] Agatha Morenanenfelder respiratory rate E&M 12 /min Gaatha G apoorvaenenfelder pulse rate 117 /min Agatha [...] Mark height E&M 67 [in_i] Slime Jessica young Body Mass Index (Ratio) 30.85 kg/m2 Liliana [...] kylah Bowman pulse rate 127 /min Charisse aRndallbel l oxygen saturation, oximetry 92 % Charisse [...] MD blood pressure, diastolic 80 mm[Hg] [facility] pressure, systolic 122 mm[Hg] Jyoti kate Lovell Inhaled O2 3 L/min [facility] oxygen saturation, oximetry 96 % [facility] respiratory rate E&M 16 /min Rafael Lovell pulse rate 103 /min [facility] weight E&M 222 [lb_av] [facility] height E&M 67 [in_i] [facility] Body Mass Index (Ratio) 32.42 kg/m2 Avtar Waters blood pressure, diastolic 80 mm[Hg] Da jadon Shanice blood pressure, systolic 128 mm[Hg] Dac ia Shanice oxygen saturation, oximetry 91 % Terrie Shanice respiratory rate E&M 20 /min Terrie V [...] ssa Torres blood pressure, diastolic 79 mm[Hg] Ri radha Torres blood pressure, systolic 140 mm[Hg] [...] etrist Miguel Ángel hematocrit, blood 36.9 % [facility] creatinine, serum 0.82 mg/dL [facility] Miguel Ángel potassium, serum 4.2 mmol/L [facility] Miguel Ángel sodium, serum 140 mmol/L [facility] Miguel Ángel coagulation managed by Ganesh [...] Brianne Adams international normalized ratio (INR) 2.3 Jeaan Chávez prothrombin time (patient) 22.6 s Jeana Chávez coagulation managed by Ganesh Carver RN international normalized ratio (INR) 1.9 Jeana Chávez prothrombin time (patient) 18.5 s eJana Chávez platelet count 357 10*3/mm3 [facility] hematocrit, blood 38.6 % [facility] alanine aminotransferase (SGPT), serum 21 1/L [facility] Miguel [facility]ngel aspartate aminotransferase (SGOT), serum 13 1/L [facility] creatinine, serum 1.00 mg/dL [facility] Miguel Ángel potassium, serum 4.3 mmol/L etrmonica Del Rosario sodium, serum 130 mmol/L [facility] platelet count 357 10*3/mm3 [facility] Dle Rosario hematocrit, blood 38.6 % [facility] alanine aminotransferase (SGPT), serum 21 1/L [facility] Miguel Ángel aspartate aminotransferase (SGOT), serum 13 1/L [facility] creatinine, serum 1.00 mg/dL [facility] potassium, serum 4.3 mmol/L [facility] Miguel Ángel sodium, serum 130 mmol/L [facility] coagulation managed by Ganesh Carver RN international normalized ratio (INR) 1.5 Brianne Adams prothrombin time (patient) 15.2 s Brianne Adams coagulation managed by Sinai Sofia RN international [...] DILTIAZEM HCL ER COATED BEADS 180 MG [id number] completed TAKE 1 CAPSULE BY MOUTH DAILY [...] by NICOLE GOMES, Filled 03/31/2019 VITAMIN D3 19808 UNIT ORAL CAPSULE completed take one weekly [...] inhaler active four times a day Fatou Oden magnesium oxide 400 mg (241.3 mg magnesium) [...] - Ganesh Carver RN VITAMIN D (ERGOCALCIFEROL) 76213 UNIT ORAL CAPSULE completed 1 tab weekly [...] ewed - no changes required Willow Santosyanci NETWORK ADMIN social history E&M Marital Statu s: L perla with family/friends Smoking History: Hattie sierra is a former smoker. Willow Santosyanci NETWORK ADMIN smoking status Former smoker Willow Santos yanci NETWORK ADMIN smoking, year quit 2011 Holli Muhammadmike NETWORK ADMIN number of years as a smoker 35-40 Holli Muhammadmike NETWORK ADMIN smoking history, tot al pack/day 1-2ppd Holli Muhammadmike NETWORK ADMIN cigarette use yes Holli Muhammadjonelle nixon NETWORK ADMIN caffeine use, averag e drinks per day [...] use, averag e drinks per day yes Vineland Lovell drug use none Vineland Lovell passive cigarette sm arline exposure no Rafael Lovell smoking status Former smoker Vineland Ingr am number of grandchildren Tj Waters [...] E&M revi ewed - no changes required jT Kemp MD alcohol use, average drinks per day social Fatou Oden caffeine use, averag e drinks per day yes Fatou Oden drug use none Fatou torreson passive cigarette sm arline exposure no Fatou Oden smoking status Former smoker Fatou Suárez social history reviewed E&M revi ewed - no changes required Tj Kemp MD alcohol use, average drinks per day social Nettie Brina caffeine use, averag e drinks per day [...] alcohol use, average drinks per day social aGnesh Carver RN smoking status Quit Ganesh Carver [...] Policy type / Coverage type Deepthi red democrat ID AARP MEDICARE ADVANTAGE HMO-POS HMO [id number] ADVANCE DIRECTIVES Name Date DISCUSSED - NO DECISION MADE TREATMENT PLAN Date Name Performer [id number],C, S T on EKG today rate 104 Willow Lawler NP [id number],C, O n O2 3L/NC. Follows with Pulmonology [...] Four times a day Willow Lawler SHANNAN [id number],C, C arotid duplex 07/2022 CONCLUSIONS: 1 . Mild plaque with less than 50% stenosis of the internal carotid arteries bilaterally. 2 . Vertebral flow is antegrade bilaterally. Will repeat in 1 year Willow Lawler SHANNAN [id number],C, B P today: 140/70 P rior BP: 110/64 (07/26/2022) Her updated medication list for this problem includes: Losartan 100 Mg Tablet (Losartan) ..... Take 1 tablet by mouth every day Cardizem Cd 180 Mg Capsule,extended Release 24hr (Diltiazem hcl) ..... 1 once a day Willow Santosyanci CAMPBELL [id number],CTj MD [id number],STj MD [id number],S,c hronic COPD, baseline SOB/[place]. on continuous o2 3L P FTs 07/2021. follows drop wirer H er updated medication list for this problem includes: Losartan 100 Mg Tablet (Losartan) ..... Take 1 tablet by mouth every day Digoxin 125 Mcg (0.125 Mg) Tablet (Digoxin) ..... Take 1 tablet by mouth once a day Cardizem Cd 180 Mg Capsule,extended Release 24hr (Diltiazem hcl) ..... 1 once a day Tj Kemp MD [id number],C, TIBC 353, % sat 19, UIBC 286, iron 67, h&h 15/46, ferr 23. follows hematology on iron supplements QOD Tj Kemp MD [id number],S,c devorahtids 2019: . Mild plaque with less than 50% stenosis of the internal carotid arteries bilaterally. Vertebral flow is antegrade bilaterally. will check carotids Tj Kemp MD [id number],C,n o recurrence ECHO 07/2021 EF 55%, mild lVH, trace MR, trace TR will recheck echo next appointement in 1 yr Holli Schultz NP [id number],C,c devorahtidanurag 2019: . Mild plaque with less than 50% stenosis of the internal carotid arteries bilaterally. Vertebral flow is antegrade bilaterally. will check carotids Holli Schultz NP [id number],C,w ill check 1 week telesentry s/p EP [...] ..... One tab. daily Holli Schultz NP [id number],C,c hronic COPD, baseline SOB/[place]. on continuous o2 3L P FTs 07/2021. follows drop wirer Holli Schultz NP [id number],C, B P today: 110/64 P rior BP: 150/80 (03/23/2021) Labs Reviewed: C reat: 0.82 (04/03/2012) Her updated medication list for this problem includes: Losartan 100 Mg Tablet (Losartan) ..... Take 1 tablet by mouth every day Cardizem Cd 180 Mg Capsule,extended Release 24hr (Diltiazem hcl) ..... 1 once a day Holli Fenmike CAMPBELL [id number],C, TIBC 353, % sat 19, UIBC 286, iron 67, h&h 15/46, ferr 23. follows hematology on iron supplements QOD Hollitigist Schultz NP Electrophysiology: n o recent palpitaitons 15 day telesentry 11/2024 Holli Fenmike CAMPBELL Electrophysiology: S R on EKG today rate 90 Holli Schultz NP Electrophysiology: c hronic COPD, baseline SOB/[place]. on continuous o2 3L P FTs 07/2021. follows drop wirer recent URI treated with 2 rounds of [...] jackson MD Electrophysiology Tj jackson MD Electrophysiology:marcus le COPD, baseline SOB/[place]. on continuous o2 3L P FTs 07/2021. follows drop wirer H er updated medication list for this [...] bilaterally. will check carotids Tj Kemp MD Electrophysiology:no recurrence ECHO 07/2021 EF 55%, [...] continuous o2 3L P FTs 07/2021. follows drop wirer Holli Schultz NP Electrophysiology: B P today: [...] smoking Orders: John coppola cessation counseling, 3-10minutes (03327) Porshadesi Bryce Electrophysiology Fo llow up 14:.On continuous oxygen 3L all the time The following medications were removed from the medication list: Diltiazem Hcl Er Coated Beads 180 Mg [id number] (Diltiazem hcl coated beads) ..... Take 1 [...] IPID PANEL (7600) P ROBNP, N TERMINAL (77370) C OMPREHENSIVE METABOLIC PANEL, W/EGFR (45082) Maurisio Wu Electrophysiology Fo llow up 14: S TART Cozaar 100 Mg Oral Tablet (Losartan potassium) ..... One tab. daily BP today: 150/80 P rior BP: 167/79 (04/14/2020) Labs Reviewed: C reat: 0.82 (04/03/2012) The following medications were removed from the medication list: Diltiazem Hcl Er Coated Beads 180 Mg [id number] (Diltiazem hcl coated beads) ..... Take 1 [...] IPID PANEL (7600) P ROBNP, N TERMINAL (20150) C OMPREHENSIVE METABOLIC PANEL, W/EGFR (16085) Porshadesi Bryce Electrophysiology Fo llow up 14: [...] Orders: M onitor - Telemetry (Mobile Cardiac) (CPT-85079) Maurisio Wu Cardiology: H er updated medication [...] Chris Rivero Cardiology:will shara duel repeat [facility]no recent palpitaitons H er updated medication [...] f/u: O rders: 9 9214 MOD Complex (CPT-14492) Tj Kemp MD EP annual f/u: H [...] ..... One daily Orders: 9213 MOD Complex (CPT-45300) C omplete Echo (CPT-41874) C arotid Duplex Bilateral (CPT-62047) Torres [facility] Cardiology follow up : H er updated medication list for this problem includes: Digoxin 125 Mcg Oral Tablet (Digoxin) ..... 1 tab daily Aspirin 81 Mg Oral Tablet (Aspirin) ..... One tab. daily Orders: 9213 MOD Complex (CPT-98155) C omplete Echo (CPT-40402) C arotid Duplex Bilateral (CPT-01191) Torres [employer] Cardiology follow up : H [...] 4 times daily Orders: 9213 MOD Complex (CPT-83913) F VC - 96021 (45005) F RC - 65410 (49653) D LCO - 09468 (99007) Tj Kemp MD Cardiology:EKG today shows sinus rhythm. H er updated medication list for this problem includes: Digoxin 0.125 Mg Tabs (Digoxin) ..... 1 tab daily Aspirin 81 Mg Tabs (Aspirin) ..... One tab. daily Tj Kemp MD Cardiology Follow up : O rders: S NOMED-CT: [id number] Current Medications Documented ([facility]-[id number]) E KG (CPT-58269) 9 9214 MOD Complex (CPT-35808) M obile Cardiac Tele (CPT-30715) Tj Kemp MD Cardiology Follow up : [...] daily Tj Kemp MD Cardiology:[facility] list for this problem includes: Digoxin 0.125 Mg Tabs (Digoxin) ..... 1 tab daily Aspirin 81 Mg Tabs (Aspirin) ..... One tab. daily Cardizem Cd 180 Mg Cp24 (Diltiazem hcl coated beads) ..... One daily Orders: S TR - Adenosine (CPT-60826) Tj Kemp MD Cardiology:Orders: S TR - Adenosine (CPT-43076) Radiates to arm and right side of [...] up: O rders: C arotid Duplex Bilateral (CPT-73115) A ortic Abdominal Ultrasound (CPT-54277) A rterial Duplex Upper Extremity Bilateral (CPT-48823) Tj Kemp MD yearly follow up: H [...] daily Orders: [place] Cardiac Tele (CPT-26564) C arotid Duplex Bilateral (CPT-55734) Tj Kemp MD yearly follow up: O rders: E KG (CPT-45461) [place] Cardiac Tele (CPT-06181) Her updated medication list for this problem [...] Duplex Bilat eral Complete Echo DLCO - 48702 FRC - 21311 FVC - 42386 Mobile Cardiac Tele Carotid Duplex Bilat eral [...] completed EKG Tj osborn MD completed SNOMED-CT: [id number] Current Medications Documented ulius Justo RAZA completed Event Monitor Tj osborn MD completed EKG Tj osborn MD completed SNOMED-CT: [id number] Current Medications Documented ulius Justo RAZA completed Stress EKG Isak Arellano MD complete d Regadenoson, 4 units ulius Daniel willis MD completed Cardiolite, 2 units Saulius Danielv yonas RAZA completed SPECT Images Park Love MD complet ed EKG Tj osborn MD completed SNOMED-CT: [id number] Current Medications Documented Saulius Kalvaitis MD completed [...] study with ablation of atrial arrhythmia/[place] completed EKG Tj osborn MD completed Schedule Followup Tj jackson MD in 2 months completed
== END 2025-02-28 15:09 | disposition home or self-care (01) ==
PROVIDERS: PCP Internal Medicine; Visit Provider Nurse Practitioner
DX: F17.211 Nicotine dependence, cigarettes, in remission (principal)
CPT/HCPCS: 71271

== ENCOUNTER 2025-08-31 12:56 | Outpatient (CLI) | payer MEDICARE, SELFPAY ==
--- NOTE | ~2025-08-31 | DEXA_ITS ---
Bone Density Report Name: RAY CALDWELL Age: 65 Sex: Female Ethnicity: White Date of : 1960 Indication: osteopenia; height loss; asthma or emphysema; Referring Provider: Parminder, Azar Study: Bone densitometry was performed. Exam Date: August 31, 2025 Accession number: [id number] Bone Density: Region BMD T-score Z-score Classification AP Spine(L3, L4) 0.950 -1.4 0.4 Osteopenia Femoral Neck (Right) 0.670 -1.6 -0.2 Osteopenia Total Hip (Right) 0.730 -1.7 -0.6 Osteopenia World Health Organization criteria for BMD impression classify patients as: Normal (T-score at or above -1.0), Osteopenia (T-score between -1.0 and -2.5), or Osteoporosis (T-score at or below -2.5). 10-year Fracture Risk(1): Major Osteoporotic Fracture 8.6% Hip Fracture 1.0% Reported Risk Factors: [place] (), Neck BMD=0.670, BMI=22.7 (1) FRAX(R) Version 3.08. Fracture probability calculated for an untreated patient. Fracture probability may be lower if the patient has received treatment. Previous Exams: -- Region Exam Age BMD T-score BMD Change BMD Change Date g/cm2 vs Baseline vs Previous -- AP Spine (L3-L4) 08/31/2025 65 0.950 -1.4 1.3% 1.3% 08/31/2025 65 0.938 -1.5 -- *Denotes significance at 95% confidence level, LSC for AP Spine = 0.022 g/cm2 Clinical Information Provided by Patient: Has used the following medications: Vitamin D Has the following medical conditions: Asthma or Emphysema Patient maximum height was 67 Menopause Age: 44 No regular weight bearing exercise Does not regularly consume dairy products Drinks caffeinated beverages Onset of menses at age 14 Number of children 2 Impression: The patient has low bone mass, based on the Right Total Hip T-score. The patient has an estimated ten-year risk of hip fracture of 1% and an estimated ten-year risk of major fracture of 8.6%, based on the WHO FRAX algorithm. No significant bone loss was observed. Discussion: BONE DENSITY IS LOW AT ONE OR MORE SKELETAL SITES. This patient's lowest T-score is low at one or more skeletal sites. It meets the World Health Organization's (WHO) criteria for ?low bone mass? (T-score between -1.0 and -2.5). The patient's 10-year risk of fracture as calculated by FRAX is less than the threshold where pharmacological therapy is recommended by the National Osteoporosis Foundation (NOF). However, all treatment decisions require clinical judgment and consideration of individual patient factors, including patient preferences, comorbidities, previous drug use, risk factors not captured in the FRAX model (e.g., frailty, falls, vitamin D deficiency, increased bone turnover, interval significant decline in bone density) and possible under or overestimation of fracture risk by FRAX. The patient should follow a healthful lifestyle (good nutrition with adequate calcium and vitamin D, and appropriate weight-bearing exercise). Follow-Up: Consider repeating this study in 2 to 3 years to reassess this patient's status, or sooner if there is some new clinical indication. Reported by: CULLEN on 08/31/2025 1:23:00 PM. Reviewed, dictated and finalized at location A.
== END 2025-08-31 12:57 | disposition home or self-care (01) ==
PROVIDERS: PCP Internal Medicine; Visit Provider Internal Medicine
DX: Z78.0 Asymptomatic menopausal state (principal); M85.88 Other specified disorders of bone density and structure, other site; M85.851 Other specified disorders of bone density and structure, right thigh
CPT/HCPCS: 77080

== ENCOUNTER 2025-10-29 20:10 | Emergency (ER) | payer MEDICARE, SELFPAY ==
--- OUTSIDE RECORDS SUMMARY | 2025-10-24 06:45 | XMS_ITS ---
Author Organization [facility] Address [address] [place] [address] [address] [place] [address] Care Team Providers Care Health Worker Name Role Phone Mukesh- Kale MORRISON MD- DO NOT SEND Unavaila ble Unavailable Tim Sterling Unavailable [phone] Allergies Allergen (clinical drug ingredient) Drug/Non Drug Allergy documented on EMR Reaction Allergy Type Onset Date Status Penicillin hives Drug Allergy Active REASON FOR VISIT 1 month Medications Medication SIG (Take, Route, Frequency, Duration) Notes Start Date End Date Status Amitriptyline HCl 50 MG TAKE 1 TABLET BY MOUTH EVERY DAY Oral; Duration: 90 Days Active Sertraline HCl 100 MG Oral; Duration: 90 Days Active Tiadylt ER 300 MG TAKE 1 CAPSULE BY MOUTH EVERY DAY Oral; Duration: 90 Days Active metFORMIN HCl 500 MG TAKE 1 TABLET BY MOUTH TWICE DAILY Oral; Duration: 90 Days Active Ondansetron 4 MG Oral; Duration: 15 Days Active Magnesium Oxide -Mg Supplement 400 (240 Mg) MG TAKE 1 TABLET BY MOUTH TWICE DAILY Oral; Duration: 90 Days Active Levothyroxine Sodium 100 MCG Oral; Duration: 100 Days Active busPIRone HCl 5 MG TAKE 1 TABLET BY MOUTH TWICE DAILY Oral; Duration: 90 Days Active Losartan Potassium 100 MG Oral; Duration: 90 Days Active Omeprazole 20 MG TAKE 1 CAPSULE BY MOUTH EVERY DAY NEEDED Oral; Duration: 90 Days Active Naloxone HCl 4 MG/0.1ML as directed Nasally once; Duration: 30 days 1 spray in nostril for opioid emergency. call 911. may repeat in other nostril if needed after 2-3 minutes 12/07/2024 Active Breztri Aerosphere 160-9-4.8 MCG/ACT Inhalation; Duration: 30 Days Active tiZANidine HCl 4 MG TAKE 1 TABLET BY MOUTH TWICE DAILY; Duration: 30 Active oxyCODONE-Acetaminophen 5-325 MG 1 tablet Oral twice per day; Duration: 30 days As needed Please fill today 09/12/25 09/12/2025 Active Roflumilast 500 MCG Oral; Duration: 5 Days Active Albuterol Sulfate HFA 108 (90 Base) MCG/ACT INHALE 2 PUFFS BY MOUTH EVERY 4 TO 6 HOURS NEEDED FOR SHORTNESS OF BREATH OR COUGH Inhalation; Duration: 16 Days Active Roflumilast 500 MCG Oral; Duration: 90 Days Active Vital Signs Blood pressure systolic 124 mm Hg 10/24/20 Blood pressure diastolic 67 mm Hg 025 Heart Rate 118 /min 10/24/2025 Respiratory Rate 16 /min 10/24/2025 Height 5ft6in in 10/24/2025 Weight 154 lbs 10/24/2025 BMI 24.85 kg/m2 10/24/2025 Height-cm 167.64 cm 10/24/2025 Weight-kg 69.85 kg 10/24/2025 Encounters Encounter Location Date Provider Diagnosis [facility] [address] [place] [id number] 10/24/2025 Tim Sterling 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 M47.816 ; Chronic obstructive pulmonary disease, unspecified J44.9 ; Diabetes E11.9 ; Low back pain M54.50 ; Right knee pain M25.561 ; Cervical spine pain M54.2 ; Cervical radiculopathy M54.12 ; Cervical stenosis of spinal canal M48.02 and Neck pain M54.2 Assessments Encounter Date Diagnosis (ICD Code) Assessment Notes Treatment Notes Treatment Clinical Notes Section Notes 10/24/2025 Spondylosis of lumbar region without myelopathy or radiculopathy (ICD-10 - M47.816) 10/24/2025 Chronic obstructive pulmonary disease, unspecified (ICD-10 - J44.9) 10/24/2025 Diabetes (ICD-10 - E11.9) Learning About Type 2 Diabetes material was published 10/24/2025 Low back pain (ICD-10 - M54.50) Learning About Low Back Pain material was published 10/24/2025 Right knee pain (ICD-10 - M25.561) 10/24/2025 Cervical spine pain (ICD-10 - M54.2) Neck Pain: Care Instructions material was published 10/24/2025 Cervical radiculopathy (ICD-10 - M54.12) 10/24/2025 Cervical stenosis of spinal canal (ICD-10 - M48.02) 10/24/2025 Neck pain (ICD-10 - M54.2) Plan Of Treatment Treatment Notes Assessment Notes Diabetes Learning About Type 2 Diabetes material was published Low back pain Learning About Low B ack Pain material was published Cervical spine pain Neck Pain: Care Inst ructions material was published Progress Notes * Lulu ELAM ADOB: [birth year] (65 yo F)Acc No.[id number]:10/24/2025 Progress Notes Patient: Lulu NIELSEN Provider: Juliocesar Sterling MD :1960 A ge:65 Y S ex:Female Date:10/24/2025 Address:[address] [place], [place] [id number] Subjective: * Chief Complaints: * 1 . 1 month. * HPI: * Established Patient: Established Patient Questionnaire: 1 . Are you currently taking a Blood Thinner Medication? N o 2 . Do you have an allergy to I.V. Contrast or Shellfish? Y es 3 . List any changes to medical history. (eg; Falls, Test, Scans, Blood Work, and Hospitalizations) T est 6 . What is your Pain Level today? (1-10, Scroll and select one) 4 7 . Where is your pain located? N jinny,Low Back,Right Knee 8 . After your last visit, what Percentage of improvement did you experience? 0 9 . Are you doing Physical Therapy, Chiropractic, or Massage Therapy? N o 1 0. Are you doing an at home Exercise Program? N o 1 1. What activities or positions increase your Pain? (Scroll to select one or multiple) S tanding,Walking 1 2. What activities or positions decrease your Pain? (Scroll to select one or multiple) S itting 1 3. How would you describe your Pain? (Scroll to select one or multiple) A jaspal,Throbbing 1 4. Are you having difficulty sleeping? N o 1 5. When was the last time you had your blood drawn? (Please enter your best estimate) 1 month ago 1 6. When was your last Mammogram? (Please put N/A if you are male, for Females please put the best Estimate or Never.) 2 025 1 7. When was your last Colonoscopy? (Please put the best Estimate or Never.) 2 021 1 8. Do you need any refills on your medications today? Y es 1 9. Any changes to your medications or allergies since your last visit? N o 2 0. Are you Diabetic? Y es W hich Type of Diabetes do you have? T ype 2 W hat was your last A1C? (Please enter the number WITHOUT the decimal point) 5 7 2 1. Do you suffer from Constipation? N o * ROS: G eneral/Constitutional: Denies Change appetite. Denies Chills. Denies Fatigue. Denies Fever. Denies Lightheadedness. ENT: Denies Tinnitus. Denies Dysphagia. Ophthalmologic: Denies Blurred vision. * Medical History: C OPD, Type 2 diabetes, Hyperlipidemia, Hypothyroidism, A fib. * Social History: * Established Patient: S moking D o you smoke? N ot Anymore W hen did you quit? 0 01/18/2012 Form Scores C ESD-R PMQ-R GPCOG Date 0 07/25/2025 C ESD-R Score 1 0 C ESD-R Risk L ow Risk (0 - 16) P MQ-R Score 1 1 P MQ-R Risk L ow Risk (0 - 34) G PCOG Score 9 G PCOG Risk N o Risk (9) C ESD-R PMQ-R GPCOG Testing Interval L ow Risk (every 6 months) C ESD-R PMQ-R GPCOG Next Test Due 0 01/22/2026 S OAPP Date 0 01/27/2025 S OAPP-R Score 1 S OAPP-R Risk L ow Risk (0 -9) S OAPP-R Testing Interval L ow Risk (every 6 months) C OMM Date 0 01/27/2025 C OMM Score 0 C OMM Risk N egative (< 9) * CESD-R: C ESD-R 1 . My appetite was poor. 2 - 3 to 4 days 2 . I could not shake off the blues. 2 - 3 to 4 days 3 . I had trouble keeping my mind on what I was doing. 0 - Not at all or less than one day. 4 . I felt depressed. 1 - 1 to 2 days 5 . My sleep was restless. 1 - 1 to 2 days 6 . I felt sad. 1 - 1 to 2 days 7 . I could not get going. 1 - 1 to 2 days 8 . Nothing made me happy. 0 - Not at all or less than one day. 9 . I felt like a bad person. 0 - Not at all or less than one day. 1 0. I lost interest in my usual activities.?0- Not at all or less than one day. 1 1. I slept much more than usual. 0 - Not at all or less than one day. 1 2. I felt like I was moving too slowly. 1 - 1 to 2 days 1 3. I felt fidgety. 0 - Not at all or less than one day. 1 4. I wished I were . 0 - Not at all or less than one day. 1 5. I wanted to hurt myself. 0 - Not at all or less than one day. 1 6. I was tired all the time. 1 - 1 to 2 days 1 7. I did not like myself. 0 - Not at all or less than one day. 1 8. I lost a lot of weight without trying to.?0- Not at all or less than one day. 1 9. I had a lot of trouble getting to sleep.?0- Not at all or less than one day. 2 0. I could not focus on the important things. 0 - Not at all or less than one day. * GPCOG: G PCOG 1 . I am going to give you a name and address. After I have said it, I want you to repeat it. Remember this name and address because I am going to ask you to tell it to me again in a few minutes: Doug Oleary, [address] [place] [address]. Max 4 attempts R ead to the patient. 2 . What is the date? (exact only) Laisha de la cruzect 3 . Choose which image indicates the hours of a clock (correct spacing required) C orrect 4 . Which clock shows 10 minutes past eleven o'clock? C orrect 5 . Can you tell me something that happened in the news recently? (Recently = in the last week. If a general answer is given, eg war, lot of rain, ask for details. Only specific answer scores). C orrect 6 . What was the name and address I asked you to remember? First Name = Doug C orrect 6 . What was the name and address I asked you to remember? Last Name = Anirudh C orrect 6 . What was the name and address I asked you to remember? Street Number = [address] C orrect 6 . What was the name and address I asked you to remember? Street Name = [facility] C orrect 6 . What was the name and address I asked you to remember? City = [place] C orrect T otal Score (out of 9) 9 * PMQ-R: P MQ-R 1 . I believe that I am receiving enough medication to relieve my pain. 4 - Always 2 . My doctor spends enough time talking to me about my pain medication during appointments. 4 - Always 3 . I would feel better with a higher dosage of my pain medication. 0 - Never 4 . In the past, I have had some difficulty getting the medication I need from my doctor(s). 0 - Never 5 . I wouldn't mind quitting my current pain medication and trying a new one, if my doctor recommends it. 0 - Never 6 . I have clear preferences about the type of pain medication I need. 1 - Occasionally 7 . Family members seem to think that I may be too dependent on my pain medication. 0 - Never 8 . It is important to me to try ways of managing my pain in addition to the medication (ex: relaxation, physical therapy, TENS unit, etc.) 0 - Never 9 . At times, I take my pain medication when I feel anxious and sad, or when I need help sleeping. 0 - Never 1 0. At times, I drink alcohol to help control my pain. 0 - Never 1 1. My pain medication makes it hard for me to think clearly sometimes. 0 - Never 1 2. I find it necessary to go to the emergency room to get treatment for my pain. 0 - Never 1 3. My pain medication makes me nauseated and constipated sometimes. 1 - Occasionally 1 4. At times, I need to borrow pain medication from friends or family to get relief. 0 - Never 1 5. I get pain medication from more than one doctor in order to have enough medication for my pain. 0 - Never 1 6. At times, I think I may be too dependent on my pain medication. 0 - Never 1 7. To help me out, family members have obtained pain medication for me from their own doctors. 0 - Never 1 8. At times, I need to take pain medication more often than it is prescribed in order to relieve my pain. 0 - Never 1 9. I save my unused pain medication I have in case I need it later. 0 - Never 2 0. I find it helpful to call my doctor or clinic to talk about how my pain medication is working. 0 - Never 2 1. At times, I run out of pain medication early and have to call my doctor for refills. 0 - Never 2 2. I find it useful to take medications (such as sedatives) to help my pain medication work better. 0 - Never 2 3. How many painful conditions (injured body parts or illnesses) do you have? 4 painful conditions 2 4. How many times in the past year have you asked your doctor to increase your prescribed dosage of pain medication in order to get relief? 0 - Never 2 5. How many times in the past year have you run out of pain medication early and had to request an early refill? 0 - Never 2 6. How many times in the past year have you accidently misplaced your prescription for pain medication and had to ask for another? 0 - Never W e have evaluated the patient using PMQ-R, CESD-R and GPCOG assessments. Based on data collected from the PMQ-R, we are evaluating the risk for abuse, misuse and diversion. Furthermore, we are screening the patient for depression using the CESD-R assessment. Lastly, we are utilizing GPCOG to ensure that the current treatment plan is not impairing cognition. Per assessments today the patient has low risk for depression, low risk for opioid misuse, abuse, and no cognitive impairment. * Medications: T aking Roflumilast 500 MCG Tablet Oral , Taking busPIRone HCl 5 MG Tablet [...] OF BREATH OR COUGH Inhalation , Taking Naloxone HCl 4 MG/0.1ML Liquid as directed Nasally once 1 spray in nostril for opioid emergency. call 911. may repeat in other nostril if needed after 2-3 minutes, Taking Breztri Aerosphere 160-9-4.8 MCG/ACT Aerosol Inhalation , Taking oxyCODONE-Acetaminophen 5-325 MG Tablet 1 tablet Oral twice per day As needed, Notes to Pharmacist: Please fill today 09/12/25, Taking tiZANidine HCl 4 MG Tablet TAKE 1 TABLET BY MOUTH TWICE DAILY , Medication List reviewed and reconciled with the patient * Allergies: P enicillin: hives. Objective: * Vitals: H t: 5ft6in, Wt:154lbs, BP:124/67mm Hg, Pain scale:41-10, HR:118/min, RR:16/min, BMI:24.85Index, Ht-cm: 167.64 cm, Wt-k.85 kg, Body Surface Area: 1.8. Assessment: * Assessment: 1. 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 2 . C hronic obstructive pulmonary disease, unspecified - J44.9 3 .?Diabetes - E11.9 4 . L ow back pain - M54.50 5 . R ight knee pain - M25.561 6 . C ervical spine pain - M54.2 7 . C ervical radiculopathy - M54.12 8 . C ervical stenosis of spinal canal - M48.02? 9. N jinny pain - M54.2 Plan: * Treatment: 2. L ow back pain Notes: Learning About Low Back Pain material was published 3. C ervical spine pain Notes: Neck Pain: Care Instructions material was published * Billing Information: * Visit Code: * Procedure Codes: * Electronic signature of Ynes Sterling MD on 10/29/2025 at 08:12 PM BOTTLED BEVERAGE INSPECTOR Sign off status: Pending * Provider: Juliocesar Sterling MD Date: 12/25/2024 Generated for Jasmyn khan/Michael/Lainesmazael on: 12/30/2024 08:12 PM BOTTLED BEVERAGE INSPECTOR History and Physical Notes * HPI (History of Present Illness) Category Sub-Category Detail Notes Category Not es *Established Patient Established Patient Questionnaire: 1. Are you currently taking a Blood Thinner Medication?: No 2. Do you have an allergy to I.V. Contra st or Shellfish?: Yes 3. List any changes to medic al history. (eg; Falls, Test, Scans, Blood Work, and Hospitalizations): Test 6. What is your Pain Level today? (1-10, Scroll and select one): 4 7. Where is your pain located?: Neck,Low Back,Right Knee 8. After your last visit, wh at Percentage of improvement did you experience?: 0 9. Are you doing Physical Therapy, Chiro practic, or Massage Therapy?: No 10. Are you doing an at home Exercise Pr ogram?: No 11. What activities or posit ions increase your Pain? (Scroll to select one or multiple): Standing,Walking 12. What activities or posit ions decrease your Pain? (Scroll to select one or multiple): Sitting 13. How would you describe y our Pain? (Scroll to select one or multiple): Aching,Throbbing 14. Are you having difficulty sleeping?: No 15. When was the last time y ou had your blood drawn? (Please enter your best estimate): 1 month ago 16. When was your last Mammo gram? (Please put N/A if you are male, for Females please put the best Estimate or Never.): 2024 17. When was your last Colon oscopy? (Please put the best Estimate or Never.): 2020 18. Do you need any refills on your medi cations today?: Yes 19. Any changes to your medi cations or allergies since your last visit?: No 20. Are you Diabetic?: Yes Which Type of Diabetes do you have?: Type 2 What was your last A1C? (Please enter the number WITHOUT the decimal point): 57 21. Do you suffer from Constipation?: No
[2025-10-29 20:13] VITALS: BP 127/84; PULSE 115; RESP 20; TEMP 36.6; O2SAT 96
--- OUTSIDE RECORDS SUMMARY | 2025-10-29 20:13 | XMS_ITS | Clinical Summary ---
Author Organization [facility] Address [address] [facility] [place] [address] Care Team Providers Care Butter Maker Name Role Phone Azar Zurita MD Primary Care Provider Tj Kemp MD Unavailable Gayle Reyna APRN-AVIATION ELECTRONIC WARFARE OPERATOR Unavailable U Ever Morgan DO Unavailable [phone] Blas Mabry MD Unavailable [phone] Gopal Gentile DO Unavailable [phone] Josefa Sterling MD Unavailable [phone] Source Comments [facility],non-owned Affiliates and Associated Physician Practices is amultiple site organization consisting of ambulatory clinics and hospital sitesin [place], [place], [place] and [place]. This disclosure is being madepursuant to the Care Everywhere program and may not contain all information available regarding this patient. Last updated 18.[facility] Allergies Active Allergy Reactions Criticality Noted Date [...] Immunizations Immunization Administration Dates Next Due Covid ContestMachine primary monoval ent 12+ yr 0.3mL Purple [...] 1:03 PM CDT Height 167.6 cm (5' 6) 03/13/2021 2:51 PM CDT Body Mass Index [...] - COLON CA SCREENING 1960 MAMMOGRAM 1960 HIV SCREENING 1976 DTAP/TDAP/TD VACCINES (1 - Tdap) 1980 PNEUMOCOCCAL VACCINE 50+ (1 of 2 - PCV) 1980 PAP SMEAR 1982 Respiratory Syncytial Virus (RSV) Vaccine Pt: or over 60 yrs (1 - Risk 50-74 years 1-dose series) 2011 ZOSTER VACCINE (1 of 2) 2011 DEPRESSION SCREENING 11/10/2024 MEDICARE AWV CALENDAR YEAR 2024 COVID-19 VACCINE ( season) 2025 08/22/2021, 02/13/2021, 01/22/2021 INFLUENZA VACCINE (#1) 2025 , 07/31/2020, 08/10/2019, Additional history exists HEPATITIS C [...] General On track( 1:13 PM CDT) Inez Tony RN Note: Expected end date: ongoing Interventions: Your [...] a test for HCV RNA (test code 56091) is suggested. For additional information please refer to http://education.blogfoster/faq/EXF37x1 (This link is being provided for informational/ educational purposes only.) Test Performed at: [facility] [id number] [id number] SONY UGALDE DO,MPH 06/03/2020 10:4 5 AM CDT 06/03/2020 10:50 AM CDT Mat Suero MD LAB - CHEMISTRY ORDERABLES Fin al Result [address] [id number] [place] [address] from Last 3 Months or Most Recently Relevant to Health Maintenance Insurance [facility] MANAGED MEDICARE ADV Care Teams Butter Maker Relationship Specialty Start Date End Date Azar Zurita MD [address] [facility] [address] [place] [address] PCP - General 09/15/19 Tj Kemp MD [address] [facility] [address] [place] [address] Cardiovascular Disease 01/04/20 Gayle Reyna, OUTSIDE PLANT FIELD ENGINEER-AVIATION ELECTRONIC WARFARE OPERATOR Update Information Pulmonary Disease 01/04/20 Ever Hayward DO [address] [facility] [address] [place] [address] Nephrology 01/04/20 Blas Mabry MD [address] [place] [address] Psychiatry 01/04/20 Gopal Gentile DO [address] Lara [address] [place] [address] Orthopedic Surgery 01/04/20 [place] [id number] [place] [address] Anesthesiology 01/04/20
--- OUTSIDE RECORDS SUMMARY | 2025-10-29 20:13 | XMS_ITS | Clinical Summary ---
Author Organization [facility] Address [address] [place] [address] Care Team Providers Care Flight Engineer Inspector Name Role Phone Azar Zurita MD Primary Care Provider [phone] Medications Empagliflozin 10 MG tablet Take 10 [...] 12:53 PM CDT Height 167.6 cm (5' 6) 07/23/2022 12:53 PM CDT Body Mass Index 27.92 07/23/2022 12:53 PM CDT Plan of Treatment Health Maintenance Due Date Last Done Comments Breast Cancer Screening 1960 Colorectal Cancer Screening: Annual FOBT 2010 Colorectal Cancer Screening: Colonoscopy 2010 Colorectal Cancer Screening: Sigmoidoscopy 2010 Pneumococcal Vaccine: 50+ Years (3 of 3 - PCV) 10/08/2017 10/08/2016, 09/10/2016, 09/10/2016 Diabetes: Hemoglobin A1C 04/05/2021 Diabetes: Ophthalmology Exam 04/05/2021 Diabetes: Pedal Pulse Checked 04/05/2021 Diabetes: Sensory Foot Exam 04/05/2021 Diabetes: Visual Foot Exam 04/05/2021 Influenza Vaccine (#1) 2025 , 07/31/2020, 08/10/2019, Additional history exists Pneumococcal Vaccine: Peds (0 to 5 Years) and At-Risk Patients (6 to 49 Years) Discontinued 10/08/2016, 09/10/2016, 09/10/2016 Hepatitis B Vaccine Aged Out No longe r eligible based on patient's age to complete this topic Insurance [facility] Medicare Care Teams Flight Engineer Inspector Relationship Specialty Start Date End Date Azar Zurita MD [address] [facility], [address] [place] [address] PCP - General Internal Medicine 07/17/21
--- OUTSIDE RECORDS SUMMARY | 2025-10-29 20:13 | XMS_ITS | Clinical Summary ---
Author Organization [facility] Tarah Santacruz Address [address] [place] [address] Care Team Providers Care Environmental Health Technologist Name Role Phone Azar Zurita MD Primary [...] Used Date Smoking Tobacco: Former Comments:quit in 2011 Alcohol Use Standard Drinks/Week Comments Yes 0 [...] 01/11/2021 How often do you attend chur ch or mandaeism services? More than 4 times per year 01/11/2021 Do you belong to any clubs o r organizations such as sikhism groups, unions, fraternal or athletic groups, or [...] P M CDT Height 167.6 cm (5' 6) 05/22/2022 2:10 PM CDT Body Mass Index [...] Flex Sig/CT Colonography Q 5 years 2006 RSV VACCINE (60+ or ) (1 - Risk 50-74 years 1-dose series) 2011 ZOSTER VACCINE (1 of 2) 2011 LDL CHOLESTEROL ANNUAL 05/22/2022 05/22/2021, 2020 DIABETES HBA1C Q 6 MONTHS 11/14/20222021, 12/10/2021, 05/22/2021, Additional history exists INFLUENZA VACCINE (#1) 2025 , 07/16/2018, 09/26/2017, Additional history exists COLORECTAL [...] Relevant to Health Maintenance Insurance Care Teams Environmental Health Technologist Relationship Specialty Start Date End Date Azar Zurita MD PCP - General Internal Medicine 01/11/21
--- OUTSIDE RECORDS SUMMARY | 2025-10-29 20:13 | XMS_ITS | Encounter Summary ---
Author Organization [facility] , [facility] Address [address] [place] [phone] Phone Care Team Providers Care Circuit Court Magistrate Name Role Phone Azar Zurita MD Primary Care Provider [phone] Reason for Visit * Reason Comments Med Refill Encounter Details Date Type Department Care Team (Late st Contact Info) Description 07/03/2021 Refill [facility] [employer] [facility], [facility] [address] [place] [phone] [place] [address] [place] [phone] Social History Tobacco Use Types Packs/Day [...] on filedocumented in this encounter Care Teams Circuit [address] Magistrate Relationship Specialty Start Date End Date Azar Zurita MD [address], [address] [place] [address] PCP - General Internal Medicine 07/17/21 documented as of this encounter
--- OUTSIDE RECORDS SUMMARY | 2025-10-29 20:13 | XMS_ITS | Patient Health Record ---
Author Organization [facility] Address [address] [place] [address] Care Team Providers Care Buildings And Grounds Supervisor Name Role Phone Mukesh- Kale MORRISON MD- DO NOT SEND Unavaila ble Unavailable Josefa Sterling Unavailable [phone] Padmini Molina PA-C Unavailable Conchita Fry Unavailable [phone] Tim Sterling Unavailable [phone] Allergies Allergen (clinical drug ingredient) Drug/Non Drug Allergy documented on EMR Reaction Allergy Type Onset Date Status Penicillin hives Drug Allergy Active Results Component Value Reference Range Notes sourceasy Profil e Reviewed date:06/11/2025 05:47:44 AM Interpretation: Performing Lab:[facility] (CLIA#: [id number]), [address] [place] [address], Director - Whitney Manrique Notes/Report: Analyzed at [facility] (CLIA#: [id number]) - [address] [place] [address] - Railcar Foreman: Whitney Casas These tests were developed and their performance characteristics determined by [facility]. They have not been cleared or approved by the [place] Food and Drug Administration. Certifying Employment Program Representative: Ravinder Neff (Remote [id number]) Amitrip Ur CMP >1095 >=10 ng/mL COMPLIANT: Te st result is consistent and expected with prescribed drug. Buspirone Ur CMP 645 >=25 ng/mL COMPLIANT: Test result is consistent and expected with prescribed drug. Oxycodone Ur CMP 735 >=100 ng/mL COMPLIANT: Test result is consistent and expected with prescribed drug. Sertraline Ur CMP 1497 >=50 ng/mL COMPLIANT: Test result is consistent and expected with prescribed drug. Tizanidine Ur CMP <5 >=5 ng/mL PRN - NOT PRESENT: Test result is consistent and expected with prescribed drug. Delta-9 Carboxy-THC CMP 210 >=15 ng/mL PRES ENT: Test result may [...] ng/mL NONE DETECTED Benzodiaz Ur Ql Cfm <25 >=25 ng/mL NONE DET ECTED Buprenorphine Ur Ql [...] Ur Ql Cfm >=100 >=100 ng/mL POSITIVE Oxymorphone Ur Cfm-mCnc 154 >=100 ng/mL POSI TIVE Noroxycodone Ur Cfm-mCnc 581 >=100 ng/mL POS ITIVE Pregabalin(Lyrica) Ur Ql Cfm <5 >=5 mcg/mL NONE DETECTED Tramadol Ur Ql Cfm <100 >=100 ng/mL NONE DETE CTED Creat Ur-mCnc 65.1 20 - 370 mg/dL NORMAL Creatinine and pH are performed for specimen validity and not diagnostic purposes. pH Ur 7.72 4.5 - 9.0 NORMAL Creatinine and pH are performed for specimen validity and not diagnostic purposes. Alcohol Metabolites Ur Ql Cfm <200 >=200 ng/mL NONE DETECTED Ethyl sulfate Ur Cfm-mCnc <200 >=200 ng/mL NO NE DETECTED Busprione Ur Ql Cfm >=25 >=25 ng/mL POSITIVE Buspirone Ur Cfm-mCnc 85 >=25 ng/mL POSITI VE 6-Hydroxybuspirone Ur Cfm-mCnc 560 >=25 ng/mL POSITIVE Tizanidine Ur Ql Cfm <25 >=25 ng/mL NONE DE TECTED Tricyclics Ur Ql Cfm >=10 >=10 ng/mL POSITIV E Nortrip Ur Cfm-mCnc 95 >=10 ng/mL POSITIVE Amitrip Ur Cfm-mCnc >1000 >=10 ng/mL POSITIVE SSRI Profile Ur Ql Cfm >=50 >=50 ng/mL POSIT WAYNE Sertraline Ur-mCnc 777 >=50 ng/mL POSITIVE Norsertraline Ur-mCnc 720 >=50 ng/mL POSITI VE Synthetic Stimulants Ur Ql Cfm <1 >=1 ng/mL NONE DETECTED BINGO CLERK Not Otherwise Specified Ur Ql Cfm <1 >=1 ng/mL NONE DETECTED Synthetic Cannabinoids Ur Ql Cfm <1 >=1 ng/m L NONE DETECTED Hallucinogens/Dissociatives Ur Ql Cfm <1 >=1 ng/mL NONE DETECTED Heddle Machine Operator Benzodiazepines Ur Ql Cfm <1 >=1 ng/mL NONE DETECTED Heddle Machine Operator Opioids Ur Ql Cfm <1 >=1 ng/mL N ONE DETECTED THC Ur Ql Scn >=20 >=20 ng/mL POSITIVE CarboxyTHC Ur Cfm-mCnc 210 >=15 ng/mL POSIT WAYNE [employer] [facility] Profil e Reviewed date:12/12/2024 12:39:17 PM Interpretation: Performing Lab:[facility] (CLIA#: [id number]), [address] [place] [address], Director - Whitney Manrique Notes/Report: Certifying Employment Program Representative: Neil Wang (Remote [id number]) These tests were developed and their performance characteristics determined by [facility]. They have not been cleared or approved by the US Food and Drug Administration. Analyzed at [facility] (CLIA#: [id number]) - [address] [place] [address] - Railcar Foreman: Whitney Casas Buspirone Ur CMP 78 >=25 [...] Ql Cfm <1 >=1 ng/mL NONE DETECTED BINGO CLERK Not Otherwise Specified Ur Ql Cfm <1 >=1 ng/mL NONE DETECTED Synthetic Cannabinoids Ur Ql Cfm <1 >=1 ng/m L NONE DETECTED Hallucinogens/Dissociatives Ur Ql Cfm <1 >=1 ng/mL NONE DETECTED Heddle Machine Operator Benzodiazepines Ur Ql Cfm <1 >=1 ng/mL NONE DETECTED Heddle Machine Operator Opioids Ur Ql Cfm <1 >=1 ng/mL N ONE DETECTED THC Ur Ql Scn >=20 >=20 ng/mL POSITIVE CarboxyTHC Ur Cfm-mCnc 177 >=15 ng/mL POSIT WAYNE MR CERVICAL WO W/FLXandEXT ( Not yet reviewed by provider) Interpretation: Performing Lab: Notes/Report: Original Report EXAM: MRI CERVICAL SPINE W/O CONTRAST HISTORY: Neck pain. TECHNICAL INFORMATION: MRI of the cervical spine was performed in a 0.6 Rachel open upright MR system without intravenous contrast using a noncontrast cervical spine protocol in the seated neutral position. Additional sagittal T2 upright flexion and extension acquisitions were obtained. CONTRAST MATERIAL: None COMPARISON: No prior study for comparison FINDING: In the neutral position, there is a degenerative forward offset of C4 on C5. There is no translatory motion on flexion or extension. Disc desiccation present cervical spine with mild disc height loss C2-C5, severe height loss C5-6 and C6-C7. Endplate degenerative changes are present C5-6 and C6-C7. There is no cord signal abnormality identified. The craniocervical junction is within normal limits. There is fluid in the sphenoid sinus. Axial images: C2-C3: Disc within normal limits. Severe bilateral facet joint osteoarthritis. No spinal canal stenosis. Mild bilateral foraminal stenosis. C3-C4: Disc bulge. Bilateral uncovertebral joint osteoarthritis. Severe right and left facet joint osteoarthritis. No spinal canal stenosis. Severe right and moderate severe left foraminal stenosis. C4-C5: Disc within normal limits. Severe right and mild left facet joint osteoarthritis. Bilateral uncovertebral joint osteophytes. No spinal canal stenosis. Moderate bilateral foraminal stenosis. C5-C6: Disc bulge with endplate spurring bilateral uncovertebral joint facet joint osteoarthritis. No spinal canal stenosis. Moderate severe left and mild right foraminal stenosis. C6-C7: Disc osteophyte complex with bilateral uncovertebral joint facet joint osteoarthritis. No spinal canal stenosis. Mild to moderate right and moderate left foraminal stenosis. C7-T1: Disc within normal limits. Facets within normal limits. No spinal canal or foraminal stenosis. IMPRESSION: Multilevel cervical spondylosis and osteoarthritis arthritis as described above above. Spondylosis changes most severe at C5-C6 and C6-C7. Facet joint arthropathy most severe from C2 to C5. No translatory motion cervical spine on flexion or extension. . Read by: Gopal Hu M.D. Reviewed and Electronically Signed by: Gopal Hu M.D. Reason For Referral No Information Medications Medication SIG (Take, Route, Frequency, Duration) Notes Start Date End Date Status Magnesium Oxide -Mg Supplement 400 (240 Mg) MG TAKE 1 TABLET BY MOUTH TWICE DAILY Oral; Duration: 90 Days Active Levothyroxine Sodium 100 MCG Oral; Duration: 100 Days Active Naloxone HCl 4 MG/0.1ML as directed Nasally once; Duration: 30 days 1 spray in nostril for opioid emergency. call 911. may repeat in other nostril if needed after 2-3 minutes 12/07/2024 Active busPIRone HCl 5 MG TAKE 1 TABLET BY MOUTH TWICE DAILY Oral; Duration: 90 Days Active Albuterol Sulfate HFA 108 (90 Base) MCG/ACT INHALE 2 PUFFS BY MOUTH EVERY 4 TO 6 HOURS NEEDED FOR SHORTNESS OF BREATH OR COUGH Inhalation; Duration: 16 Days Active Amitriptyline HCl 50 MG TAKE 1 TABLET BY MOUTH EVERY DAY Oral; Duration: 90 Days Active Sertraline HCl 100 MG Oral; Duration: 90 Days Active Losartan Potassium 100 MG Oral; Duration: 90 Days Active tiZANidine HCl 4 MG TAKE 1 TABLET BY MOUTH TWICE DAILY; Duration: 30 Active Omeprazole 20 MG TAKE 1 CAPSULE BY MOUTH EVERY DAY NEEDED Oral; Duration: 90 Days Active Roflumilast 500 MCG Oral; Duration: 5 Days Active Roflumilast 500 MCG Oral; Duration: 90 Days Active Tiadylt ER 300 MG TAKE 1 CAPSULE BY MOUTH EVERY DAY Oral; Duration: 90 Days Active metFORMIN HCl 500 MG TAKE 1 TABLET BY MOUTH TWICE DAILY Oral; Duration: 90 Days Active oxyCODONE-Acetaminophen 5-325 MG 1 tablet Oral twice per day; Duration: 30 days As needed Please fill today 10/24/25 10/24/2025 Active Ondansetron 4 MG Oral; Duration: 15 Days Active Breztri Aerosphere 160-9-4.8 MCG/ACT Inhalation; Duration: 30 Days Active Problems Problem Type SNOMED Code ICD Code Onset Dates Problem Status W/U Status Risk Notes Problem Chronic obstructive pulmonary disease (04456192) Chronic obstructive pulmonary disease, unspecified (J44.9) Active confirmed Problem Cervical radiculopathy (06182267) Cervical radiculopathy (M54.12) Active confirmed Problem Right knee pain (788840291954165) Right knee pain (M25.561) Active confirmed Problem Neck pain (07184598) Cervical spine pain (M54.2) Active confirmed Problem Low back pain (446929123) Low back pain (M54.50) Active confirmed Problem Neck pain (41576959) Neck pain (M54.2) Active confirmed Problem Type II diabetes mellitus without complication (258813694) Diabetes (E11.9) 03/10/20 24 Active confirmed Problem Lumbosacral spondylosis without myelopathy (44963771) Spondylosis of lumbar region without myelopathy or radiculopathy (M47.816) Active confirmed Problem Spinal stenosis in cervical region (37124631) Cervical stenosis of spinal canal (M48.02) Active confirmed Vital Signs Heart Rate 118 /min 10/24/2025 Respiratory Rate 16 /min 10/24/2025 Height-cm 167.64 cm 10/24/2025 Blood pressure diastolic 67 mm Hg 10/24/2025 Weight-kg 69.85 kg 10/24/2025 Height 5ft6in in 10/24/2025 Blood pressure systolic 124 mm Hg 10/24/2025 Weight 154 lbs 10/24/2025 BMI 24.85 kg/m2 10/24/2025 Encounters Encounter Location Date Provider Diagnosis [facility] [address] [place] [address] 10/24/2025 Tim Sterling 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 M47.816 ; Chronic obstructive pulmonary disease, unspecified J44.9 ; Diabetes E11.9 ; Low back pain M54.50 ; Right knee pain M25.561 ; Cervical spine pain M54.2 ; Cervical radiculopathy M54.12 ; Cervical stenosis of spinal canal M48.02 and Neck pain M54.2 [facility] [address] [place] [address] 12/07/2024 Padmini Molina Spondylosis of lumbar region without myelopathy or radiculopathy M47.816 ; Chronic obstructive pulmonary disease, unspecified J44.9 and Other residential (current) drug therapy Z79.899 [facility] [address] [place] [address] 01/27/2025 Conchita Fry 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 M47.816 ; Chronic obstructive pulmonary disease, unspecified J44.9 ; Right knee pain M25.561 ; Low back pain M54.50 and termite exterminator helper use of drug Z79.899 [facility] [address] [place] [address] 04/05/2025 Conchita Fry 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 M47.816 ; Chronic obstructive pulmonary disease, unspecified J44.9 ; Diabetes E11.9 ; Low back pain M54.50 ; Right knee pain M25.561 and Other exterminator termite (current) drug therapy Z79.899 [facility] [address] [place] [address] [address] [place] [address] 06/02/2025 Conchita Fry 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 M47.816 ; Chronic obstructive pulmonary disease, unspecified J44.9 ; Diabetes E11.9 ; Chronic pain G89.29 ; Low back pain M54.50 ; Right knee pain M25.561 and Other exterminator termite (current) drug therapy Z79.899 [facility] [address] [place] [address] [address] [place] [address] 07/25/2025 Conchita Fry 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 M47.816 ; Chronic obstructive pulmonary disease, unspecified J44.9 ; Diabetes E11.9 ; Right knee pain M25.561 ; Low back pain M54.50 and Other residential (current) drug therapy Z79.899 [facility] [address] [place] [address] [address] [place] [address] 07/25/2025 Tim Sterling Cervical spine pain M54.2 ; Thoracic spine pain M54.6 and Lumbar spine pain M54.50 [facility] [address] [place] [address] [address] [place] [address] 09/12/2025 Padmini Miketall Spondylosis of lumbar region without myelopathy or radiculopathy M47.816 ; Chronic obstructive pulmonary disease, unspecified J44.9 ; Diabetes E11.9 ; Low back pain M54.50 ; Right knee pain M25.561 ; Cervical spine pain M54.2 ; Cervical radiculopathy M54.12 ; Cervical stenosis of spinal canal M48.02 and Neck pain M54.2 [facility] [address] [place] [address] [address] [place] [address] 10/17/2025 Tim Sterling [facility] [address] [place] [address] [address] [place] [address] 12/07/2024 Tim Sterling [facility] [address] [place] [address] [address] [place] [address] 01/27/2025 Josefa Sterling [facility] [address] [place] [address] 03/21/2025 Josefadeyanira CastroAsher [facility] [address] [place] [address] 04/05/2025 Josefadeyanira CastroAsher [facility] [address] [place] [address] 06/02/2025 Josefadeyanira CastroAsher [facility] [address] [place] [address] 07/25/2025 Josefadeyanira CastroAsher [facility] [address] [place] [address] 08/26/2025 Tim Sterling Cervical radiculopathy M54.12 ; Cervical stenosis of spinal canal M48.02 and Neck pain M54.2 [facility] [address] [place] [address] 09/12/2025 Tim Asher [facility] [address] [place] [address] 10/24/2025 Tim Sterling 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 M47.816 Assessments Encounter Date Diagnosis (ICD Code) Assessment Notes Treatment Notes Treatment Clinical Notes Section Notes 12/07/2024 Spondylosis of lumbar region without myelopathy or radiculopathy (ICD-10 - M47.816) Prescription for controlled substance sent to supervising physician for renewal schedule spine xrays next visit needs yearly MD visit. 01/27/2025 Chronic obstructive pulmonary disease, unspecified (ICD-10 - J44.9) 01/27/2025 Spondylosis of lumbar region without myelopathy or radiculopathy (ICD-10 - M47.816) Refill for controlled substance sent to supervising physician to be filled Patient to schedule yearly MD visit. Plan to get spinal x-rays next visit Continue home stretching and at home exercise program as tolerated Follow-up in one month for med check, sooner if needed 04/05/2025 Chronic obstructive pulmonary disease, unspecified (ICD-10 - J44.9) 04/05/2025 Spondylosis of lumbar region without myelopathy or radiculopathy (ICD-10 - M47.816) Refill for controlled substance sent to supervising physician to be filled Refill of tizanidine sent to pharmacy Continue home stretching and at home exercise program as tolerated Follow-up in one month for med check, sooner if needed 06/02/2025 Chronic obstructive pulmonary disease, unspecified (ICD-10 - J44.9) 06/02/2025 Spondylosis of lumbar region without myelopathy or radiculopathy (ICD-10 - M47.816) Refill for controlled substance sent to supervising physician to be filled Refill of tizanidine sent to pharmacy Plan to update -rays next visit Continue home stretching and at home exercise program as tolerated Follow-up in one month for med check, sooner if needed 07/25/2025 Chronic obstructive pulmonary disease, unspecified (ICD-10 - J44.9) 07/25/2025 Spondylosis of lumbar region without myelopathy or radiculopathy (ICD-10 - M47.816) Refill for controlled substance sent to supervising physician to be filled X-rays updated today Continue home stretching and at home exercise program as tolerated Follow-up in one month for med check, sooner if needed 07/25/2025 Cervical spine pain (ICD-10 - M54.2) 08/26/2025 Cervical radiculopathy (ICD-10 - M54.12) 09/12/2025 Spondylosis of lumbar region without myelopathy or radiculopathy (ICD-10 - M47.816) Prescription for controlled substance sent to supervising physician for renewal 10/24/2025 Spondylosis of lumbar region without myelopathy or radiculopathy (ICD-10 - M47.816) 10/24/2025 Spondylosis of lumbar region without myelopathy or radiculopathy (ICD-10 - M47.816) 07/25/2025 Diabetes (ICD-10 - E11.9) 10/24/2025 Chronic obstructive pulmonary disease, unspecified (ICD-10 - J44.9) 08/26/2025 Cervical stenosis of spinal canal (ICD-10 - M48.02) 09/12/2025 Chronic obstructive pulmonary disease, unspecified (ICD-10 - J44.9) 07/25/2025 Thoracic spine pain (ICD-10 - M54.6) 04/05/2025 Diabetes (ICD-10 - E11.9) 06/02/2025 Diabetes (ICD-10 - E11.9) 01/27/2025 Right knee pain (ICD-10 - M25.561) 12/07/2024 Chronic obstructive pulmonary disease, unspecified (ICD-10 - J44.9) 12/07/2024 Other exterminator termite (current) drug therapy (ICD-10 - Z79.899) 01/27/2025 Low back pain (ICD-10 - M54.50) 04/05/2025 Low back pain (ICD-10 - M54.50) 07/25/2025 Lumbar spine pain (ICD-10 - M54.50) 07/25/2025 Right knee pain (ICD-10 - M25.561) 06/02/2025 Chronic pain (ICD-10 - G89.29) 08/26/2025 Neck pain (ICD-10 - M54.2) 09/12/2025 Diabetes (ICD-10 - E11.9) 10/24/2025 Diabetes (ICD-10 - E11.9) Learning About Type 2 Diabetes material was published 10/24/2025 Low back pain (ICD-10 - M54.50) Learning About Low Back Pain material was published 09/12/2025 Low back pain (ICD-10 - M54.50) 07/25/2025 Low back pain (ICD-10 - M54.50) 04/05/2025 Right knee pain (ICD-10 - M25.561) 06/02/2025 Low back pain (ICD-10 - M54.50) 01/27/2025 long-term use of drug (ICD-10 - Z79.899) 04/05/2025 Other exterminator termite (current) drug therapy (ICD-10 - Z79.899) 06/02/2025 Right knee pain (ICD-10 - M25.561) 07/25/2025 Other exterminator termite (current) drug therapy (ICD-10 - Z79.899) 09/12/2025 Right knee pain (ICD-10 - M25.561) 10/24/2025 Right knee pain (ICD-10 - M25.561) 10/24/2025 Cervical spine pain (ICD-10 - M54.2) Neck Pain: Care Instructions material was published 09/12/2025 Cervical spine pain (ICD-10 - M54.2) 06/02/2025 Other exterminator termite (current) drug therapy (ICD-10 - Z79.899) 09/12/2025 Cervical radiculopathy (ICD-10 - M54.12) 10/24/2025 Cervical radiculopathy (ICD-10 - M54.12) 09/12/2025 Cervical stenosis of spinal canal (ICD-10 - M48.02) 10/24/2025 Cervical stenosis of spinal canal (ICD-10 - M48.02) 10/24/2025 Neck pain (ICD-10 - M54.2) 09/12/2025 Neck pain (ICD-10 - M54.2) 12/07/2024 Other Learning About How to Have a Healthy Back material was published 01/27/2025 Other Learning About How to Have a Healthy Back material was published 04/05/2025 Other Learning About Carbohydrate (Carb) Counting and Eating Out When You Have Diabetes material was published 06/02/2025 Other Learning About Using a Pulse Oximeter material was published 07/25/2025 Other Learning About Using a Pulse Oximeter material was published 07/25/2025 Other Patient is a 65-year-old female who is present today for weightbearing x-rays 4 view lumbar 2 view thoracic 4 view cervical. Patient has a pelvic obliquity as evidenced by symmetry of the ajay. There is an elevation of the right PSIS. Patient is degenerative changes in the right hip joint. 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 Patient is a scoliotic curvature in the lumbar spine with a concavity on the right side centered at L2. Patient is hyperlordotic in the lumbar spine. There is a forward offset of L5 on S1 and L4 and L5. Patient has calcification of the abdominal aorta from L3-L5. Disc base height loss at L5-S1 is seen. Forward flexion shows no change in patient's curvature. Patient is able to extend. Patient neutralizes to some degree at both L5-S1 and L4-5 and full extension. Thoracic spine shows a slight scoliotic curvature with a concavity on the left side centered at approximately T7-T11. Patient is hyperkyphotic. No wedging seen. Patient is a right cervical tilt. Patient has straightening of the normal cervical lordosis with extension of C2 over C3. There is degenerative disc disease most marked at C3-C4 by disc base height loss and endplate changes and then at C5-C6. There is a forward offset of C4 on C5. There is degenerative changes at C6-7. Patient's forward flexion is a straightening of the cervical lordosis with a forward offset of C2 on C3 and significant at C4 over C5. With extension patient extends primarily C2-C4. There is no movement below. No segmental dysfunction. No tumor metastases or fractures are seen. 09/12/2025 Other Body Mass Index : Care Instructions material was published Plan Of Treatment Pending Test Test Name Order Date X ray : Thoracic spine 2 views 5 X ray : Spines, cervical 4 views 025 X ray : Spines, lumbar 4 views 5 EtS (Alcohol Metabolite) - Urine 025 EtS (Alcohol Metabolite) - Urine 025 QMP Plus D/L - Urine 06/02/2025 QMP Plus D/L - Urine 12/07/2024 Synthetic Stimulants 06/02/2025 Synthetic Stimulants 12/07/2024 Heddle Machine Operator Benzodiazepines 12/07/2024 Heddle Machine Operator Benzodiazepines 06/02/2025 Synthetic Cannabinoids 06/02/2025 Synthetic Cannabinoids 12/07/2024 Heddle Machine Operator Opioids 12/07/2024 Heddle Machine Operator Opioids 06/02/2025 Hallucinogens/Dissociatives 12/07/2024 Hallucinogens/Dissociatives 06/02/2025 BINGO CLERK Other 06/02/2025 BINGO CLERK Other 12/07/2024 Marijuana - Urine 12/07/2024 Marijuana - Urine 06/02/2025 PainComp Medication Compliance - Urine 0 12/07/2024 PainComp Medication Compliance - Urine 0 06/02/2025 Aegis Required Information 06/02/2025 [employer]is Required Information 12/07/2024 MR CERVICAL WO W/FLXandEXT 08/26/2025 Insurance Providers Payer Name Payer Address Payer Phone Subscriber Number Group Number Insured Name Patient Relationship to Insured Coverage Start Date Coverage End Date [facility] [address] [address] [place], [place] [id number] Lulu Elam Self - patient is the insured 9 Medical (General) History Medical History History ICD Code COPD type 2 diabetes hyperlipidemia Hypothyroidism A fib Surgical History Surgery Date(Month/Year) R cataract surgery R ankle fracture repair appendectomy tonsillectomy Left arm fracture repair Cardioversion for AFib Hospitalization History Reason Date(Month/Year) no hospitalizations since prior visit
--- OUTSIDE RECORDS SUMMARY | 2025-10-29 20:13 | XMS_ITS | Encounter Summary ---
Author Organization [facility] [employer] [facility] , [facility] Address [address] [place] [phone] Phone Care Team Providers Care Bench Worker Hollow Handle Name Role Phone Azar Zurita MD Primary Care Provider [phone] Reason for Visit * Reason Comments Med Refill Encounter Details Date Type Department Care Team (Late st Contact Info) Description 12/28/2022 Refill [facility], [facility] [address] [place] [phone] [place] [address] [place] [phone] Social History Tobacco Use Types Packs/Day [...] on filedocumented in this encounter Care Teams Bench Worker Hollow Handle Relationship Specialty Start Date End Date Azra Zurita MD [address] [place] [address] PCP - General Internal Medicine 07/17/21 documented as of this encounter
--- OUTSIDE RECORDS SUMMARY | 2025-10-29 20:13 | XMS_ITS | Patient Health Record ---
Author Organization [facility] Address [address] [place] [address] Care Team Providers Care Scale Mechanic Name Role Phone Albino Smith, Letty Primary Care Provider Unavail able Abigail Pineda Unavailable [phone] SergoSeha babcock Unavailable [phone] Allergies Allergen (clinical drug ingredient) Drug/Non Drug Allergy documented on EMR Reaction Allergy Type Onset Date Status Penicillin G Benzathine Unknown Drug Allergy 09/01/2023 Active Results Component Value Reference Range Notes UDT (12 Panel) Reviewed date:09/23/2025 01:07:18 PM Interpretation: Performing Lab: Notes/Report: Amphetamine (AMP) N Barbiturates (BAR) N Benzodiazepine (BZO) N Cocaine (ANGEL) N Ecstasy (MDMA) N Methamphetamine (MET) N Morphine (MOP) N Methadone (MTD) N Oxycodone (OXY) P Phencyclidine (PCP) N Tricyclic Antidepressants (TCA) P Marijuana (THC) P Reason For Referral No Information Medications Medication SIG (Take, Route, Frequency, Duration) Notes Start Date End Date Status tiZANidine HCl 4 MG Tablet TAKE 1 TABLET BY MOUTH TWICE DAILY NEEDED Oral; Duration: 30 Days Active Omeprazole 20 MG Capsule Delayed Release Oral; Duration: 90 Days Active Roflumilast 500 MCG Tablet Oral; Duration: 90 Days Active Albuterol Sulfate HFA 108 (90 Base) MCG/ACT Aerosol Solution INHALE 2 PUFFS BY MOUTH EVERY 4 TO 6 HOURS NEEDED FOR SHORTNESS OF BREATH OR COUGH Inhalation; Duration: 16 Days Active Atorvastatin Calcium 40 MG Tablet TAKE 1 TABLET BY MOUTH EVERY DAY Oral; Duration: 90 Days Active busPIRone HCl 5 MG Tablet 1 tablet Oral Twice a day; Duration: 90 days If medication has a current refill that has been filled, no need to fill this one. Active metFORMIN HCl 500 MG Tablet Oral; Duration: 90 Days Active Breztri Aerosphere 160-9-4.8 MCG/ACT Aerosol 2 puffs Inhalation Twice a day Active Tiadylt ER 300 MG Capsule Extended Release 24 Hour TAKE 1 CAPSULE BY MOUTH EVERY DAY Oral; Duration: 90 Days Active Amitriptyline HCl 50 MG Tablet TAKE 1 TABLET BY MOUTH EVERY DAY Oral; Duration: 90 Days Active Sertraline HCl 100 MG Tablet 1 tablet Oral Once a day; Duration: 90 days If medication has a current refill that has been filled, no need to fill this one. Active Levothyroxine Sodium 100 MCG Tablet TAKE 1 TABLET BY MOUTH EVERY MORNING ON AN EMPTY STOMACH Oral; Duration: 100 Days Active Losartan Potassium 100 MG Tablet TAKE 1 TABLET BY MOUTH EVERY DAY Oral; Duration: 90 Days Active Magnesium Oxide -Mg Supplement 400 (240 Mg) MG Tablet TAKE 1 TABLET BY MOUTH TWICE DAILY Oral; Duration: 90 Days Active oxyCODONE-Acetaminophe n 5-325 MG Tablet Oral; Duration: 30 Days Active Immunizations Vaccine Route Administration Date Status Comme nts Pneumococcal conjugate PCV 13 Unknown 01/08/2013 Admini stered Pneumococcal conjugate PCV 13 Unknown 09/10/2016 Admini stered Pfizer Biontech Covid-19 Vac cine 2nd dose Unknown 01/22/2021 Administered Pfizer Biontech Covid-19 Vac cine 2nd dose Unknown 02/13/2021 Administered Pfizer Biontech Covid-19 Vac cine 2nd dose Unknown 08/22/2021 Administered Pfizer Biontech Covid-19 Vac cine 2nd dose Unknown 08/12/2022 Administered Novel [id number], preservative free Unknown 08/24/2015 Administered Novel [id number], preservative free Unknown 07/15/2018 Administered Influenza, unspecified formulation Unknown 09/24/2017 A dministered Influenza, seasonal, injecta ble, preservative free, 3 yrs and above Unknown 09/20/2013 Administered Influenza, seasonal, injecta ble, preservative free, 3 yrs and above Unknown 10/25/2014 Administered Influenza, injectable, MDCK, preservative free Unknown 01/08/2013 Administered Influenza, high dose seasonal Unknown 09/22/2013 Admini stered Influenza virus vaccine, quadrivalent (IIV4), split virus, 0.25 mL dosage Unknown 09/10/2016 Administered Influenza virus vaccine, quadrivalent (IIV4), split virus, 0.25 mL dosage Unknown 08/06/2019 Administered Influenza virus vaccine, quadrivalent (IIV4), split virus, 0.25 mL dosage Unknown 08/10/2019 Administered Social History Tobacco Use: Social History Observation Description Date Details (start date - stop date) Former Smoker NA - NA Sex Assigned At : Social History Observation Description Sex Assigned At Female Social History Miscellaneous: Social Info Question Answer Notes Advance Care Planning Are you your own decision-maker Yes Do you have Power of Administration Manager for Health or [facility]? No Household: Social Info Question Answer Notes Household Marital status: Drug/Alcohol: Social Info Question Answer Notes Drugs Have you used drugs other than those for medical reasons in the past 12 months? Yes Methamphetamine? No Crack? No LSD? No Ecstacy? No Prescription opiates? No Marijuana? Yes Is there a minor (18 years or younger) at risk at home? No AUDIT-C (Standard) Points 1 Interpretation Negative Did you have a drink containing alcohol in the p ast year? No How often did you have six or more drinks on one occasion in the past year? Never (0 point) How many drinks did you have on a typical day when you were drinking in the past year? 1 or 2 drinks (0 point) How often did you have a drink containing alcohol in the past year? Monthly or less (1 point) Tobacco Use: Social Info Question Answer Notes Tobacco Control (Standard) When did you start smoking? 1975 When did you stop smoking? 2011 Tobacco use: Former smoker How long has it been since you last smoked? Greater than 10 years Tobacco Use/Smoking Tobacco use: former smoker Additional Details Category Social Info Options Details Miscellaneous: Occupation: on disability Drug/Alcohol: Do you smoke marijuana? Yes , Daily, medically Do you drink alcohol? Rarely, 1- 2 x a year Section Notes: Social History Substance Use Do [...] Do you have a medical power of criminal attorney?: No Other Education: 12 (Notes: vocational school - [employer]) Gender Identity and LGBTQ Identity Sexual orientation: [...] Do you have a medical power of criminal attorney?: No Gender Identity and LGBTQ Identity Sexual orientation: Straight or heterosexual Tobacco use: Quit in 2011 Living situation: ; works from home; grandson lives with her Drug use: Uses marijuana occasionally; prefers one hit, does not use gummies or vaping Alcohol use: Denies; last drink was a couple years ago, socially maybe once a year Problems Problem Type SNOMED Code ICD Code Onset Dates Problem Status W/U Status Risk Notes Problem Mild recurrent major depression (27015817) Major depressive disorder, recurrent, mild (F33.0) 4 Active confirmed Problem Generalized anxiety disorder (88105428) Generalized anxiety disorder (F41.1) 4 Active confirmed Problem Insomnia (424344429) Insomnia, unspecified (G47.00) Active confirmed Problem Insomnia (917685818) Insomnia due to medical condition (G47.01) 9 Active confirmed Problem Chronic obstructive pulmonary disease (41262256) Chronic obstructive pulmonary disease, unspecified (J44.9) 4 Active confirmed Problem Obsessive-compul sive disorder (266272880) Obsessive-compu lsive disorder, unspecified (F42.9) 4 Active confirmed Vital Signs Heart Rate 93 /min 09/23/2025 Height-cm 167.64 cm 09/23/2025 Blood pressure diastolic 68 mm Hg 09/23/2025 Weight-kg 62.14 kg 09/23/2025 Height 66.00 in 09/23/2025 Blood pressure systolic 119 mm Hg 09/23/2025 Weight 137 lbs 09/23/2025 BMI 22.11 kg/m2 09/23/2025 Encounters Encounter Location Date Provider Diagnosis [facility] [address] [facility] [address] [place] [address] 12/24/2024 Shea Sanchez [facility] [address] [facility] [address] [place] [address] 01/25/2025 Shea Sanchez Generalized anxiety disorder F41.1 ; Obsessive-compulsive disorder, unspecified F42.9 ; Major depressive disorder, recurrent, mild F33.0 ; Insomnia due to medical condition G47.01 ; Chronic obstructive pulmonary disease, unspecified J44.9 ; Encounter for screening for cardiovascular disorders Z13.6 and Encounter for screening for depression Z13.31 [facility] [address] [place] [address] 05/27/2025 Shea Sanchez Generalized anxiety disorder F41.1 ; Obsessive-compulsive disorder, unspecified F42.9 ; Major depressive disorder, recurrent, mild F33.0 ; Insomnia due to medical condition G47.01 ; Chronic obstructive pulmonary disease, unspecified J44.9 and Marijuana use F12.90 [facility] [address] [place] [address] 09/23/2025 Abigail Pineda Major depressive disorder, recurrent, mild F33.0 ; Generalized anxiety disorder F41.1 ; Obsessive-compulsive disorder, unspecified F42.9 and Insomnia, unspecified G47.00 Assessments Encounter Date Diagnosis (ICD Code) Assessment [...] in 4 months, sooner if concerns arise 05/27/2025 Generalized anxiety disorder (ICD-10 - F41.1) Cont buspirone 5 mg twice a day 09/23/2025 Major depressive disorder, recurrent, mild (ICD-10 - F33.0) Mood fluctuates, with recent sadness intensified by holidays and anniversaries of family losses. Patient has a history of depression, managed with ongoing therapy and medication. No suicidal ideation reported. - Continue Sertraline 100 mg once daily. - Continue Buspar 5 mg twice daily. 09/23/2025 Generalized anxiety disorder (ICD-10 - F41.1) Patient reports ongoing anxiety and compulsive rituals. Family observes and comments on rituals. Anxiety managed with Buspar and Sertraline. - Continue Buspar 5 mg twice daily. - Continue Sertraline 100 mg once daily. 09/23/2025 Obsessive-compuls aman disorder, unspecified (ICD-10 - F42.9) Patient describes rituals such as folding blankets and counting steps. Compulsive behaviors noted by family. OCD managed with ongoing therapy and medication. - Continue Buspar 5 mg twice daily. - Continue Sertraline 100 mg once daily. 05/27/2025 Obsessive-compuls aman disorder, unspecified (ICD-10 - F42.9) 01/25/2025 Obsessive-compuls aman disorder, unspecified (ICD-10 - [...] in 4 months, sooner if concerns arise 05/27/2025 Insomnia due to medical condition (ICD-10 - G47.01) practice good sleep hygiene 05/27/2025 Major depressive disorder, recurrent, mild (ICD-10 - F33.0) cont sertraline 100mg daily 09/23/2025 Insomnia, unspecified (ICD-10 - G47.00) Patient reports sleep is usually adequate but sometimes restless. Occasional bad nights and increased nighttime bathroom trips. Sleep disturbance managed with medication. - Continue sleep medication as previously prescribed. 05/27/2025 Chronic obstructive pulmonary disease, unspecified (ICD-10 - J44.9) on oxygen via NC/portable device; 3 L reports no change in status- not severe enough for transplant 01/25/2025 Chronic obstructive pulmonary disease, unspecified (ICD-10 [...] in 4 months, sooner if concerns arise 05/27/2025 Marijuana use (ICD-10 - F12.90) 01/25/2025 Encounter for screening for depression (ICD-10 [...] in 4 months, sooner if concerns arise 05/27/2025 Nico Elam is a 64-year-old female with a history of depression, anxiety, and OCD, presenting with mild depressive symptoms related to her 's recent job loss and concerns about financial stability. Depression Assessment: Patient reports feeling a little down due to personal circumstances, specifically her 's recent job loss. This situational stressor appears to be exacerbating her pre-existing depression. Despite these challenges, she states she is managing okay. Current treatment with sertraline 100 mg daily and buspirone 5 mg twice daily appears to be providing some benefit, as the patient reports things have been going well as far as mental health. Plan: - Continue sertraline 100 mg PO daily - Continue buspirone 5 mg PO twice daily - Follow up in 4 months Anxiety Assessment: Patient's anxiety appears to be relatively well-controlled on current medication regimen. No specific anxiety symptoms were reported during this visit, though financial worries were mentioned in the context of her 's job loss. Plan: - Continue current medication regimen as noted above - Follow up in 4 months Sleep Disturbance Assessment: Patient reports waking up at least once per night but is usually able to fall back asleep quickly. This represents a stable sleep pattern compared to previous visits. Plan: - Continue amitriptyline Weight Loss Assessment: Patient reports unintentional weight loss from 158 lbs to 137 lbs due to decreased appetite. She is attempting to supplement her diet with instant Ulysses breakfast drinks. This weight loss is of concern and requires monitoring. Plan: - Encourage regular meals and nutritional supplementation - Monitor weight at follow-up visits Chronic Respiratory Issues Assessment: Patient reports recent exacerbation of respiratory symptoms requiring more frequent visits to her site promotion agent. She is on continuous oxygen at 3 liters, including during sleep. Recent medication changes include adjustments to inhalers, and consideration of starting Dupixent (dupilumab) injections. Plan: - Continue oxygen therapy at 3 liters - Follow up with site promotion agent as scheduled for management of respiratory issues and potential initiation of Dupixent Recent Fall Assessment: Patient reports a recent fall at home due to entanglement in oxygen tubing. She denies head injury but did impact the concrete floor, breaking her fall with a chair. Plan: - Assess home for fall risks and optimize safety measures around oxygen equipment - Monitor for any delayed symptoms or complications from the fall Tremor Assessment: Patient reports new onset of tremor (real shaky) for the past few months, severe enough to interfere with her ability to sign her name. This new symptom requires further evaluation to determine the cause and appropriate management. Plan: - Consider referral to neurology for evaluation of new-onset tremor if symptoms persist or worsen Memory Concerns Assessment: Patient reports subjective memory difficulties, particularly with short-term memory. This symptom requires monitoring and potentially further evaluation if it progresses or significantly impacts daily functioning. Plan: - Monitor cognitive function at future visits - Consider formal cognitive assessment if symptoms worsen or significantly impact daily functioning Substance Use Assessment: Patient reports ongoing marijuana use. She notes that it no longer consistently stimulates her appetite as it once did. Plan: - Continue to monitor marijuana use and its effects on appetite and overall health Plan Of Treatment Next Appt Details Provider Name:Abigail Pineda, 12/22/2025 01:15:00 PM, [address], [place], [address], Insurance Providers Payer Name Payer Address Payer Phone Subscriber Number Group Number Insured Name Patient Relationship to Insured Coverage Start Date Coverage End Date [employer] Medicare Replacement/ Advantage - Hmo [address] [address] [place] [address] [id number] ELAM RAY Self - patient is the insured Medical (General) History Medical History History ICD Code Problems: Chronic obstructive lung disea se Gastroesophageal reflux disease Hypothyroidism Insomnia disorder related to known organ ic factor Obesity Obsessive-compulsive disorder Major Depressive Disorder Past Psychiatric History: Anxiety Disord er abdominal aortic aneurysm: Yes atrial fibrillation: Yes chronic fatigue syndrome: No essential tremor: No hyperlipidemia: No hypertension: No Parkinson's disease: No restless leg syndrome: Yes stroke: No subdural hematoma: No type 1 diabetes mellitus: No type 2 diabetes mellitus: Yes vitamin B12 deficiency: No vitamin D deficiency: Yes Depression Anxiety Migraine, history of migraines Chronic obstructive pulmonary disease Surgical History Surgery Date(Month/Year) Appendectomy (40359) Cardiac ablation using fluoroscopy jigna nair ([id number]) 01/18/2012
--- OUTSIDE RECORDS SUMMARY | 2025-10-29 20:13 | XMS_ITS | Encounter Summary ---
Author Organization [facility] [employer] [facility] , [facility] Address [address] [place] [phone] Phone Care Team Providers Care Jde Developer Name Role Phone Azar Zurita MD Primary Care Provider [phone] Reason for Visit * Reason Comments Med Refill Encounter Details Date Type Department Care Team (Late st Contact Info) Description 04/26/2023 Refill Early [facility], [facility] [address] [place] [phone] [place] [address] [place] [phone] Social History Tobacco Use Types Packs/Day [...] on filedocumented in this encounter Care Teams Jde Developer Relationship Specialty Start Date End Date Azar Zurita MD [address], [address] [place] [address] PCP - General Internal Medicine 07/17/21 documented as of this encounter
[2025-10-29 21:32] VITALS: BP 117/71; PULSE 119; RESP 22; O2SAT 98
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
--- OUTSIDE RECORDS SUMMARY | 2025-10-29 21:51 | XMS_ITS | Clinical Summary ---
Author Organization [facility] Address [address] [facility] [place] [address] Care Team Providers Care Chemists Name Role Phone Azar Zurita MD Primary Care Provider Tj Kemp MD Unavailable [phone] Gayle Reyna APRN-BODY FORMER Unavailable U Ever Morgan DO Unavailable [phone] Blas Mabry MD Unavailable [phone] Gopal Gentile DO Unavailable [phone] Josefa Sterling MD Unavailable [phone] Source Comments [facility],non-owned Affiliates and Associated Physician Practices is amultiple site organization consisting of ambulatory clinics and hospital sitesin [place], [place], [place] and [place]. This disclosure is being madepursuant to the Care Everywhere program and may not contain all information available regarding this patient. Last updated 18.[facility] Allergies Active Allergy Reactions Criticality Noted Date [...] Immunizations Immunization Administration Dates Next Due Covid Get [employer] primary monoval ent 12+ yr 0.3mL Purple [...] a test for HCV RNA (test code 07895) is suggested. For additional information please refer to http://education.Embue/faq/SBJ73x6 (This link is being provided for informational/ educational purposes only.) Test Performed at: [facility] [address] [id number] SONY UGALDE DO,MPH 06/03/2020 10:4 5 AM CDT 06/03/2020 10:50 AM CDT Mat Suero MD LAB - CHEMISTRY ORDERABLES Fin al Result [facility] [address] [place] [address] from Last 3 Months or Most Recently Relevant to Health Maintenance Insurance [facility] MANAGED MEDICARE ADV Care Teams Chemists Relationship Specialty Start Date End Date Azar Zurita MD [address] [facility] [address] [place] [address] PCP - General 09/15/19 Tj Kemp MD [address] [facility] [address] [place] [address] Cardiovascular Disease 01/04/20 Gayle Reyna, PACKING MACHINE INSPECTOR-BODY FORMER Update Information Pulmonary Disease 01/04/20 Ever Hayward DO [address] [facility] [address] [place] [address] Nephrology 01/04/20 Blas Mabry MD [address] L[address] [place] [address] Psychiatry 01/04/20 Gopal Gentile DO [address] Cindy Lara [address] [place] [phone] Orthopedic Surgery 01/04/20 [place] [address] [place] [address] Anesthesiology 01/04/20
--- OUTSIDE RECORDS SUMMARY | 2025-10-29 21:51 | XMS_ITS | Encounter Summary ---
Author Organization [facility] Address [address] [place] [phone] Phone Care Team Providers Care Pond Sawyer Name Role Phone Azar Zurita MD Primary Care Provider [phone] Reason for Visit * Reason Comments Med Refill Encounter Details Date Type Department Care Team (Late st Contact Info) Description 04/26/2023 Refill [facility], [facility] [address] [place] [phone] [place] [address] [place] [phone] Social History Tobacco Use Types Packs/Day [...] on filedocumented in this encounter Care Teams Pond Sawyer Relationship Specialty Start Date End Date Azar Zurita MD [address] [place] [address] PCP - General Internal Medicine 07/17/21 documented as of this encounter
--- OUTSIDE RECORDS SUMMARY | 2025-10-29 21:51 | XMS_ITS | Clinical Summary ---
Author Organization [facility] Facility Address [address] [place] [id number] Care Team Providers Care Film Rental Clerk Name Role Phone Azar Zurita MD Primary Care Provider [phone] Medications Empagliflozin 10 MG tablet Take 10 [...] patient's age to complete this topic Insurance [facility] Medicare Care Teams Film Rental Clerk Relationship Specialty Start Date End Date Azar Zurita MD [address] [facility] [place] [address] PCP - General Internal Medicine 07/17/21
--- OUTSIDE RECORDS SUMMARY | 2025-10-29 21:51 | XMS_ITS | Encounter Summary ---
Author Organization [facility] Address [address] [place] [phone] Phone Care Team Providers Care Outreach Liaison Name Role Phone Azar Zurita MD Primary Care Provider [phone] Reason for Visit * Reason Comments Med Refill Encounter Details Date Type Department Care Team (Late st Contact Info) Description 12/28/2022 Refill [facility], [facility] [address] [place] [phone] [place] [address] [place] [phone] Social History Tobacco Use Types Packs/Day [...] on filedocumented in this encounter Care Teams Outreach Liaison Relationship Specialty Start Date End Date Azar Zurita MD [address] [place] [address] PCP - General Internal Medicine 07/17/21 documented as of this encounter
--- OUTSIDE RECORDS SUMMARY | 2025-10-29 21:51 | XMS_ITS | Continuity of Care Document ---
Author Organization [place] - [facility] evolso, [facility] Internal Med [address] [facility], [address] [place] [address] Care Team Providers Care Flight Crew Ordnanceman Name Role Phone AZAR ZURITA Primary Care Provider AZAR ZURITA Referring Provider [phone] [facility] Paper Finisher GAYLE REYNA Pipe Installer Assessment Encounter Date Assessment Date Assessment LastModified by Organization Details LastModified Time 09/06/2025 09/06/2025 02/10/2023: A1C 5.7 TSH 0.420L, FT4: WNL Urine micro alb 24.6 CMP/Lipids/CB C: WNL 06/17/2023: A1C 5.6 TSH 0.319L Gluc 103 TG 157 02/09/2024: A1C 5.5 Gluc 107 06/07/2024: A1C 5.6 Urine micro alb 37.4 Gluc 114, ALP 128 09/16/2024: Gluc 110. ALP 129 A1C 5.9 TSH 0.430L, FT4 1.70 01/27/2025: A1C 5.9 09/01/2025: A1C 5.7 Gluc 100 RF 54.9H, Anti CCP: 118H NHAN: Neg [email or web address] Not available 09/07/2025 10:28:07 Plan of Treatment Reminders Order Date Submit Date Provider Last Modified By Organization Details Last Modified Time Details Appointments Any 15 2025 01:00P Ti hagen MD Not available Not available Not available Any 2025 01:00P Ti hagen MD Not available Not available Not available Lab lipid panel, serum [address] (Lab), [address] [place], [address], 09/06/2025 14:33:07 CMP, serum or plasma [address] (Lab), [address] [place], [address], 09/06/2025 14:33:08 CBC w/ auto diff [address] (Lab), [address] [place], [address], 09/06/2025 14:33:08 TSH, serum or plasma [address] (Lab), [address] [place], [address], 09/06/2025 14:33:09 vitamin D, 25-hydrox y, total, serum [address] (Lab), [address] [place], [address], 09/06/2025 14:33:08 glycohemo globin, total, blood [address] (Lab), [address] [place], [address], 09/06/2025 14:33:08 microalbu min, urine [address] (Lab), [address] [place], [address], 09/06/2025 14:33:08 Referral cardiolog ist referral - Please call patient to schedule an appointme nt. Thank you. 2024 [email or web address] Tj Kemp MD, [address] [facility], [address], [place], [address], 09/06/2025 14:52:58 podiatris t referral - Please call patient to schedule an appointme nt. Thank you. 2024 [email or web address] Branden East DPM, [address], [address], [place], [address], 09/06/2025 14:52:28 diabetic ophthalmo logy referral - Please call patient to schedule an appointme nt. Thank you. 2024 [email or web address] [employer], [address], [place], [address], 09/06/2025 14:52:57 rheumatol ogist referral - Please call patient to schedule. 2024 CHRISTOPHER Gaviria MD, [address], [address], [place], [address], 09/08/2025 15:10:55 Procedures colonosco py screening (PROC) - Please call patient to schedule an appointme nt. Thank you. 2024 [email or web address] Sheldon jackson MD, [address], [address], [place], [address], 09/06/2025 14:51:39 upper endoscopy procedure (EGD) (PROC) - Please call patient to schedule an appointme nt. Thank you. 2024 [email or web address] Sheldon jackson MD, [address], [address], [place], [address], 09/06/2025 14:51:21 Surgeries None recorded. Imaging None recorded. Medication Orders None recorded. Patient TargetsNo targets recorded. Patient InstructionsNo instructions recorded. Reason for Referral Paginator Referral for Type 2 diabetes mellitus without complication Please call patient to schedule an appointment. Thank you. Referring Physician: Azar Zurita, Internal Medicine, Encounter Date: 09/06/2025 Diabetic Ophthalmology Refer ral for Type 2 diabetes mellitus without complication Please call patient to schedule an appointment. Thank you. Referring Physician: Azar Zurita, Internal Medicine, Encounter Date: 09/06/2025 Lanolin Plant Operator Referral for At rial fibrillation Please call patient to schedule an appointment. Thank you. Referring Physician: Azar Zurita, Internal Medicine, Encounter Date: 09/06/2025 Transport Aircrewman Referral for Rheumatoid arthritis of multiple joints Please call patient to schedule. Referring Physician: Azar Zurita, Internal Medicine, Encounter Date: 09/06/2025 Results Created Date Observation Date Name Description Value Unit Range Abnormal Flag Note LastModifiedBy Organization Detail LastModifiedTime 09/02/2008/31/2025 imagi ng/di chrisos tic resul t No observ ation record ed. [facility] [address] [address], [place], [address], 09/02/2025 15:28:52 Result Notes None recorded. Problems Name Problem SNOMED Code Status Onset Date Resolution Date Notes Provider Name and Address Organization Details Recorded Time Chronic obstructi ve pulmonary disease 86746565 Completed CELESTINO Huynh, [place] 4 13:26:45 Mammograp hy abnormal 430575894 Completed Not Available [facility] 3 01:09:11 Gastroeso phageal reflux disease 047417771 Active CELESTINO Huynh, [place] 4 13:26:45 Osteoarth ritis of knee 449282896 Active Not Available [facility] 3 06:43:36 Uterine prolapse 41914002 Active Not Available [facility] 3 06:43:36 Headache 92705693 Active Not Available [facility] 3 06:43:36 Cystocele 007210712 Active Not Available [facility] 3 06:43:37 Dyspnea 432724461 Completed Not Available [facility] 3 01:09:12 Low back pain 101372818 Active Not Available [facility] 3 06:43:37 Menopause present 934183547 Active Not Available [facility] 3 06:43:37 Knee pain Active Not Available [facility] 3 06:43:37 Depressiv e disorder 14111000 Active Not Available [facility] 3 06:43:37 Hypothyro idism 09033912 Active Not Available [facility] 3 06:43:37 Mixed urinary incontine nce 268815201 Active Not Available [facility] 3 06:43:37 Pulmonary hypertens ion 69193587 Active Not Available [facility] 3 06:43:37 Hyperglyc emia 16284557 Active Not Available [facility] 3 06:43:37 Hypoxia 125691055 Active 2016 Not Available [facility] 3 06:43:37 Atrial fibrillat ion 26346693 Active 2016 Nancy Sanchez CCM null, [place] [employer] [facility] 4 13:26:46 Restless legs syndrome 46916984 Active 2016 Not Available [facility] 3 06:43:37 Migraine 69185646 Active 2016 Not Available [facility] 3 06:43:37 Upper respirato ry infection 89109395 Active 2016 Not Available [facility] 3 06:43:37 Acute exacerbat ion of chronic obstructi ve pulmonary disease 717308439 Active 2016 Not Available [facility] 3 06:43:36 Severe chronic obstructi ve pulmonary disease 507540900 Active 2016 Not Available [facility] 3 06:43:37 Allergic rhinitis 36446988 Active 2016 Not Available [facility] 3 06:43:37 Chronic sinusitis 08414977 Active 2018 Nancy Sanchez CCM null, [place] [facility] 4 13:26:46 Hyperchol esterolem ia 62004021 Active 2020 Not Available [facility] 3 06:43:36 Disorder of thyroid gland 13153595 Active 2020 Not Available [facility] 3 06:43:36 Heartburn 57263400 Active 2020 Not Available [facility] 3 06:43:36 Disorder of lung 09205303 Active 2020 Not Available [facility] 3 06:43:36 Pneumonia 587717891 Active 2020 Not Available [facility] 3 06:43:36 Bronchiti s 67704485 Active 2020 Not Available [facility] 3 06:43:37 Disorder of eye 317947517 Active 2020 Not Available [facility] 3 06:43:37 Arthritis 7423132 Active 2020 Nancy Sanchez CCM null, [place] [facility] 4 13:26:46 Anxiety 62446143 Active 2020 Nancy Sanchez CCM null, [place] [facility] 4 13:26:46 Excessive sweating 25966075 Active 2020 Not Available [facility] 3 06:43:37 Cardiac arrhythmi a 514063923 Active 2020 Nancy Sanchez CCM null, [place] [facility] 4 13:26:46 Unable to cut own toenails 344215423 Active 2020 Not Available [facility] 3 06:43:37 Diabetes mellitus 10259681 Active 2020 Nancy Sanchez CCM null, [place] [facility] 4 13:26:46 Dystrophi a unguium 00382511 Active 2020 Not Available [facility] 3 06:43:37 COVID-19 896852940 Active 2020 Not Available [facility] 3 06:43:37 Dependenc e on supplemen pj oxygen 99081509018 7 Active 2020 Nancy Sanchez, CCM null, [place] [facility] 4 13:26:46 Anemia 834657511 Active 2020 Not Available [facility] 3 06:43:37 Cough 51352609 Active 2020 Not Available [facility] 3 06:43:37 Dyspnea on exertion 04732722 Active 2020 Not Available [facility] 3 06:43:37 Ex-smoker 8122618 Active 2020 Not Available [facility] 3 06:43:37 Spiculate d lesion 930603335 Active 2021 Not Available [facility] 3 06:43:36 Long-term drug therapy Active 2021 Not Available [facility] 3 06:43:37 History of SARS-CoV- 2 93186804020 2071135 Active 2021 Not Available [facility] 3 06:43:37 Acute bronchiti s 02033662 Active 2021 Not Available [facility] 3 06:43:36 Pain of right hip joint 44410993650 9102 Active 2021 Not Available [facility] 3 06:43:37 Osteoarth ritis of right knee joint 00078887790 9100 Active 2021 Not Available [facility] 3 06:43:37 Serum triglycer ides above reference range 643363182 Active 2021 Not Available [facility] 3 06:43:36 Pain of right knee joint 05946331458 4100 Active 2021 Not Available [facility] 3 06:43:37 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 2022 Not Available [facility] 3 06:43:37 Hyperlipi demia 83739364 Active 2022 Not Available [facility] 3 06:43:37 Type 2 diabetes mellitus without complicat ion 741976539 Active 2022 Not Available [facility] 3 06:43:37 Chronic kidney disease 542106053 Active 2022 Nancyernesto Sanchez, CCM null, [place] - [facility] 4 13:26:46 Chronic obstructi ve pulmonary disease 05246748 Active 2022 Nancy Sanchez CCM null, [facility] 4 13:26:45 Moderate recurrent major depressio n 95626405 Active 2022 Not Available [facility] 3 06:43:36 Gastroeso phageal reflux disease without esophagit is 037444013 Active 2022 Not Available [facility] 3 06:43:37 Liver enzymes level above reference range 234546784 Active 2022 Not Available [facility] 3 06:43:37 Vitamin D deficienc y 55889636 Active 2022 Not Available [facility] 3 06:43:37 Abnormal sputum 621319425 Active 2022 Not Available [facility] 3 06:43:37 Pneumonia caused by Staphyloc occus aureus 548879699 Active 2022 Not Available [facility] 3 06:43:37 Multiple nodules of lung 236322712 Active 2022 Not Available [facility] 3 06:43:37 Abrasion of skin of left elbow region 76198839916 492372 Active 2023 Azar lange MD [address], [address], [place], [address] , [facility] 4 11:44:59 Nausea 522831948 Active 2023 Azar lange MD [address], [address], [place], [address] , [facility] 4 11:55:13 Bilateral chronic pain of upper limbs 34870800653 863365 Active 2024 Azar lange MD [address], [facility] [address], [place], [address] , [facility] [employer] [facility] [employer] [facility] 12:39:32 Pain of multiple joints 16013874 Active 2024 Azar lnage MD [address], [address] [address], [place], [address] , [facility] [employer] [facility] 12:40:45 Rheumatoi d arthritis of multiple joints 026235684 Active 2024 Azar lange MD [address], [facility] [address], [place], [address] , [facility] [employer] [facility] [employer] [facility] 12:31:57 Notes:Some problems listed i n Document: #[id number] could not be added to this patient's chart. Please review this document and add these problems to the patient's chart manually as needed. back/neck problems hepatitis use of blood thinners Problem Notes None recorded. Procedures Surgical History Date Name Laterality Status Provider Name and Address Organization Details Recorded Time 06/19/20 23 Medicare Wellness CPT Code, subsequent completed Rosalba Wilkinson RN [facility] [employer] [facility] 06/19/2023 11:57:54 01/25/20 21 Date of Last Colonoscopy completed Not Available [facility] 01/08/2023 00:54:21 09/13/20 19 repair of elbow completed Not Available [facility] 11/2022 00:54:26 12/08/19 16 Total hip arthroplasty completed Not Available [facility] 01/08/2023 00:54:26 Breast Biopsy completed Not Available [facility] 01/08/2023 00:54:26 Tonsillectomy completed Not Available [facility] 01/08/2023 00:54:26 Ablation completed AMBER Vallejo [facility] [employer] [facility] 06/08/2024 11:08:57 section completed Not Available [facility] 01/08/2023 00:54:26 Orthopedic Surgery completed Not Available [facility] 01/08/2023 00:54:26 Appendectomy completed Not Available [facility] 01/08/2023 00:54:26 Imaging Results None recorded. Procedure Notes None recorded. Medical Equipment None Reported. Allergies Allergen ID Allergen Name Allergen Category Reaction Reaction Severity Criticality Documentation Date Start Date Code Code System Note Provider Name and Address Organization Details Recorded Time 244 Product containin g penicilli n (product) medicatio n rash Not available Not available 01/08/2023 [id number] SNOMED Not Available [facility] 3 01:27:12 Medications Name Sig Start Date Stop Date Status Note LastModified by Organization Details LastModified Time carisopro dol 350 mg tablet TK 1 T PO TID. active Not Available Not Available No t Available cyclobenz aprine 10 mg tablet TK 1 T PO Q 8 H PRN 05/25 completed Not Available Not Available Not Available amoxicill in 500 mg capsule TK ONE C PO TID FOR 10 DAYS active Not Available Not Available No t Available atorvasta tin 40 mg tablet TAKE 1 TABLET BY MOUTH EVERY DAY active Not Available Not Available No t Available buspirone 5 mg tablet TAKE 1 TABLET BY MOUTH TWICE DAILY active Not Available Not Available No t Available metformin 500 mg tablet TAKE 1 TABLET BY MOUTH TWICE DAILY 2024 active Not Available Not Available Not Avai lable nystatin 100,000 unit/mL oral suspensio n Take 10 mL twice a day by oral route as needed. active Not Available Not Available No t Available prednison e 10 mg tablet TAKE 4 TABLETS FOR 3 DAYS, THEN 3 TABLETS FOR 3 DAYS, THEN 2 TABLETS FOR 3 DAYS, THEN 1 TABLET FOR 3 DAYS 02/01 completed Not Available Not Available Not Available doxycycli ne hyclate 100 mg capsule Take 1 capsule twice a day by oral route as directed for 7 days. 09/06 completed Not Available Not Available Not Available atorvasta tin 20 mg tablet TK 1 T PO QD active Not Available Not Available No t Available ipratropi um 0.5 mg-albute rol 3 mg (2.5 mg base)/3 mL nebulizat ion soln USE 1 VIAL PER NEBULIZE R Q 6 H PRF SOB 04/05 completed Not Available Not Available Not Available albuterol sulfate 2.5 mg/3 mL (0.083 %) solution for nebulizat ion active Not Available Not Available Not Available citalopra m 40 mg tablet TAKE 1 TABLET BY MOUTH EVERY DAY active Not Available Not Available No t Available triamcino lone acetonide 0.5 % topical cream Apply 2 applicat ions twice a day by topical route. active Not Available Not Available No t Available azithromy talita 250 mg tablet TAKE 2 TABLETS (500 MG) BY ORAL ROUTE ONCE DAILY FOR 1 DAY THEN 1 TABLET (250 MG) BY ORAL ROUTE ONCE DAILY FOR 4 DAYS 02/01 completed Not Available Not Available Not Available diltiazem CD 180 mg capsule,e xtended release 24 hr TK 1 C PO D active Not Available Not Available No t Available Lidocaine Viscous 2 % mucosal solution Take 10 mL twice a day by oral route as needed. active Not Available Not Available No t Available tizanidin e 4 mg tablet TAKE 1 TABLET BY MOUTH TWICE DAILY active Not Available Not Available No t Available Claritin 10 mg tablet 1 tablet daily as needed 01/17 completed Not Available Not Available Not Available ondansetr on HCl 4 mg tablet Take 1 tablet twice a day by oral route as needed for 30 days. 01/17 completed Not Available Not Available Not Available bupivacai ne HCl 0.5 % (5 mg/mL) injection solution Take 30 mg by injectio n route. 06/13 completed Not Available Not Available Not Available prednison e 20 mg tablet TAKE 2 TABLETS BY MOUTH DAILY FOR 4 DAYS 09/06 completed Not Available Not Available Not Available sertralin e 100 mg tablet TAKE 1 TABLET BY MOUTH DAILY active Not Available Not Available No t Available prednison e 5 mg tablet TK 4 TS D FOR 5 DAYS 2 TS D FOR 5 DAYS THEN 1 T D FOR 5 DAYS active Not Available Not Available No t Available sodium chloride 1 gram tablet TK 2 TS PO BID 05/25 completed Not Available Not Available Not Available Protonix 20 mg tablet,de layed release Take 2 tablets every day by oral route. 03/21 completed Not Available Not Available Not Available Advair Diskus 100 mcg-50 mcg/dose powder for inhalatio n INL 1 PUFF PO BID 12/01 completed Not Available Not Available Not Available acetamino phen 300 mg-codein e 30 mg tablet TK 1 T PO Q 6 H active Not Available Not Available No t Available sulfameth oxazole 800 mg-trimet hoprim 160 mg tablet TAKE 1 TABLET BY MOUTH TWICE DAILY FOR 7 DAYS DIRECTED 06/19 completed Not Available Not Available Not Available tramadol 50 mg tablet TK 1 T PO BID. 02/08 completed Not Available Not Available Not Available amitripty line 50 mg tablet TAKE 1 TABLET BY MOUTH EVERY DAY active Not Available Not Available No t Available triamcino lone acetonide 0.1 % topical cream active Not Available Not Available Not Available levothyro xine 75 mcg tablet TK 1 T PO QD 06/06 completed Not Available Not Available Not Available Kenalog 40 mg/mL suspensio n for injection Take 1 mL by injectio n route. 07/24 completed Not Available Not Available Not Available prednison e 10 mg tablets in a dose pack Take 1 tab by mouth, 3 times a day for 3 daysTake 1 tab by mouth 2 times a day for 2 daysTake 1 tab by mouth once a day for 1 day 06/13 completed Not Available Not Available Not Available levothyro xine 100 mcg tablet TAKE 1 TABLET BY MOUTH EVERY MORNING ON AN EMPTY STOMACH active Not Available Not Available No t Available oxycodone -acetamin ophen 5 mg-325 mg tablet TAKE 1 TABLET BY MOUTH TWICE DAILY NEEDED active Not Available Not Available No t Available alprazola m 0.25 mg tablet Take 1 tablet twice a day by oral route for 30 days. 02/08 completed Not Available Not Available Not Available amitripty line 25 mg tablet TK 1 T PO QD 01/18 completed Not Available Not Available Not Available magnesium oxide 400 mg (241.3 mg magnesium ) tablet TAKE 1 TABLET BY MOUTH TWICE DAILY active Not Available Not Available No t Available DOK 100 mg capsule TK ONE C PO BID PRF CONSTIPA TION 02/09 completed Not Available Not Available Not Available ropinirol e 0.25 mg tablet TK 1 T PO 1 TO 3 H B BED 06/06 completed RASH, ITCHING Not Available Not Available Not Available Kenalog 10 mg/mL suspensio n for injection In office injectio n administ ered by the provider 06/13 completed ND: [id number] Not Available Not Available Not Available amitripty line 10 mg tablet TK 2 TS PO QHS FOR MIGRAINE S active Not Available Not Available No t Available benzonata te 100 mg capsule TAKE 2 CAPSULES BY MOUTH THREE TIMES DAILY 06/19 completed Not Available Not Available Not Available hydrocodo ne 7.5 mg-acetam inophen 325 mg tablet TK 1 T PO Q 4 TO 6 H NEEDED FOR PAIN active Not Available Not Available No t Available cephalexi n 500 mg capsule Take 1 capsule twice a day by oral route for 7 days. 06/08 completed Not Available Not Available Not Available pantopraz ole 40 mg tablet,de layed release TAKE 1 TABLET BY MOUTH EVERY MORNING FOR 4 WEEKS 06/19 completed Not Available Not Available Not Available oseltamiv ir 75 mg capsule TK 1 C PO BID FOR 5 DAYS active Not Available Not Available No t Available levothyro xine 125 mcg tablet TK 1 T PO QD 01/18 completed Not Available Not Available Not Available nystatin 100,000 unit/gram topical cream NACHO EXT AA BID PRN active Not Available Not Available No t Available lansopraz ole 30 mg capsule,d elayed release Take 1 capsule every day by oral route. 04/05 completed Not Available Not Available Not Available prednison e 50 mg tablet Take 1 tablet every day by oral route in the morning for 5 days. 01/18 completed Not Available Not Available Not Available oxycodone 5 mg capsule TK ONE C PO Q 6 H PRN P FOR 3 DAYS 02/06 completed Not Available Not Available Not Available Advair Diskus 250 mcg-50 mcg/dose powder for inhalatio n Inhale 1 puff twice a day by inhalati on route for 90 days. 04/17 completed Not Available Not Available Not Available orphenadr ine citrate ER 100 mg tablet,ex tended release TK 2 TS PO BID NEEDED FOR MUSCULAR PAIN SPASM active Not Available Not Available No t Available omeprazol e 20 mg capsule,d elayed release TAKE 1 CAPSULE BY MOUTH EVERY DAY NEEDED 2024 active Not Available Not Available Not Avai lable budesonid e 0.5 mg/2 mL suspensio n for nebulizat ion Inhale 2 mL twice a day by nebuliza tion route as directed for 30 days. 01/17 completed Not Available Not Available Not Available diltiazem CD 120 mg capsule,e xtended release 24 hr active Not Available Not Available Not Available bumetanid e 1 mg tablet Take 1 tablet every day by oral route. 08/09 completed Not Available Not Available Not Available folic acid 1 mg tablet Take 1 tablet every day by oral route as directed for 90 days. active Not Available Not Available No t Available pravastat in 20 mg tablet TAKE 1 TABLET BY MOUTH EVERY DAY active Not Available Not Available No t Available digoxin 125 mcg (0.125 mg) tablet TAKE 1 TABLET BY MOUTH DAILY 02/04 completed Not Available Not Available Not Available ergocalci ferol (vitamin D2) 1,250 mcg (50,000 unit) capsule TK 1 C PO Q WK active Not Available Not Available No t Available levofloxa talita 500 mg tablet TAKE 1 TABLET BY MOUTH DAILY FOR 7 DAYS 02/09 completed Not Available Not Available Not Available levofloxa talita 750 mg tablet TAKE 1 TABLET BY MOUTH EVERY DAY FOR 10 DAYS DIRECTED 02/01 completed Not Available Not Available Not Available methylpre dnisolone 4 mg tablets in a dose pack FOLLOW PACKAGE DIRECTIO NS 02/09 completed Not Available Not Available Not Available albuterol sulfate HFA 90 mcg/actua tion aerosol inhaler INHALE 2 PUFFS BY MOUTH EVERY 6 HOURS NEEDED FOR WHEEZING active Not Available Not Available No t Available ondansetr on 4 mg disintegr ating tablet DISSOLVE 1 TABLET ON THE TONGUE TWICE DAILY FOR 15 DAYS NEEDED active Not Available Not Available No t Available cefdinir 300 mg capsule 06/19 completed Not Available Not Available Not Available losartan 100 mg tablet TAKE 1 TABLET BY MOUTH DAILY active Not Available Not Available No t Available sertralin e 50 mg tablet TK 1 T PO QD 02/06 completed Not Available Not Available Not Available cholecalc iferol (vitamin D3) 125 mcg (5,000 unit) capsule TAKE ONE CAPSULE BY MOUTH DAILY 02/09 completed Not Available Not Available Not Available doxycycli ne hyclate 100 mg tablet 06/19 completed Not Available Not Available Not Available diazepam 5 mg tablet TAKE 1 TABLET BY MOUTH EVERY DAY NEEDED, NO ALCOHOL, DRIVING OR SEDATING MEDICATI ONS WHILE ON THIS MEDICATI ON 04/05 completed Not Available Not Available Not Available nabumeton e 500 mg tablet TK 1 T PO QD active Not Available Not Available No t Available buspirone 15 mg tablet TK / T PO BID FOR 1 WEEK THEN 1 T PO BID. active Not Available Not Available No t Available diltiazem ER 300 mg tablet,ex tended release 24 hr TAKE 1 TABLET BY MOUTH AT BEDTIME 06/13 completed duplicat e Not Available Not Available Not Available Spiriva with HandiHale r 18 mcg and inhalatio n capsules Inhale 1 capsule every day by inhalati on route. 2012 active Not Available Not Available Not Avai lable Lyrica 75 mg capsule Take 1 capsule every day by oral route for 30 days. active Not Available Not Available No t Available digoxin 0.125 mg daily 2012 active Not Available Not Available Not Avai lable amitripty line 20 mg hs 2012 active Not Available Not Available Not Avai lable Stool Softener PRN 02/09 completed Not Available Not Available Not Available Ventolin HFA 06/06 completed Not Available Not Available Not Available Adult Low Dose Aspirin Take one 81 mg tablet 2015 active Not Available Not Available Not Avai lable famotidin e (bulk) 20 mg daily active Not Available Not Available No t Available fenofibra te nanocryst allized 48 mg tablet Take 1 tablet every day by oral route for 90 days. 02/06 completed Not Available Not Available Not Available fenofibra te nanocryst allized 145 mg tablet TK 1 T PO QD active Not Available Not Available No t Available Brovana 15 mcg/2 mL solution for nebulizat ion Inhale 2 mL twice a day by inhalati on route as directed for 30 days. 01/17 completed Not Available Not Available Not Available cholecalc iferol (vitamin D3) 1,250 mcg (50,000 unit) capsule TAKE ONE CAPSULE BY MOUTH EVERY WEEK 02/09 completed Not Available Not Available Not Available FeroSul 325 mg (65 mg iron) tablet TAKE 1 TABLET BY MOUTH EVERY OTHER DAY 06/19 completed Not Available Not Available Not Available Synvisc-O ne 48 mg/6 mL intra-art icular syringe Injectio ns given in the office by the doctor 09/12 completed [facility]: [id number], [id number], 02/08/20 25 Not Available Not Available Not Available Prevacid 24Hr Take 1 capsule every night at bedtime 02/06 completed Not Available Not Available Not Available Dexilant 60 mg capsule, delayed release Take 1 capsule every day by oral route for 56 days. active Not Available Not Available No t Available Suprep Bowel Prep Kit 17.5 gram-3.13 gram-1.6 gram oral solution active Not Available Not Available Not Available roflumila st 500 mcg tablet TAKE 1 TABLET BY MOUTH EVERY DAY DIRECTED active Not Available Not Available No t Available Trianex 0.05 % topical ointment Apply by topical route BID PRN active Not Available Not Available No t Available Xarelto 10 mg tablet TK ONE T PO QD active Not Available Not Available No t Available Xarelto 15 mg tablet Take 1 tablet every day by oral route. 03/[address] Hayward started 12/12/19 21, f/u in 6 months Not Available Not Available Not Available Tudorza Pressair 400 mcg/actua tion breath activated Inhale 1 puff every 12 hours by inhalati on route for 90 days. active Not Available Not Available No t Available Vascepa 1 gram capsule Take 2 capsules twice a day by oral route for 90 days. 06/13 completed Not Available Not Available Not Available Breo Ellipta 100 mcg-25 mcg/dose powder for inhalatio n 03/13 completed Not Available Not Available Not Available guaifenes in ER 600 mg tablet, extended release 12 hr TAKE 1 TABLET BY MOUTH EVERY 12 HOURS 06/19 completed Not Available Not Available Not Available Jardiance 10 mg tablet 01/17 completed Not Available Not Available Not Available Spiriva Respimat 2.5 mcg/actua tion solution for inhalatio n INHALE 2 PUFFS BY MOUTH DAILY 02/01 completed Not Available Not Available Not Available Spiriva Respimat 04/17 completed Not Available Not Available Not Available Flonase Allergy Relief 50 mcg/actua tion nasal spray,dede pension 1 spray each nostril daily as needed 04/19 completed Not Available Not Available Not Available OxyContin 10 mg tablet,cr ush resistant ,extended release TK ONE T PO Q 12 H active Not Available Not Available No t Available Breo Ellipta 200 mcg-25 mcg/dose powder for inhalatio n INHALE 1 PUFF BY MOUTH DAILY 02/01 completed Not Available Not Available Not Available naloxone 4 mg/actuat ion nasal spray USE 1 SPRAY IN NOSTRIL FOR OPIOID EMERGENC Y active Not Available Not Available No t Available oxygen 3L CONSTANT LY 2019 active Not Available Not Available Not Avai lable Daliresp 250 mcg tablet Take 1 tablet every day by oral route as directed for 30 days. 01/17 completed Not Available Not Available Not Available Afluria Quad (PF) 60 mcg (15 mcg x 4)/0.5 mL IM syringe ADM 0.5ML IM UTD 10/04 completed Not Available Not Available Not Available Yupelri 175 mcg/3 mL solution for nebulizat ion Inhale 3 mL every day by nebuliza tion route as directed for 30 days. 08/09 completed Not Available Not Available Not Available Fluzone Lattice Power (PF) 60 mcg (15 mcg x 4)/0.5 mL IM syringe active Not Available Not Available Not Available Tiadylt ER 300 mg capsule,e xtended release TAKE 1 CAPSULE BY MOUTH EVERY DAY active Not Available Not Available No t Available Fluzone Quad (PF) 60 mcg (15 mcg x 4)/0.5 mL IM syringe PHARMACY ADMINIST ERED active Not Available Not Available No t Available Breztri Aerospher e 160 mcg-9mcg- 4.8mcg/ac tuation HFA aerosol inhaler INHALE 2 PUFFS BY MOUTH TWICE DAILY. RINSE AND SPIT AFTER USE - USE VIA SPACER active Not Available Not Available No t Available Vitals Date Recorded Body height Body mass index (BMI) Body weight Body temperature Heart rate Oxygen saturation Inhaled oxygen flow rate Pain severity - 0-10 verbal numeric rating [Score] - Reported Systolic And Diastolic Provider Name and Address Organization Details Last Updated DateTime 5 167.64 cm 22 kg/m2 98530.5 6 g 96.6 [degF] 86 /min 89 % 3 L/min 5 110/64 mm[Hg] Alma Rosa Adan [place] [employer] 5 14:05:20 Social History Question Answer Notes LastModified by Organization Details LastModified Time Tobacco Smoking Status Former Smoker quit 2011 Not Available [facility] 01/08/2023 00:53:04 Do You Have An Advance Directive? No MIGRATION.356 [id number] Information not available 01/08/2023 Are You Blind Or Do You Have Difficulty Seeing? No MIGRATION.286 [id number] Information not available 01/08/2023 What Is Your Level Of Caffeine Consumption? Occasional MIGRATION.521 [id number] Information not available 01/08/2023 How Much Tobacco Do You Chew? None MIGRATION.477 [id number] Information not available 01/08/2023 In The 14 Days Before Symptom Onset, Have You Had Close Contact With A Laboratory-conf irmed COVID-19 While That Case Was Ill? No MIGRATION.312 [id number] Information not available 01/08/2023 In The 14 Days Before Symptom Onset, Have You Had Close Contact With A Person Who Is Under Investigation For COVID-19 While That Person Was Ill? No MIGRATION.513 [id number] Information not available 01/08/2023 Are You Deaf Or Do You Have Serious Difficulty Hearing? No MIGRATION.233 0815251 Information not available 01/08/2023 What Type Of Diet Are You Following? REGULAR MIGRATION.165 [id number] Information not available 01/08/2023 Which Illicit Or Recreational Drugs Have You Used? Marijuana Occasionally MIGRATION.158 [id number] Information not available 01/08/2023 What Is The Highest Grade Or Level Of School You Have Completed Or The Highest Degree You Have Received? [id number] MIGRATION.124 [id number] Information not available 01/08/2023 Do You Have An Electrostatic Air Filter? No MIGRATION.154 [id number] Information not available 01/08/2023 Have There Been Any Changes To Your Family Or Social Situation? Yes Lost Mother 07/08/2022 MIGRATION.803 [id number] Information not available 01/08/2023 What Is The Fluoride Status Of Your Home? Unknown MIGRATION.687 0150367 Information not available 01/08/2023 When Did You Quit Smoking? 11-15yearscoleen al [email or web address] Information not available 02/13/2023 Are There Any Guns Present In Your Home? No MIGRATION.234 2862337 Information not available 01/08/2023 Do You Have A Humidifier? Yes MIGRATION.341 7157680 Information not available 01/08/2023 Do You Use Insect Repellent Routinely? No MIGRATION.327 8572768 Information not available 01/08/2023 Where Do You Live? [facility] MIGRATION.701 [id number] Information not available 01/08/2023 Are You Able To Care For Yourself? Yes [email or web address] Information not available 06/19/2023 Are You Blind Or Do Yo Have Difficulty Seeing? No [email or web address] Information not available 06/19/2023 Are You Deaf Or Do You Have Serious Difficulty Hearing? No [email or web address] Information not available 06/19/2023 Live Alone Of With Others? With Others [email or web address] Information not available 06/19/2023 Do You Have A Medical Power Of Convention Planner? No MIGRATION.603 4088288 Information not available 01/08/2023 Do You Have Moisture Problems In Your Home? Yes MIGRATION.811 [id number] Information not available 01/08/2023 What Was The Date Of Your Most Recent Tobacco Screening? 09/06/2025 [email or web address] Information not available 09/06/2025 How Many Children Do You Have? 2 MIGRATION.435 [id number] Information not available 01/08/2023 Do You Have Any Pets? Yes Dog [email or web address] Information not available 02/26/2023 What Is Your Relationship Status? Single MIGRATION.647 [id number] Information not available 01/08/2023 Do You Use Your Seat Belt Or Car Seat Routinely? Yes MIGRATION.626 2726494 Information not available 01/08/2023 Do You Have Smoke And Carbon Monoxide Detectors In Your Home? Yes MIGRATION.205 [id number] Information not available 01/08/2023 At What Age Did You Start Smoking Tobacco? 16 MIGRATION.435 7786408 Information not available 01/08/2023 Are You Passively Exposed To Smoke? Yes MIGRATION.847 4979567 Information not available 01/08/2023 Are There Any Smokers In Your House? Yes MIGRATION.904 [id number] Information not available 01/08/2023 How Much Tobacco Do You Smoke? No MIGRATION.503 3319803 Information not available 01/08/2023 What Types Of Sporting Activities Do You Participate In? None MIGRATION.060 5810170 Information not available 01/08/2023 Do You Use Sunscreen Routinely? Yes MIGRATION.293 [id number] Information not available 01/08/2023 How Many Years Have You Smoked Tobacco? 40 MIGRATION.720 4800318 Information not available 01/08/2023 Have You Recently Traveled Abroad? No MIGRATION.335 0166223 Information not available 01/08/2023 Have You Used IV Drugs? No MIGRATION.867 3417167 Information not available 01/08/2023 Do You Have Difficulty Walking Or Climbing Stairs? Yes Gets SOB MIGRATION.501 [id number] Information not available 01/08/2023 Do You Have Any Dietary Restrictions? No MIGRATION.621 3588234 Information not available 01/08/2023 Sex: Female Functional Status Question Answer Note LastModified by [facility] ion Details LastModified Time Do you use any illicit or recreational drugs? Yes MIGRATION.[id number] Information not available 01/08/2023 Do you or have you ever used any other forms of tobacco or nicotine? No MIGRATION.462785 9514 Information not available 01/08/2023 What is your level of alcohol consumption? Occasional MIGRATION.259889 5045 Information not available 01/08/2023 Do you or have you ever used smokeless tobacco? Never used smokeless tobacco MIGRATION.411354 4825 Information not available 01/08/2023 Do you have difficulty doing errands alone? No MIGRATION.184638 8009 Information not available 01/08/2023 What is your occupation? disability MIGRATION.728258 0020 Information not available 01/08/2023 Do you have difficulty dressing, bathing, grooming, or toileting? No MIGRATION.183038 4873 Information not available 01/08/2023 Do you or have you ever used e-cigarettes or vape? Former user of electronic cigarettes MIGRATION.574647 6657 Information not available 01/08/2023 What is your exercise level? Occasional MIGRATION.860270 0045 Information not available 01/08/2023 Mental Status Question Answer Note LastModified by Organizat ion Details LastModified Time Do you feel stressed (tense, restless, nervous, or anxious, or unable to sleep at night)? [id number] MIGRATION.[id number] 26 Information not available 01/08/2023 Do you have difficulty concentrating, remembering or making decisions? No MIGRATION.68661057 26 Information not available 01/08/2023 Family History Relationship Description Onset Age of this Age Resolved Age Notes LastModified by Organization Details LastModified Time Mother Hypertensive disorder MIGRATION.512 [id number] Not available 01/08/2023 00:54:35 Mother Arthritis MIGRATION.641 [id number] Not available 01/08/2023 00:54:35 Mother Atrial fibrillation MIGRATION.148 [id number] Not available 01/08/2023 00:54:35 Mother Malignant neoplasm of brain with mets-- deceas ed MIGRATION.190 [id number] Not available 01/08/2023 00:54:35 Father Diabetes mellitus MIGRATION.083 [id number] Not available 01/08/2023 00:54:35 Father Backache MIGRATION.021 [id number] Not available 01/08/2023 00:54:35 Medical History Condition Response CHEST XRAY N NERVE DISEASE N BLINDNESS N RHEUMATIC FEVER N KIDNEY STONES N BLADDER PROBLEMS N MRSA N CARPAL TUNNEL SYNDROME N OTHER # 1 N POLIO N LUNG DISEASE/DISORDER N HISTORY OF DRUG ABUSE N RADIATION / CHEMOTHERAPY N COPD Y Other # 2 N SPORTS INJURY N ANKLE PAIN N BLOOD DISEASES N SURGERY N EAR OR HEARING PROBLEMS N MUMPS N SCHIZOPHRENIA N SHINGLES N SHOULDER PAIN N FEMALE PROBLEMS / INFECTIONS N DEPRESSION (INCLUDING POST ) Y BOWEL PROBLEMS N STROKE/TIA N CHEST CT N ULCERS N KNEE PAIN Y RENAL INSUFFICIENCY Y BENIGN PROSTATIC HYPERPLASIA N MEASLES N TB SKIN TEST Y HYPOTENSION N MYOCARDIAL INFARCTION N OBESITY N GERD/NAUSEA Y EXCESSIVE PERSPIRATION Y ANEURYSM N URINARY/BLADDER/KIDNEY PROBLEMS N CORONARY ARTERY DISEASE (CAD) N ADDICTION CONCERNS N Impotence N ENDOMETRIOSIS N USE OF BLOOD THINNERS N SKIN PROBLEMS N EMPHYSEMA N SHORTNESS OF BREATH Y GASTROINTESTINAL DISORDER N PARATHYROID DISEASE N PERIPHERAL VASCULAR DISEASE N MUSCLE,JOINT OR BONE PROBLEMS N DVT N STOMACH ULCERS N GASTROINTESTINAL BLEEDING Y BLOOD CLOTS N ASTHMA N CATARACTS N USE OF NSAIDS N CONCUSSION OR SPINAL TRAUMA N ERECTILE DYSFUNCTION N VARICOSITIES N GI PROBLEMS Y CHF N Low Testosterone N NEUROPATHY N INFERTILITY N AIDS/HIV N FRACTURES N CHEMOTHERAPY / RADIATION N LIVER DISEASE N MALE HYPOGONADISM N HYPERTENSION N ELBOW PAIN N Deficiency N TOURETTE'S N Metal allergy N ANXIETY DISORDER N BLOOD TRANSFUSION N ANEMIA/BLOOD DISORDER Y CHRONIC EAR INFECTIONS N BIPOLAR DISORDER N BRONCHITIS Y OSTEOARTHRITIS N TUBERCULOSIS N GLAUCOMA N FOOT PROBLEM N HEART VALVE DISORDERS N DIVERTICULITIS N SLEEP APNEA N CHICKENPOX N SOFT TISSUE INJURY N ALLERGIES/HAYFEVER N INFECTIOUS DISEASE N PROSTATE N HEART ARRHYTHMIA N INSOMNIA N RHEUMATOID ARTHRITIS N HIGH CHOLESTEROL / HYPERLIPIDEMIA N HYPERTHYROIDISM N EYE PROBLEMS N NEUROLOGICAL PROBLEMS N EDEMA N CHRONIC PAIN SYNDROME N HYPOTHYROIDISM Y CAROTID BLOCKAGE N CONSTIPATION N BACK / NECK PROBLEMS N ATHEROSCLEROSIS N BURSITIS N BREAST PROBLEMS N HERNIATED DISC N DIALYSIS N ECZEMA N FIBROMYALGIA N OSTEOPOROSIS N ARTHRITIS Y PERIPHERAL NEUROPATHY N APPENDICITIS N DIABETES, TYPE Y BAD TEETH N ENT N SEASONAL ALLERGIES N HEARTBURN / REFLUX N PLEURISY N ADD/ADHD Y Bronchoscopy N AUTISM SPECTRUM DISORDER (ASD) N HEPATITIS / LIVER DISEASE N PULMONARY DISEASE Y GOUT N SLEEP DISORDER N ALZHEIMER'S DISEASE N Brain Problems N FATIGUE Y HERPES N DEMENTIA N RETINOPATHY N SEIZURES/EPILEPSY N HEADACHES/MIGRAINES Y SLEEP STUDY N VASCULAR DISEASE N PACEMAKER N HIP PAIN N Blood Disorder N DIZZINESS N HEAD TRAUMA OR INJURY N KIDNEY DISEASE Y HEART DISEASE/HEART PROBLEMS N MULTIPLE SCLEROSIS N PULMONARY FUNCTION TEST Y CANCER: SPECIFY N CARDIAC ARRHYTHMIA N PNEUMONIA N ANESTHESIA COMPLICATIONS N ATRIAL FIBRILLATION Y Gall Stones N PULMONARY EMBOLISM N AUTOIMMUNE DISEASE N Gynecological History Statement/Question Response How many live births 2 Date of Last Mammogram 05/28/2021 Date of Last Colonoscopy 01/24/2021 Date of Last Mammogram Most Recent Bone Density Date of LMP Date of Last Pap Current Control Method Menopause Obstetrics History GPAL:G 2 P 2 0 0 2 Type Value Multiple Births 0 Full Term 2 Induced 0 Spontaneous 0 Premature 0 Living 2 Ectopics 0 Total 2 Immunizations Vaccine Type Date Status Note Provider Nam e and Address Organization Details Recorded Time Influenza, MDCK, quadrivalent, PF 3 completed Not Available [facility] 11/04/2023 06:43:40 Influenza, MDCK, quadrivalent, PF 2 completed My Rosenthal RMA ida, [facility] [employer] [facility] 06/08/2024 11:12:47 COVID-19, mRNA, LNP-S, bivalent, PF, 30 mcg/0.3 mL dose 2 completed My Rosenthal RMA null, [facility] [employer] [facility] 06/08/2024 11:12:47 Influenza, split virus, quadrivalent, PF 8 completed My Rosenthal RMA null, [facility] [employer] [facility] 06/08/2024 11:12:47 Influenza, split virus, quadrivalent, PF 1 completed My Rosenthal RMA null, [place] [facility] 06/08/2024 11:12:47 RSV, recombinant, protein subunit RSVpreF, adjuvant reconstituted, 0.5 mL, PF 4 completed My Rosenthal RMA null, [facility] 10/04/2024 16:37:45 [facility]ap 4 [facility] 16:38:03 Influenza, MDCK, trivalent, PF 4 completed My Rosenthal RMA null, [facility] 10/04/2024 16:38:59 COVID-19, mRNA, LNP-S, PF, robe-sucrose, 30 mcg/0.3 mL 4 completed [facility]/04/[facility]24 16:39:20 COVID-19, mRNA, LNP-S, PF, robe-sucrose, 30 mcg/0.3 mL 3 completed Not Available [facility] 09/06/2025 13:54:54 Influenza, split virus, quadrivalent, preservative 8 completed [facility]/08[facility]24 11:12:47 Influenza, split virus, trivalent, preservative 3 completed My Rosenthal RMA null, [facility] 06/08/2024 11:12:47 COVID-19, mRNA, LNP-S, PF, 30 mcg/0.3 mL dose 1 completed My Rosenthal RMA null, [facility] 06/08/2024 11:12:47 influenza, unspecified formulation 1 completed Not Available [facility] 11/04/2023 06:43:40 Influenza, split virus, quadrivalent, preservative 0 completed Not Available [facility] 11/04/2023 06:43:40 Influenza, split virus, quadrivalent, preservative 9 completed Not Available [facility] 11/04/2023 06:43:40 Influenza, split virus, quadrivalent, preservative 6 completed Not Available [facility] 11/04/2023 06:43:40 pneumococcal, unspecified formulation 6 completed [facility] Available [facility] 11/04/2023 06:43:40 Influenza, MDCK, trivalent, PF 3 completed Not Available [facility] 11/04/2023 06:43:40 Pneumococcal Conjugate, unspecified formulation 3 completed Not Available [facility] 11/04/2023 06:43:40 COVID-19, mRNA, LNP-S, PF, 30 mcg/0.3 mL dose 1 completed My Rosenthal RMA null, [place] [employer] 06/08/2024 11:12:47 COVID-19, mRNA, LNP-S, PF, 30 mcg/0.3 mL dose 1 completed My Rosenthal RMA null, [place] [employer] [facility] 06/08/2024 11:12:47 influenza, unspecified formulation 7 completed Not Available [facility] 11/04/2023 06:43:40 Influenza, split virus, trivalent, preservative 7 completed Not Available [facility] 11/04/2023 06:43:40 Influenza, high-dose, trivalent, PF 3 completed My Rosenthal RMA null, [place] [facility] [employer] [facility] 06/08/2024 11:12:47 Influenza, split virus, quadrivalent, preservative 6 completed Not Available [facility] 11/04/2023 06:43:40 pneumococcal polysaccharide PPV23 6 completed Not Available [facility] 11/04/2023 06:43:40 Influenza, split virus, quadrivalent, preservative 7 completed Not Available [facility] 11/04/2023 06:43:40 Influenza, split virus, quadrivalent, PF 5 completed Not Available [facility] 11/04/2023 06:43:40 Influenza, split virus, trivalent, preservative 4 completed My Thor, RMA null, [place] [facility] [employer] [facility] 06/08/2024 11:12:47 Past Encounters Encounter ID Performer Location Encounter Start Date Encounter Closed Date Diagnosis/Indication Diagnosis SNOMED-CT Code Diagnosis ICD10 Code Diagnosis IMO Codes Diagnosis Note [id number] Azar lange MD [facility] Internal Med [address] [facility], [address] [place] [address] 09/06/2025 13:53:08 09/06/2025 14:35:35 Screening - NAD 478517457 Z13.9 C-scope: Dr. Vu 2013 and was normal as per her hx and next 10 years, get records Addendum: 05/23/2021 :Dr De Souza hematology : C-scope 01/24/2021 : Colonic polyps, diverticul osis, internal hhoidsEGD: 01/24/2021 : Hiatal hernia, duodenal AVMCapsule enteroscop y 02/08/2021 : No lesion in small bowel Mammogram: 06/24/17: NegMammogr am: 06/29/18: NegMammogr am: 12/10/2019 : NegMammogr am: 05/28/2201 : NegMammogr am: 09/27/2022 : NegMammogr am: 09/29/2023 : NegMammogr am: 01/25/2025 : Neg PAP: Dr Salguero and was told it was negativeDI d see Sherrie Oh [employer] 08/31/2020 DEXA: 09/27/2022 : negDEXA: 08/31/2025 : Low bone mass, take Ca and Vit D UTD on flu shots 08/17/2024 UTD on pneumonia shotUTD on Tdap 08/04/2024 Can do shingles vaccineUTD COVID 19 vaccine 08/31/2024 UTD on RSV vaccine 08/04/2024 RTC in 3 monthsGet labsER if any symptoms worsen,She did verbalize her understand ing of the above Atrial fibrillation [id number] 6004 I48.91 ECHO: 04/01/17:N Sx FxEF 55%Stage 1 diastolic dysfxTrace MR/TR ECHO 05/08/2020 : EF 55%, Normal LV sx fxUS Carotid 05/08/2020 : Mild plaque, antegrade vertebral flowTelese nse 05/17/2020 : NSR with rare SV ectopics ECHO: 08/08/2023 : EF 55% On ASANot on digoxinOn diltiazem ER 300mg dailyOn losartan 100mg daily, started Dr Kemp 03/23/2021 On magnesium Sees HV Dr Kemp Hyperlipidemia [id number] E78.5 On atorvastat in 40mg daily, used to be on pravastati n in the past, renewed 02/01/2025 More diet is neededCan do vascepa, she has declined this 06/13/2022 , states that she does not want to take more 'pills'Get labs Type 2 vonda betes mellitus without complication [id number] E11.9 On metformin 500mg bidGet labs Chronic ki dney disease 947560319 N18.[address] Hayward, no more apts as per her history 06/19/2023 Anemia 492896222 D64.9 S/p EGD/C-scop e: Dr Montez De Souza hematology 05/22/2021 : C-scope 01/24/2021 : Colonic polyps, diverticul osis, internal hhoidsEGD: 01/24/2021 : Hiatal hernia, duodenal AVMCapsule enteroscop y 02/08/2021 : No lesion in small bowel Dr De Souza 05/22/2022 , 05/23/2023 , was told no more apts needed and has declined any apts today 02/10/2024 Chronic ob structive pulmonary disease [id number] J44.9 S/p D/c on 06/03/2021 LDCT 09/06/2019 s/p PFT 07/23/2021 S/p ECHO 07/17/2021 , EF 55%S/p CT angio 05/31/2021 in ER for SOB, spiculated nodule, mananged by pulmonaryS /p CT chest 09/03/2021 On albuterol MD DONNAIOn budesonide HHNNot on breoOn O2 4LOn dalirespNo t on spirivaNot taking flonaseOn breztriOn roflumilas t 500mcgs daily Seen Gayle Marvin next apt on 09/07/2025 Moderate r ecurrent major depression [id number] F33.1 On sertraline 100mg dailyOn buspirone Sees psychiatry Dr Burt suicidal or homcidial Hypothyroidism 65665974 E03.9 On levothyrox ine 100mcgs daily, renewed 02/01/2025 Does wellGet labs Gastroesop hageal reflux disease without esophagitis [id number] K21.9 On omeprazole 20mg daily PRNTake as needed Migraine 66336487 G43.90 9 On amitryptyl ineDoes well on this Low back pain [id number] M54.[address] Hartman On oxycodone 5/325mg bidOn naloxoneOn tizanidine Has noted some nausea, will get on zofran as needed Liver enzy mes level above reference range [id number] R74.01 GGT 49 09/09/19He patitis panel: Neg 01/19/2020 : Dr Suero, get fibroscan f/u in [address] Guzman T did show hepatomega ly on 09/07/2020 liver 10/30/2023 : Hepatomega lyLFTs WNL 02/09/2024 , Does not want to see Dr Suero, wants to just do the labs 10/04/2024 Vitamin D deficiency [id number] E55.9 On vit d daily, check the vit d level, get on vit d weekly and repeat the vit d level Nausea [id number] R11.0 None now, but she has taken zofran in the past, will renew as per her request 06/08/2024 Bilateral chronic pain of upper limbs [id number] M25.511 M25.512 G89.[id number] Rivas's PA and no more apts nowAlso get labs Screening for malignant neoplasm of colon [id number] Z12.11 250095 Rheumatoid arthritis of multiple joints [id number] M05.79 [id number] Get a referral to rhumatolog ist Spoke personally with Dr Ramires has an apt on 09/15/2025 Health Concerns Section Related Observation LastModified by Organization Detai ls LastModified Time None Recorded Concern Status LastModified by Organization Details LastModified Time None Recorded Payers Encounter Date Sequence Insurance Name Policy Number Policy Ocasio Covered Member ID Ocasio Member ID Guarantor Name 09/06/2025 1 [facility] (MEDICARE REPLACEMENT/A DVANTAGE - HMO) [id number] Lulu Elam [id number] Lulu A Papa Notes Date Note Type Note Provider Name and Address Organization Details Recorded Time 09/06/2025 text/html OV 04/17/17:COPD:LBP:Dep ressive disorder:Hypothyroidi sm:A.fib:RLS: OV 07/24/17:She states that she is doing well and is here to review the above, is here to see about the labs OV 11/13/17:Here for her 3 months apt, she states that she did not do the labs but feels that she is doing wellShe states that she would like a referral to a medical marijuana programShe states that she is agreeable to see a psychiatrist now, as she would like to be referred to psychiatry as then she could get the medical marijuana OV 01/15/18:Here for her one month apt, she states that she did dot her labs and is here to review these Today 04/21/18:Here for her routine aptShe states that she did not do the labs as she is worried if her 'insurance will pay for it' OV 10/20/18:Here for her routine aptShe states that she is doing wellShe did see Gayle Marvin and was put on levaquin and prednisone for bronchitis recently, is doing very well nowShe has also seen Dr Mabry and Dr Narayan does need to do labs OV 04/20/19:Here for his routine aptShe did do the labsShe is also here for her MWVShe feels really well, but she does want to get a 'cream' for her rash OV 08/24/19:Here for her routine aptNo recent labs since 04/15/19Feels well OV 10/19/19:S/p fall and fractue of the L forearmS/p ORIFIs doing well OV 03/09/2020:Televisit, she is agreeable to do the televisitShe states that she is doing well todayNo recent labs OV 06/08/2020:Here for her routine aptShe did do the labsShe also seen by Dr Hung feels well today OV 09/05/2020:Here for her routine aptShe is doing wellShe is to labs next weekShe did see Alycia Oh also OV 12/06/2020:Here for her routine aptShe is doing very wellShe was diagnosed with COVID 19 in October and is now doing well, still has some SOB, but this is at her baseline and she does use her nebulizerShe is on the O2She has not yet done the labs OV 04/05/2021:Here for her routine aptShe is doing well, she states that her SOB is at baselineShe did do the labsShe has also seen [facility] Dr Kemp and is now to get a holter OV 06/12/2021:Here for her TCM aptS/p admitted from 05/31-06/03 for COPD exacerbationNot does wellWas treated with dalirespHas an apt with Gayle Reyna [employer] pulmonary OV 08/09/2021:Here for her routine aptShe feels Amy did do the labs on 07/11/2021he did see Gayle Reyna and now has been referred to [facility] for a lung transplant OV 01/17/2022:Here for her routine aptShe is doing well, c/o R knee pain, wants a referral to Dr Scanlon on 12/10/2021 OV 06/13/2022:Here for her routine and MWVShe is doing wellShe did do the labs on 05/14/2022 OV 09/12/2022:Here for her f/u apt, she feels well, she did do the labs OV 02/13/2023:Here for her f/u apt, she is doing well, states that she is trying to lose weight, labs done on 02/10/2023 OV 06/19/2023: Here for her f/u apt., she is doing well today OV 10/14/2023: Here for her routine apt, she feels well OV 02/10/2024: Here for her routine apt, she is doing well today, she did do the labs on 02/09/2024, s/p fall and 'scraped' her L elbow OV 06/08/2024: Here for her f/u apt, she is doing well today, she did the labs on 06/07/2024 OV 10/04/2024: Here for her routine apt, she is doing well today OV 02/01/2025: Here for her routine apt she is now on Breztri and has seen Gayle CAMPBELL for her lungs, is done with prednisone, is to see Gayle Reyna NP on 02/22/2025 OV 04/19/2025:Here for her f/u apt, she is c/o kristofer shoulder and wrists and R hipHas seen pain management and she states that she does take the oxycodone but she does only take this once a day OV 09/06/2025: Here for her f/u apt, she is doing well, has done labs, but has not yet seen Gayle Reyna NP, she is also seeing pain management Azar Zurita MD [address] [place] [address], [place] [address], [place], [address], [facility] 09/07/2025 10:40:10 OBGyn Episode No OBEpisode recorded.
--- OUTSIDE RECORDS SUMMARY | 2025-10-29 21:51 | XMS_ITS | Encounter Summary ---
Author Organization [facility] , [facility] Address [address] [place] [phone] Phone Care Team Providers Care Paper Pattern Folder Name Role Phone Azar Zurita MD Primary Care Provider [phone] Reason for Visit * Reason Comments Med Refill Encounter Details Date Type Department Care Team (Late st Contact Info) Description 07/03/2021 Refill [facility], [facility] [address] [place] [phone] [place] [address] [place] [phone] Social History Tobacco Use Types Packs/Day [...] on filedocumented in this encounter Care Teams Paper Pattern Folder Relationship Specialty Start Date End Date Azar Zurita MD [address], [address] [place] [address] PCP - General Internal Medicine 07/17/21 documented as of this encounter
--- OUTSIDE RECORDS SUMMARY | 2025-10-29 21:52 | XMS_ITS | Data Portability ---
Author Organization [place] [facility], Main Office Address [address] [place] [address] Care Team Providers Care Condenser Operator Name Role Phone BETTINA ZURITA Primary Care Provider BETTINA ZURITA Referring Provider [facility] Lawn Mower Sharpener HARVEY REYNA Experimental Mechanic Electrical Assessment Encounter Date Assessment Date Assessment LastModified by Organization Details LastModified Time 06/08/2024 06/08/2024 02/10/2023: A1C 5.7 TSH 0.420L, FT4: WNL Urine micro alb 24.6 CMP/Lipids/CB C: WNL 06/17/2023: A1C 5.6 TSH 0.319L Gluc 103 TG 157 02/09/2024: A1C 5.5 Gluc 107 06/07/2024: A1C 5.6 Urine micro alb 37.4 Gluc 114, ALP 128 45 minutes spent with the patient [email or web address] Not available 06/08/2024 11:16:33 10/04/2024 10/04/2024 02/10/2023: A1C 5.7 TSH 0.420L, FT4: WNL Urine micro alb 24.6 CMP/Lipids/CB C: WNL 06/17/2023: A1C 5.6 TSH 0.319L Gluc 103 TG 157 02/09/2024: A1C 5.5 Gluc 107 06/07/2024: A1C 5.6 Urine micro alb 37.4 Gluc 114, ALP 128 09/16/2024: Gluc 110. ALP 129 A1C 5.9 TSH 0.430L, FT4 1.70 45 minutes spent with the patient, labs reviewed, chart updated [facility] Not available 10/04/2024 17:44:17 02/01/2025 02/01/2025 02/10/2023: A1C 5.7 TSH 0.420L, FT4: WNL Urine micro alb 24.6 CMP/Lipids/CB C: WNL 06/17/2023: A1C 5.6 TSH 0.319L Gluc 103 TG 157 02/09/2024: A1C 5.5 Gluc 107 06/07/2024: A1C 5.6 Urine micro alb 37.4 Gluc 114, ALP 128 09/16/2024: Gluc 110. ALP 129 A1C 5.9 TSH 0.430L, FT4 1.70 01/27/2025: A1C 5.9 45 minutes spent with the patient, labs reviewed, chart updated [facility] Not available 01/30/2025 12:58:53 04/19/2025 04/19/2025 02/10/2023: A1C 5.7 TSH 0.420L, FT4: WNL Urine micro alb 24.6 CMP/Lipids/CB C: WNL 06/17/2023: A1C 5.6 TSH 0.319L Gluc 103 TG 157 02/09/2024: A1C 5.5 Gluc 107 06/07/2024: A1C 5.6 Urine micro alb 37.4 Gluc 114, ALP 128 09/16/2024: Gluc 110. ALP 129 A1C 5.9 TSH 0.430L, FT4 1.70 01/27/2025: A1C 5.9 45 minutes spent with the patient,refer ral provided, personally called and discussed her care with Dr Rivas, chart updated, seen at 11.00am, left at 11.50am [email or web address] Not available 04/19/2025 13:54:05 09/06/2025 09/06/2025 02/10/2023: A1C 5.7 TSH 0.420L, [...] RF 54.9H, Anti CCP: 118H NHAN: Neg [email or web address] Not available 09/07/2025 10:28:07 Plan of Treatment Reminders Order Date Submit Date Provider Last Modified By Organization Details Last Modified Time Details Appointments Any 2025 01:00P Ti hagen MD Not available Not available Not available Any 15 2025 01:00P Ti hagen MD Not available Not available Not available Lab lipid panel, serum [address] (Lab), [address] [place], [address], 09/06/2025 14:33:07 CMP, serum or plasma [address] (Lab), [address] [place], [address], 09/06/2025 14:33:08 CBC w/ auto diff [address] (Lab), [address] [place], [address], 09/06/2025 14:33:08 TSH, serum or plasma [address] (Lab), [address] [place], [address], 09/06/2025 14:33:09 vitamin D, 25-hydrox y, total, serum [address] (Lab), [address] [place], [address], 09/06/2025 14:33:08 glycohemo globin, total, blood [address] (Lab), [address] [place], [address], 09/06/2025 14:33:08 microalbu min, urine [address] (Lab), [address] [place], [address], 09/06/2025 14:33:08 lipid panel, serum [address] (Lab), [address] [place], [address], 10/17/2025 10:10:09 CMP, serum or plasma [address] (Lab), [address] [place], [address], 10/17/2025 10:10:09 CBC w/ auto diff [address] (Lab), [address] [place], [address], 10/17/2025 10:10:10 TSH, serum or plasma [address] [place] [address] (Lab), [address] [place], [address], 10/17/2025 10:10:10 vitamin D, 25-hydrox y, total, serum [address] (Lab), [address] [place], [address], 10/17/2025 10:10:10 C-reactiv e protein, quantitat wayne, serum or plasma [address] (Lab), [address] [place], [address], 10/25/2025 17:54:59 NHAN (antinucl ear antibodie s) screen, serum [address] (Lab), [address] [place], [address], 10/25/2025 17:54:59 rf (rheumato id factor), serum [address] (Lab), [address] [place], [address], 10/25/2025 17:54:59 ccp (cyclic citrullin ated peptide) iga+igg, serum [address] (Lab), [address] [place], [address], 10/25/2025 17:55:00 glycohemo globin, total, blood [address] (Lab), [address] [place], [address], 10/17/2025 10:10:10 microalbu min, urine [address] (Lab), [address] [place], [address], 10/17/2025 10:10:10 lipid panel, serum [address] (Lab), [address] [place], [address], 08/02/2025 09:19:31 CMP, serum or plasma [address] (Lab), [address] [place], [address], 08/02/2025 09:19:31 CBC w/ auto diff [address] (Lab), [address] [place], [address], 08/02/2025 09:19:32 TSH, serum or plasma [address] (Lab), [address] [place], [address], 08/02/2025 09:19:32 vitamin D, 25-hydrox y, total, serum [address] (Lab), [address] [place], [address], 08/02/2025 09:19:32 glycohemo globin, total, blood [address] (Lab), [address] [place], [address], 08/02/2025 09:19:32 microalbu min, urine [address] (Lab), [address] [place], [address], 08/02/2025 09:19:32 vitamin D, 25-hydrox y, total, serum 2023 024 ALFIE [facility] (Lab), [address] [place], [address], 01/28/2025 09:14:07 glycohemo globin, total, blood [address] (Lab), [address] [place], [address], 04/06/2025 08:37:23 microalbu min, urine 2023 024 [facility] (Lab), [address] [place], [address], 01/28/2025 09:14:08 lipid panel, serum 2023 024 [facility] (Lab), [address] [place], [address], 01/28/2025 09:14:05 CMP, serum or plasma 2023 024 [facility] (Lab), [address] [place], [address], 01/28/2025 09:14:03 CBC w/ auto diff [address] (Lab), [address] [place], [address], 04/06/2025 08:37:22 TSH, serum or plasma [address] (Lab), [address] [place], [address], 04/06/2025 08:37:22 vitamin D, 25-hydrox y, total, serum 2023 024 [facility] (Lab), [address] [place], [address], 09/17/2024 11:51:22 glycohemo globin, total, blood 2023 024 [facility] (Lab), [address] [place], [address], 06/17/2024 23:07:53 microalbu min, urine 2023 024 [facility] (Lab), [address] [place], [address], 06/17/2024 23:07:52 lipid panel, serum 2023 024 [facility] (Lab), [address] [place], [address], 06/17/2024 23:07:51 CMP, serum or plasma 2023 024 [facility] (Lab), [address] [place], [address], 06/17/2024 23:07:51 CBC w/ auto diff 2023 024 [facility] (Lab), [address] [place], [address], 06/17/2024 23:07:52 TSH, serum or plasma 2023 024 [facility] (Lab), [address] [place], [address], 06/17/2024 23:07:53 Referral cardiolog ist referral - Please call patient to schedule an appointme nt. Thank you. 2024 025 [email or web address] Tj Kemp MD, [address] [facility], [address], [place], [address], 09/06/2025 14:52:58 podiatris t referral - Please call patient to schedule an appointme nt. Thank you. 2024 025 [email or web address] Branden East DPM, [address] [facility], [address], [place], [address], 09/06/2025 14:52:28 diabetic ophthalmo logy referral - Please call patient to schedule an appointme nt. Thank you. 2024 025 [email or web address] [employer], [address], [place], [address], 09/06/2025 14:52:57 rheumatol ogist referral - Please call patient to schedule. 2024 025 CHRISTOPHER Gaviria MD, [address], [address], [place], [address], 09/08/2025 15:10:55 orthopedi c surgeon referral - Please call patient to schedule an appointme nt. Thank you. 2024 025 ALFIE Rivas, [address], [address], [place], [address], 05/12/2025 16:46:06 cardiolog ist referral - Please call patient to schedule an appointme nt. Thank you. 2024 025 [email or web address] Kemp MD, [address], [address], [place], [address], 07/28/2025 08:40:11 podiatris t referral - Please call patient to schedule an appointme nt. Thank you. 2024 025 [email or web address] East DPM, [address], [address], [place], [address], 07/21/2025 15:37:08 diabetic ophthalmo logy referral - Please call patient to schedule an appointme nt. Thank you. 2024 025 [email or web address] [employer], [address], [place], [address], 07/21/2025 15:37:09 cardiolog ist referral - Please call patient to schedule an appointme nt. Thank you. 2024 025 sigifredo Kemp MD, [address], [address], [place], [address], 05/03/2025 10:14:01 podiatris t referral - Please call patient to schedule an appointme nt. Thank you. 2024 025 sigifredo East DPM, [address], [facility] [address], [place], [address], 05/03/2025 10:13:59 diabetic ophthalmo logy referral - Please call patient to schedule an appointme nt. Thank you. 2024 025 sigifredo Main MD, [address] [facility] [address], [address], 05/03/2025 10:13:59 cardiolog ist referral - Please call patient to schedule. 2023 024 sigifredo Kemp MD, [address] [facility], [facility] [address], [place], [address], 07/06/2025 08:17:38 podiatris t referral - Please call patient to schedule. 2023 024 sigifredo East DPM, [address], [facility] [address], [place], [address], 07/06/2025 08:17:38 diabetic ophthalmo logy referral 2023 024 [email or web address] Nettie Main MD, [address] [facility] [address], [address], 10/06/2024 14:46:29 pulmonolo gist referral [address] [facility] [place]-, [address] [facility], [address], [place], [address], 10/06/2024 14:47:43 cardiolog ist referral 2023 024 [email or web address] Kemp MD, [address], [facility] [address], [place], [address], 12/06/2024 12:09:14 podiatris t referral 2023 024 [email or web address] East DPM, [address], [address], [place], [address], 12/06/2024 12:09:12 diabetic ophthalmo logy referral 2023 024 [email or web address] Nettie Main MD, [address] [facility], [address], [place], [address], 12/06/2024 12:09:13 pulmonolo gist referral 2023 [email or web address] [facility] [place]-, [address] [facility] [address], [address], [place], [address], 07/07/2024 14:15:58 Procedures colonosco py screening (PROC) - Please call patient to schedule an appointme nt. Thank you. 2024 025 [email or web address] Sheldon jackson MD, [address], [address], [place], [address], 09/06/2025 14:51:39 upper endoscopy procedure (EGD) (PROC) - Please call patient to schedule an appointme nt. Thank you. 2024 025 [email or web address] Sheldon jackson MD, [address], [address], [place], [address], 09/06/2025 14:51:21 colonosco py screening (PROC) - Please call patient to schedule an appointme nt. Thank you. 2024 025 [email or web address] Sheldon jackson MD, [address], [address], [place], [address], 07/25/2025 08:52:45 upper endoscopy procedure (EGD) (PROC) - Please call patient to schedule an appointme nt. Thank you. 2024 025 [email or web address] Sheldon jackson MD, [address], [address], [place], [address], 07/25/2025 08:52:27 Surgeries None recorded. Imaging bone density - Please call patient to schedule. [address], [address], [place], [address], 04/19/2025 14:11:24 bone density - Please call patient to schedule. [address], [address], [place], [address], 05/03/2025 16:56:22 MAMMO, screening , digital, bilateral [address] ([facility]), [address] [place], [address], 10/05/2024 18:20:55 DEXA, axial skeleton [address] ([facility]), [address] [place], [address], 10/05/2024 18:21:27 MAMMO, screening , digital, bilateral [address] ([facility]), [address] [place], [address], 10/11/2024 16:49:00 DEXA, axial skeleton [address] ([facility]), [address] [place], [address], 12/20/2024 17:19:41 Medication Orders ondansetr on 4 mg disintegr ating tablet 2024 025 [id number], [address] , [place], [place], [id number], 04/19/2025 12:47:22 atorvasta tin 40 mg tablet 2024 025 [id number], [address], [place], [place], [id number], 04/19/2025 12:47:25 atorvasta tin 40 mg tablet 2024 025 [facility] #[id number], [address], [place], [place], [id number], 02/01/2025 15:40:20 levothyro xine 100 mcg tablet 2024 025 [facility] #[id number], [address], [place], [place], [id number], 02/01/2025 15:40:22 ondansetr on 4 mg disintegr ating tablet 2023 024 [facility] #[id number], [address], [place], [place], [id number], 06/08/2024 11:56:33 Patient TargetsNo targets recorded. Patient InstructionsNo instructions recorded. Reason for Referral Lining Vamper Referral for Type 2 diabetes mellitus without complication Referring Physician: Bettina Zurita Internal Medicine, Encounter Date: 06/08/2024 Diabetic Ophthalmology Refer ral for Type 2 diabetes mellitus without complication Referring Physician: Bettina Zurita Internal Medicine, Encounter Date: 06/08/2024 Experimental Mechanic Electrical Referral for C hronic obstructive pulmonary disease Referring Physician: Bettina Zurita Internal Medicine, Encounter Date: 06/08/2024 Farm Marketer Referral for At rial fibrillation Referring Physician: Bettina Zurita Internal Medicine, Encounter Date: 06/08/2024 Lining Vamper Referral for Type 2 diabetes mellitus without complication Please call patient to schedule. Referring Physician: Bettina Zurita Internal Medicine, Encounter Date: 10/04/2024 Diabetic Ophthalmology Refer ral for Type 2 diabetes mellitus without complication Referring Physician: Bettina Zurita Internal Medicine, Encounter Date: 10/04/2024 Experimental Mechanic Electrical Referral for C hronic obstructive pulmonary disease Referring Physician: Bettina Zurita Internal Medicine, Encounter Date: 10/04/2024 Farm Marketer Referral for At rial fibrillation Please call patient to schedule. Referring Physician: Bettina Zurita Internal Medicine, Encounter Date: 10/04/2024 Lining Vamper Referral for Type 2 diabetes mellitus without complication Please call patient to schedule an appointment. Thank you. Referring Physician: Bettina Zurita Internal Medicine, Encounter Date: 02/01/2025 Diabetic Ophthalmology Refer ral for Type 2 diabetes mellitus without complication Please call patient to schedule an appointment. Thank you. Referring Physician: Bettina Zurita Internal Medicine, Encounter Date: 02/01/2025 Farm Marketer Referral for At rial fibrillation Please call patient to schedule an appointment. Thank you. Referring Physician: Daniel Ugalde Medicine, Encounter Date: 02/01/2025 Lining Vamper Referral for Type 2 diabetes mellitus without complication Please call patient to schedule an appointment. Thank you. Referring Physician: Bettina Zurita Internal Medicine, Encounter Date: 04/19/2025 Diabetic Ophthalmology Refer ral for Type 2 diabetes mellitus without complication Please call patient to schedule an appointment. Thank you. Referring Physician: Bettina Zurita Internal Medicine, Encounter Date: 04/19/2025 Farm Marketer Referral for At rial fibrillation Please call patient to schedule an appointment. Thank you. Referring Physician: Bettina Zurita Internal Medicine, Encounter Date: 04/19/2025 Orthopedic Surgeon Referral for Bilateral chronic pain of upper limbs Please call patient to schedule an appointment. Thank you. Referring Physician: Bettina Zurita Internal Medicine, Encounter Date: 04/19/2025 Lining Vamper Referral for Type 2 diabetes mellitus without complication Please call patient to schedule an appointment. Thank you. Referring Physician: Bettina Zurita Internal Medicine, Encounter Date: 09/06/2025 Diabetic Ophthalmology Refer ral for Type 2 diabetes mellitus without complication Please call patient to schedule an appointment. Thank you. Referring Physician: Bettina Zurita, Internal Medicine, Encounter Date: 09/06/2025 Farm Marketer Referral for At rial fibrillation Please call patient to schedule an appointment. Thank you. Referring Physician: Bettina Zurita Internal Medicine, Encounter Date: 09/06/2025 Dog Boarder Referral for Rheumatoid arthritis of multiple joints Please call patient to schedule. Referring Physician: Bettina Zurita, Internal Medicine, Encounter Date: 09/06/2025 Results Created Date Observation Date Name Description Value Unit Range Abnormal Flag Note LastModifiedBy Organization Detail LastModifiedTime 06/07/2006/07/2024 LIPID PANEL cholesterol 116 mg/dL 140-19 9 low [facility] NSUS RECOM MENDA TION FOR MAGALI STERO L: ADULT CHILD LOW RISK: <200 <170 BORDE RLINE : <200- 239 ----- HIGH RISK: >240 >200 Not Available [facility] (Lab) [address] [place], [address], 06/07/2024 10:58:25 06/07/20 24 06/07/2024 LIPID PANEL triglyceride s 102 mg/dL 0-150 [facility] NSUS REPOR T RECOM MENDA TION FOR TRIGL YCERI REINIER: ADULT CHILD LOW RISK: <150 ----- BODER LINE: 150-1 99 ----- HIGH RISK: >200 ----- Not Available [facility] (Lab) [address] [place], [address], 06/07/2024 10:58:25 06/07/20 24 06/07/2024 LIPID PANEL HDL cholesterol 71 mg/dL 40- Not Available [facility] (Lab) [address] [place], [address], 06/07/2024 10:58:25 06/07/20 24 06/07/2024 LIPID PANEL LDL cholesterol, calculated 25 mg/dL 0-130 [facility] NSUS REPOR T RECOM MENDA TIONS FOR LDL: ADULT CHILD LOW RISK <130 <110 (OPTI MAL LDL) <100 ----- BORDE RLINE : 130-1 59 ----- HIGH RISK: >160 >130 A TRIGL YCERI DE RESUL T >400 INVAL IDATE S THE CALCU LATIO N FOR LDL FRACT IONAT ION - THE LDL RESUL T WILL NOT BE REPOR TANIA. Not Available [facility] (Lab) [address] [place], [address], 06/07/2024 10:58:25 06/07/20 24 06/07/2024 COMPR EHENS WAYNE METAB OLIC PANEL sodium 139 mmol/ L 137-14 5 Not Available [facility] (Lab) [address] [place], [address], 06/07/2024 10:58:31 06/07/20 24 06/07/2024 COMPR EHENS WAYNE METAB OLIC PANEL potassium 4.2 mmol/ L 3.5-5. 1 Not Available [facility] (Lab) [address] [place], [address], 06/07/2024 10:58:31 06/07/20 24 06/07/2024 COMPR EHENS WAYNE METAB OLIC PANEL chloride 105 mmol/ L 98-107 Not Available [facility] (Lab) [address] [place], [address], 06/07/2024 10:58:31 06/07/20 24 06/07/2024 COMPR EHENS WAYNE METAB OLIC PANEL carbon dioxide 30 mmol/ L 22-30 Not Available [facility] (Lab) [address] [place], [address], 06/07/2024 10:58:31 06/07/20 24 06/07/2024 COMPR EHENS WAYNE METAB OLIC PANEL anion gap 8.2 mmol/ L 14-22 low Not Available [facility] (Lab) [address] [place], [address], 06/07/2024 10:58:31 06/07/20 24 06/07/2024 COMPR EHENS WAYNE METAB OLIC PANEL glucose 114 mg/dL 70-99 high Not Available [facility] (Lab) [address] [place], [address], 06/07/2024 10:58:31 06/07/20 24 06/07/2024 COMPR EHENS WAYNE METAB OLIC PANEL BUN 9 mg/dL 8-19 Not Available [facility] (Lab) [address] [place], [address], 06/07/2024 10:58:31 06/07/20 24 06/07/2024 COMPR EHENS WAYNE METAB OLIC PANEL creatinine 0.72 mg/dL 0.66-1 .25 Not Available [facility] (Lab) [address] [place], [address], 06/07/2024 10:58:31 06/07/20 24 06/07/2024 COMPR EHENS WAYNE METAB OLIC PANEL GFR >60 Refer ence Range : Turner ge GFR Healt hy Adult : >60 mL/mi n/1.7 3 m2 Chron ic Kidne y Disea se: 15-60 mL/mi n/1.7 3 m2 Kidne y Failu re: <15/m L/min /1.73 m2 www.n iddk. nih.g ov The MDRD study equat ion has not been valid ated in child shantanu <18 years of age; pregn ant women ; the elder ly >85 years of age; or in some racia l or ethni c subgr oups, such as Hispa nics. Outsi de the valid ated barrington eters , estim ated GFR is less accur ate, requi ring clini josephine judgm ent on a case- by-ca se basis . Clini josephine inter preta tion for other races and ages must be made by the clini tea. The MDRD study equat ion has not been valid ated for the evalu ation of serum creat inine relat ed to nutri fanny l statu s or medic ation usage . For perso ns <18 years of age, a pedia tric GFR calcu lator is avail able on the [facility] websi te: https ://festus w.irina juarezy.o rg/pr ofess ional s/kdo qi/gf r_cal culat or Not Available [facility] (Lab) [address] [place], [address], 06/07/2024 10:58:31 06/07/20 24 06/07/2024 COMPR EHENS WAYNE METAB OLIC PANEL alkaline phosphatase 128 U/L 38-126 high Not Available [facility] (Lab) [address] [place], [address], 06/07/2024 10:58:31 06/07/20 24 06/07/2024 COMPR EHENS WAYNE METAB OLIC PANEL alanine aminotransfe rase 11 U/L 0-35 Not Available [facility] (Lab) [address] [place], [address], 06/07/2024 10:58:31 06/07/20 24 06/07/2024 COMPR EHENS WAYNE METAB OLIC PANEL aspartate aminotransfe rase 24 U/L 15-37 Not Available [facility] (Lab) [address] [place], [address], 06/07/2024 10:58:31 06/07/20 24 06/07/2024 COMPR EHENS WAYNE METAB OLIC PANEL bilirubin, total 0.40 mg/dL 0.20-1 .30 Not Available [facility] (Lab) [address] [place], [address], 06/07/2024 10:58:31 06/07/20 24 06/07/2024 COMPR EHENS WAYNE METAB OLIC PANEL calcium 9.6 mg/dL 8.4-10 .2 Not Available [facility] (Lab) [address] [place], [address], 06/07/2024 10:58:31 06/07/20 24 06/07/2024 COMPR EHENS WAYNE METAB OLIC PANEL total protein 7.0 g/dL 6.3-8. 2 Not Available [facility] (Lab) [address] [place], [address], 06/07/2024 10:58:31 06/07/20 24 06/07/2024 COMPR EHENS WAYNE METAB OLIC PANEL albumin 4.3 g/dL 3.4-5. 0 Not Available [facility] (Lab) [address] [place], [address], 06/07/2024 10:58:31 06/07/20 24 06/07/2024 COMPR EHENS WAYNE METAB OLIC PANEL globulin 2.7 g/dL 2.6-4. 2 Not Available [facility] (Lab) [address] [place], [address], 06/07/2024 10:58:31 06/07/20 24 06/07/2024 COMPR EHENS WAYNE METAB OLIC PANEL A/G ratio 1.6 ratio 1.0-2. 0 Not Available [facility] (Lab) [address] [place], [address], 06/07/2024 10:58:31 06/07/20 24 06/07/2024 MICRO ALBUM IN RANDO M URINE microalbumin , urine 37.4 mg/L 0.0-16 .6 high Not Available [facility] (Lab) [address] [place], [address], 06/07/2024 10:58:46 06/07/20 24 06/07/2024 CBC/C OMPLE TE BLD COUNT W/DIF F white blood cells 5.8 x10'3 /uL 4.2-10 .8 Not Available [facility] (Lab) [address] [place], [address], 06/07/2024 11:02:30 06/07/20 24 06/07/2024 CBC/C OMPLE TE BLD COUNT W/DIF F red blood cells 4.61 x10'6 /uL 3.80-5 .20 Not Available [facility] (Lab) [address] [place], [address], 06/07/2024 11:02:30 06/07/20 24 06/07/2024 CBC/C OMPLE TE BLD COUNT W/DIF F hemoglobin 13.5 g/dL 12.0-1 5.6 Not Available [facility] (Lab) [address] [place], [address], 06/07/2024 11:02:30 06/07/20 24 06/07/2024 CBC/C OMPLE TE BLD COUNT W/DIF F hematocrit 42.2 % 35.7-4 5.7 Not Available [facility] (Lab) [address] [place], [address], 06/07/2024 11:02:30 06/07/20 24 06/07/2024 CBC/C OMPLE TE BLD COUNT W/DIF F mean red cell volume 91.5 fL 82.0-9 9.0 Not Available [facility] (Lab) [address] [place], [address], 06/07/2024 11:02:30 06/07/20 24 06/07/2024 CBC/C OMPLE TE BLD COUNT W/DIF F mean red cell hemoglobin 29.3 pg 27.0-3 3.0 Not Available [facility] (Lab) [address] [place], [address], 06/07/2024 11:02:30 06/07/20 24 06/07/2024 CBC/C OMPLE TE BLD COUNT W/DIF F mean RBC HGB concentratio n 32.0 g/dL 31.0-3 6.0 Not Available [facility] (Lab) [address] [place], [address], 06/07/2024 11:02:30 06/07/20 24 06/07/2024 CBC/C OMPLE TE BLD COUNT W/DIF F red cell distribution width 12.4 % 11.8-1 5.5 Not Available [facility] (Lab) [address] [place], [address], 06/07/2024 11:02:30 06/07/20 24 06/07/2024 CBC/C OMPLE TE BLD COUNT W/DIF F platelets 285 x10'3 /uL 150-40 0 Not Available [facility] (Lab) [address] [place], [address], 06/07/2024 11:02:30 06/07/20 24 06/07/2024 CBC/C OMPLE TE BLD COUNT W/DIF F mean platelet volume 11.3 fL 9.0-12 .4 Not Available [facility] (Lab) [address] [place], [address], 06/07/2024 11:02:30 06/07/20 24 06/07/2024 CBC/C OMPLE TE BLD COUNT W/DIF F neutrophils 58.0 % 39.0-7 2.0 Not Available [facility] (Lab) [address] [place], [address], 06/07/2024 11:02:30 06/07/20 24 06/07/2024 CBC/C OMPLE TE BLD COUNT W/DIF F lymphocytes 28.9 % 16.0-4 7.0 Not Available [facility] (Lab) [address] [place], [address], 06/07/2024 11:02:30 06/07/20 24 06/07/2024 CBC/C OMPLE TE BLD COUNT W/DIF F monocytes 7.6 % 5.0-12 .0 Not Available [facility] (Lab) [address] [place], [address], 06/07/2024 11:02:30 06/07/20 24 06/07/2024 CBC/C OMPLE TE BLD COUNT W/DIF F eosinophils 4.5 % 1.0-7. 0 Not Available [facility] (Lab) [address] [place], [address], 06/07/2024 11:02:30 06/07/20 24 06/07/2024 CBC/C OMPLE TE BLD COUNT W/DIF F basophils 0.7 % 0.0-2. 0 Not Available [facility] (Lab) [address] [place], [address], 06/07/2024 11:02:30 06/07/20 24 06/07/2024 CBC/C OMPLE TE BLD COUNT W/DIF F immature granulocytes 0.3 % 0.00-0 .50 Not Available [facility] (Lab) [address] [place], [address], 06/07/2024 11:02:30 06/07/20 24 06/07/2024 CBC/C OMPLE TE BLD COUNT W/DIF F neutrophils, absolute count 3.38 x10'3 /uL 1.5-8. 0 Not Available [facility] (Lab) [address] [place], [address], 06/07/2024 11:02:30 06/07/20 24 06/07/2024 CBC/C OMPLE TE BLD COUNT W/DIF F lymphocytes, absolute count 1.68 x10'3 /uL 1.07-3 .43 Not Available [facility] (Lab) [address] [place], [address], 06/07/2024 11:02:30 06/07/20 24 06/07/2024 CBC/C OMPLE TE BLD COUNT W/DIF F monocytes, absolute count 0.44 x10'3 /uL 0.29-0 .99 Not Available [facility] (Lab) [address] [place], [address], 06/07/2024 11:02:30 06/07/20 24 06/07/2024 CBC/C OMPLE TE BLD COUNT W/DIF F eosinophils, absolute count 0.26 x10'3 /uL 0.02-0 .53 Not Available [facility] (Lab) [address] [place], [address], 06/07/2024 11:02:30 06/07/20 24 06/07/2024 CBC/C OMPLE TE BLD COUNT W/DIF F basophils, absolute count 0.04 x10'3 /uL 0.01-0 .08 Not Available [facility] (Lab) [address] [place], [address], 06/07/2024 11:02:30 06/07/20 24 06/07/2024 CBC/C OMPLE TE BLD COUNT W/DIF F immature granulocytes ,absolute 0.02 x10'3 /uL 0.00-0 .05 Not Available [facility] (Lab) [address] [place], [address], 06/07/2024 11:02:30 06/07/20 24 06/07/2024 CBC/C OMPLE TE BLD COUNT W/DIF F nucleated red blood cells 0.0 % -0 Not Available [facility] (Lab) [address] [place], [address], 06/07/2024 11:02:30 06/07/20 24 06/07/2024 CBC/C OMPLE TE BLD COUNT W/DIF F NRBC# 0.00 x10'3 /uL Not Available [facility] (Lab) [address] [place], [address], 06/07/2024 11:02:30 06/07/20 24 06/07/2024 VITAM IN D 25-HY DROXY vd25oh 45.3 NG/mL 30-100 Vitam in D Statu s: Defic ient: <20 ng/mL Insuf ficie nt: 20-29 ng/mL Suffi cient : 30-10 0 ng/mL Not Available [facility] (Lab) [address] [place], [address], 06/07/2024 11:14:40 06/07/20 24 06/07/2024 TSH W/REF BRENDEN FT4 TSH with reflex free T4 0.521 uIU/m L 0.465- 4.680 Not Available [facility] (Lab) [address] [place], [address], 06/07/2024 11:31:18 06/07/20 24 06/07/2024 HEMOG LOBIN A1C HA1C 5.6 % 4.0-6. 0 Diabe rachel Scree carmelo Crite medina: <5.7% Consi stent with absen ce of diabe rachel 5.7-6 .4% Consi stent with incre ased risk for diabe rachel (pred iabet es) >OR=6 .5% Consi stent with diabe rachel REFER ENCE: Diabe rachel Care 2016, 39(Lyle ppl.1 ):s13 -s22 Not Available [facility] (Lab) [address] [place], [address], 06/07/2024 13:12:54 01/28/20 25 01/28/2025 COMP. METAB OLIC PANEL (14) glucose 91 mg/dL 70-99 normal Not Available [facility] ([facility]) [address] [facility], [place], [address], 01/28/2025 09:14:03 01/28/20 25 01/28/2025 COMP. METAB OLIC PANEL (14) BUN 8 mg/dL 8-27 normal Not Available [facility] ([facility]) [address] [facility] [place], [address], 01/28/2025 09:14:03 01/28/20 25 01/28/2025 COMP. METAB OLIC PANEL (14) creatinine 0.62 mg/dL 0.57-1 .00 normal Not Available [facility] ([facility]) [address] [facility] [place], [address], 01/28/2025 09:14:03 01/28/20 25 01/28/2025 COMP. METAB OLIC PANEL (14) eGFR 100 mL/mi n/1.7 3 >59 normal Not Available [facility] ([facility]) [address] [facility], [place], [address], 01/28/2025 09:14:03 01/28/20 25 01/28/2025 COMP. METAB OLIC PANEL (14) BUN/creatini ne ratio 13 12-28 normal Not Available [facility] ([facility]) [address] [facility] [place], [address], 01/28/2025 09:14:03 01/28/20 25 01/28/2025 COMP. METAB OLIC PANEL (14) sodium 143 mmol/ L 134-14 4 normal Not Available [facility] ([facility]) [address] [facility] [place], [address], 01/28/2025 09:14:03 01/28/20 25 01/28/2025 COMP. METAB OLIC PANEL (14) potassium 4.0 mmol/ L 3.5-5. 2 normal Not Available [facility] ([facility]) [address] [facility] [place], [address], 01/28/2025 09:14:03 01/28/20 25 01/28/2025 COMP. METAB OLIC PANEL (14) chloride 98 mmol/ L 96-106 normal Not Available [facility] ([facility]) [address], [place], [address], 01/28/2025 09:14:03 01/28/20 25 01/28/2025 COMP. METAB OLIC PANEL (14) carbon dioxide, total 31 mmol/ L 20-29 above high normal Not Available [facility] ([facility]) [address], [place], [address], 01/28/2025 09:14:03 01/28/20 25 01/28/2025 COMP. METAB OLIC PANEL (14) calcium 9.2 mg/dL 8.7-10 .3 normal Not Available [facility] ([facility]) [address] [place], [address], 01/28/2025 09:14:03 01/28/20 25 01/28/2025 COMP. METAB OLIC PANEL (14) protein, total 6.5 g/dL 6.0-8. 5 normal Not Available [facility] ([facility]) [address] [facility], [place], [address], 01/28/2025 09:14:03 01/28/20 25 01/28/2025 COMP. METAB OLIC PANEL (14) albumin 4.3 g/dL 3.9-4. 9 normal Not Available [facility] ([facility]) [address] [place], [address], 01/28/2025 09:14:03 01/28/20 25 01/28/2025 COMP. METAB OLIC PANEL (14) globulin, total 2.2 g/dL 1.5-4. 5 Not Available [facility] ([facility]) [address] [place], [address], 01/28/2025 09:14:03 01/28/20 25 01/28/2025 COMP. METAB OLIC PANEL (14) bilirubin, total <0.2 mg/dL 0.0-1. 2 Not Available [facility] ([facility]) [address] [place], [address], 01/28/2025 09:14:03 01/28/20 25 01/28/2025 COMP. METAB OLIC PANEL (14) alkaline phosphatase 101 IU/L 44-121 normal Not Available [facility] ([facility]) [address] [facility] [place], [address], 01/28/2025 09:14:03 01/28/20 25 01/28/2025 COMP. METAB OLIC PANEL (14) AST (SGOT) 19 IU/L 0-40 normal Not Available [facility] ([facility]) [address] [place], [address], 01/28/2025 09:14:03 01/28/20 25 01/28/2025 COMP. METAB OLIC PANEL (14) ALT (SGPT) 9 IU/L 0-32 normal Not Available [facility] ([facility]) [address] [place], [address], 01/28/2025 09:14:03 01/28/20 25 01/28/2025 HEPAT IC FUNCT ION PANEL (7) bilirubin, direct 0.10 mg/dL 0.00-0 .40 normal Not Available [facility] ([facility]) [address] [place], [address], 01/28/2025 09:14:05 01/28/20 25 01/28/2025 LIPID PANEL cholesterol, total 148 mg/dL 100-19 9 normal Not Available [facility] ([facility]) [address] [place], [address], 01/28/2025 09:14:05 01/28/20 25 01/28/2025 LIPID PANEL triglyceride s 86 mg/dL 0-149 normal Not Available [facility] ([facility]) [address] [place], [address], 01/28/2025 09:14:05 01/28/20 25 01/28/2025 LIPID PANEL HDL cholesterol 97 mg/dL >39 normal Not Available [facility] ([facility]) [address] [place], [address], 01/28/2025 09:14:05 01/28/20 25 01/28/2025 LIPID PANEL VLDL cholesterol josephine 16 mg/dL 5-40 Not Available [facility] ([facility]) [address] [place], [address], 01/28/2025 09:14:05 01/28/20 25 01/28/2025 LIPID PANEL LDL chol calc ([facility]) 35 mg/dL 0-99 Not Available [facility] ([facility]) [address] [place], [address], 01/28/2025 09:14:05 01/28/20 25 01/28/2025 LIPID PANEL LDL calc comment: [employer] Not Available [facility] ([facility]) [address] [place], [address], 01/28/2025 09:14:05 01/28/20 25 01/28/2025 HEMOG LOBIN A1C hemoglobin A1C 5.9 % 4.8-5. 6 above high normal Predi abete s: 5.7 - 6.4 Diabe rachel: >6.4 Glyce aimee contr ol for adult s with diabe rachel: <7.0 Not Available [facility] ([facility]) [address] [place], [address], 01/28/2025 09:14:06 01/28/20 25 01/28/2025 VITAM IN D, 25-HY DROXY vitamin D, 25-hydroxy 34.6 NG/mL 30.0-1 00.0 Vitam in D defic iency has been defin ed by the Insti shilpa of Medic ine and an Endoc rine Socie ty pract ice guide line as a level of serum 25-OH vitam in D less than 20 ng/mL (1,2) . The Endoc rine Socie ty went on to furth er defin e vitam in D insuf ficie ncy as a level betwe en 21 and 29 ng/mL (2). 1. IOM (Inst itute of Medic ine). 2010. Dieta ry refer ence intak es for calci um and D. Umer mei [place]: [facility] . 2. Holic k MF, Binkl ey [place], Bisch off-F errar i ARENAS, et al. Evalu ation , treat ment, and preve ntion of vitam in D defic iency : an Endoc rine Socie ty clini josephine pract ice guide line. JCEM. 2010; 96(7) :1911 -30. Not Available [facility] ([facility]) [address] [place], [address], 01/28/2025 09:14:07 01/28/20 25 01/28/2025 ALBUM IN, RANDO M URINE albumin, urine 26.6 ug/mL not estab. Not Available [facility] ([facility]) [address] [place], [address], 01/28/2025 09:14:08 01/28/20 25 01/28/2025 TSH REFLE X TO T4F TSH 0.572 uIU/m L 0.450- 4.500 normal Not Available [facility] ([facility]) [address] [place], [address], 01/28/2025 09:14:09 01/28/20 25 01/27/2025 NICHELLE LINRE V CMP14 DEFAU LT nichelle hammerv CMP14 default COMMEN T A hand- writt en panel /prof fabiola was recei maggie from your offic e. In accor dance with the [facility] Nichelle gallardo Test Code Polic y dated May 2003, we have compl eted your order by using the close st curre ntly or forme rly recog nized AMA panel . We have assig gagan Compr ehens wayne Metab olic Panel (14), Test Code #7040 [address]. If this is not the testi ng you wishe d to recei ve on this speci men, pleas e conta ct the [facility] Clien t Inqui ry/Te chnic al Servi leticia Depar tment to erik fy the test order . We appre ciate your busin ess. Not Available [facility] ([facility]) [address] [place], [address], 01/28/2025 09:14:09 01/28/20 25 01/27/2025 AMBIG ABBRE V CMP12 DEFAU LT ambig abbrev CMP12 default Commen t A hand- writt en panel /prof ile was recei maggie from your offic e. In accor dance with the [facility] Ambig uous Test Code [facility] y dated May 2003, we have compl eted your order by using the close st curre ntly or forme rly recog nized AMA panel . We have assamber farah Compr ehens wayne Metab olic Panel (12), #30[address]. If this is not the testi ng you wishe d to recei ve on this speci men, pleas e conta ct the [facility] Clien t Inqui ry/Te chnic al Servi leticia Depar tment to erik fy the test order . We appre ciate your busin ess. Not Available [facility] ([facility]) [address] [facility], [place], [address], 01/28/2025 09:14:10 01/28/20 25 01/27/2025 AMBIG ABBRE V LP DEFAU LT ambig abbrev LP default COMMEN T A hand- writt en panel /prof ile was recei maggie from your offic e. In accor dance with the [facility] Ambig uous Test Code Polic y dated May 2003, we have compl eted your order by using the close st curre ntly or forme rly recog nized AMA panel . We have elzbieta farah Lipid Panel , Test Code #3037 [address]. If this is not the testi ng you wishe d to recei ve on this speci men, pleas e conta ct the [facility] Clien t Inqui ry/Te chnic al Servi leticia Depar tment to erik fy the test order . We appre ciate your busin ess. Not Available [facility] ([facility]) [address] [facility], [place], [address], 01/28/2025 09:14:11 01/28/2001/27/2025 NICHELLE ABBRE V HFP7 DEFAU LT ambamber abbrev hfp7 default Commen t A hand- writt en panel /prof ile was recei maggie from your offic e. In accor dance with the [facility] Nichelle gallardo Test Code Polic y dated May 2003, we have compl eted your order by using the close st curre ntly or forme rly recog nized AMA panel . We have assamber juarezd Hepat ic Funct ion Panel (7), Test Code #3227 [address]. If this is not the testi ng you wishe d to recei ve on this speci men, pleas e conta ct the [facility] Clien t Inqui ry/Te chnic al Servi leticia Depar tment to erik fy the test order . We appre ciate your busin ess. Not Available [facility] ([facility]) [address] [facility], [place], [address], 01/28/2025 09:14:12 01/26/20 25 01/25/2025 MAMMO , scree carmelo, digit al, bilat eral No observ ation record ed. [address], [place], [address], 01/25/2025 18:34:53 03/01/20 25 02/28/2025 LDCT, chest , for lung cance r jayleen hollisg No observ ation record ed. [address] [facility] [address], [place], [address], 03/01/2025 10:08:07 09/02/2008/31/2025 imagi ng/di agnos tic resul t No observ ation record ed. [facility] [address], [place], [address], 09/02/2025 15:28:52 Result Notes None recorded. Problems Name Problem SNOMED Code Status Onset Date Resolution Date Notes Provider Name and Address Organization Details Recorded Time Chronic obstructi ve pulmonary disease 48748725 Completed Nancy Daniel, CCM null, [place] - [facility] 4 13:26:45 Mammograp hy abnormal 129985036 Completed Not Available [facility] 3 01:09:11 Gastroeso phageal reflux disease 566374291 Active Nancy Daniel, CCM null, [place] - [facility] 4 13:26:45 Osteoarth ritis of knee 387858245 Active Not Available [facility] 3 06:43:36 Uterine prolapse 13783033 Active Not Available [facility] 3 06:43:36 Headache 28164301 Active Not Available [facility] 3 06:43:36 Cystocele 447274036 Active Not Available [facility] 3 06:43:37 Dyspnea 173423342 Completed Not Available [facility] 3 01:09:12 Low back pain 512622880 Active Not Available [facility] 3 06:43:37 Menopause present 822322824 Active Not Available [facility] 3 06:43:37 Knee pain Active Not Available [facility] 3 06:43:37 Depressiv e disorder 81774124 Active Not Available [facility] 3 06:43:37 Hypothyro idism 26046519 Active Not Available [facility] 3 06:43:37 Mixed urinary incontine nce 634624206 Active Not Available [facility] 3 06:43:37 Pulmonary hypertens ion 30079326 Active Not Available [facility] 3 06:43:37 Hyperglyc emia 14170940 Active Not Available [facility] 3 06:43:37 Hypoxia 916984976 Active 2016 Not Available [facility] 3 06:43:37 Atrial fibrillat ion 25545385 Active 2016 Nancy Sanchez CCM null, [place] - [facility] 4 13:26:46 Restless legs syndrome 05318507 Active 2016 Not Available [facility] 3 06:43:37 Migraine 11629848 Active 2016 Not Available [facility] 3 06:43:37 Upper respirato ry infection 25503380 Active 2016 Not Available [facility] 3 06:43:37 Acute exacerbat ion of chronic obstructi ve pulmonary disease 736479281 Active 2016 Not Available [facility] 3 06:43:36 Severe chronic obstructi ve pulmonary disease 340437649 Active 2016 Not Available [facility] 3 06:43:37 Allergic rhinitis 29859943 Active 2016 Not Available [facility] 3 06:43:37 Chronic sinusitis 20130173 Active 2018 Nancy Sanchez CCM null, [place] [facility] [employer] [facility] 4 13:26:46 Hyperchol esterolem ia 88699958 Active 2020 Not Available [facility] 3 06:43:36 Disorder of thyroid gland 53855362 Active 2020 Not Available [facility] 3 06:43:36 Heartburn 65682121 Active 2020 Not Available [facility] 3 06:43:36 Disorder of lung 90190011 Active 2020 Not Available [facility] 3 06:43:36 Pneumonia 309877095 Active 2020 Not Available [facility] 3 06:43:36 Bronchiti s 20471401 Active 2020 Not Available [facility] 3 06:43:37 Disorder of eye 533194549 Active 2020 Not Available [facility] 3 06:43:37 Arthritis 9411593 Active 2020 Nancy Sanchez, CCM null, [place] - [facility] 4 13:26:46 Anxiety 52961504 Active 2020 Nancy Sanchez, CCM null, [place] [facility] 4 13:26:46 Excessive sweating 63443481 Active 2020 Not Available [facility] 3 06:43:37 Cardiac arrhythmi a 176354360 Active 2020 Nancy Tyt CCM null, [place] - [facility] 4 13:26:46 Unable to cut own toenails 440958862 Active 2020 Not Available [facility] 3 06:43:37 Diabetes mellitus 62603842 Active 2020 Nancy Sanchez CCM null, [place] [facility] 4 13:26:46 Dystrophi a unguium 18728561 Active 2020 Not Available [facility] 3 06:43:37 COVID-19 793708768 Active 2020 Not Available [facility] 3 06:43:37 Dependenc e on supplemen pj oxygen 68425105751 7 Active 2020 Nancy Sanchez CCM null[place] - [facility] 4 13:26:46 Anemia 199485497 Active 2020 Not Available [facility] 3 06:43:37 Cough 30044953 Active 2020 Not Available [facility] 3 06:43:37 Dyspnea on exertion 80082753 Active 2020 Not Available [facility] 3 06:43:37 Ex-smoker 1178098 Active 2020 Not Available [facility] 3 06:43:37 Spiculate d lesion 101728543 Active 2021 Not Available [facility] 3 06:43:36 Long-term drug therapy Active 2021 Not Available [facility] 3 06:43:37 History of SARS-CoV- 2 55873683518 4144135 Active 2021 Not Available [facility] 3 06:43:37 Acute bronchiti s 41241528 Active 2021 Not Available [facility] 3 06:43:36 Pain of right hip joint 02830222915 9102 Active 2021 Not Available [facility] 3 06:43:37 Osteoarth ritis of right knee joint 90989867452 9100 Active 2021 Not Available [facility] 3 06:43:37 Serum triglycer ides above reference range 015391188 Active 2021 Not Available [facility] 3 06:43:36 Pain of right knee joint 08409011856 4100 Active 2021 Not Available [facility] 3 06:43:37 Hilar lymphaden opathy 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 Active 2022 Not Available [facility] 3 06:43:37 Hyperlipi demia 52474756 Active 2022 Not Available [facility] 3 06:43:37 Type 2 diabetes mellitus without complicat ion 728256079 Active 2022 Not Available [facility] 3 06:43:37 Chronic kidney disease 177648918 Active 2022 Nancy Sanchez CCM null, [place] [facility] 4 13:26:46 Chronic obstructi ve pulmonary disease 29525793 Active 2022 Nancy Sanchez CCM null, [place] [facility] 4 13:26:45 Moderate recurrent major depressio n 14039956 Active 2022 Not Available [facility] 3 06:43:36 Gastroeso phageal reflux disease without esophagit is 268945280 Active 2022 Not Available [facility] 3 06:43:37 Liver enzymes level above reference range 653253241 Active 2022 Not Available [facility] 3 06:43:37 Vitamin D deficienc y 55394909 Active 2022 Not Available [facility] 3 06:43:37 Abnormal sputum 452741379 Active 2022 Not Available [facility] 3 06:43:37 Pneumonia caused by Staphyloc occus aureus 103552873 Active 2022 Not Available [facility] 3 06:43:37 Multiple nodules of lung 694674901 Active 2022 Not Available [facility] 3 06:43:37 Abrasion of skin of left elbow region 00910554471 390490 Active 2023 Bettina lange MD [address], [address], [place], [address] , [facility] 4 11:44:59 Nausea 238963313 Active 2023 MD Sangeeta Griggs, [address], [place], [address] , [facility] - [facility] 4 11:55:13 Bilateral chronic pain of upper limbs 00076711549 995625 Active 2024 MD Sangeeta Griggs, [address], [place], [address] , [facility] 5 12:39:32 Pain of multiple joints 01239716 Active 2024 MD Sangeeta Griggs, [address], [place], [address] , [facility] 5 12:40:45 Rheumatoi d arthritis of multiple joints 471669187 Active 2024 MD Sangeeta Griggs, [address], [place], [address] , [facility] 5 12:31:57 Notes:Some problems listed i n Document: #[id number] could not be added to this patient's chart. Please review this document and add these problems to the patient's chart manually as needed. back/neck problems hepatitis use of blood thinners Problem Notes None recorded. Procedures Surgical History Date Name Laterality Status Provider Name and Address Organization Details Recorded Time 06/19/20 23 Medicare Wellness CPT Code, subsequent completed Rosalba Wilkinson RN [facility] [employer] [facility] 06/19/2023 11:57:54 01/25/20 21 Date of Last Colonoscopy completed Not Available [facility] 01/08/2023 00:54:21 09/13/20 19 repair of elbow completed Not Available [facility] 11/2022 00:54:26 12/08/19 16 Total hip arthroplasty completed Not Available [facility] 01/08/2023 00:54:26 Breast Biopsy completed Not Available [facility] 01/08/2023 00:54:26 Tonsillectomy completed Not Available [facility] 01/08/2023 00:54:26 Ablation completed AMBER Vallejo [facility] [employer] [facility] 06/08/2024 11:08:57 section completed Not Available [facility] 01/08/2023 00:54:26 Orthopedic Surgery completed Not Available [facility] 01/08/2023 00:54:26 Appendectomy completed Not Available [facility] 01/08/2023 00:54:26 Imaging Results None recorded. Procedure Notes None recorded. Medical Equipment None Reported. Allergies Allergen ID Allergen Name Allergen Category Reaction Reaction Severity Criticality Documentation Date Start Date Code Code System Note Provider Name and Address Organization Details Recorded Time 2441 Product containin g penicilli n (product) medicatio n rash Not available Not available 01/08/2023 18800 8001 SNOMED Not Available [facility] 01:27:12 Medications Name Sig Start Date Stop [...] t Available buspirone 15 mg tablet TK 1/2 T [...] the office by the doctor 09/12 completed [facility]: [id number], [id number], 02/08/20 25 Not Available Not Available Not [...] Not Available Not Available Not Available Fluzone Quad (PF) 60 mcg (15 [...] mass index (BMI) Body weight Body temperature Oxygen saturation Inhaled oxygen flow rate Heart rate Systolic And Diastolic Provider Name and Address Organization Details Last Updated DateTime 5 167.64 cm 23.2 kg/m2 27832.3 g 96.7 [degF] 96 % 3 L/min 106 /min 120/66 mm[Hg] Lillian Almonte MA [facility] [employer] [facility] 5 15:08:48 Date Recorded Body height Body mass index (BMI) Body weight Body temperature Heart rate Oxygen saturation Inhaled oxygen flow rate Pain severity - 0-10 verbal numeric rating [Score] - Reported Systolic And Diastolic Provider Name and Address Organization Details Last Updated DateTime 5 167.64 cm 22.8 kg/m2 76824.5 2 g 97 [degF] 99 /min 91 % 3 L/min 5 120/64 mm[Hg] Alma Rosa Adan MA [facility] [employer] [facility] 5 11:54:36 Date Recorded Body height Body mass index (BMI) Body weight Body temperature Heart rate Systolic And Diastolic Provider Name and Address Organization Details Last Updated DateTime 4 167.64 cm 24.9 kg/m2 82240.2 2 g 97.7 [degF] 84 /min 118/66 mm[Hg] AMBER Vallejo [facility] [employer] [facility] 4 11:11:46 Date Recorded Body height Body mass index (BMI) Body weight Body temperature Heart rate Oxygen saturation Inhaled oxygen flow rate Pain severity - 0-10 verbal numeric rating [Score] - Reported Systolic And Diastolic Provider Name and Address Organization Details Last Updated DateTime 5 167.64 cm 22 kg/m2 16590.5 6 g 96.6 [degF] 86 /min 89 % 3 L/min 5 110/64 mm[Hg] Alma Rosa Adan MA [facility] [employer] [facility] 5 14:05:20 Date Recorded Body height Body mass index (BMI) Body weight Body temperature Heart rate Systolic And Diastolic Provider Name and Address Organization Details Last Updated DateTime 4 167.64 cm 24 kg/m2 09855.2 6 g 97.1 [degF] 84 /min 122/68 mm[Hg] AMBER Vallejo [facility] [employer] [facility] 4 16:43:35 Social History Question Answer Notes LastModified by Organization Details LastModified Time Tobacco Smoking Status Former Smoker quit 2011 Not Available [facility] 01/08/2023 00:53:04 Do You Have An Advance Directive? No MIGRATION.132 [id number] Information not available 01/08/2023 Are You Blind Or Do You Have Difficulty Seeing? No MIGRATION.348 [id number] Information not available 01/08/2023 What Is Your Level Of Caffeine Consumption? Occasional MIGRATION.168 7729584 Information not available 01/08/2023 How Much Tobacco Do You Chew? None MIGRATION.591 1809809 Information not available 01/08/2023 In The 14 Days Before Symptom Onset, Have You Had Close Contact With A Laboratory-conf irmed COVID-19 While That Case Was Ill? No MIGRATION.625 [id number] Information not available 01/08/2023 In The 14 Days Before Symptom Onset, Have You Had Close Contact With A Person Who Is Under Investigation For COVID-19 While That Person Was Ill? No MIGRATION.027 [id number] Information not available 01/08/2023 Are You Deaf Or Do You Have Serious Difficulty Hearing? No MIGRATION.807 7950823 Information not available 01/08/2023 What Type Of Diet Are You Following? REGULAR MIGRATION.835 1305606 Information not available 01/08/2023 Which Illicit Or Recreational Drugs Have You Used? Marijuana Occasionally MIGRATION.616 0625484 Information not available 01/08/2023 What Is The Highest Grade Or Level Of School You Have Completed Or The Highest Degree You Have Received? [id number] MIGRATION.906 6142420 Information not available 01/08/2023 Do You Have An Electrostatic Air Filter? No MIGRATION.570 7369303 Information not available 01/08/2023 Have There Been Any Changes To Your Family Or Social Situation? Yes Lost Mother 07/08/2022 MIGRATION.271 3127112 Information not available 01/08/2023 What Is The Fluoride Status Of Your Home? Unknown MIGRATION.472 0042179 Information not available 01/08/2023 When Did You Quit Smoking? 11-15yearssinminh newtonernestinasebastián [email or web address] Information not available 02/13/2023 Are There Any Guns Present In Your Home? No MIGRATION.493 1300949 Information not available 01/08/2023 Do You Have A Humidifier? Yes MIGRATION.555 6788818 Information not available 01/08/2023 Do You Use Insect Repellent Routinely? No MIGRATION.800 6046023 Information not available 01/08/2023 Where [facility] You Live? [facility] MIGRATION.648 9069702 Information not available 01/08/2023 Are You Able To Care For Yourself? Yes [email or web address] Information not available 06/19/2023 Are You Blind Or Do Yo Have Difficulty Seeing? No [email or web address] Information not available 06/19/2023 Are You Deaf Or Do You Have Serious Difficulty Hearing? No [email or web address] Information not available 06/19/2023 Live Alone Of With Others? With Others [email or web address] Information not available 06/19/2023 Do You Have A Medical Power Of Wood Heel Fitter Machine? No MIGRATION.894 4974749 Information not available 01/08/2023 Do You Have Moisture Problems In Your Home? Yes MIGRATION.454 5362915 Information not available 01/08/2023 What Was The Date Of Your Most Recent Tobacco Screening? 09/06/2025 [email or web address] Information not available 09/06/2025 How Many Children Do You Have? 2 MIGRATION.768 [id number] Information not available 01/08/2023 Do You Have Any Pets? Yes Dog [email or web address] Information not available 02/26/2023 What Is Your Relationship Status? Single MIGRATION.582 [id number] Information not available 01/08/2023 Do You Use Your Seat Belt Or Car Seat Routinely? Yes MIGRATION.070 2594945 Information not available 01/08/2023 Do You Have Smoke And Carbon Monoxide Detectors In Your Home? Yes MIGRATION.803 0106296 Information not available 01/08/2023 At What Age Did You Start Smoking Tobacco? 16 MIGRATION.213 9797343 Information not available 01/08/2023 Are You Passively Exposed To Smoke? Yes MIGRATION.908 7741539 Information not available 01/08/2023 Are There Any Smokers In Your House? Yes MIGRATION.923 5583921 Information not available 01/08/2023 How Much Tobacco Do You Smoke? No MIGRATION.911 6319161 Information not available 01/08/2023 What Types Of Sporting Activities Do You Participate In? None MIGRATION.372 4042247 Information not available 01/08/2023 Do You Use Sunscreen Routinely? Yes MIGRATION.501 6013894 Information not available 01/08/2023 How Many Years Have You Smoked Tobacco? 40 MIGRATION.029 3676927 Information not available 01/08/2023 Have You Recently Traveled Abroad? No MIGRATION.908 1824551 Information not available 01/08/2023 Have You Used IV Drugs? No MIGRATION.137 5985070 Information not available 01/08/2023 Do You Have Difficulty Walking Or Climbing Stairs? Yes Gets SOB MIGRATION.333 3314688 Information not available 01/08/2023 Do You Have Any Dietary Restrictions? No MIGRATION.368 2155962 Information not available 01/08/2023 Sex: Female Functional Status Question Answer Note LastModified by Organizat ion Details LastModified Time Do you use any illicit or recreational drugs? Yes MIGRATION.530579 8914 Information not available 01/08/2023 Do you or have you ever used any other forms of tobacco or nicotine? No MIGRATION.778236 2819 Information not available 01/08/2023 What is your level of alcohol consumption? Occasional MIGRATION.548360 3595 Information not available 01/08/2023 Do you or have you ever used smokeless tobacco? Never used smokeless tobacco MIGRATION.314855 8391 Information not available 01/08/2023 Do you have difficulty doing errands alone? No MIGRATION.700094 2272 Information not available 01/08/2023 What is your occupation? disability MIGRATION.603515 9916 Information not available 01/08/2023 Do you have difficulty dressing, bathing, grooming, or toileting? No MIGRATION.518800 7615 Information not available 01/08/2023 Do you or have you ever used e-cigarettes or vape? Former user of electronic cigarettes MIGRATION.166906 6853 Information not available 01/08/2023 What is your exercise level? Occasional MIGRATION.024972 4272 Information not available 01/08/2023 Mental Status Question Answer Note LastModified by Organizat ion Details LastModified Time Do you feel stressed (tense, restless, nervous, or anxious, or unable to sleep at night)? [id number] MIGRATION.86099554 26 Information not available 01/08/2023 Do you have difficulty concentrating, remembering or making decisions? No MIGRATION.38436524 26 Information not available 01/08/2023 Family History Relationship Description Onset Age of this Age Resolved Age Notes LastModified by Organization Details LastModified Time Mother Hypertensive disorder MIGRATION.317 [id number] Not available 01/08/2023 00:54:35 Mother Arthritis MIGRATION.307 4734216 Not available 01/08/2023 00:54:35 Mother Atrial fibrillation MIGRATION.856 3031326 Not available 01/08/2023 00:54:35 Mother Malignant neoplasm of brain with mets-- deceas ed MIGRATION.101 6699732 Not available 01/08/2023 00:54:35 Father Diabetes mellitus MIGRATION.101 7715057 Not available 01/08/2023 00:54:35 Father Backache MIGRATION.265 6832931 Not available 01/08/2023 00:54:35 Medical History Condition [...] MDCK, quadrivalent, PF 3 completed Not Available [employer] 11/04/2023 06:43:40 Influenza, MDCK, quadrivalent, PF 2 completed My Rosenthal RMA null, [facility] 06/08/2024 11:12:47 COVID-19, mRNA, LNP-S, bivalent, PF, 30 mcg/0.3 mL dose 2 completed My Rosenthal RMA null, [facility] 06/08/2024 11:12:47 Influenza, split virus, quadrivalent, PF 8 completed My Rosenthal RMA null, [facility] 06/08/2024 11:12:47 Influenza, split virus, quadrivalent, PF 1 completed My Rosenthal RMA null, [facility] 06/08/2024 11:12:47 RSV, recombinant, protein subunit RSVpreF, adjuvant reconstituted, 0.5 mL, PF 4 completed My Rosenthal RMA null, [facility] 10/04/2024 16:37:45 Tdap 4 completed [facility] 16:38:03 Influenza, MDCK, trivalent, PF 4 completed My Rosenthal RMA null, [facility] 10/04/2024 16:38:59 COVID-19, mRNA, LNP-S, PF, robe-sucrose, 30 mcg/0.3 mL 4 completed My Rosenthal RMA null, [facility] 10/04/2024 16:39:20 COVID-19, mRNA, LNP-S, PF, robe-sucrose, 30 mcg/0.3 mL 3 completed Not Available [employer] 09/06/2025 13:54:54 Influenza, split virus, quadrivalent, preservative 8 completed My Rosenthal RMA null, [facility] 06/08/2024 11:12:47 Influenza, split virus, trivalent, preservative 3 completed My Rosenthal, RMA null, [facility] 06/08/2024 11:12:47 COVID-19, mRNA, LNP-S, PF, 30 mcg/0.3 mL dose 1 completed My Rosenthal, RMA null, [facility] 06/08/2024 11:12:47 influenza, unspecified formulation 1 completed Not Available [facility] 11/04/2023 06:43:40 Influenza, split virus, quadrivalent, preservative 0 completed Not Available [facility] 11/04/2023 06:43:40 Influenza, split virus, quadrivalent, preservative 9 completed Not Available [facility] 11/04/2023 06:43:40 Influenza, split virus, quadrivalent, preservative 6 completed Not Available [facility] 11/04/2023 06:43:40 pneumococcal, unspecified formulation 6 completed Not Available [facility] 11/04/2023 06:43:40 Influenza, MDCK, trivalent, PF 3 completed Not Available [facility] 11/04/2023 06:43:40 Pneumococcal Conjugate, unspecified formulation 3 completed Not Available [facility] 11/04/2023 06:43:40 COVID-19, mRNA, LNP-S, PF, 30 mcg/0.3 mL dose 1 completed My Rosenthal, RMA null, [facility] 06/08/2024 11:12:47 COVID-19, mRNA, LNP-S, PF, 30 mcg/0.3 mL dose 1 completed My Rosenthal RMA null, [facility] 06/08/2024 11:12:47 influenza, unspecified formulation 7 completed Not Available [facility] 11/04/2023 06:43:40 Influenza, split virus, trivalent, preservative 7 completed Not Available [facility] 11/04/2023 06:43:40 Influenza, high-dose, trivalent, PF 3 completed My Galo, RMFran null, [place] - [employer] 06/08/2024 11:12:47 Influenza, split virus, quadrivalent, preservative 6 completed Not Available [facility] 11/04/2023 06:43:40 pneumococcal polysaccharide PPV23 6 completed Not Available [facility] 11/04/2023 06:43:40 Influenza, split virus, quadrivalent, preservative 7 completed Not Available [facility] 11/04/2023 06:43:40 Influenza, split virus, quadrivalent, PF 5 completed Not Available [facility] 11/04/2023 06:43:40 Influenza, split virus, trivalent, preservative 4 completed AMBER Vallejo, [email or web address] 06/08/2024 11:12:47 Past Encounters Encounter ID Performer Location Encounter Start Date Encounter Closed Date Diagnosis/Indication Diagnosis SNOMED-CT Code Diagnosis ICD10 Code Diagnosis IMO Codes Diagnosis Note [id number] [facility] [address] [address] 02/06/2021 00:00:00 02/06/2021 12:24:57 [id number] Bettina lange MD [facility] Internal Med [facility] [address] [place] [address] 04/05/2021 00:00:00 05/23/2021 12:11:47 [id number] [facility] [place] [address] [facility] [address] [place] [address] 05/25/2021 00:00:00 05/25/2021 14:58:07 [id number] Bettina lange MD [facility] Internal Med [address] [address] 06/12/2021 00:00:00 06/12/2021 18:05:34 [id number] [facility] [place] [address] [place] [address] 06/14/2021 00:00:00 06/14/2021 13:58:56 [id number] [facility] [place] [address] [place] [address] 07/25/2021 00:00:00 07/25/2021 14:53:59 [id number] Bettina lange MD [facility] Internal Med [place] [address] [place] [address] 08/09/2021 00:00:00 08/09/2021 11:55:49 [id number] Bettina lange MD S_[facility] Internal Med [place] [address] [place] [address] 09/06/2021 00:00:00 09/06/2021 21:28:28 [id number] [facility] [place] [address] [place] [address] 09/13/2021 00:00:00 09/13/2021 14:43:56 [id number] [facility] [place] [address] [place] [address] 01/11/2022 00:00:00 01/11/2022 12:41:38 [id number] Bettina lange MD [facility] [place] [address] [place] [address] 01/17/2022 00:00:00 01/17/2022 14:11:13 [id number] Dayo Rodriguez MD S_[facility] Ortho [place] [address] [place] [address] 02/19/2022 00:00:00 02/19/2022 14:56:54 [id number] MD ALICIA Seth_[facility] [place] [address] [place] [address] 03/26/2022 00:00:00 03/26/2022 14:16:34 [id number] Bettina lange MD [facility] Internal Med [facility] [address] [facility] [address] [place] [address] 06/13/2022 00:00:00 06/13/2022 13:09:24 [id number] MD ALICIA Seth_[facility] [place] [address] [place] [address] 07/18/2022 00:00:00 07/18/2022 16:57:50 [id number] ANA CareyEstrella Pulmon[facility] [place] [address] [place] [address] 08/06/2022 00:00:00 08/06/2022 13:08:12 [id number] MD TOBIAS SethEstrella Orth[facility] [place] [address] [place] [address] 08/19/2022 00:00:00 08/19/2022 11:07:34 [id number] MD ALICIA Griggs_[facility] Internal Med [facility] [address] [address] 09/09/2022 00:00:00 09/09/2022 12:31:57 [id number] Bettina lange MD [place]_[facility] Internal Med [facility] [address] [facility] [address] [address] 09/12/2022 00:00:00 09/12/2022 11:25:29 [id number] ANA CareyEstrella Pul[facility] [place] [address] [place] [address] 02/04/2023 11:20:40 02/04/2023 12:06:51 Severe chronic obstructive pulmonary disease 084012124 J44.9 CAT 20PFT 08/07/20 with FEV1:FVC ratio 39% and FEV1 43%.Repeat 07/2021 with ratio 35 and FEV1 29TLC 120, DLCO 52Repeated at [facility] at the end of 2020 - need resultsRem ain on triple therapy - breo ellipta and spirivaIns tructed on use and techniqueC ontinue Ventolin/n ebulizer PRN.Contin ue Daliresp 500 dailyCurre nt on COVID vaccinesRe portable signs and symptoms discussed. [place] is unaffordab leMaintain activitySt eroids and antibiotic s on hand, she will call if she needs to start theseRTC in 6 months and PRN for concerns. Long-term drug therapy 058337038 Z79.899 Daliresp dailyLast LFT 09/09/22 WNL Dependence on supplemental oxygen 2457198288 07 Z99.81 Continue 4 liters with activity per last 6MWTShe has good use and benefit Spiculated lesion 924429 005 R93.89 8 mm nodule to RUL on CT chest while inpatientA lso with density to right lung baseRepeat 08/02 with resolution of spiculated nodule and all other nodules stable from 2018Discus sed with Lulu in detailCTA in 10/2022 with several nodules and enlarged lymph nodes Chronic sinusitis 270772 00 J32.9 Has followed ENTSaline rinses Dyspnea on exertion 6084 5006 R06.09 Echocardio gram with normal chamber size, EF 55% History of SARS-CoV-2 29 53583754 06446634 Z86.16 + 10/2020 Hilar lymphadenopathy [address] chest 2REp eat CT with contrast Ex-smoker 0085741 Z87.89 1 Quit 11 years ago [id number] Bettina lange MD [facility] [place] [address] [facility] [place] [address] 02/13/2023 10:51:40 02/13/2023 11:22:23 Screening - NAD 875476643 Z13.9 C-scope: Dr. Vu 2013 and was [...] am: 05/28/2201 : NegMammogr am: 09/27/2022 : Neg PAP: Dr Salguero and was told it was negativeDI d see Sherrie Oh [employer] IN[employer] 08/31/2020 DEXA: 09/27/2022 : neg UTD on flu shots 07/31/2020 UTD on pneumonia shotGet TdapCan do shingles vaccineUTD COVID 19 vaccine RTC in 4 monthsGet labsER if any symptoms worsen,She did verbalize her understand ing of the above Atrial fibrillation 4943 6004 I48.91 ECHO: 04/01/17:N Sx FxEF 55% Stage 1 diastolic dysfxTrace MR/TR ECHO 05/08/2020 : EF 55%, Normal LV sx fxUS Carotid 05/08/2020 : Mild plaque, antegrade vertebral flowTelese nse 05/17/2020 : NSR with rare SV ectopics On ASANot on digoxinOn diltiazemO n losartan 100mg daily, started Dr Kemp 03/23/2021 On magnesium Sees HV Dr Kemp Hyperlipidemia 14260858 E78.5 On atorvastat in 40mg daily, used to be on pravastati n in the past More diet is neededCan do vascepa, she has declined this 06/13/2022 , states that she does not want to take more 'pills'Get labs Type 2 vonda betes mellitus without complication 305660463 E11.9 On metforminG et labs Chronic ki dney disease 044832442 N18.[address] Hayward, get another referral Anemia 048200716 D64.9 S/p EGD/C-scop e: Dr Montez De Souza hematology 05/22/2021 : C-scope 01/24/2021 : Colonic polyps, diverticul osis, internal hhoidsEGD: 01/24/2021 : Hiatal hernia, duodenal AVMCapsule enteroscop y 02/08/2021 : No lesion in small bowel Chronic ob structive pulmonary disease 02391458 J44.9 S/p D/c on 06/03/2021 LDCT 09/06/2019 s/p PFT 07/23/2021 S/p ECHO 07/17/2021 , EF 55%S/p CT angio 05/31/2021 in ER for SOB, spiculated nodule, mananged by pulmonaryS /p CT chest 09/03/2021 On albuterol Sherri THOMPSON budesonide HHNOn breoOn O2 4LOn dalirespOn spirivaOn flonase Seen Harvey Marvin Moderate r ecurrent major depression 06214562 F33.1 On sertraline On buspirone Sees psychiatry Dr Burt suicidal or homcidial Hypothyroidism 05726445 E03.9 On levothyrox ine 100mcgs daily Does wellGet labs Gastroesop hageal reflux disease without esophagitis 601771724 K21.9 On PPITake as needed Migraine 82324917 G43.90 9 On amitryptyl ineDoes well on this Low back pain 435322342 M54.[address] Hartman On oxycodoneO n tizanidine Liver enzy mes level above reference range 507538930 R74.01 GGT 49 09/09/19He patitis panel: Neg 01/19/2020 : Dr Suero, get fibroscan f/u in [address] [facility] show hepat[facility] ly on 09/07/2020 Vitamin D deficiency 347 67491 E55.9 On vit d daily, check the vit d level, get on vit d weekly and repeat the vit d level [id number] Harvey Reyna, [facility] [place] [facility] [place] [address] [place] [address] 02/26/2023 14:53:13 02/26/2023 16:19:59 Acute exacerbation of chronic obstructive pulmonary disease 217956890 J44.1 Hospitaliz ed at [facility] Friday02/23/23Si gnificantl y improvedDi scussed S/S that require emergent evaluation Severe chr onic obstructive pulmonary disease 655879574 J44.9 PFT 08/07/20 with FEV1:FVC ratio 39% and FEV1 43%.Repeat 07/2021 with ratio 35 and FEV1 29TLC 120, DLCO 52Repeated at [facility] at the end of 2020 - need resultsRem ain on triple therapy - breo ellipta and spirivaIns tructed on use and techniqueC ontinue Ventolin/n ebulizer PRN.Contin ue Daliresp 500 dailyRepor table signs and symptoms discussed. [place] is unaffordab leMaintain activityRT C in 2 months and PRN for concerns. Long-term drug therapy 235930093 Z79.899 Daliresp dailyLast LFT 09/09/22 WNL Dependence on supplemental oxygen 3314083522 07 Z99.81 Continue 4 liters with activity per last 6MWTShe has good use and benefit Spiculated lesion 986814 005 R93.89 8 mm nodule to RUL on CT chest while inpatientA lso with density to right lung baseRepeat 08/02 with resolution of spiculated nodule and all other nodules stable from 2018Discus sed with Lulu in detailCTA in 10/2022 with several nodules and enlarged lymph nodesCT inpatient in chart Chronic sinusitis 375982 00 J32.9 Has followed ENTSaline rinses Dyspnea on exertion 6084 5006 R06.09 Echocardio gram with normal chamber size, EF 55% History of SARS-CoV-2 29 42881537 33422322 Z86.16 + 10/2020 Ex-smoker 8873130 Z87.89 1 Quit 11 years ago Abnormal sputum 52046483 0 R09.3 Sputum culture inpatient with staph aureus - treated per notes and mold with no IDCalled [facility] request ID from [employer] [id number] Harvey Reyna, [facility]_G [place] [address] [place] [address] 03/26/2023 11:21:17 03/26/2023 12:00:43 Severe chronic obstructive pulmonary disease 545704321 J44.9 PFT 08/07/20 with FEV1:FVC ratio 39% and FEV1 43%.Repeat 07/2021 with ratio 35 and FEV1 29TLC 120, DLCO 52Repeated at [facility] at the end of 2020 - need resultsRem ain on triple therapy - breo ellipta and spirivaIns tructed on use and techniqueC ontinue Ventolin/n ebulizer PRN.Contin ue Daliresp 500 dailyRepor table signs and symptoms discussed. [place] is unaffordab leMaintain activityRT C in 4 months and PRN for concerns. Long-term drug therapy 992383627 Z79.899 Daliresp dailyLFT 09/09/22 WNLLFT 02/2023 WNL Dependence on supplemental oxygen 5535251135 07 Z99.81 Continue 3 liters at all timesShe has good use and benefit Spiculated lesion 327283 005 R93.89 8 mm nodule to RUL on CT chest while inpatientA lso with density to right lung baseRepeat 08/02 with resolution of spiculated nodule and all other nodules stable from 2018Discus sed with Lulu in detailCTA in 10/2022 with several nodules and enlarged lymph nodesCT inpatient in chart Chronic sinusitis 439031 00 J32.9 Has followed ENTSaline rinses Dyspnea on exertion 6084 5006 R06.09 Echocardio gram with normal chamber size, EF 55% History of SARS-CoV-2 29 18402316 94087908 Z86.16 + 10/2020 Ex-smoker 7625171 Z87.89 1 Quit 11 years ago Pneumonia caused by Staphylococcus aureus 061847680 J15.211 Sputum culture inpatient with staph aureusID completedS he has finished her Bactrim with good improvemen t [id number] Bettina lange MD [facility] Internal Med [place] [address] [facility] [place] [address] 06/19/2023 11:29:35 06/19/2023 12:07:30 Screening - NAD 733918555 Z13.9 C-scope: Dr. Vu 2013 and was [...] am: 05/28/2201 : NegMammogr am: 09/27/2022 : Neg PAP: Dr Salguero and was told it was negativeDI d see Sherrie Oh [employer]IPMENT INST[employer]ER 08/31/2020 DEXA: 09/27/2022 : neg UTD on flu shots 07/31/2020 UTD on pneumonia shotGet TdapCan do shingles vaccineUTD COVID 19 vaccine RTC in 4 monthsGet labsER if any symptoms worsen,She did verbalize her understand ing of the above Atrial fibrillation 4943 6004 I48.91 ECHO: 04/01/17:N Sx FxEF 55% Stage 1 diastolic dysfxTrace MR/TR ECHO 05/08/2020 : EF 55%, Normal LV sx fxUS Carotid 05/08/2020 : Mild plaque, antegrade vertebral flowTelese nse 05/17/2020 : NSR with rare SV ectopics On ASANot on digoxinOn diltiazemO n losartan 100mg daily, started Dr Kemp 03/23/2021 On magnesium Sees [facility] Dr Kemp Hyperlipidemia 86644808 E78.5 On atorvastat in 40mg daily, used to be on pravastati n in the past More diet is neededCan do vascepa, she has declined this 06/13/2022 , states that she does not want to take more 'pills'Get labs Type 2 vonda betes mellitus without complication 310531899 E11.9 On metforminG et labs Chronic ki dney disease 184260580 N18.[address] Hayward, no more apts as per her history 06/19/2023 Anemia 009845245 D64.9 S/p EGD/C-scop e: Dr Montez De Souza hematology 05/22/2021 : C-scope 01/24/2021 : Colonic polyps, diverticul osis, internal hhoidsEGD: 01/24/2021 : Hiatal hernia, duodenal AVMCapsule enteroscop y 02/08/2021 : No lesion in small bowelState s today 06/19/2023 that she does not see Dr De Souza anymore Chronic ob structive pulmonary disease 91989973 J44.9 S/p D/c on 06/03/2021 LDCT 09/06/2019 s/p PFT 07/23/2021 S/p ECHO 07/17/2021 , EF 55%S/p CT angio 05/31/2021 in ER for SOB, spiculated nodule, mananged by pulmonaryS /p CT chest 09/03/2021 On albuterol MD DONNAIOn budesonide HHNOn breoOn O2 4LNot on dalirespOn spirivaOn flonase Seen Harvey Marvin Moderate r ecurrent major depression 44238385 F33.1 On sertraline On buspirone Sees psychiatry Dr Burt suicidal or homcidial Hypothyroidism 10873312 E03.9 On levothyrox ine 100mcgs daily Does wellGet labs Gastroesop hageal reflux disease without esophagitis 973385673 K21.9 On PPITake as needed Migraine 01416542 G43.90 9 On amitryptyl ineDoes well on this Low back pain 949110149 M54.[address] Hartman On oxycodoneO n tizanidine Liver enzy mes level above reference range 611940615 R74.01 GGT 49 09/09/19He patitis panel: Neg 01/19/2020 : Dr Suero, get fibroscan f/u in [address] Bowman T did show hepatomega ly on 09/07/2020 Vitamin D deficiency 347 66991 E55.9 On vit d daily, check the vit d level, get on vit d weekly and repeat the vit d level Screening mammography 24 969004 Z12.31 Adult heal th examination 362188632 Z00.00 Screening for disorder 838356330 Z13.9 [id number] Harvey Reyna, [facility], [facility] Pulmonolo gy [place] [address] [place] [address] 08/04/2023 11:14:51 08/04/2023 12:12:43 Severe chronic obstructive pulmonary disease 072476231 J44.9 CAT 16PFT 08/07/20 with FEV1:FVC ratio 39% and FEV1 43%.Repeat 07/2021 with ratio 35 and FEV1 29TLC 120, DLCO 52Repeated at [facility] end 2020 - need resultsRem ain on triple therapy - breo ellipta and spirivaIns tructed on use and techniqueC ontinue Ventolin/n ebulizer PRN.Contin ue Daliresp 500 dailyRepor table signs and symptoms discussed. [place] is unaffordab leMaintain activitySh e should follow up in 6 months PRN for concerns. Long-term drug therapy 030006572 Z79.899 Daliresp dailyLFT 09/09/22 WNLLFT 02/2023 WNL Dependence on supplemental oxygen 2579141870 07 Z99.81 Continue 3 liters at all timesShe has good use and benefit Spiculated lesion 346738 005 R93.89 8 mm nodule to RUL on CT chest while inpatientA lso with density to right lung baseRepeat 08/02 with resolution of spiculated nodule and all other nodules stable from 2018Discus sed with Lulu in detailCTA in 10/2022 with several nodules and enlarged lymph nodesCT inpatient in chartRepea t CT due 10/2023 - ordered today - she is aware to get theese results from her PCM Chronic sinusitis 457468 00 J32.9 Saline rinsesHas seen ENT in the past Pneumonia caused by Staphylococcus aureus 815422364 J15.211 Sputum culture inpatient with staph aureus 02/2023 Dyspnea on exertion 6084 5006 R06.09 Echocardio gram with normal chamber size, EF 55% History of SARS-CoV-2 29 21972804 68653157 Z86.16 + 10/2020 Ex-smoker 9623135 Z87.89 1 Quit 11 years ago Multiple n odules of lung 653155853 R91.[address] 10/2023 [id number] Bettina lange MD [facility] [address] [facility], [address] [place] [address] 09/22/2023 12:03:00 09/22/2023 12:22:34 Gynecologic examination 86842995 Z01.419 Discussed importance of SBE, diet rich in calcium, weight bearing exercise. Notify office if any vaginal bleeding occurs. She does voice understand ing of the above. RTC 1 year and PRN, continue regular follow up with PCP Postmenopausal state 764 76491 Z78.0 Screening mammography 24 304692 Z12.31 has order from PCP [id number] Bettina lange MD [facility] [place] [address] [facility], [address] [place] [address] 10/14/2023 11:43:04 10/14/2023 12:09:22 Screening - NAD [id number] Z13.9 C-scope: Dr. Vu 2013 and was [...] am: 09/27/2022 : NegMammogr am: 09/29/2023 : Neg PAP: Dr Salguero and was told it was negativeDI d see Sherrie Oh [employer] 08/31/2020 DEXA: 09/27/2022 : neg UTD on flu shots 07/31/2020 UTD on pneumonia shotGet TdapCan do shingles vaccineUTD COVID 19 vaccineCan do RSV vaccine RTC in 4 monthsGet labsER if any symptoms worsen,She did [...] started Dr Kemp 03/23/2021 On magnesium Sees [facility] Dr Kemp Hyperlipidemia 74347490 E78.5 On atorvastat in 40mg daily, used to be on pravastati n in the past More diet is neededCan do vascepa, she has declined this 06/13/2022 , states that she does not want to take more 'pills'Get labs Type 2 vonda betes mellitus without complication 964933969 E11.9 On metforminG et labs Chronic ki dney disease 477264911 N18.[address] Hayward, no more apts as per her history 06/19/2023 Anemia 940365470 D64.9 S/p EGD/C-scop e: Dr Montez De Souza hematology 05/22/2021 : C-scope 01/24/2021 : Colonic polyps, diverticul osis, internal hhoidsEGD: 01/24/2021 : Hiatal hernia, duodenal AVMCapsule enteroscop y 02/08/2021 : No lesion in small bowelState s today 06/19/2023 that she does not see Dr De Souza anymore Dr De Souza 05/22/2022 Chronic ob structive pulmonary disease 95726392 J44.9 S/p D/c on 06/03/2021 LDCT 09/06/2019 s/p PFT 07/23/2021 S/p ECHO 07/17/2021 , EF 55%S/p CT angio 05/31/2021 in ER for SOB, spiculated nodule, mananged by pulmonaryS /p CT chest 09/03/2021 On albuterol MD DONNAIOn budesonide HHNOn breoOn O2 4LNot on dalirespOn spirivaOn flonase Seen Harvey Marvin Moderate r ecurrent major depression 09647628 F33.1 On sertraline On buspirone Sees psychiatry Dr Burt suicidal or homcidial Hypothyroidism 32362385 E03.9 On levothyrox ine 100mcgs daily Does wellGet labs Gastroesop hageal reflux disease without esophagitis 467754865 K21.9 On PPITake as needed Migraine 32790018 G43.90 9 On amitryptyl ineDoes well on this Low back pain 938705783 M54.[address] Hartman On oxycodoneO n naoloxoneO n tizanidine Liver enzy mes level above reference range 160992987 R74.01 GGT 49 09/09/19He patitis panel: Neg 01/19/2020 : Dr Suero, get fibroscan f/u in [address] SueroLD T did show hepatomega ly on 09/07/2020 Vitamin D deficiency 347 88151 E55.9 On vit d daily, check the vit d level, get on vit d weekly and repeat the vit d level [id number] Bettina lange MD [facility] Internal [facility] [address] [facility], [address] [place] [address] 02/10/2024 11:11:56 02/10/2024 11:49:18 Screening - NAD 082459707 Z13.9 C-scope: Dr. Vu 2013 and was [...] am: 09/27/2022 : NegMammogr am: 09/29/2023 : Neg PAP: Dr Salguero and was told it was negativeDI d see Sherrie Oh [employer] 08/31/2020 DEXA: 09/27/2022 : neg UTD on flu shots 07/31/2020 UTD on pneumonia shotGet TdapCan do shingles vaccineUTD COVID 19 vaccineCan do RSV vaccine RTC in 4 monthsGet labsER if any symptoms worsen,She did [...] started Dr Kemp 03/23/2021 On magnesium Sees [facility] Dr Kemp, referred 02/10/2024 Hyperlipidemia 02860534 E78.5 On atorvastat in 40mg daily, used to be on pravastati n in the past More diet is neededCan do vascepa, she has declined this 06/13/2022 , states that she does not want to take more 'pills'Get labs Type 2 vonda betes mellitus without complication 688702871 E11.9 On metformin 500mg bidGet labs Chronic ki dney disease 435913505 N18.[address] Hayward, no more apts as per her history 06/19/2023 Anemia 074151230 D64.9 S/p EGD/C-scop e: Dr Montez De Souza hematology 05/22/2021 : C-scope 01/24/2021 : Colonic polyps, diverticul osis, internal hhoidsEGD: 01/24/2021 : Hiatal hernia, duodenal AVMCapsule enteroscop y 02/08/2021 : No lesion in small bowel Dr De Souza 05/22/2022 , 05/23/2023 , was told no more apts needed and has declined any apts today 02/10/2024 Chronic ob structive pulmonary disease 95000763 J44.9 S/p D/c on 06/03/2021 LDCT 09/06/2019 s/p PFT 07/23/2021 S/p ECHO 07/17/2021 , EF 55%S/p CT angio 05/31/2021 in ER for SOB, spiculated nodule, mananged by pulmonaryS /p CT chest 09/03/2021 On albuterol Sherri THOMPSON budesonide HHNOn breoOn O2 4LOn dalirespOn spirivaOn flonase Seen Harvey Marvin Moderate r ecurrent major depression 98475196 F33.1 On sertraline 100mg dailyOn buspirone Sees psychiatry Dr Burt suicidal or homcidial Hypothyroidism 22485644 E03.9 On levothyrox ine 100mcgs daily Does wellGet labs Gastroesop hageal reflux disease without esophagitis 808625665 K21.9 On omeprazole 20mg daily PRNTake as needed Migraine 36826629 G43.90 9 On amitryptyl ineDoes well on this Low back pain 376836454 M54.[address] Hartman On oxycodone 5/325mg bidOn naoloxoneO n tizanidine Liver enzy mes level above reference range 546061849 R74.01 GGT 49 09/09/19He patitis panel: Neg 01/19/2020 : Dr Suero, get fibroscan f/u in [address] SueroLD T did show hepatomega ly on 09/07/2020 US liver 10/30/2023 : Hepatomega lyLFTs WNL 02/09/2024 , does not want to see Dr Suero, wants to just do the labs Vitamin D deficiency 347 12939 E55.9 On vit d daily, check the vit d level, get on vit d weekly and repeat the vit d level Abrasion o f skin of left elbow region 4355647986 3574021 S50.312A S/p fall 2 days ago, tripped on a concrete block in the parking lot, skin abrasion on the L elbow and the L knee, knee is healed but L elbow skin is red and tender, will start on keflex, she has taken keflex in the past, notify if not better, ER if worseGet Tdap at the pharmacy [id number] Bettina lange MD [facility] [address] [facility], [facility] [address] [place] [address] 06/08/2024 11:01:54 06/08/2024 11:41:51 Screening - NAD 305386003 Z13.9 C-scope: Dr. Vu 2013 and was [...] am: 09/27/2022 : NegMammogr am: 09/29/2023 : Neg PAP: Dr Salguero and was told it was negativeDI d see Sherrie Oh [employer] 08/31/2020 DEXA: 09/27/2022 : neg UTD on flu shots 07/31/2020 UTD on pneumonia shotGet TdapCan do shingles vaccineUTD COVID 19 vaccineCan do RSV vaccine RTC in 3 monthsGet labsER if any [...] started Dr Kemp 03/23/2021 On magnesium Sees [facility] Dr Kemp, referred 02/10/2024 , 06/08/2024 Hyperlipidemia 11179831 E78.5 On atorvastat in 40mg daily, used to be on pravastati n in the past More diet is neededCan do vascepa, she has declined this 06/13/2022 , states that she does not want to take more 'pills'Get labs Type 2 vonda betes mellitus without complication 071967446 E11.9 On metformin 500mg bidGet labs Chronic ki dney disease 975221362 N18.[address] Hayward, no more apts as per her history 06/19/2023 Anemia 639079552 D64.9 S/p EGD/C-scop e: Dr Montez De Souza hematology 05/22/2021 : C-scope 01/24/2021 : Colonic polyps, diverticul osis, internal hhoidsEGD: 01/24/2021 : Hiatal hernia, duodenal AVMCapsule enteroscop y 02/08/2021 : No lesion in small bowel Dr De Souza 05/22/2022 , 05/23/2023 , was told no more apts needed and has declined any apts today 02/10/2024 Chronic ob structive pulmonary disease 74877191 J44.9 S/p D/c on 06/03/2021 LDCT 09/06/2019 s/p PFT 07/23/2021 S/p ECHO 07/17/2021 , EF 55%S/p CT angio 05/31/2021 in ER for SOB, spiculated nodule, mananged by pulmonaryS /p CT chest 09/03/2021 On albuterol Sherri THOMPSON budesonide HHNOn breoOn O2 4LOn dalirespOn spirivaOn flonase Seen Harvey Marvin Moderate r ecurrent major depression 48300376 F33.1 On sertraline 100mg dailyOn buspirone Sees psychiatry Dr Burt suicidal or homcidial Hypothyroidism 37176124 E03.9 On levothyrox ine 100mcgs daily Does wellGet labs Gastroesop hageal reflux disease without esophagitis 964779843 K21.9 On omeprazole 20mg daily PRNTake as needed Migraine 37948189 G43.90 9 On amitryptyl ineDoes well on this Low back pain 888692654 M54.[address] Hartman On oxycodone 5/325mg bidOn naoloxoneO n tizanidine Liver enzy mes level above reference range 170073192 R74.01 GGT 49 09/09/19He patitis panel: Neg 01/19/2020 : Dr Suero, get fibroscan f/u in [address] Bowman T did show hepatomega ly on 09/07/2020 US liver 10/30/2023 : Hepatomega lyLFTs WNL 02/09/2024 , does not want to see Dr Suero, wants to just do the labs Vitamin D deficiency 347 73894 E55.9 On vit d daily, check the vit d level, get on vit d weekly and repeat the vit d level Abrasion o f skin of left elbow region 7032439813 9668047 S50.312A S/p fall 2 days ago, tripped on a concrete block in the parking lot, skin abrasion on the L elbow and the L knee, knee is healed but L elbow skin is red and tender, will start on keflex, she has taken keflex in the past, notify if not better, ER if worseGet Tdap at the pharmacy Screening mammography 24 956689 Z12.31 Screening for osteoporosis 905815934 Z13.820 Nausea 762633007 R11.0 None now, but she has taken zofran in the past, will renew as per her request 06/08/2024 [id number] Bettina lange MD [facility] [address] [place] [address] 10/04/2024 16:17:57 10/04/2024 17:30:51 Screening - NAD 285602747 Z13.9 C-scope: Dr. Vu 2013 and was [...] am: 09/27/2022 : NegMammogr am: 09/29/2023 : Neg PAP: Dr Salguero and was told it was negativeDI d see Sherrie Oh [employer] IN[employer] 08/31/2020 DEXA: 09/27/2022 : neg UTD on flu shots 07/31/2020 UTD on pneumonia shotGet TdapCan do shingles vaccineUTD COVID 19 vaccineCan do RSV vaccine RTC in 3 monthsGet labsER if any [...] started Dr Kemp 03/23/2021 On magnesium Sees [facility] Dr Kemp, referred 02/10/2024 , 06/08/2024 Hyperlipidemia 56549632 E78.5 On atorvastat in 40mg daily, used to be on pravastati n in the past More diet is neededCan do vascepa, she has declined this 06/13/2022 , states that she does not want to take more 'pills'Get labs Type 2 vonda betes mellitus without complication 833505237 E11.9 On metformin 500mg bidGet labs Chronic ki dney disease 312544211 N18.[address] Hayward, no more apts as per her history 06/19/2023 Anemia 755248827 D64.9 S/p EGD/C-scop e: Dr Montez De Souza hematology 05/22/2021 : C-scope 01/24/2021 : Colonic polyps, diverticul osis, internal hhoidsEGD: 01/24/2021 : Hiatal hernia, duodenal AVMCapsule enteroscop y 02/08/2021 : No lesion in small bowel Dr De Souza 05/22/2022 , 05/23/2023 , was told no more apts needed and has declined any apts today 02/10/2024 Chronic ob structive pulmonary disease 46958952 J44.9 S/p D/c on 06/03/2021 LDCT 09/06/2019 s/p PFT 07/23/2021 S/p ECHO 07/17/2021 , EF 55%S/p CT angio 05/31/2021 in ER for SOB, spiculated nodule, mananged by pulmonaryS /p CT chest 09/03/2021 On albuterol Sherri THOMPSON budesonide HHNOn breoOn O2 4LOn dalirespOn spirivaOn flonaseOn levqauin given by Harvey Alcantar [employer] 09/28/2024 , for a cough, today 10/04/2024 states that she is doing much better Seen Harvey Marvin Moderate r ecurrent major depression 40543260 F33.1 On sertraline 100mg dailyOn buspirone Sees psychiatry Dr Burt suicidal or homcidial Hypothyroidism 62486829 E03.9 On levothyrox ine 100mcgs daily Does wellGet labs Gastroesop hageal reflux disease without esophagitis 891322251 K21.9 On omeprazole 20mg daily PRNTake as needed Migraine 99634647 G43.90 9 On amitryptyl ineDoes well on this Low back pain 871993506 M54.[address] Hartman On oxycodone 5/325mg bidOn naoloxoneO n tizanidine Liver enzy mes level above reference range 596875442 R74.01 GGT 49 09/09/19He patitis panel: Neg 01/19/2020 : Dr Suero, get fibroscan f/u in [address] [facility] ly on 09/07/2020 US liver 10/30/2023 : Hepatomega lyLFTs WNL 02/09/2024 , Does not want to see Dr Suero, wants to just do the labs 10/04/2024 Vitamin D deficiency 347 62522 E55.9 On vit d daily, check the vit d level, get on vit d weekly and repeat the vit d level Abrasion o f skin of left elbow region 5637793517 1516470 S50.312A S/p fall 2 days ago, tripped on a concrete block in the parking lot, skin abrasion on the L elbow and the L knee, knee is healed but L elbow skin is red and tender, will start on keflex, she has taken keflex in the past, notify if not better, ER if worseGet Tdap at the pharmacy Screening mammography 24 994149 Z12.31 Screening for osteoporosis 874776188 Z13.820 Nausea 599332064 R11.0 None now, but she has taken zofran in the past, will renew as per her request 06/08/2024 [id number] Bettina lange MD [facility] [address] [facility] [place] [address] 02/01/2025 14:41:00 02/01/2025 15:40:38 Screening - NAD 379796311 Z13.9 C-scope: Dr. Vu 2013 and was [...] and was told it was negativeDI d sc[facility] [employer] 08/31/2020 DEXA: 09/27/2022 : neg UTD on flu shots 08/17/2024 UTD on [...] started Dr Kemp 03/23/2021 On magnesium Sees [facility] Dr Kemp, referred 02/10/2024 , 06/08/2024 Hyperlipidemia 73814765 E78.5 On atorvastat in 40mg daily, used to be on pravastati n in the past, renewed 02/01/2025 More diet is neededCan do loretta, she has declined this 06/13/2022 , states that she does not want to take more 'pills'Get labs Type 2 vonda betes mellitus without complication 654039613 E11.9 On metformin 500mg bidGet labs Chronic ki dney disease 006173072 N18.[address] Hayward, no more apts as per her history 06/19/2023 Anemia 773792409 D64.9 S/p EGD/C-scop e: Dr Montez De Souza hematology 05/22/2021 : C-scope 01/24/2021 : Colonic polyps, diverticul osis, internal hhoidsEGD: 01/24/2021 : Hiatal hernia, duodenal AVMCapsule enteroscop y 02/08/2021 : No lesion in small bowel Dr De Souza 05/22/2022 , 05/23/2023 , was told no more apts needed and has declined any apts today 02/10/2024 Chronic ob structive pulmonary disease 77507707 J44.9 S/p D/c on 06/03/2021 LDCT 09/06/2019 s/p PFT 07/23/2021 S/p ECHO 07/17/2021 , EF 55%S/p CT angio 05/31/2021 in ER for SOB, spiculated nodule, mananged by pulmonaryS /p CT chest 09/03/2021 On albuterol Sherri THOMPSON budesonide FELYNNot on breoOn O2 4LOn dalirespNo t on spirivaOn flonaseOn breztri Seen Harvey Marvin Moderate r ecurrent major depression 04715934 F33.1 On sertraline 100mg dailyOn buspirone Sees psychiatry Dr Burt suicidal or homcidial Hypothyroidism 62896509 E03.9 On levothyrox ine 100mcgs daily, renewed 02/01/2025 Does wellGet labs Gastroesop hageal reflux disease without esophagitis 291876572 K21.9 On omeprazole 20mg daily PRNTake as needed Migraine 86474095 G43.90 9 On amitryptyl ineDoes well on this Low back pain 664546474 M54.[address] Hartman On oxycodone 5/325mg bidOn naoloxoneO n tizanidine Liver enzy mes level above reference range 467088145 R74.01 GGT 49 09/09/19He patitis panel: Neg 01/19/2020 : Dr Suero, get fibroscan f/u in [address] SueroLD T did show hepatomega ly on 09/07/2020 US liver 10/30/2023 : Hepatomega lyLFTs WNL 02/09/2024 , Does not want to see Dr Suero, wants to just do the labs 10/04/2024 Vitamin D deficiency 347 68811 E55.9 On vit d daily, check the vit d level, get on vit d weekly and repeat the vit d level Nausea 561444688 R11.0 None now, but she has taken zofran in the past, will renew as per her request 06/08/2024 Postmenopausal state 764 34831 Z78.0 Renewal of prescription 963940033 Z76.0 [id number] Bettina alnge MD [facility] Internal [facility] [address] [facility], [facility] [address] [place] [address] 04/19/2025 11:45:42 04/19/2025 12:49:22 Screening - NAD 415362470 Z13.9 C-scope: Dr. Vu 2013 and was [...] it was negativeDI d see Sherrie Oh [employer] IN[employer] 08/31/2020 DEXA: 09/27/2022 : neg UTD on flu shots 08/17/2024 UTD on [...] started Dr Kemp 03/23/2021 On magnesium Sees [facility] Dr Kemp Hyperlipidemia 48665823 E78.5 On atorvastat in 40mg daily, used to be on pravastati n in the past, renewed 02/01/2025 More diet is neededCan do vascepa, she has declined this 06/13/2022 , states that she does not want to take more 'pills'Get labs Type 2 vonda betes mellitus without complication 591047822 E11.9 On metformin 500mg bidGet labs Chronic ki dney disease 124960016 N18.[address] Hayward, no more apts as per her history 06/19/2023 Anemia 186377944 D64.9 S/p EGD/C-scop e: Dr Montez De Souza hematology 05/22/2021 : C-scope 01/24/2021 : Colonic polyps, diverticul osis, internal hhoidsEGD: 01/24/2021 : Hiatal hernia, duodenal AVMCapsule enteroscop y 02/08/2021 : No lesion in small bowel Dr De Souza 05/22/2022 , 05/23/2023 , was told no more apts needed and has declined any apts today 02/10/2024 Chronic ob structive pulmonary disease 64866416 J44.9 S/p D/c on 06/03/2021 LDCT 09/06/2019 s/p PFT 07/23/2021 S/p ECHO 07/17/2021 , EF 55%S/p CT angio 05/31/2021 in ER for SOB, spiculated nodule, mananged by pulmonaryS /p CT chest 09/03/2021 On albuterol DONNA, IOn budesonide HHNNot on breoOn O2 4LOn dalirespNo t on spirivaNot taking flonaseOn breztri Seen Harvey Marvin next apt on 04/2025 Moderate r ecurrent major depression 21046830 F33.1 On sertraline 100mg dailyOn buspirone Sees psychiatry Dr Burt suicidal or homcidial Hypothyroidism 91521207 E03.9 On levothyrox ine 100mcgs daily, renewed 02/01/2025 Does wellGet labs Gastroesop hageal reflux disease without esophagitis 669099906 K21.9 On omeprazole 20mg daily PRNTake as needed Migraine 65159777 G43.90 9 On amitryptyl ineDoes well on this Low back pain 831319263 M54.[address] Hartman On oxycodone 5/325mg bidOn naloxoneOn tizanidine Has noted some nausea, will get on zofran as needed Liver enzy mes level above reference range 464842737 R74.01 GGT 49 09/09/19He patitis panel: Neg 01/19/2020 : Dr Suero, get fibroscan f/u in [address] SueroLD T did show hepatomega ly on 09/07/2020 US liver 10/30/2023 : Hepatomega lyLFTs WNL 02/09/2024 , Does not want to see Dr Suero, wants to just do the labs 10/04/2024 Vitamin D deficiency 347 47217 E55.9 On vit d daily, check the vit d level, get on vit d weekly and repeat the vit d level Nausea 855641929 R11.0 None now, but she has taken zofran in the past, will renew as per her request 06/08/2024 Postmenopausal state 764 14437 Z78.0 Renewal of prescription 061315336 Z76.0 Bilateral chronic pain of upper limbs 0245363154 1531737 M25.511 M25.512 G89.29 94746768 Get an apt with Dr Nery vazquez get labs Pain of mu ltiple joints 70042161 M25.50 286445 Screening for malignant neoplasm of colon 396052864 Z12.11 459906 [id number] Bettina lange MD [facility] [address] [facility] [place] [address] 09/06/2025 13:53:08 09/06/2025 14:35:35 Screening - NAD 594501798 Z13.9 C-scope: Dr. Vu 2013 and was [...] it was negativeDI d see Sherrie Oh [employer] 08/31/2020 DEXA: 09/27/2022 : negDEXA: 08/31/2025 : [...] started Dr Kemp 03/23/2021 On magnesium Sees [facility] Dr Kemp Hyperlipidemia 74011802 E78.5 On atorvastat in 40mg daily, used to be on pravastati n in the past, renewed 02/01/2025 More diet is neededCan do vascepa, she has declined this 06/13/2022 , states that she does not want to take more 'pills'Get labs Type 2 vonda betes mellitus without complication 326202466 E11.9 On metformin 500mg bidGet labs Chronic ki dney disease 003364692 N18.[address] Hayward, no more apts as per her history 06/19/2023 Anemia 802547154 D64.9 S/p EGD/C-scop e: Dr Montez De Souza hematology 05/22/2021 : C-scope 01/24/2021 : Colonic polyps, diverticul osis, internal hhoidsEGD: 01/24/2021 : Hiatal hernia, duodenal AVMCapsule enteroscop y 02/08/2021 : No lesion in small bowel Dr De Souza 05/22/2022 , 05/23/2023 , was told no more apts needed and has declined any apts today 02/10/2024 Chronic ob structive pulmonary disease [id number] J44.9 S/p D/c on 06/03/2021 LDCT 09/06/2019 s/p PFT 07/23/2021 S/p ECHO 07/17/2021 , EF 55%S/p CT angio 05/31/2021 in ER for SOB, spiculated nodule, mananged by pulmonaryS /p CT chest 09/03/2021 On albuterol MD DONNAIOn budesonide HHNNot on breoOn O2 4LOn dalirespNo t on spirivaNot taking flonaseOn breztriOn roflumilas t 500mcgs daily Seen Harvey Marvin next apt on 09/07/2025 Moderate r ecurrent major depression [id number] F33.1 On sertraline 100mg dailyOn buspirone Sees psychiatry Dr Burt suicidal or homcidial Hypothyroidism 95136198 E03.9 On levothyrox ine 100mcgs daily, renewed 02/01/2025 Does wellGet labs Gastroesop hageal reflux disease without esophagitis [id number] K21.9 On omeprazole 20mg daily PRNTake as needed Migraine 05683380 G43.90 9 On amitryptyl ineDoes well on this Low back pain 247077892 M54.[address] Hartman On oxycodone 5/325mg bidOn naloxoneOn tizanidine Has noted some nausea, will get on zofran as needed Liver enzy mes level above reference range [id number] R74.01 GGT 49 09/09/19He patitis panel: Neg 01/19/2020 : Dr Suero, get fibroscan f/u in [address] [facility] 09/07/2020 US liver 10/30/2023 : Hepatomega lyLFTs WNL 02/09/2024 , Does not want to see Dr Suero, wants to just do the labs 10/04/2024 Vitamin D deficiency [id number] 17820 E55.9 On vit d daily, check the vit d level, get on vit d weekly and repeat the vit d level Nausea [id number] R11.0 None now, but she has taken zofran in the past, will renew as per her request 06/08/2024 Bilateral chronic pain of upper limbs [id number] M25.511 M25.512 G89.[id number] Rivas's PA and no more apts nowAlso get labs Screening for malignant neoplasm of colon [id number] Z12.11 [id number] Rheumatoid arthritis of multiple joints 998734421 M05.79 [id number] Get a referral to rhumatolog ist Spoke personally with Dr Ramires has an apt on 09/15/2025 Health Concerns Section Related Observation LastModified by Organization Detai ls LastModified Time None Recorded Concern Status LastModified by Organization Details LastModified Time None Recorded Advance Directives Directive N: Payers Insurance Date Sequence Insurance Name Policy Number Policy Ocasio Covered Member ID Ocasio Member ID Guarantor Name 09/09/2025 1 [facility] (MEDICARE REPLACEMENT/A DVANTAGE - HMO) [id number] Lulu Elam [id number] Lulu Elam Notes Date Note Type Note Provider Name and Address Organization Details Recorded Time 06/08/2024 text/html OV 04/17/17:COPD:LBP:Dep ressive disorder:Hypothyroidi sm:A.fib:RLS: OV [...] that she is doing wellShe did see Harvey Marvin and was put on levaquin and prednisone for bronchitis recently, is doing very well nowPenny has also seen Dr Mabry and Dr [...] did do the labsShe has also seen [facility] Dr Kemp and is now to get a holter OV 06/12/2021:Here for her TCM aptS/p admitted from 05/31-06/03 for COPD exacerbationNot does wellWas treated with dalirespHas an apt with Harvey Reyna [employer] pulmonary OV 08/09/2021:Here for her routine aptShe feels wellShe did do the labs on 07/11/2021he did see Harvey Reyna and now has been referred to [...] today, she did the labs on 06/07/2024 Bettina Zurita MD [address], [place], [address], [place] [facility] 06/08/2024 11:56:43 10/04/2024 text/html OV 04/17/17:COPD:LBP:Dep ressive disorder:Hypothyroidi sm:A.fib:RLS: OV [...] that she is doing wellShe did see Harvey Marvin and was put on levaquin and prednisone for bronchitis recently, is doing very well nowPenny has also seen Dr Mabry and Dr [...] did do the labsShe has also seen HV Dr Kemp and is now to get a holter OV 06/12/2021:Here for her TCM aptS/p admitted from 05/31-06/03 for COPD exacerbationNot does wellWas treated with dalirespHas an apt with Harvey Reyna [employer] pulmonary OV 08/09/2021:Here for her routine aptShe feels wellShe did do the labs on 07/11/2021he did see Harvey Reyna and now has been referred to [...] routine apt, she is doing well today Bettina Zurita MD [address], [place], [address], [place] [facility] 10/04/2024 17:45:13 02/01/2025 text/html OV 04/17/17:COPD:LBP:Dep ressive disorder:Hypothyroidi sm:A.fib:RLS: OV [...] that she is doing wellShe did see Harvey Marvin and was put on levaquin and prednisone for bronchitis recently, is doing very well nowPenny has also seen Dr Mabry and Dr [...] did do the labsShe has also seen [facility] Dr Kemp and is now to get a holter OV 06/12/2021:Here for her TCM aptS/p admitted from 05/31-06/03 for COPD exacerbationNot does wellWas treated with dalirespHas an apt with Harvey Reyna [employer] pulmonary OV 08/09/2021:Here for her routine aptShe feels wellShe did do the labs on 07/11/2021he did see Harvey Reyna and now has been referred to [...] is now on Breztri and has seen Harvey CAMPBELL for her lungs, is done with prednisone, is to see Harvey Reyna [employer] on 02/22/2025 Bettina Zurita MD [address] [facility], [facility] [address], [place], [address], [place] [facility] [employer] [facility] 02/01/2025 15:45:14 04/19/2025 text/html OV 04/17/17:COPD:LBP:Dep ressive disorder:Hypothyroidi sm:A.fib:RLS: OV [...] that she is doing wellShe did see Harvey Marvin and was put on levaquin and prednisone for bronchitis recently, is doing very well nowPenny has also seen Dr Mabry and Dr [...] did do the labsShe has also seen [facility] Dr Kemp and is now to get a holter OV 06/12/2021:Here for her TCM aptS/p admitted from 05/31-06/03 for COPD exacerbationNot does wellWas treated with dalirespHas an apt with Harvey Reyna [employer] pulmonary OV 08/09/2021:Here for her routine aptShe feels wellShe did do the labs on 07/11/2021he did see Harvey Reyna and now has been referred to [...] is now on Breztri and has seen Harvey CAMPBELL for her lungs, is done with prednisone, is to see Harvey Reyna [employer] on 02/22/2025 OV 04/19/2025:Here for her f/u apt, she is c/o kristofer shoulder and wrists and R hipHas seen pain management and she states that she does take the oxycodone but she does only take this once a day Bettina Zurita MD [address] [place] [address], [facility] [address], [place], [address], [facility] [employer] [facility] 05/13/2025 13:49:00 09/06/2025 text/html OV 04/17/17:COPD:LBP:Dep ressive disorder:Hypothyroidi sm:A.fib:RLS: [...] that she is doing wellShe did see Harvey Marvin and was put on levaquin and [...] did do the labsShe has also seen [facility] Dr Kemp and is now to get a holter OV 06/12/2021:Here for her TCM aptS/p admitted from 05/31-06/03 for COPD exacerbationNot does wellWas treated with dalirespHas an apt with Harvey Reyna [employer] pulmonary OV 08/09/2021:Here for her routine aptShe feels wellShe did do the labs on 07/11/2021he did see Harvey Reyna and now has been referred to [...] is now on Breztri and has seen Harvey CAMPBELL for her lungs, is done with prednisone, is to see Harvey Reyna [employer] on 02/22/2025 OV 04/19/2025:Here for her f/u apt, she is c/o kristofer shoulder and wrists and R hipHas seen pain management and she states that she does take the oxycodone but she does only take this once a day OV 09/06/2025: Here for her f/u apt, she is doing well, has done labs, but has not yet seen Harvey Reyna [employer], she is also seeing pain management Bettina Zurita MD [address] [facility], [facility] [address], [place], [address], [place] [facility] 09/07/2025 10:40:10 OBGyn Episode No OBEpisode recorded.
--- OUTSIDE RECORDS SUMMARY | 2025-10-29 21:52 | XMS_ITS | Clinical Summary ---
Author Organization [facility] Tarah Santacruz Address [address] [place] [address] Care Team Providers Care Sales And Support Center Agent Name Role Phone Azar Zurita MD Primary [...] often do you attend chur ch or jain services? More than 4 times per year 01/11/2021 Do you belong to any clubs o r organizations such as jainism groups, unions, fraternal or athletic groups, or [...] Relevant to Health Maintenance Insurance Care Teams Sales And Support Center Agent Relationship Specialty Start Date End Date Azar Zurita MD PCP - General Internal Medicine 01/11/21
[2025-10-29] MEDS: BACITRACIN OINTMENT 15 GM TUBE 1 APPLIC TOPICAL (22:41)
[2025-10-29] MEDS: LORazepam (*CRX) 1 MG TABLET PO (22:41)
[2025-10-29] MEDS: ONDANSETRON HCL ODT 4 MG TABLET PO (22:41)
[2025-10-29 22:42] VITALS: BP 122/68; PULSE 128; RESP 20; TEMP 37; O2SAT 96
== END 2025-10-29 22:44 | disposition home or self-care (01) ==
PROVIDERS: Emergency Provider Emergency Medicine; PCP Internal Medicine
DX: T41.5X1A Poisoning by therapeutic gases, accidental (unintentional), initial encounter (principal); T27.6XXA Corrosion of other parts of respiratory tract, initial encounter; T20.14XA Burn of first degree of nose (septum), initial encounter; T20.12XA Burn of first degree of lip(s), initial encounter; T31.0 Burns involving less than 10% of body surface; J96.11 Chronic respiratory failure with hypoxia; Z99.81 Dependence on supplemental oxygen; J44.9 Chronic obstructive pulmonary disease, unspecified; I48.0 Paroxysmal atrial fibrillation; E11.22 Type 2 diabetes mellitus with diabetic chronic kidney disease; N18.30 Chronic kidney disease, stage 3 unspecified; E03.9 Hypothyroidism, unspecified; F41.9 Anxiety disorder, unspecified; F32.A Depression, unspecified; Z86.0100 Personal history of colon polyps, unspecified; Z87.891 Personal history of nicotine dependence; Z79.899 Other long term (current) drug therapy; Z79.84 Long term (current) use of oral hypoglycemic drugs; Z79.82 Long term (current) use of aspirin; X14.0XXA Inhalation of hot air and gases, initial encounter
CPT/HCPCS: 99283; A9270